=== PATIENT | female | born 1955 | race Caucasian/White ===

== ENCOUNTER 2016-04-27 13:42 | Emergency (ER) ==
[2016-04-27 13:56] VITALS: BP 136/84; TEMP 99.5; BMI 18.4
--- NOTE | 2016-04-27 14:42 | ED.PDOC ---
General ED Provider: Dr. MACARIO ACEVEDO JR Chief Complaint: Respiratory Complaint Stated Complaint: Prod cough x 1 week. Feels "blah." Ears hurt, nasal congestion , sore throat. No appetite. Instructed to take Boost supplement. Smokes less than 1/2 pack cigarettes dly. [ End ]99.5 101 20 91% 136/84 810 Time Seen by Physician: 14:50 Mode of Arrival: Wheelchair Information Source: Patient, Family Exam Limitations: No limitations Primary Care Provider: TANGELA POTTER Nursing and Triage Documentation Reviewed and Agree: No Review of Systems - Review Of Systems Constitutional: Reports: No symptoms Eyes: Reports: No symptoms Ears, Nose, Mouth, Throat: Reports: No symptoms Respiratory: Reports: Cough, Short of air Cardiac: Reports: No symptoms GI: Reports: No symptoms : Reports: No symptoms Musculoskeletal: Reports: No symptoms Skin: Reports: No symptoms Neurological: Reports: No symptoms Endocrine: Reports: No symptoms Hematologic/Lymphatic: Reports: No symptoms All Other Systems: Other Past Medical History - Past Medical History Previously Healthy: No Endocrine: Reports: None Cardiovascular: Reports: Hypertension Respiratory: Reports: COPD Hematological: Reports: Anemia Gastrointestinal: Reports: None Genitourinary: Reports: None Neuro/Psych: Reports: Anxiety, Depression Musculoskeletal: Reports: None Cancer: Reports: None Last Menstrual Period: hysterectomy - Surgical History General Surgical History: Reports: Hysterectomy, (X4), Tonsillectomy, Adenoidectomy, Orthopedic (TOES, KNEE, HAND), Back Surgery (L4 fracture 10/09, ) , Other (EYES-BILATERAL CATARACTS). Denies: CABG (ANGIOPLAST 07/07/15) - Family History Family History: Reports: None - Social History Smoking Status: Current every day smoker, Light tobacco smoker Hx Substance Use: No Alcohol Screening: None Physical Exam - Physical Exam Appearance: Ill-appearing, Thin, Cachectic Ill-appearing: Moderate Pain Distress: Moderate Eyes: INGRID, EOMI, Conjunctiva clear ENT: Ears normal, Nose normal, Oropharynx normal Neck: Supple Respiratory: Airway patent, Breath sounds diminished, Rhonchi Cardiovascular: RRR, Pulses normal, No rub, No murmur GI/: Soft, Nontender, No masses, Bowel sounds normal, No Organomegaly Musculoskeletal: Normal strength, ROM intact, No edema, No calf tenderness Skin: Warm, Dry, Normal color Neurological: Sensation intact, Motor intact, Reflexes intact, Cranial nerves intact, Alert, Oriented Psychiatric: Affect appropriate, Mood appropriate Critical Care Note - Critical Care Note Total Time (mins): 0 Course - Course Hematology/Chemistry: 04/27/16 15:02 04/27/16 15:02 Orders, Labs, Meds: Lab Review 04/27/16 04/27/16 14:45 15:02 WBC 8.91 RBC 4.53 Hgb 13.9 Hct 38.9 MCV 85.9 MCH 30.7 MCHC 35.7 H RDW Coeff of [place] 12.6 Plt Count 167 Immature Gran % (Auto) 0.2 Neut % (Auto) 67.4 Lymph % (Auto) 17.3 [place] % (Auto) 11.4 H Eos % (Auto) 3.4 Baso % (Auto) 0.3 Immature Gran # (Auto) 0.0 Neut # 6.0 Lymph # 1.5 [place] # 1.0 Eos # 0.3 Baso # 0.0 D-Dimer 0.43 Sodium 131 L Potassium 3.4 L Chloride 93 L Carbon Dioxide 27 Anion Gap 14.4 BUN 2 L Creatinine 0.53 L Estimated GFR (MDRD) 117.00 BUN/Creatinine Ratio 3.77 Glucose 107 Calcium 9.2 Total Bilirubin 0.28 AST 14 L ALT 6 L Alkaline Phosphatase 81 Total Protein 6.6 Albumin 3.2 L Globulin 3.4 Albumin/Globulin Ratio 0.94 Influenza A (Rapid) Negative Influenza B (Rapid) Negative Orders Category Date Time Status BLOOD CULTURE Stat LAB 04/27/16 15:02 Received CBC W/ AUTO DIFF Stat LAB 04/27/16 15:02 Completed COMPREHENSIVE METABOLIC PANEL Stat LAB 04/27/16 15:02 Completed D-DIMER Stat LAB 04/27/16 15:02 Completed FLU A & B RAPID TEST [RAPID FLU A/B] Stat LAB 04/27/16 14:45 Completed MOLECULAR GROUP A STREP Stat LAB 04/27/16 14:45 Results SPUTUM CULTURE Stat LAB 04/27/16 15:37 Ordered STREP SCREEN Stat LAB 04/27/16 14:45 Results CHEST, 2 VIEWS PA & LAT Stat RADS 04/27/16 14:49 Completed Vital Signs: Temp Pulse Resp BP Pulse Ox 04/27/16 13:43 99.5 F 101 H 20 136/84 91 L Departure - Departure Time of Disposition: 15:45 Disposition: HOME SELF-CARE Discharge Problem: COPD exacerbation Instructions: COPD (Chronic Obstructive Pulmonary Disease) (ED), Chronic Lung Disease and Infection Prevention (ED) Condition: Fair Pt referred to PMD for follow-up: Yes Additional Instructions: DOXYCYCLINE ANTIBIOTIC UNTIL GONE TAKE ANTIBIOTIC WITH FOOD AVOID SUN AND TANNING BEDS ROBITUSSIN WITH CODEINE (OR ROBITUSSIN DM) FOR COUGH RECHECK PMD ONE WEEK SOONER IF WORSE RETURN IF FEVER OVER 101.0 Prescriptions: Doxycycline Monohydrate [Monodox] 100 mg PO BID #20 capsule Guaifenesin/Codeine Phosphate [Robitussin AC Syrup] 10 ml PO Q6H PRN #240 ml PRN Reason: Cough Prednisone 20 mg PO DIRECTED #50 tablet Allergies/Adverse Reactions: Allergies acetaminophen [From Tylox] Adverse Reaction (Verified 12/05/15 00:27) Iodinated Contrast Media - Oral and [Iodinated Contrast Media - IV Dye] Adverse Reaction (Verified 12/05/15 00:44) Swelling Penicillins Adverse Reaction (Verified 12/05/15 00:27) Sulfa (Sulfonamide Antibiotics) Adverse Reaction (Verified 12/05/15 00:27) Home Medications: Ambulatory Orders Albuterol Sulfate [Proair Hfa] 2 inh PO Q4H PRN 08/21/13 Levetiracetam [Keppra] 500 mg PO BEDTIME 08/21/13 Oxybutynin Chloride [Ditropan Xl] 5 mg PO TID 08/21/13 Latanoprost [Xalatan] 1 drop OP BEDTIME 02/16/14 Atorvastatin Calcium 10 mg PO DAILY 07/24/15 Clopidogrel Bisulfate [Plavix] 75 mg PO DAILY 07/24/15 Ipratropium/Albuterol Sulfate [Combivent Respimat Inhal [place]] 1 puff IH BID Latanoprost [Xalatan] 1 drop RIGHTEYE BEDTIME 07/24/15 Sertraline HCl [Zoloft] 50 mg PO DAILY 07/24/15 Divalproex Sodium [Depakote] 500 mg PO BID 12/05/15 Docusate Sodium [Colace] 100 mg PO DAILY 12/05/15 Linaclotide [Linzess] 145 mcg PO DAILY 12/05/15 Oxycodone-Acetaminophen 5-325 [Percocet 5-325] 5 - 325 mg PO Q6H PRN 12/05/15 Tiotropium Br/Olodaterol HCl [Stiolto Respimat Inhal [place]] 4 gm IH DAILY Doxycycline Monohydrate [Monodox] 100 mg PO BID #20 capsule 04/27/16 Guaifenesin/Codeine Phosphate [Robitussin AC Syrup] 10 ml PO Q6H PRN #240 ml 04/12 Prednisone 20 mg PO DIRECTED #50 tablet 04/27/16
[2016-04-27 15:05] LABS: FLU INTERNAL QC INTERNAL QC VALID; RAPID FLU A NEGATIVE (NEGATIVE); RAPID FLU B NEGATIVE (NEGATIVE)
[2016-04-27 15:06] LABS: BASOPHILS % (AUTO) 0.3 % (0.0-3.0); EOSINOPHILS # (AUTO) 0.3 K/ul (0.0-0.7); EOSINOPHILS % (AUTO) 3.4 % (0.0-7.0); HEMATOCRIT 38.9 % (37.0-47.0); HEMOGLOBIN 13.9 g/dl (12.0-16.0); IMMATURE GRANULOCYTE % (AUTO) 0.2 % (0.0-5.0); LYMPHOCYTES # (AUTO) 1.5 K/uL (0.60-3.4); LYMPHOCYTES % (AUTO) 17.3 (10.0-50.0); MEAN CORPUSCULAR HEMOGLOBIN 30.7 pg (27.0-31.0); MEAN CORPUSCULAR HGB CONC 35.7 (31.8-35.4); MEAN CORPUSCULAR VOLUME 85.9 fl (81.0-99.0); MONOCYTES % (AUTO) 11.4 (0-10); NEUTROPHILS % (AUTO) 67.4; PLATELET COUNT 167 10^3/uL (140-440); RED BLOOD COUNT 4.53 10^6/ul (4.20-5.40); WHITE BLOOD COUNT 8.91 K/ul (4.6-10.2)
--- NOTE | 2016-04-27 15:26 | DI ---
EXAM: CHEST FRONTAL AND LATERAL VIEWS HISTORY: Cough with yellow sputum, chronic obstructive pulmonary disease. COMPARISON: 08/19/2015 FINDINGS: Normal heart size. Significant hyperinflation. Diffuse chronic-appearing interstitial c hanges. Biapical irregular pleuroparenchymal thickening appears grossly stable. There are scattered calcifications suggesting old granulomatous disease. No acute infiltrates are seen. There is no c onsolidation, visible pleural fluid or pneumothorax. Bones reveal no acute fracture. IMPRESSION: 1. Findings suggestive of moderately severe chronic obstructive pulmonary disease. No definite con solidated pneumonia although managing the patient on a clinical basis is recommended. 2. Biapical irregular pleuroparenchymal thickening would be most consistent with fibrosis in this s etting.]
[2016-04-27 15:32] LABS: ALBUMIN 3.2 g/dL (3.4-5.0); ALBUMIN/GLOBULIN RATIO 0.94; ANION GAP 14.4; BILIRUBIN,TOTAL 0.28 mg/dL (0.00-1.20); BUN/CREATININE RATIO 3.77; CALCIUM 9.2 mg/dL (8.2-10.2); CREATININE 0.53 mg/dL (0.60-1.30); POTASSIUM 3.4 mmol/L (3.5-5.10); TOTAL PROTEIN 6.6 g/dL (5.8-8.1)
== END 2016-04-27 15:50 | disposition home or self-care (01) ==
LOC: ED 13:42
DX: J44.1 Chronic obstructive pulmonary disease with (acute) exacerbation (principal); F17.210 Nicotine dependence, cigarettes, uncomplicated; I10 Essential (primary) hypertension; Z79.899 Other long term (current) drug therapy
CPT/HCPCS: 36415; 80053; 85025; 85379; 87040; 87070; 87077; 87186; 87651; 87804; 87880; 99283

== ENCOUNTER 2017-03-21 22:35 | Emergency (ER) ==
[2017-03-21] MEDS ORDERED: LIDOCAINE HCL 1% SDV SUBCUT STA (22:36)
[2017-03-21] MEDS ORDERED: BACTROBAN TP STA (22:40)
--- NOTE | 2017-03-21 22:43 | ED.PDOC ---
General ED Provider: Dr. MANJU ALEXANDER-ER Chief Complaint: Abrasion Stated Complaint: she was scratched by her dog on her hand Time Seen by Physician: 22:41 Mode of Arrival: Walk-In Information Source: Patient, Family Exam Limitations: No limitations Nursing and Triage Documentation Reviewed and Agree: Yes Reviewed sepsis parameters & appropriate labs ordered?: Yes System Inflammatory Response Syndrome: Not Applicable Sepsis Protocol: For patient's 13 years and over: Temp is 96.8 and below OR 101 and greater Pulse >90 BPM Resp >20/minute Acutely Altered Mental Status Are patient's symptoms suggestive of a new infection, such as: -Pneumonia -Skin, Soft Tissue -Endocarditis -UTI -Bone, Joint Infection -Implantable Device -Acute Abdominal Infection -Wound Infection -Meningitis -Blood Stream Catheter Infection -Unknown Review of Systems - Review Of Systems Constitutional: Reports: No symptoms Eyes: Reports: No symptoms Ears, Nose, Mouth, Throat: Reports: No symptoms Respiratory: Reports: No symptoms Cardiac: Reports: No symptoms GI: Reports: No symptoms : Reports: No symptoms Musculoskeletal: Reports: No symptoms Skin: Reports: Other Neurological: Reports: No symptoms Endocrine: Reports: No symptoms Hematologic/Lymphatic: Reports: No symptoms All Other Systems: Reviewed and Negative Past Medical History - Past Medical History Previously Healthy: No Endocrine: Reports: None Cardiovascular: Reports: Hypertension Respiratory: Reports: COPD Hematological: Reports: Anemia Gastrointestinal: Reports: None Genitourinary: Reports: None Neuro/Psych: Reports: Anxiety, Depression Musculoskeletal: Reports: None Cancer: Reports: None Other Pertinent Past Medical History: TOES, KNEE, TONSILLS/ADENOIDS, X 4, EYES, HAND, - Surgical History General Surgical History: Reports: Hysterectomy, (X4), Tonsillectomy, Adenoidectomy, Orthopedic (TOES, KNEE, HAND), Back Surgery (L4 fracture 10/09, ) , Other (EYES-BILATERAL CATARACTS). Denies: CABG (ANGIOPLAST 07/07/15) - Family History Family History: Reports: None - Social History Smoking Status: Current every day smoker, Light tobacco smoker Hx Substance Use: No Alcohol Screening: None Lives: With family Physical Exam - Physical Exam Appearance: Well-appearing, No pain distress, Well-nourished Pain Distress: Mild Eyes: INGRID, EOMI, Conjunctiva clear ENT: Ears normal, Nose normal, Oropharynx normal Neck: Supple Respiratory: Airway patent, Breath sounds clear, Breath sounds equal, Respirations nonlabored Cardiovascular: RRR, Pulses normal, No rub, No murmur GI/: Soft, Nontender, No masses, Bowel sounds normal, No Organomegaly Musculoskeletal: Normal strength Skin: Warm, Dry (she has a 3cm linear abrasion on the dorsum of the left hand) Neurological: Sensation intact Psychiatric: Affect appropriate Critical Care Note - Critical Care Note Total Time (mins): 0 Course - Course Orders, Labs, Meds: Orders Category Date Time Status Wound care [ED WOUND CARE] .ONCE EMERGENCY 03/21/17 22:39 Active Mupirocin [Bactroban] MEDS 03/21/17 22:40 Stat 1 applic TP ONCE STA Medications Generic Name Dose Route Start Last Admin Trade Name Freq PRN Reason Stop Dose Admin Mupirocin 1 applic 03/21/17 22:40 Bactroban TP 03/21/17 22:41 ONCE STA Departure - Departure Time of Disposition: 22:42 Disposition: HOME SELF-CARE Discharge Problem: Abrasion Instructions: Steristrips (ED) Condition: Good Pt referred to PMD for follow-up: Yes Additional Instructions: keep wound clean and dry--wash with soap and water daily and apply bactroban ointment till healed Allergies/Adverse Reactions: Allergies acetaminophen [From Tylox] Adverse Reaction (Verified 12/05/15 00:27) Iodinated Contrast- Oral and IV Dye [Iodinated Contrast Media - IV Dye] Adverse Reaction (Verified 12/05/15 00:44) Swelling Penicillins Adverse Reaction (Verified 12/05/15 00:27) Sulfa (Sulfonamide Antibiotics) Adverse Reaction (Verified 12/05/15 00:27) Home Medications: Ambulatory Orders Albuterol Sulfate [Proair Hfa] 2 inh PO Q4H PRN 08/21/13 Levetiracetam [Keppra] 500 mg PO BEDTIME 08/21/13 Oxybutynin Chloride [Ditropan Xl] 5 mg PO TID 08/21/13 Latanoprost [Xalatan] 1 drop OP BEDTIME 02/16/14 Atorvastatin Calcium 10 mg PO DAILY 07/24/15 Clopidogrel Bisulfate [Plavix] 75 mg PO DAILY 07/24/15 Ipratropium/Albuterol Sulfate [Combivent Respimat Inhal [place]] 1 puff IH BID Latanoprost [Xalatan] 1 drop RIGHTEYE BEDTIME 07/24/15 Sertraline HCl [Zoloft] 50 mg PO DAILY 07/24/15 Divalproex Sodium [Depakote] 500 mg PO BID 12/05/15 Docusate Sodium [Colace] 100 mg PO DAILY 12/05/15 Linaclotide [Linzess] 145 mcg PO DAILY 12/05/15 Oxycodone-Acetaminophen 5-325 [Percocet 5-325] 5 - 325 mg PO Q6H PRN 12/05/15 Tiotropium Br/Olodaterol HCl [Stiolto Respimat Inhal [place]] 4 gm IH DAILY Doxycycline Monohydrate [Monodox] 100 mg PO BID #20 capsule 04/27/16 Guaifenesin/Codeine Phosphate [Robitussin AC Syrup] 10 ml PO Q6H PRN #240 ml 04/12 Prednisone 20 mg PO DIRECTED #50 tablet 04/27/16 Disposition Discussed With: Patient, Family
[2017-03-21 22:51] VITALS: BP 150/88; TEMP 97.5; BMI 19.5
[2017-03-21] MEDS ORDERED: BACTROBAN OINTMENT 1 GRAM APPLICATOR TP ONE (22:57)
== END 2017-03-21 23:29 | disposition home or self-care (01) ==
LOC: ED 22:35
DX: S60.512A Abrasion of left hand, initial encounter (principal); F17.210 Nicotine dependence, cigarettes, uncomplicated; W54.8XXA Other contact with dog, initial encounter
CPT/HCPCS: 99283

== ENCOUNTER 2017-05-06 22:06 | Outpatient (CLI) ==
[2017-05-07 02:37] VITALS: BMI 17.6
== END 2017-05-06 22:07 | disposition critical access hospital (66) ==
LOC: AMBL 22:06
PROVIDERS: ATTEND Emergency Medicine
DX: R06.02 Shortness of breath (principal); J44.9 Chronic obstructive pulmonary disease, unspecified

== ENCOUNTER 2017-05-06 22:20 | Inpatient (IN) ==
[2017-05-06] MEDS ORDERED: SOLU-MEDROL 125 MG IVP STA (22:35)
[2017-05-06] MEDS ORDERED: DUONEB NEB STA (22:35)
--- NOTE | 2017-05-07 | ED.PDOC ---
General ED Provider: Dr. ALEXX ZAMORA Chief Complaint: Shortness of Air Stated Complaint: Been coughing, congested, getting yellow sputum,. home health took o2 2lit away, she got more worse. Time Seen by Physician: 22:20 Mode of Arrival: Ambulance Information Source: Patient Nursing and Triage Documentation Reviewed and Agree: Yes Reviewed sepsis parameters & appropriate labs ordered?: Yes System Inflammatory Response Syndrome: Pulse >90 BPM, Resp >20/Minute Sepsis Protocol: For patient's 13 years and over: Temp is 96.8 and below OR 101 and greater Pulse >90 BPM Resp >20/minute Acutely Altered Mental Status Are patient's symptoms suggestive of a new infection, such as: -Pneumonia -Skin, Soft Tissue -Endocarditis -UTI -Bone, Joint Infection -Implantable Device -Acute Abdominal Infection -Wound Infection -Meningitis -Blood Stream Catheter Infection -Unknown Respiratory Complaint Exam - Shortness of Air Complaint/Exam Symptoms Are: Still present Timing: Constant Initial Severity: Moderate Current Severity: Moderate Character: Reports: Dyspnea at rest, Dyspnea on exertion Aggravating: Reports: Allergens Alleviating: Reports: None Associated Signs and Symptoms: Reports: Cough, Wheezing, Nasal congestion. Denies: Chest pain with cough, Chest pain, Fever, Chills, Diaphoresis, Dizziness , Calf pain, Calf swelling, Edema, Rapid breathing, Labored breathing, Decreased intake Related History: Reports: Similar episode History of Healthcare-Acquired Pneumonia: No Pulmonary Embolism Risk Factors: Reports: None Cardiac Risk Factors: Reports: None Pseudomonas Risk Factors: Reports: None Tuberculosis Risk Factors: Reports: None Home Peak Flow: Recent personal best Recent Stress Test: No Recent Echo/LV Function: No Respiratory Distress: Mild Stridor Present: No Tracheal Deviation: No Subcutaneous Emphysema: No Accessory Muscle Use: Yes Retractions: Nasal Flaring Diminished Breath Sounds: No Prolonged Expiratory Phase: Yes Unable to Speak Full Sentences: Yes Fatigue: No Leg Swelling: No Patrica's Sign Present: No Grunting Respirations: No Kussmaul Respirations: No Differential Diagnoses: CHF, COPD Exacerbation, Pneumonia Review of Systems - Review Of Systems Constitutional: Reports: Malaise, Weakness Eyes: Reports: No symptoms Ears, Nose, Mouth, Throat: Reports: No symptoms Respiratory: Reports: Cough, Orthopnea, Short of air Cardiac: Reports: No symptoms GI: Reports: No symptoms : Reports: No symptoms Musculoskeletal: Reports: No symptoms Skin: Reports: No symptoms Neurological: Reports: No symptoms Endocrine: Reports: No symptoms Hematologic/Lymphatic: Reports: No symptoms All Other Systems: Reviewed and Negative Past Medical History - Past Medical History Previously Healthy: No Endocrine: Reports: None Cardiovascular: Reports: Hypertension Respiratory: Reports: COPD Hematological: Reports: Anemia Gastrointestinal: Reports: None Genitourinary: Reports: None Neuro/Psych: Reports: Anxiety, Depression Musculoskeletal: Reports: None Cancer: Reports: None Last Menstrual Period: UNKNOWN Other Pertinent Past Medical History: TOES, KNEE, TONSILLS/ADENOIDS, X 4, EYES, HAND, - Surgical History General Surgical History: Reports: Hysterectomy, (X4), Tonsillectomy, Adenoidectomy, Orthopedic (TOES, KNEE, HAND), Back Surgery (L4 fracture 10/09, ) , Other (EYES-BILATERAL CATARACTS). Denies: CABG (ANGIOPLAST 07/07/15) - Family History Family History: Reports: None - Social History Smoking Status: Current every day smoker, Light tobacco smoker Smoking Cessation Counseling Time: > 10 min Hx Substance Use: No Alcohol Screening: None - Immunizations Tetanus Shot up to Date: (UNKNOWN) Physical Exam - Physical Exam Appearance: Ill-appearing, Thin Ill-appearing: Moderate Eyes: EOMI, Conjunctiva clear ENT: Ears normal, Nose normal, Oropharynx normal Respiratory: Crackles Cardiovascular: Tachycardia GI/: Soft, Nontender, No masses, Bowel sounds normal, No Organomegaly Musculoskeletal: Normal strength, ROM intact, No edema, No calf tenderness Skin: Warm, Dry, Normal color Neurological: Sensation intact, Motor intact, Reflexes intact, Cranial nerves intact, Alert, Oriented Psychiatric: Affect appropriate, Mood appropriate Critical Care Note - Critical Care Note Total Time (mins): 15 Course - Course Hematology/Chemistry: 05/06/17 22:45 05/06/17 22:45 Orders, Labs, Meds: Lab Review 05/06/17 05/06/17 05/06/17 22:45 22:45 22:45 WBC 10.40 H RBC 4.30 Hgb 13.2 Hct 36.8 L MCV 85.6 MCH 30.7 MCHC 35.9 H RDW Coeff of [place] 12.9 Plt Count 244 Neutrophils % (Manual) 68.0 Lymphocytes % (Manual) 6.0 L Monocytes % (Manual) 26.0 H Anisocytosis Not present Puncture Site O2 Saturation ABG pH ABG pCO2 ABG pO2 ABG HCO3 ABG Total CO2 ABG Base Excess Ray Test FiO2 % Sodium 126 L Potassium 3.1 L Chloride 88 L Carbon Dioxide 26 Anion Gap 15.1 BUN 7 Creatinine 0.51 L Estimated GFR (MDRD) 122.00 BUN/Creatinine Ratio 13.72 Glucose 110 Lactic Acid 13.9 Calcium 9.2 Total Bilirubin 0.6 AST 28 ALT 10 L Alkaline Phosphatase 78 Total Creatine Kinase 98 Troponin I 0.0200 Total Protein 6.6 Albumin 2.5 L Globulin 4.1 Albumin/Globulin Ratio 0.61 Procalcitonin Influenza A (Rapid) Influenza B (Rapid) 05/06/17 05/06/17 05/06/17 22:45 22:50 23:13 WBC RBC Hgb Hct MCV MCH MCHC RDW Coeff of [place] Plt Count Neutrophils % (Manual) Lymphocytes % (Manual) Monocytes % (Manual) Anisocytosis Puncture Site Lb O2 Saturation 85.0 L ABG pH 7.429 ABG pCO2 41.0 ABG pO2 49.0 L* ABG HCO3 27.1 H ABG Total CO2 28 ABG Base Excess 3 H Ray Test + FiO2 % 21.0 Sodium Potassium Chloride Carbon Dioxide Anion Gap BUN Creatinine Estimated GFR (MDRD) BUN/Creatinine Ratio Glucose Lactic Acid Calcium Total Bilirubin AST ALT Alkaline Phosphatase Total Creatine Kinase Troponin I Total Protein Albumin Globulin Albumin/Globulin Ratio Procalcitonin 0.12 Influenza A (Rapid) Negative by naat Influenza B (Rapid) Negative by naat Orders Category Date Time Status ABG DRAW REQUEST Stat CARDIO 05/06/17 23:13 Completed EKG-(ED ONLY) Stat CARDIO 05/06/17 23:21 Completed NEBULIZER TREATMENT Stat CARDIO 05/06/17 22:36 Completed ED IV/MEDIPORT/POWERPORT .ONCE EMERGENCY 05/06/17 23:00 Active ABG Stat LAB 05/06/17 23:13 Completed BLOOD CULTURE Stat LAB 05/06/17 22:45 Received CBC W/ AUTO DIFF Stat LAB 05/06/17 22:45 Completed COMPREHENSIVE METABOLIC PANEL Stat LAB 05/06/17 22:45 Completed CREATINE KINASE Stat LAB 05/06/17 22:45 Completed FLU A/B MOLECULAR Stat LAB 05/06/17 22:50 Completed LACTIC ACID Stat LAB 05/06/17 22:45 Completed MANUAL DIFFERENTIAL Stat LAB 05/06/17 22:45 Completed MOLECULAR GROUP A STREP Stat LAB 05/06/17 22:35 Completed PROCALCITONIN Stat LAB 05/06/17 22:45 Completed TROPONIN I Stat LAB 05/06/17 22:45 Completed 0.9 % Sodium Chloride [Saline Flush] MEDS 05/06/17 23:00 Ordered 1 syr IVF PRN PRN Ipratropium/Albuterol Neb [Duoneb] MEDS 05/06/17 22:35 Discontinued 1 vial NEB ONCE STA Methylprednisolone Sod Succ/Pf [Solu-Medrol 125 mg] MEDS 05/06/17 22:35 Discontinued 80 [address] IVP ONCE STA CT CHEST W/O CONTRAST Stat RADS 05/06/17 22:35 Ordered Medications Generic Name Dose Route Start Last Admin Trade Name Freq PRN Reason Stop Dose Admin Sodium Chloride 1 syr 05/06/17 23:00 05/06/17 23:02 Saline Flush IVF 1 syr PRN PRN Administration To flush IV Discontinued Medications Generic Name Dose Route Start Last Admin Trade Name Freq PRN Reason Stop Dose Admin Albuterol/Ipratropium 1 vial 05/06/17 22:35 05/06/17 23:07 Duoneb NEB 05/06/17 22:36 1 vial ONCE STA Administration Methylprednisolone Sodium Succinate 80 mg 05/06/17 22:35 05/06/17 23:02 Solu-Medrol 125 Mg IVP 05/06/17 22:36 80 mg ONCE STA Administration Vital Signs: Temp Pulse Resp BP Pulse Ox 05/06/17 22:23 99.6 F 121 H 36 H 116/73 82 L Departure - Departure Time of Disposition: 23:45 Disposition: ADMITTED INPATIENT Discharge Problem: Acute hypoxemic respiratory failure, COPD exacerbation Instructions: COPD (Chronic Obstructive Pulmonary Disease) (ED) Condition: Stable Pt referred to PMD for follow-up: No IPMP verified?: No Allergies/Adverse Reactions: Allergies acetaminophen [From Tylox] Adverse Reaction (Verified 05/06/17 22:32) Iodinated Contrast- Oral and IV Dye [Iodinated Contrast Media - IV Dye] Adverse Reaction (Verified 05/06/17 22:32) Swelling Penicillins Adverse Reaction (Verified 05/06/17 22:32) Sulfa (Sulfonamide Antibiotics) Adverse Reaction (Verified 05/06/17 22:32) Home Medications: Ambulatory Orders Albuterol Sulfate [Proair Hfa] 2 inh PO Q4H PRN 08/21/13 Levetiracetam [Keppra] 500 mg PO BEDTIME 08/21/13 Oxybutynin Chloride [Ditropan Xl] 5 mg PO TID 08/21/13 Latanoprost [Xalatan] 1 drop OP BEDTIME 02/16/14 Atorvastatin Calcium 10 mg PO DAILY 07/24/15 Clopidogrel Bisulfate [Plavix] 75 mg PO DAILY 07/24/15 Ipratropium/Albuterol Sulfate [Combivent Respimat Inhal [place]] 1 puff IH BID Latanoprost [Xalatan] 1 drop RIGHTEYE BEDTIME 07/24/15 Sertraline HCl [Zoloft] 50 mg PO DAILY 07/24/15 Divalproex Sodium [Depakote] 500 mg PO BID 12/05/15 Docusate Sodium [Colace] 100 mg PO DAILY 12/05/15 Linaclotide [Linzess] 145 mcg PO DAILY 12/05/15 Oxycodone-Acetaminophen 5-325 [Percocet 5-325] 5 - 325 mg PO Q6H PRN 12/05/15 Tiotropium Br/Olodaterol HCl [Stiolto Respimat Inhal [place]] 4 gm IH DAILY Doxycycline Monohydrate [Monodox] 100 mg PO BID #20 capsule 04/27/16 Guaifenesin/Codeine Phosphate [Robitussin AC Syrup] 10 ml PO Q6H PRN #240 ml 04/12 Prednisone 20 mg PO DIRECTED #50 tablet 04/27/16 Disposition Discussed With: Patient, Family
[2017-05-07] MEDS ORDERED: TYLENOL PO PRN (00:02)
[2017-05-07] MEDS ORDERED: ROCEPHIN ONE (00:23)
[2017-05-07] MEDS ORDERED: SODIUM CHLORIDE 1,000 ML IV SCH (00:30)
[2017-05-07] MEDS ORDERED: ROCEPHIN 1 GM in SODIUM CHLORIDE 50 ML IV SCH ×2 (00:30→21:00)
--- NOTE | 2017-05-07 01:18 | CT ---
EXAM: CT chest without intravenous contrast 05/07/2017. Sagittal and coronal reformatted images obt ained HISTORY: Shortness of a air COMPARISON: 04/27/2016, 12/05/2015, 02/16/2014 FINDINGS: Partially nondiagnostic examination due to the severity of motion. The heart size appears within normal limits. No pericardial effusion. Chronic bilateral apical scarring. No artery with scarring shows long-term stability Nodular consolidation throughout the right lung base likely due to pneumonia. IMPRESSION: 1. Right basilar nodular consolidation likely due to pneumonia. 2. Chronic apical scarring. 3. Severe motion artifact. The examination is partially nondiagnostic. Repeat examination may be o f benefit when clinically appropriate.
[2017-05-07] MEDS ORDERED: ALBUTEROL 0.083% NEB NEB PRN (01:53)
[2017-05-07 02:37] VITALS: BMI 17.6
[2017-05-07] MEDS: XOPENEX 1.25 MG NEB SCH ×4 (04:48→22:40)
[2017-05-07] MEDS ORDERED: LANOXIN IVP STA ×2 (05:28)
[2017-05-07] MEDS ORDERED: POTASSIUM CHLORIDE PREMIX RUN 10 MEQ in PREMIX 100 ML WATER 1 BAG IV STA ×2 (06:17→06:18)
[2017-05-07] MEDS ORDERED: K-DUR PO STA ×2 (06:19→15:02)
[2017-05-07] MEDS ORDERED: POTASSIUM CHLORIDE PREMIX RUN 200 ML IV ONE (06:59)
[2017-05-07] MEDS ORDERED: LASIX IVP STA (07:50)
[2017-05-07] MEDS ORDERED: LOVENOX SUBCUT SCH ×2 (09:00)
[2017-05-07] MEDS: COLACE PO SCH ×2 (10:10→20:17)
[2017-05-07] MEDS: DEPAKOTE PO SCH ×2 (10:10→20:17)
[2017-05-07] MEDS: DITROPAN PO SCH ×2 (10:11→20:17)
[2017-05-07] MEDS: LIPITOR PO SCH (10:11)
[2017-05-07] MEDS: ZOLOFT PO SCH (10:12)
[2017-05-07] MEDS: PLAVIX PO SCH (10:12)
[2017-05-07] MEDS: NICODERM 21 MG TD SCH (10:13)
[2017-05-07] MEDS: LOVENOX SUBCUT SCH ×2 (10:22→20:17)
[2017-05-07] MEDS: SPIRIVA IH SCH (10:22)
[2017-05-07] MEDS: LANOXIN PO SCH (12:17)
[2017-05-07] MEDS ORDERED: SOLU-MEDROL 40 MG IVP SCH (13:00)
[2017-05-07] MEDS: SOLU-MEDROL 125 MG IVP SCH ×2 (13:29→20:18)
[2017-05-07] MEDS ORDERED: XALATAN OP SCH (21:00)
[2017-05-07] MEDS ORDERED: KEPPRA PO SCH (21:00)
[2017-05-08] MEDS: SOLU-MEDROL 125 MG IVP SCH ×2 (04:20→13:32)
[2017-05-08] MEDS: XOPENEX 1.25 MG NEB SCH ×2 (04:30→11:19)
[2017-05-08 05:46] VITALS: TEMP 98.3
[2017-05-08] MEDS: SPIRIVA IH SCH (09:26)
[2017-05-08] MEDS: LOVENOX SUBCUT SCH (09:26)
[2017-05-08] MEDS: COLACE PO SCH (09:27)
[2017-05-08] MEDS: ZOLOFT PO SCH (09:27)
[2017-05-08] MEDS: DEPAKOTE PO SCH (09:27)
[2017-05-08] MEDS: LIPITOR PO SCH (09:27)
[2017-05-08] MEDS: PLAVIX PO SCH (09:28)
[2017-05-08] MEDS: LANOXIN PO SCH (09:28)
[2017-05-08] MEDS: DITROPAN PO SCH (09:28)
[2017-05-08] MEDS: NICODERM 21 MG TD SCH (09:29)
--- NOTE | 2017-05-08 09:41 | NM ---
EXAM: Ventilation-perfusion lung scan HISTORY: Elevated D-dimer COMPARISON: No recent chest x-ray. CT of the chest without contrast on 05/07/2017 showed nodular con solidation right base. Chronic apical scarring. TECHNIQUE: Patient was injected 5 mCi of technetium 99m labeled MAA intravenously. The patient was g iven 32.4 mCi of technetium 99m DTPA aerosol for ventilation imaging. FINDINGS: Symmetrically diminished perfusion is noted in both apical areas most likely physiologic or due to obstructive disease. No other perfusion abnormality is identified. Aerosol distribution is very heterogeneous in both lung jefferson throughout. IMPRESSION: Chronic obstructive pulmonary disease. Low probability of pulmonary embolism.
[2017-05-08 12:17] VITALS: BP 132/90
[2017-05-08] MEDS ORDERED: ZOFRAN 4 MG/2 ML IVP PRN (13:22)
[2017-05-08] MEDS ORDERED: ZOFRAN 4 MG/2 ML IVP STA (13:22)
--- NOTE | 2017-05-08 15:12 | PN ---
DATE OF SERVICE: 05/07/17 SUBJECTIVE: The patient was admitted from the ER yesterday night for COPD exacerbation and pneumonia. The patient had an over night development of the atrial fibrillation with rapid ventricular rate. Rate went up to the 180's. We have to give Digoxin IV push 0.25mg which did bring her heart rate to the 100's now, still irregular. Saturation is 41% venturi mask maintaining around 90-91%. No restless on the bed and resting quietly. REVIEW OF SYSTEMS: CONSTITUTIONAL: No fever, no chills. HEENT: Normal. ENDOCRINE: No weight gain, no weight loss. CVS: No angina symptoms. No CHF symptoms. No palpitations. No atypical chest pain for CAD. No shortness of breath. No PND, no orthopnea. RESPIRATORY: No cough, no hemoptysis. GI: No nausea, no vomiting. No abdominal pain. : No hematuria. No polyuria. MUSCULOSKELETAL: No joint swelling. PSYCHIATRIC: Not anxious. No depression. No suicidal thoughts. No homicidal thoughts. SKIN: Intact. No rash. PHYSICAL EXAMINATION: V/S: Blood pressure 107/71, respiratory rate 40, heart rate 173, temperature 97.6 with saturation is 91 on 2 liters. GENERAL: Cachetic lady laying in the bed. HEENT: Normocephalic, atraumatic. Mucosa dry. Pallor positive. No icterus. NECK: Supple. No JVD, no carotid bruit. No lymphadenopathy. LUNGS: Decreased with basilar crackles. No wheezing. No rales or rhonchi. HEART: S1, S2 normal. No S3. No murmur, gallop or regurgitation. ABDOMEN: Soft, nontender. Bowel sounds active. No rigidity. No rebound or guarding. No CVA tenderness. EXTREMITIES: No pedal edema. No clubbing or cyanosis MUSCULOSKELETAL: No joint swelling. NEUROLOGIC: Awake, alert, oriented times three. No focal deficit. LYMPHATIC: No lymph nodes palpable. SKIN: Intact. LABS: WBC 9.56, hgb 12.5, hct 34.2, plt count 218, sodium 133, potassium 2.8, chloride 192, bicarb 28, BUN 5, creatinine 0.54, glucose 154. ASSESSMENT: 1. Acute hypoxemic respiratory failure 2. Community acquired pneumonia 3. Elevated D-dimer 4. Hypokalemia 5. History of COPD, oxygen dependent 6. Hypertension 7. Dyslipidemia PLAN: 1. Will increase the Lovenox to 40mg twice a day 2. Lasix 40mg IV push 3. Stop the IV fluids 4. Continue the Continue the Potassium run 5. Will move the patient to the ICU treating empirically for the pulmonary embolism at the given time TIME SPENT: More than 35-40 minutes which is critical care time. MTDD
--- NOTE | 2017-05-19 14:44 | DS ---
DATE OF SERVICE: 05/08/17 FINAL DIAGNOSIS: 1. HYPOXEMIC RESPIRATORY FAILURE 2. COMMUNITY ACQUIRED PNEUMONIA 3. COPD, OXYGEN DEPENDENT 4. CACHEXIA 5. CAD 6. ANGINA 7. TIA 8. GERD 9. HYSTERECTOMY DISCHARGE INSTRUCTIONS: Discharge the patient home. Followup with Dr. Armenta; followup with Dr. Charlotte Cee within one week. MEDICATIONS AT DISCHARGE: Albuterol Atrovent Plavix Eyedrops Depakote Colace Xalatan Keppra Ditropan Zoloft Spiriva History of seizure disorder - lately none NEW PRESCRIPTIONS: Keflex 500 mg twice a day Prednisone DIET INSTRUCTIONS: Cardiac and healthy ACTIVITY: As much as tolerated SMOKING: Smoker DISEASE SPECIFIC EDUCATION: COPD Pneumonia Pneumonia vaccination discussed Antibiotic use and diarrhea discussed HOSPITAL COURSE: This is a 61-year-old female with history of severe COPD, oxygen dependent. The patient usually takes oxygen but somehow there was miscommunication with her and the PMD. They did not extend the oxygen on Monday. Home Health Care workers came and took the oxygen off. She started having cough and congestion, came to the emergency room. She was seen by me in the ER. D. Dimer was 3,000. ABG showed pH 7.429, pc02 41, p02 49. The patient then went into atrial fibrillation, was started on Digoxin. Digitalis level has been checked, less than 0.30. Serology being checked. In view of elevated D. Dimer we could not do the CT with PE protocol as the patient was allergic to the contrast. This morning did the VQ scan which showed very low probability. At that time, discharge plan was made. As the patient was newly diagnosed with atrial fibrillation, will start on Eliquis. Continuing the home medications; starting on antibiotic Keflex, Prednisone and Digoxin. Medication side effects have been discussed with the patient, verbalized understanding. The patient will be seen by me one time next week within 10 days. As a lot of medications have been changed, I want to talk with her personally. TIME SPENT: MORE THAN 65 MINUTES MTDD
== END 2017-05-08 15:15 | disposition home or self-care (01) | DRG 189 ==
LOC: ED 22:20 → MEDSURG B 05-07 01:27 → SCU 05-07 08:03
PROVIDERS: ADMIT Emergency Medicine; ATTEND Emergency Medicine
DX: J96.01 Acute respiratory failure with hypoxia (principal); J18.9 Pneumonia, unspecified organism; R64 Cachexia; G45.9 Transient cerebral ischemic attack, unspecified; J44.9 Chronic obstructive pulmonary disease, unspecified; Z99.81 Dependence on supplemental oxygen; E87.6 Hypokalemia; I25.119 Atherosclerotic heart disease of native coronary artery with unspecified angina pectoris; K21.9 Gastro-esophageal reflux disease without esophagitis; I48.91 Unspecified atrial fibrillation; Z79.01 Long term (current) use of anticoagulants; E78.5 Hyperlipidemia, unspecified; Z72.0 Tobacco use; I10 Essential (primary) hypertension; F41.8 Other specified anxiety disorders; R05 Cough
CPT/HCPCS: 36415; 80053; 80162; 80164; 82550; 82803; 83605; 83880; 84132; 84145; 84439; 84443; 84484; 85007; 85025; 85379; 87040; 87502; 87651; 93005; 93010; 94640; 94761; 96365; 96375; 97802; 99284

== ENCOUNTER 2017-05-18 18:44 | Outpatient (CLI) | END 2017-05-18 18:45 | disposition short-term general hospital (02) | LOC: AMBL 18:44 | PROVIDERS: ATTEND Emergency Medicine | DX: R07.1 Chest pain on breathing (principal); R06.2 Wheezing; I48.91 Unspecified atrial fibrillation; R05 Cough; J44.9 Chronic obstructive pulmonary disease, unspecified; Z99.81 Dependence on supplemental oxygen ==

== ENCOUNTER 2017-05-24 14:28 | Outpatient (CLI) ==
--- NOTE | 2017-05-24 16:45 | DI ---
EXAM: PA and lateral views of the chest HISTORY: Dyspnea COMPARISON: Chest x-ray 04/27/[address] chest 05/07/2017 FINDINGS: The cardiomediastinal silhouette is normal. There is no pneumothorax or pleural effusion. There is no consolidation, nodule or mass. The lungs are hyperinflated with architectural distortio n. There is mild apical pleural thickening. The osseous structures demonstrate degenerative disease of the spine with stable lower thoracic spine compression deformity and new upper lumbar spine compre ssion deformity when compared to 05/07/2017. IMPRESSION: 1. No acute consolidation with findings consistent with chronic obstructive pulmonary disease. 2. Degenerative disease of the spine and new compression deformity in the upper lumbar spine not pre sent on 05/07/2017.
--- NOTE | 2017-05-24 16:47 | DI ---
EXAM: Lumbar spine five views HISTORY: Back pain FINDINGS: The bones are less than optimally seen secondary to excessive superimposed bowel gas and pr obable generalized demineralization. There is deformity of the inferior endplate of L4 which is stab le since prior CT abdomen and pelvis dated 12/05/2015. There is deformity of the superior endplate a t L1 which is new since the prior CT although age of this finding is indeterminate. Loss of height a t this vertebral body is estimated at about 20%. No retropulsion. No spondylolisthesis. No visible scoliosis. Sacroiliac joints have mild arthropathy. No pars defect is identified. IMPRESSION: 1. Vertebral body deformities as described including L4 which inferior endplate is stable and at azeem roximately 20% vertebral body height loss anteriorly. There is a newly developed (since 2016 CT) sup erior endplate deformity at L1 which is age indeterminate and also about 20%. No retropulsion.
== END 2017-05-24 14:29 | disposition home or self-care (01) ==
LOC: RAD 14:28
PROVIDERS: ATTEND Physician Assistant
DX: M54.5 Low back pain (principal); R06.00 Dyspnea, unspecified

== ENCOUNTER 2017-05-31 11:12 | Outpatient (CLI) ==
--- NOTE | 2017-05-31 12:24 | DI ---
EXAM: Single view of the abdomen HISTORY: Constipation. COMPARISON: KUB 03/17/2059 CT abdomen pelvis 12/05/2015 FINDINGS: There is stool and gas scattered throughout the colon and into the distal rectum. There is no pneumatosis, free air or portal venous gas. There is no abnormal calcification. The osseous str uctures are unremarkable. IMPRESSION: Scattered stool and gas throughout the colon and into the pelvis suggestive of constipat ion.
== END 2017-05-31 11:13 | disposition home or self-care (01) ==
LOC: LAB 11:12
PROVIDERS: ATTEND Physician Assistant
DX: R07.9 Chest pain, unspecified (principal); Z51.81 Encounter for therapeutic drug level monitoring; K59.00 Constipation, unspecified
CPT/HCPCS: 36415; 80053; 80162; 83605; 83880; 85025; 93005; 93010

== ENCOUNTER 2017-06-03 13:21 | Inpatient (IN) ==
--- NOTE | 2017-06-03 13:55 | ED.PDOC ---
General ED Provider: Dr. MAJNU GONZALEZ Chief Complaint: Constipation Stated Complaint: Patients daughter reports the patient has not been successful in having Bowel Movement since her discharge from this hospital 1 month ago. Has tried Fleets suppository, mag citrate, laxatives as well as Magneium Citrate x 1 bottle yesterday afternoon without relief.She was informted by her primary provider Esme WILLINGHAM that if she had not been successful by weekend to come to the ER. Patient C/O abd swelling/ pain. She is scheduled for back surg at [facility] on 06/06 or . Time Seen by Physician: 13:45 Mode of Arrival: Wheelchair Information Source: Patient, Family Primary Care Provider: ESME ALBARRAN Nursing and Triage Documentation Reviewed and Agree: Yes Reviewed sepsis parameters & appropriate labs ordered?: Yes System Inflammatory Response Syndrome: Not Applicable Sepsis Protocol: For patient's 13 years and over: Temp is 96.8 and below OR 101 and greater Pulse >90 BPM Resp >20/minute Acutely Altered Mental Status Are patient's symptoms suggestive of a new infection, such as: -Pneumonia -Skin, Soft Tissue -Endocarditis -UTI -Bone, Joint Infection -Implantable Device -Acute Abdominal Infection -Wound Infection -Meningitis -Blood Stream Catheter Infection -Unknown System Inflammatory Response Syndrome: Not Applicable GI Complaint Exam - Abdominal Pain Complaint/Exam Onset: Gradual Symptoms Are: Still present Timing: Constant Initial Severity: Moderate Current Severity: Moderate Location of Pain: Diffuse Character: Reports: Cramping Aggravating: Reports: Eating Alleviating: Reports: None Associated Signs and Symptoms: Reports: Constipation AAA Risk Factors: Reports: Atherosclerosis Rectal Exam: Present: Mass (LARGE BOLUS OF RETAINED STOOL) Differential Diagnoses: Constipation Review of Systems - Review Of Systems Constitutional: Reports: Weakness Eyes: Reports: No symptoms Ears, Nose, Mouth, Throat: Reports: No symptoms Respiratory: Reports: No symptoms Cardiac: Reports: No symptoms GI: Reports: Constipated, Nausea, Poor appetite, Poor fluid intake : Reports: No symptoms Musculoskeletal: Reports: Back pain Skin: Reports: No symptoms Neurological: Reports: No symptoms Endocrine: Reports: No symptoms Hematologic/Lymphatic: Reports: No symptoms All Other Systems: Reviewed and Negative Past Medical History - Past Medical History Previously Healthy: No Endocrine: Reports: None Cardiovascular: Reports: Hypertension Respiratory: Reports: COPD Hematological: Reports: Anemia Gastrointestinal: Reports: None Genitourinary: Reports: None Neuro/Psych: Reports: Anxiety, Depression Musculoskeletal: Reports: None Cancer: Reports: None Last Menstrual Period: unknown Other Pertinent Past Medical History: TOES, KNEE, TONSILLS/ADENOIDS, X 4, EYES, HAND, - Surgical History General Surgical History: Reports: Hysterectomy, (X4), Tonsillectomy, Adenoidectomy, Orthopedic (TOES, KNEE, HAND), Back Surgery (L4 fracture 10/09, ) , Other (EYES-BILATERAL CATARACTS). Denies: CABG (ANGIOPLAST 07/07/15) - Family History Family History: Reports: None - Social History Smoking Status: Current every day smoker, Light tobacco smoker Hx Substance Use: No Alcohol Screening: None Physical Exam - Physical Exam Appearance: Ill-appearing, Thin Ill-appearing: Moderate Pain Distress: Moderate Eyes: INGRID, EOMI, Conjunctiva clear ENT: Ears normal, Nose normal, Oropharynx normal Neck: Supple Respiratory: Airway patent, Breath sounds clear Cardiovascular: RRR, Pulses normal, No rub GI/: Soft, Nontender, No masses, Bowel sounds normal Musculoskeletal: Normal strength, ROM intact, No edema Skin: Warm, Dry, Normal color Neurological: Sensation intact, Motor intact, Alert, Oriented Psychiatric: Affect appropriate, Mood appropriate Critical Care Note - Critical Care Note Total Time (mins): 60 Course - Course Hematology/Chemistry: 06/03/17 15:00 06/03/17 15:00 Orders, Labs, Meds: Lab Review 06/03/17 06/03/17 15:00 15:00 WBC 8.53 RBC 4.23 Hgb 13.2 Hct 37.4 MCV 88.4 MCH 31.2 H MCHC 35.3 RDW Coeff of Rocky 14.0 Plt Count 181 Immature Gran % (Auto) 0.4 Neut % (Auto) 46.7 Lymph % (Auto) 31.7 Garden % (Auto) 7.2 Eos % (Auto) 13.4 H Baso % (Auto) 0.6 Immature Gran # (Auto) 0.0 Neut # (Auto) 4.0 Lymph # (Auto) 2.7 Garden # (Auto) 0.6 Eos # (Auto) 1.1 H Baso # (Auto) 0.1 Sodium 129 L Potassium 4.3 Chloride 90 L Carbon Dioxide 27 Anion Gap 16.3 BUN 5 L Creatinine 0.52 L Estimated GFR (MDRD) 119.00 BUN/Creatinine Ratio 9.61 Glucose 88 Calcium 9.3 Magnesium 1.9 Total Bilirubin 0.3 AST 17 ALT 6 L Alkaline Phosphatase 80 Total Protein 6.3 Albumin 3.1 L Globulin 3.2 Albumin/Globulin Ratio 0.97 Orders Category Date Time Status Enema [ED ENEMA/RECTAL TUBE] .ONCE EMERGENCY 06/03/17 16:24 Active CBC W/ AUTO DIFF Stat LAB 06/03/17 15:00 Completed CMP [COMPREHENSIVE METABOLIC PANEL] Stat LAB 06/03/17 15:00 Completed MAGNESIUM Stat LAB 06/03/17 15:00 Completed KUB [ABDOMEN 1 VIEW] Stat RADS 06/03/17 14:52 Completed Vital Signs: Temp Pulse Resp BP Pulse Ox 06/03/17 13:22 96.9 F L 95 H 20 148/77 H 94 L Departure - Departure Time of Disposition: 19:30 Disposition: PLACED OBSERVATION Discharge Problem: Constipation Condition: Fair Pt referred to PMD for follow-up: Yes IPMP verified?: No Allergies/Adverse Reactions: Allergies acetaminophen [From Tylox] Adverse Reaction (Verified 06/03/17 13:32) Iodinated Contrast- Oral and IV Dye [Iodinated Contrast Media - IV Dye] Adverse Reaction (Verified 06/03/17 13:32) Swelling Penicillins Adverse Reaction (Verified 06/03/17 13:32) Sulfa (Sulfonamide Antibiotics) Adverse Reaction (Verified 06/03/17 13:32) anesthesia Allergy (Severe, Uncoded 05/25/17 11:53) confusion, Diffficult to wake up Home Medications: Ambulatory Orders Albuterol Sulfate [Proair Hfa] 2 inh PO Q4H PRN 08/21/13 Levetiracetam [Keppra] 500 mg PO BEDTIME 08/21/13 Latanoprost [Xalatan] 1 drop OP BEDTIME 02/16/14 Atorvastatin Calcium 10 mg PO DAILY 07/24/15 Clopidogrel Bisulfate [Plavix] 75 mg PO DAILY 07/24/15 Sertraline HCl [Zoloft] 50 mg PO DAILY 07/24/15 Divalproex Sodium [Depakote] 500 mg PO BID 12/05/15 Docusate Sodium [Colace] 100 mg PO BID 12/05/15 Dextran 70/Hypromellose [Artificial Tears Eye Drops] 1 drop OP DIRECTED PRN 05/07/17 Oxybutynin Chloride [Ditropan] 5 mg PO BID 05/07/17 Tiotropium [place] [Spiriva] 1 cap IH DAILY 05/07/17 Digoxin [Lanoxin] 125 mcg PO DAILY #30 tablet 05/08/17 Disposition Discussed With: Patient, Family (PATIENT TO BE ADMITTED) Additional Information: PATIENT ADMINISTERED OIL RETENTION ENEMA W/O MUCH SUCCESS THEN MOLASSES MILK ENEMA WITH SOME RELIEF BUT UNSUCCESSFUL EVACUATION OF BM DISCUSSED WITH DR ZAMORA WHO AGREES TO ACCEPT FOR OBSERVATION ADMISSION
--- NOTE | 2017-06-03 17:14 | DI ---
EXAM: Supine AP view of the abdomen HISTORY: Constipation COMPARISON: 05/31/2017 FINDINGS: There is mild to moderate proximal colonic stool, mildly decreased. Moderate rectal stool is again s een. There is similar mild generalized gaseous distension of the colon. There is a paucity of small b owel gas. A left basilar probable calcified granuloma is seen. Atherosclerotic calcifications are pr esent. IMPRESSION: Similar moderate rectal stool burden. Mildly decreased proximal colonic stool burden. Similar mild colonic gaseous distension.
[2017-06-03] MEDS ORDERED: CITRATE OF MAGNESIA PO STA (20:19)
[2017-06-03] MEDS ORDERED: COLACE PO SCH (21:00)
[2017-06-03] MEDS ORDERED: DITROPAN PO SCH (21:00)
[2017-06-03] MEDS ORDERED: KEPPRA PO SCH (21:00)
[2017-06-03] MEDS ORDERED: DEPAKOTE PO SCH (21:00)
[2017-06-03 21:10] VITALS: BMI 15.4
[2017-06-03] MEDS: SODIUM CHLORIDE 1,000 ML IV SCH (21:50)
[2017-06-03] MEDS: XALATAN OP SCH (21:51)
[2017-06-04] MEDS: PLAVIX PO SCH (09:37)
[2017-06-04] MEDS: ZOLOFT PO SCH (09:38)
[2017-06-04] MEDS: SPIRIVA IH SCH (09:38)
[2017-06-04] MEDS: LANOXIN PO SCH (09:38)
[2017-06-04] MEDS: COLACE PO SCH ×2 (09:38→21:15)
[2017-06-04] MEDS: DEPAKOTE PO SCH ×2 (09:38→21:16)
[2017-06-04] MEDS: LIPITOR PO SCH (09:38)
[2017-06-04] MEDS: DITROPAN PO SCH ×2 (09:38→21:15)
--- NOTE | 2017-06-04 10:10 | DI ---
EXAM: Supine AP view of the abdomen HISTORY: Constipation COMPARISON: 06/03/2017 FINDINGS: There is interval progression of the proximal colonic stool burden, now extending to the descending c olon. Mild rectal stool is again seen. There is similar mild gaseous distension of the colon. Ther e is a paucity of small bowel gas. A left basilar probable calcified granuloma is again seen. IMPRESSION: Interval progression of the moderate proximal colonic stool burden now extending to the transverse co alena. Similar moderate rectal stool burden.
[2017-06-04] MEDS: ZOFRAN 4 MG/2 ML IVP PRN (13:26)
[2017-06-04] MEDS: KEPPRA PO SCH (21:16)
[2017-06-04] MEDS: XALATAN OP SCH (21:21)
[2017-06-04] MEDS: SODIUM CHLORIDE 1,000 ML IV SCH (21:25)
[2017-06-05] MEDS: SPIRIVA IH SCH (08:36)
[2017-06-05] MEDS: PLAVIX PO SCH (08:38)
[2017-06-05] MEDS: DITROPAN PO SCH ×2 (08:38→20:48)
[2017-06-05] MEDS: COLACE PO SCH ×2 (08:38→20:48)
[2017-06-05] MEDS: LANOXIN PO SCH (08:38)
[2017-06-05] MEDS: LIPITOR PO SCH (08:39)
[2017-06-05] MEDS: DEPAKOTE PO SCH ×2 (08:39→20:48)
[2017-06-05] MEDS: ZOLOFT PO SCH (08:39)
[2017-06-05] MEDS ORDERED: MILK OF MAGNESIA PO STA (08:42)
--- NOTE | 2017-06-05 13:07 | DI ---
EXAM: Chest one view, frontal view only. HISTORY: Shortness of breath. COMPARISON: 05/24/2017. FINDINGS: The heart size is normal. There is no pulmonary vascular congestion. The lungs are clear save for stable biapical scarring. No pleural effusion or pneumothorax is seen. No acute osseous a bnormality is identified. Since the prior study, there has been no significant interval change. IMPRESSION: No acute cardiopulmonary process.
[2017-06-05] MEDS: XARELTO PO SCH (16:35)
[2017-06-05] MEDS: XALATAN OP SCH (20:47)
[2017-06-05] MEDS: SODIUM CHLORIDE 1,000 ML IV SCH (20:47)
[2017-06-05] MEDS: KEPPRA PO SCH (20:48)
[2017-06-06] MEDS: COLACE PO SCH (08:20)
[2017-06-06] MEDS: DITROPAN PO SCH (08:21)
[2017-06-06] MEDS: LANOXIN PO SCH (08:21)
[2017-06-06] MEDS: DEPAKOTE PO SCH (08:21)
[2017-06-06] MEDS: PLAVIX PO SCH (08:21)
[2017-06-06] MEDS: ZOLOFT PO SCH (08:21)
[2017-06-06] MEDS: LIPITOR PO SCH (08:21)
[2017-06-06] MEDS: SPIRIVA IH SCH (08:21)
--- NOTE | 2017-06-06 10:19 | DI ---
EXAM: Single view of the abdomen. History: Obstipation, follow-up Comparison: Abdominal radiograph 06/04/2017 Findings: Nonspecific bowel gas pattern. No free intraperitoneal air. Atherosclerotic vascular calc ifications. The quantity of colonic stool is slightly decreasing. No acute osseous abnormalities. Impression: The quantity of colonic stool is slightly decreasing.
[2017-06-06] MEDS ORDERED: CITRATE OF MAGNESIA PO STA (10:59)
[2017-06-06] MEDS: SODIUM CHLORIDE 1,000 ML IV SCH (11:37)
--- NOTE | 2017-06-06 13:50 | HP ---
DATE OF SERVICE: 06/03/17 CHIEF COMPLAINT: Constipation HISTORY OF PRESENT ILLNESS: This is a patient of Za Bhatia with multiple medical problems, COPD, recent atrial fibrillation, hypertension was in the [facility] last month for atrial fibrillation and shortness of breath. As per the patient, ever since discharge, she did not have much bowel movement, distention of abdomen and some nausea. No vomiting. She came to the emergency room and was seen by Dr. Lerma. X-ray does show large amount of stool in the rectum. Enema was given. The patient did not have a large bowel movement, was still complaining of discomfort. At that time, the patient was admitted for observation for obstipation and constipation. REVIEW OF SYSTEMS: CONSTITUTIONAL: Weakness, tiredness. No fever, no chills. HEENT: Normal. ENDOCRINE: No weight gain; no weight loss. CVS: No chest pain. No PND, no orthopnea. Shortness of breath is stable. No PND, no orthopnea. RESPIRATORY: No cough, no congestion. No hemoptysis. GI: Abdominal distention and discomfort. Constipation. No nausea, no vomiting. No abdominal pain. No melena. : No hematuria. No polyuria. MUSCULOSKELETAL: No joint swelling. PSYCHIATRIC: Not anxious. No depression. No suicidal thoughts. No homicidal thoughts. SKIN: Intact, no open lesions. PAST MEDICAL HISTORY: CAD Stable angina Atrial fibrillation TIA Seizure disorder COPD, on oxygen GERD Uterine cancer Osteoarthritis DJD spine Depression Substance use PAST SURGICAL HISTORY: Hysterectomy Cataract surgery PERSONAL HISTORY: Does smoke. No alcohol use. No ilicit drug use. Lives with daughter at home. FAMILY HISTORY: Significant for diabetes. MEDICATIONS: (HOME) ProAir Keppra Xalatan Plavix Calcium Zoloft Colace Depakote Ditropan Spiriva Dextran Lanoxin ALLERGIES: TYLENOL, IODINATED CONTRAST, PENICILLIN PHYSICAL EXAMINATION: V/S: BP 148/77, respiratory rate 20, heart rate 95, temperature 96.9, saturation 94 on room air. GENERAL: Cachetic lady lying in bed not in any distress. HEENT: Atraumatic, normocephalic. No scleral icterus. Pallor positive. Mucosa dry. NECK: Supple. No JVD, no bruit. No lymphadenopathy. No thyromegaly. HEART: S1, S2 normal. No murmur. No cyanosis or clubbing. No ascites. LUNGS: Clear to auscultation. No rales or rhonchi. ABDOMEN: Abdominal discomfort. Hypoactive bowel sounds. No CVA tenderness. No rigidity or guarding. EXTREMITIES: No pedal edema. No cyanosis or clubbing MUSCULOSKELETAL: Normal joints, no swelling. NEUROLOGIC: The patient is awake, alert, oriented times three. SKIN: Intact; no open lesions. LYMPHATIC: No lymph nodes palpable. LABS: White count 8.53, hemoglobin 13.2, hematocrit 37.4, platelet count 181. Sodium 129, potassium 4.3, chloride 190, bicarb 27, BUN 5, creatinine 0.52, glucose 98. ASSESSMENT: 1. CONSTIPATION/OBSTIPATION 2. CAD 3. STABLE ANGINA 4. ATRIAL FIBRILLATION 5. COPD, OXYGEN DEPENDENT 6. CACHEXIA 7. HYPERTENSION 8. DYSLIPIDEMIA 9. HISTORY OF TIA 10. DEPRESSION PLAN: 1. Admit patient for observation 2. Mag Citrate 3. Miralax 4. Continue home medications 5. Monitor patient for bowel movements TIME SPENT: MORE THAN 75 minutes MTDD
--- NOTE | 2017-06-06 13:57 | PN ---
DATE OF SERVICE: 06/04/17 SUBJECTIVE: The patient had multiple bowel movements, large ones. She feels better. No nausea or vomiting. REVIEW OF SYSTEMS: CONSTITUTIONAL: No fever, no chills. HEENT: Normal. ENDOCRINE: No weight gain, no weight loss. CVS: No angina symptoms. No CHF symptoms. No palpitations. No atypical chest pain for CAD. No shortness of breath. No PND, no orthopnea. RESPIRATORY: No cough, no hemoptysis. GI: No nausea, no vomiting. No abdominal pain. : No hematuria. No polyuria. MUSCULOSKELETAL: No joint swelling. PSYCHIATRIC: Not anxious. No depression. No suicidal thoughts. No homicidal thoughts. SKIN: Intact. No rash. PHYSICAL EXAMINATION: V/S: BP 159/73, respiratory rate 20, heart rate 99, temperature 97.6, saturation 93. HEENT: Normocephalic, atraumatic. Mucosa dry. NECK: Supple. No JVD, no carotid bruit. No lymphadenopathy. LUNGS: Decreased entry. Clear to auscultation. No rales or rhonchi. HEART: S1, S2 normal. No S3. No murmur, gallop or regurgitation. ABDOMEN: Soft, discomfort suprapubic area. Bowel sounds active. No rigidity. No rebound or guarding. No CVA tenderness. EXTREMITIES: No pedal edema. No clubbing or cyanosis MUSCULOSKELETAL: No joint swelling. NEUROLOGIC: Awake, alert, oriented times three. No focal deficit. LYMPHATIC: No lymph nodes palpable. SKIN: Intact. LABS: Sodium 129, potassium 4.5, chloride 93, bicarb 27, BUN 6, creatinine 0.47, glucose 86. White count 8.53, hemoglobin 13.2, hematocrit 37.7, platelet count 206. ASSESSMENT: 1. CONSTIPATION/OBSTIPATION WITH MODERATE STOOL NOTED IN THE RECTUM PER X-RAYS 2. ATRIAL FIBRILLATION ON XARELTO 3. CAD 4. STABLE ANGINA 5. COPD, OXYGEN DEPENDENT 6. HYPERTENSION 7. OSTEOARTHRITIS 8. DJD SPINE 9. DEPRESSION PLAN: 1. Start Miralax 2. Will get KUB; if the KUB shows improvement, the patient may be discharged home. 3. Miralax will be sent home 4. Increase fiber in diet 5. Increase hydration All discussed with the patient who verbalized understanding. TIME SPENT: More than 35 minutes MTDD
[2017-06-06] MEDS: ZOFRAN 4 MG/2 ML IVP PRN (15:12)
[2017-06-06] MEDS ORDERED: ZOFRAN TAB PO PRN (15:17)
[2017-06-06] MEDS: XARELTO PO SCH (16:01)
[2017-06-06 17:46] VITALS: BP 146/79; TEMP 97.8
--- NOTE | 2017-06-07 11:09 | PN ---
DATE OF SERVICE: 06/06/17 SUBJECTIVE: The patient was admitted with obstipation and constipation, did not have any big bowel movement. The just had liquid bowel movement. No nausea or vomiting. REVIEW OF SYSTEMS: CONSTITUTIONAL: No fever, no chills. HEENT: Normal. ENDOCRINE: No weight gain, no weight loss. CVS: No angina symptoms. No CHF symptoms. No palpitations. No atypical chest pain for CAD. No shortness of breath. No PND, no orthopnea. RESPIRATORY: No cough, no hemoptysis. GI: No nausea, no vomiting. No abdominal pain. : No hematuria. No polyuria. MUSCULOSKELETAL: No joint swelling. PSYCHIATRIC: Not anxious. No depression. No suicidal thoughts. No homicidal thoughts. SKIN: Intact. No rash. PHYSICAL EXAMINATION: GENERAL: The patient is laying in the bed and not in any distress. V/S: Blood pressure 133/76, respiratory rate 22, heart rate 120 and temperature 98.0 with saturation 94%. HEENT: Normocephalic, atraumatic. Mucosa dry. NECK: Supple. No JVD, no carotid bruit. No lymphadenopathy. LUNGS: Decreased and basilar crackles. Clear to auscultation. No rales or rhonchi. HEART: S1, S2 normal. No S3. No murmur, gallop or regurgitation. ABDOMEN: Soft, nontender. Bowel sounds sluggish. No rigidity. No rebound or guarding. No CVA tenderness. EXTREMITIES: No pedal edema. No clubbing or cyanosis MUSCULOSKELETAL: No joint swelling. NEUROLOGIC: Awake, alert, oriented times three. No focal deficit. LYMPHATIC: No lymph nodes palpable. SKIN: Intact. ASSESSMENT: 1. Constipation/obstipation 2. Moderate stool burden in the colon 3. Atrial fibrillation on Xarelto 4. Hyponatremia 5. Cachexia 6. COPD oxygen dependent 7. Osteoporosis PLAN: 1. Miralax 2. Mag Citrate 10ml 3. High fiber diet 4. Continue Digoxin and Xarelto 5. Xarelto and the risk of GI and intracranial bleed been discussed with the patient and verbalized understanding. TIME SPENT: More than 35 minutes MTDD
--- NOTE | 2017-06-07 14:30 | PN ---
DATE OF SERVICE: 06/05/17 SUBJECTIVE: The patient was admitted with the obstipation and bad constipation for almost 15 days. Had small bowel movements but not big. X-ray yesterday again showed not much difference stool burden. It was still up to colon, moderate proximal colonic stool burden now extending to the transverse colon so it was technically a little bit worse. The patient been given Miralax and not helping. Sitting comfortably and does not have any pain in the belly. REVIEW OF SYSTEMS: CONSTITUTIONAL: No fever, no chills. HEENT: Normal. ENDOCRINE: No weight gain, no weight loss. CVS: No angina symptoms. No CHF symptoms. No palpitations. No atypical chest pain for CAD. No shortness of breath. No PND, no orthopnea. RESPIRATORY: No cough, no hemoptysis. GI: No nausea, no vomiting. No abdominal pain. : No hematuria. No polyuria. MUSCULOSKELETAL: No joint swelling. PSYCHIATRIC: Not anxious. No depression. No suicidal thoughts. No homicidal thoughts. SKIN: Intact. No rash. PHYSICAL EXAMINATION: V/S: Blood pressure 138/80, respiratory rate 22, heart rate 84, temperature 97.8 and saturation is 94 HEENT: Normocephalic, atraumatic. Mucosa dry. Pallor positive. No icterus. NECK: Supple. No JVD, no carotid bruit. No lymphadenopathy. LUNGS: Decreased and clear to auscultation. No rales or rhonchi. HEART: S1, S2 normal. No S3. No murmur, gallop or regurgitation. ABDOMEN: Soft, nontender. Bowel sounds active. No rigidity. No rebound or guarding. No CVA tenderness. EXTREMITIES: No pedal edema. No clubbing or cyanosis MUSCULOSKELETAL: No joint swelling. NEUROLOGIC: Awake, alert, oriented times three. No focal deficit. LYMPHATIC: No lymph nodes palpable. SKIN: Intact. LABS: WBC 7.38, hgb 13.1, hct 38.2, plt count 240, sodium 128, potassium 4.2, chloride 93, bicarb 27, BUN 4, creatinine 0.54. ASSESSMENT: 1. Obstipation/Constipation 2. Hyponatremia most likely from the polydipsia 3. COPD 4. Hypertension 5. Dyslipidemia 6. Atrial fibrillation PLAN: 1. Xarelto TIME SPENT: More than 35 minutes MTDD
--- NOTE | 2017-07-04 14:59 | DS ---
DATE OF SERVICE: 06/06/17 FINAL DIAGNOSIS: 1. Obstipation 2. Severe constipation 3. COPD, oxygen dependant 4. Atrial fibrillation on Xarelto 5. Angina 6. TIA 7. Seizure disorder 8. History of uterine cancer 9. Acid reflux 10.Cachexia 11.Osteoarthritis 12.DJD spine 13.Depression 14.Continued nicotine use DISCHARGE INSTRUCTIONS: Discharge patient. Continue the rest of the home medications. MEDICATIONS AT DISCHARGE: Albuterol Atorvastatin Plavix Artificial tear Lanoxin Depakote Colace Xalatan Keppra Ditropan Miralax Zoloft Spiriva NEW PRESCRIPTIONS: Miralax 17gram PO daily DIET INSTRUCTIONS: High fiber diet ACTIVITY: As much as tolerated DISEASE SPECIFIC EDUCATION: Constipation Obstipation Bowel obstruction Been discussed and verbalized understanding. HOSPITAL COURSE: Marisela Alfaro who is a 61 year old female with history of COPD and oxygen dependent COPD and hypertension was recently admitted to the hospital last month in April for atrial fibrillation and started on the Xarelto. Went home and started having constipation and did not have any bowel movement so seen Za Bhatia, Primary Care Nurse Practitioner and she did do the x-ray of the belly which showed the moderate to severe amount of the stool up to the ascending colon but family failed to give medications at home so the patient was brought to the emergency room and was seen by Dr. Lerma. She tried to given enema and she could not hold. Only had just a small evacuation. At that time the patient was admitted to the hospital as patient x-ray was showing the moderate burden of the stool. The patient was given a Mag Citrate and Miralax and Colace. Gradually the patient started having the bowel movements, some medium to large. Repeat chest x-rays were done to monitor the progression. Finally she had a very big bowel movement yesterday on June 06 evening Isa is the nurse that documented that and the nurse was feeling better. At that time the patient was being discharged home. TIME SPENT: MORE THAN 65 MINUTES MTDD
== END 2017-06-06 19:40 | disposition home or self-care (01) | DRG 392 ==
LOC: ED 13:21 → OBSVTOIN 20:11 → INTOOBSV 20:11 → MEDSURG A 20:11
PROVIDERS: ADMIT Emergency Medicine; ATTEND Emergency Medicine
DX: K59.00 Constipation, unspecified (principal); R64 Cachexia; E87.1 Hypo-osmolality and hyponatremia; R14.0 Abdominal distension (gaseous); R10.9 Unspecified abdominal pain; R11.0 Nausea; I48.91 Unspecified atrial fibrillation; I10 Essential (primary) hypertension; J44.9 Chronic obstructive pulmonary disease, unspecified; I25.118 Atherosclerotic heart disease of native coronary artery with other forms of angina pectoris; F32.9 Major depressive disorder, single episode, unspecified; G40.909 Epilepsy, unspecified, not intractable, without status epilepticus; K21.9 Gastro-esophageal reflux disease without esophagitis; M19.90 Unspecified osteoarthritis, unspecified site; M47.9 Spondylosis, unspecified; R63.1 Polydipsia; M81.0 Age-related osteoporosis without current pathological fracture; Z99.81 Dependence on supplemental oxygen; Z85.42 Personal history of malignant neoplasm of other parts of uterus; Z72.0 Tobacco use; Z86.73 Personal history of transient ischemic attack (TIA), and cerebral infarction without residual deficits; Z79.899 Other long term (current) drug therapy
CPT/HCPCS: 36415; 80053; 80162; 83735; 85025; 87081; 97802; 99284

== ENCOUNTER 2017-07-31 08:54 | Outpatient (CLI) ==
--- NOTE | 2017-07-31 09:51 | DI ---
Exam: Thoracic spine three-view History: Mid back pain FINDINGS: Thoracic spine shows normal alignment. Mild anterior wedging at T11 is stable from 2015. Vertebral body height is maintained otherwise. No suspicious bony lesions are seen. No signi ficant endplate degenerative change. Impression: Chronic mild anterior wedging of T11 also seen on 12/05/2015. No acute abnormality of t he thoracic spine.
--- NOTE | 2017-07-31 09:56 | DI ---
Exam: Lumbar spine complete with bending History: Lower back pain FINDINGS: Lumbar spine shows normal alignment. High-grade anterior wedging of L1 is progressive com pared with 05/24/2017. New finding compared with 11/02/2015. Associated 3-4 mm retropulsion. Lower endplate concavity deformity of L4 is chronic also seen on MRI 11/02/2015 and unchanged. There are no alignment changes with flexion and extension. Atherosclerotic vascular calcifications incidentally noted. Endplate degenerative changes are minimal. Lower lumbar facet arthropathy is present. Impression: 1. Progressive L1 wedge deformity is now high-grade. There is also a mild retropulsion. 2. Chronic L4 mild wedge deformity and lower endplate concavity. 3. Minimal endplate degenerative change.
== END 2017-07-31 08:55 | disposition home or self-care (01) ==
LOC: LAB 08:54
PROVIDERS: ATTEND Orthopaedic Surgery
DX: K59.04 Chronic idiopathic constipation (principal); R79.89 Other specified abnormal findings of blood chemistry; M54.5 Low back pain; M54.6 Pain in thoracic spine
CPT/HCPCS: 36415; 80053; 84436; 84443; 84479; 85027

== ENCOUNTER 2017-12-06 12:41 | Outpatient (CLI) ==
--- NOTE | 2017-12-06 14:21 | DI ---
Exam: Chest two-view HISTORY: Cough. Comparison: 11/10/2017. FINDINGS: Two views of the chest demonstrate hyper expanded lungs with no evidence of pneumonia or e darren. Mild biapical pleural parenchymal thickening/scarring is noted. The heart is normal in size an d configuration. The thoracic aorta is partially calcified. Calcified granulomata are noted. The pu lmonary vasculature is not congested. The skeletal structures are intact. There are degenerative fin dings in the spine. IMPRESSION: No acute cardiopulmonary disease. Hyperexpanded lungs consistent with COPD. Atherosclerosis and prior granulomatosis.
== END 2017-12-06 12:42 | disposition home or self-care (01) ==
LOC: RAD 12:41
PROVIDERS: ATTEND Physician Assistant
DX: R05 Cough (principal)

== ENCOUNTER 2018-02-13 19:19 | Inpatient (IN) ==
[2018-02-13 19:28] VITALS: BMI 14.9
[2018-02-13] MEDS ORDERED: DUONEB NEB STA (19:42)
--- NOTE | 2018-02-13 19:57 | ED.PDOC ---
General ED Provider: Dr. BRANT WILKERSON Chief Complaint: Abnormal Labs Stated Complaint: Patient is a 62 year old female who comes to the ER with c/o flu like symptoms (cough, N/V/D, cold chills). Her clinic sent her here also due to abnomal soduim. Daughter thinks she is confused and does not want to eat much. Time Seen by Physician: 19:22 Mode of Arrival: Walk-In Information Source: Patient, Family Primary Care Provider: ESME ALBARRAN Nursing and Triage Documentation Reviewed and Agree: Yes Does patient meet sepsis criteria?: No System Inflammatory Response Syndrome: Not Applicable Sepsis Protocol: For patient's 13 years and over: Temp is 96.8 and below OR 101 and greater Pulse >90 BPM Resp >20/minute Acutely Altered Mental Status Are patient's symptoms suggestive of a new infection, such as: -Pneumonia -Skin, Soft Tissue -Endocarditis -UTI -Bone, Joint Infection -Implantable Device -Acute Abdominal Infection -Wound Infection -Meningitis -Blood Stream Catheter Infection -Unknown Review of Systems - Review Of Systems Constitutional: Reports: Loss of appetite Eyes: Reports: No symptoms Ears, Nose, Mouth, Throat: Reports: No symptoms Respiratory: Reports: Cough Cardiac: Reports: No symptoms GI: Reports: Diarrhea, Nausea, Poor appetite, Vomiting : Reports: No symptoms Musculoskeletal: Reports: No symptoms Skin: Reports: No symptoms Neurological: Reports: Anxiety, Other (mild confusion ) Endocrine: Reports: No symptoms Hematologic/Lymphatic: Reports: No symptoms All Other Systems: Reviewed and Negative Past Medical History - Past Medical History Previously Healthy: No Endocrine: Reports: None Cardiovascular: Reports: Hypertension Respiratory: Reports: COPD Hematological: Reports: Anemia Gastrointestinal: Reports: None Genitourinary: Reports: None Neuro/Psych: Reports: Seizure, Anxiety, Depression Musculoskeletal: Reports: None Cancer: Reports: None Last Menstrual Period: none Other Pertinent Past Medical History: CHRONIC HYPONATREMIA. CACHEXIA - Surgical History General Surgical History: Reports: Hysterectomy, (X4), Tonsillectomy, Adenoidectomy, Orthopedic (TOES, KNEE, HAND), Back Surgery (L4 fracture 10/09, ) , Other (EYES-BILATERAL CATARACTS). Denies: CABG (ANGIOPLAST 07/07/15) - Family History Family History: Reports: None - Social History Smoking Status: Current every day smoker, Heavy tobacco smoker Hx Substance Use: No Alcohol Screening: None - Immunizations Tetanus Shot up to Date: Yes Physical Exam - Physical Exam Appearance: Ill-appearing, Cachectic Pain Distress: Mild (chest pain when she coughs) Eyes: INGRID, EOMI, Conjunctiva clear ENT: Dry mucosa Neck: Supple Respiratory: Airway patent, Breath sounds equal, Breath sounds diminished, Respirations nonlabored Cardiovascular: RRR, Pulses normal, No rub, No murmur GI/: Soft, Nontender, No masses, Bowel sounds normal, No Organomegaly Musculoskeletal: Normal strength, ROM intact, No edema, No calf tenderness Skin: Warm Neurological: Alert, Oriented Psychiatric: Anxious Interpretation - Radiology Interpretation Radiology Interpretation By: Radiologist Radiology Results: Negative Exam Interpreted: Portable CXR, CT Scan - EKG Interpretation Time of EKG #1: 19:43 Rate: Normal Rhythm: Sinus Ectopy: None ST Segment: Normal Interpretation: Left Atrial Enlargement, old atrial Setal infact age undetermined. Physician Notification - Case Discussed Physician Notified: Dr. Pryor Time of Notification: 21:50 (admits to barros start NS at 80mls per hour. ) Critical Care Note - Critical Care Note Total Time (mins): 35 Course - Course Hematology/Chemistry: 02/13/18 19:55 02/13/18 19:55 Orders, Labs, Meds: Lab Review 02/13/18 02/13/18 02/13/18 19:55 19:55 20:28 WBC 12.65 H RBC 4.36 Hgb 13.0 Hct 37.4 MCV 85.8 MCH 29.8 MCHC 34.8 RDW Coeff of [place] 12.8 Plt Count 295 Immature Gran % (Auto) 0.3 Neut % (Auto) 61.9 Lymph % (Auto) 20.7 [place] % (Auto) 10.4 H Eos % (Auto) 6.1 Baso % (Auto) 0.6 Immature Gran # (Auto) 0.0 Neut # (Auto) 7.8 H Lymph # (Auto) 2.6 [place] # (Auto) 1.3 Eos # (Auto) 0.8 H Baso # (Auto) 0.1 Sodium 125.6 L Potassium 4.02 Chloride 89.4 L Carbon Dioxide 32.4 H Anion Gap 7.82 BUN 5.6 L Creatinine 0.36 L Estimated GFR (MDRD) 181.00 BUN/Creatinine Ratio 15.55 Glucose 101.0 Calcium 9.12 Total Bilirubin 0.21 AST 55.4 H ALT 9.1 Alkaline Phosphatase 67.1 Total Creatine Kinase < 20.0 L Troponin I < 0.012 Total Protein 6.58 Albumin 3.62 Globulin 2.96 Albumin/Globulin Ratio 1.22 Influ A Molecular Assay Negative by naat Influ B Molecular Assay Negative by naat Orders Category Date Time Status EKG-(ED ONLY) Stat CARDIO 02/13/18 19:42 Completed NEBULIZER TREATMENT Stat CARDIO 02/13/18 19:43 Completed ED HEDIS ANALYST APPLIED .ONCE EMERGENCY 02/13/18 19:42 Active ED IV/MEDIPORT/POWERPORT .ONCE EMERGENCY 02/13/18 19:42 Active ABG Stat LAB 02/13/18 19:42 Ordered CBC W/ AUTO DIFF Stat LAB 02/13/18 19:55 Completed COMPREHENSIVE METABOLIC PANEL Stat LAB 02/13/18 19:55 Completed CREATINE KINASE Stat LAB 02/13/18 19:55 Completed FLU A/B MOLECULAR Stat LAB 02/13/18 20:28 Completed TROPONIN I Stat LAB 02/13/18 19:55 Completed 0.9 % Sodium Chloride [Saline Flush] MEDS 02/13/18 19:42 Ordered 1 syr IVF PRN PRN Ipratropium/Albuterol Neb [Duoneb] MEDS 02/13/18 19:42 Discontinued 1 vial NEB ONCE STA Methylprednisolone Sod Succ/Pf [Solu-Medrol 125 mg] MEDS 02/13/18 20:12 Discontinued 125 mg IVP ONCE STA CHEST, 1V AP ONLY Stat RADS 02/13/18 19:[address] HEAD W/O CONTRAST Stat RADS 02/13/18 20:54 Completed Medications Generic Name Dose Route Start Last Admin Trade Name Freq PRN Reason Stop Dose Admin Albuterol/Ipratropium 1 vial 02/14/18 06:00 Duoneb NEB RTQID [facility] Atorvastatin Calcium 10 mg 02/14/18 09:00 Lipitor PO DAILY [facility] Clopidogrel Bisulfate 75 mg 02/14/18 09:00 Plavix PO DAILY [facility] Divalproex Sodium 500 mg 02/14/18 09:00 Depakote PO BID [facility] Docusate Sodium 100 mg 02/14/18 09:00 Colace PO BID [facility] Enoxaparin Sodium 40 mg 02/14/18 09:00 Lovenox SUBCUT DAILY [facility] Sodium Chloride 1,000 mls @ 80 mls/hr 02/13/18 22:30 Sodium Chloride IV .[id number] [facility] Latanoprost 1 drop 02/14/18 21:00 Xalatan OP BEDTIME [facility] Levetiracetam 500 mg 02/14/18 21:00 Keppra PO BEDTIME [facility] Methylprednisolone Sodium Succinate 40 mg 02/14/18 05:00 Solu-Medrol 40 Mg IVP Q8HR [facility] Non-Formulary Medication 1 drop 02/13/18 22:21 Dextran 70/Hypromellose [Artificial Tears Eye Drops] OP DIRECTED PRN Dry eyes Non-Formulary Medication 1 each 02/14/18 09:00 Melatonin/Pyridoxine Hcl (B6) [Melatonin 3 Mg Tablet] PO DAILY [facility] Non-Formulary Medication 1 cap 02/14/18 09:00 Multivitamin PO DAILY [facility] Ondansetron HCl 4 mg 02/13/18 22:18 Zofran 4 Mg/2 Ml IVP Q6H PRN nausea/vomiting Polyethylene Glycol 17 gm 02/14/18 09:00 Miralax PO DAILY [facility] Ranitidine HCl 150 mg 02/14/18 06:30 Zantac PO BIDAC [facility] Sodium Chloride 1 syr 02/13/18 19:42 Saline Flush IVF PRN PRN To flush IV Tiotropium [place] 1 cap 02/14/18 09:00 Spiriva IH DAILY [facility] Discontinued Medications Generic Name Dose Route Start Last Admin Trade Name Freq PRN Reason Stop Dose Admin Albuterol/Ipratropium 1 vial 02/13/18 19:42 02/13/18 20:25 Duoneb NEB 02/13/18 19:43 1 vial ONCE STA Administration Methylprednisolone Sodium Succinate 125 mg 02/13/18 20:12 02/13/18 20:18 Solu-Medrol 125 Mg IVP 02/13/18 20:13 125 mg ONCE STA Administration Vital Signs: Temp Pulse Resp BP Pulse Ox 02/13/18 19:22 97 F L 93 H 18 143/84 H 89 L Departure - Departure Time of Disposition: 22:29 Disposition: HOME SELF-CARE Discharge Problem: Hyponatremia syndrome, COPD exacerbation Change in mental status Qualifiers: Altered mental status type: unspecified Qualified Code(s): R41.82 - Altered mental status, unspecified Condition: Stable Pt referred to PMD for follow-up: Yes IPMP verified?: No Allergies/Adverse Reactions: Allergies acetaminophen [From Tylox] Adverse Reaction (Verified 02/13/18 19:24) Iodinated Contrast- Oral and IV Dye [Iodinated Contrast Media - IV Dye] Adverse Reaction (Verified 02/13/18 19:24) Swelling Penicillins Adverse Reaction (Verified 02/13/18 19:24) Sulfa (Sulfonamide Antibiotics) Adverse Reaction (Verified 02/13/18 19:24) anesthesia Allergy (Severe, Uncoded 02/13/18 19:24) confusion, Diffficult to wake up Home Medications: Ambulatory Orders Albuterol Sulfate [Proair Hfa] 2 inh PO Q4H PRN 08/21/13 Levetiracetam [Keppra] 500 mg PO BEDTIME 08/21/13 Latanoprost [Xalatan] 1 drop OP BEDTIME 02/16/14 Atorvastatin Calcium 10 mg PO DAILY 07/24/15 Clopidogrel Bisulfate [Plavix] 75 mg PO DAILY 07/24/15 Sertraline HCl [Zoloft] 50 mg PO DAILY 07/24/15 Divalproex Sodium [Depakote] 500 mg PO BID 12/05/15 Docusate Sodium [Colace] 100 mg PO BID 12/05/15 Dextran 70/Hypromellose [Artificial Tears Eye Drops] 1 drop OP DIRECTED PRN 05/07/17 Tiotropium [place] [Spiriva] 1 cap IH DAILY 05/07/17 Polyethylene Glycol 3350 [Miralax] 17 gm PO DAILY #30 powd.pack 06/06/17 Melatonin/Pyridoxine HCl (B6) [Melatonin 3 mg Tablet] 1 each PO DAILY 02/13/18 Multivitamin 1 cap PO DAILY 02/13/18 Ranitidine HCl [Zantac] 150 mg PO BIDAC 02/13/18
[2018-02-13] MEDS ORDERED: SOLU-MEDROL 125 MG IVP STA (20:12)
--- NOTE | 2018-02-13 20:35 | DI ---
EXAM: AP single view of the chest. HISTORY: Cough. FINDINGS: The bones are unremarkable. The cardiac silhouette and pulmonary vasculature are within no rmal limits. The costophrenic angles are clear. No infiltrate or consolidation. Impression: No acute cardiopulmonary disease.
--- NOTE | 2018-02-13 21:20 | CT ---
EXAM: CT brain without contrast HISTORY: Confusion TECHNIQUE: Multi-slice transaxial helical with coronal and sagital reformated images COMPARISON: CT brain from 01/04/2018 FINDINGS: The midline structures are central. The ventricles and sulci are slightly prominent refle cting some atrophy. Mild low attenuation in the periventricular white matter is nonspecific but is li zari related to chronic microvascular ischemic disease. No acute intraparenchymal or extraaxial hemo rrhagic collections are detected. The calvarium is intact. There are large air-fluid levels in the maxillary sinuses and maxillary sin uses. Incompletely opacified. Scattered ethmoid air cells are opacified. There is mucous membrane thickening in the sphenoid sinus. Right mastoid air cells contain fluid. The left mastoid air cells are clear. IMPRESSION: 1. No acute intracranial process. 2. Age related atrophy and small vessel disease. 3. Sinusitis. 4. Right mastoiditis.
[2018-02-13] MEDS ORDERED: ZOFRAN 4 MG/2 ML IVP PRN (22:18)
[2018-02-13] MEDS ORDERED: HYPROMELLOSE OP PRN (22:21)
[2018-02-13] MEDS ORDERED: DEXTRAN OP PRN (22:21)
--- NOTE | 2018-02-13 23:22 | PCM ---
- Chief Complaint Chief Complaint: Abnormal sodium, flu like symptoms - History of Present Illness History of Present Illness: 62 yo WF follows with TARSHA Bhatia. Patient came to ER [facility] at 1922 after she was called and told that her sodium was low and was told to come in to hospital. She complained of N/V/D cold chills. Clinic told her to come in here for her labs. Family reported confusion, she does not eat much. She wants to eat food now. She is here with daughter and grand ddzarina today. Loss of appetite chronically, cougth, Reported N/V/D by daughter. patient noted she has had emesis 2 weeks ago, daughter noted emesis, patient has chronic COPD, smokes 1/2ppd currently with 61 year smoke history. No symptoms, no MSK symptoms, no TOWNSEND, +Anxiety, +confusion. PMHx htn, copd, anemia , seizures, anxiety, depression. Chronic hyponatremia, cachexia. SOA, cough, chronically, normal airway by Er team. Labs 12.65 WBC, hgb 13.0, plt 295. Sodium 125.6, K+ 4.02, cl 89.4, BUN 5.6 and cr 0.36. Glucose 101. EKG done in ER [facility],. AST 55.4. Influenza a and b negative. albumin 3.62 albumin. Given neb in Er, conveyor monitor applied. troponin negative. Duonebs, plavix, depakote , lipitor, lovenox, xalatan, keppra, rodolfo-medrol 40mg, dextran tears. melatonin, zofrran, miralax, zantac. We will hold spiriva. Vitals in Er reviewed 97, pulse 93, rr 18, BP 143/84, pulse 89. She does not drink any water per day per family. She drinks coffee and tea during day only. She only eats when someone fixes food. She lives with daughter. today ate a sandwich but nothing else. Does not tell daughter what she wants to eat. Daughter/grandddaughter asked her what she wants to eat. She will eat sandwiches per her report. She likes milk shakes. She gets depressed sometimes, not interested in / no SI/HI. She has zoloft, which can cause SIADH. She has history of seizures with 1-2 per month. On keppra. Sz worse with stress. Daughter dating 66 yr old person, set in his ways and this is not going well with patient. She cannot be in a place by herself as she stops eating totally. Patient does not want NH. Has nurses aid/bath aid that comes in 3x weekly. She is aware of day (), date ( 02/13), time Close to midnight, month Nov, year 18, city/state. She is aware of the current president, knew mario as well. I was called by provider w/ metabolic encephalopathy, illness and acute changes in mental status. She was talkative, no resp distress. +Glasses, family here arguing. I asked if they have seen psych and they said that they would see Esmer. I asked if she was the primary now why would she be able to do something different than she is doing. We discussed diet. She has no SI/HI, she has no acute mood related concern. Satting 87-91 in ER. She uses home o2 to sleep. Breathing is baseline per patient. Daughter feels she is tuned up and stable. Daughter concerned about health of mother who is adult FTT. - Review of Systems Constitutional: weakness, fatigue, loss of appetite. No: fever, chills, sweats , other Eyes: other (chronic lazy eye left, +Glasses. ). No: blurred vision, double- vision, discharge, itching, pain, redness, photophobia Ears: hearing loss (chronic). No: pain, bleeding, drainage, ringing, other Nose: No: bleeding, congestion, discharge, other Throat: No: pain, swelling, voice change, other Mouth: No: bleeding, pain, swelling, other Respiratory: cough, shortness of air (chronic COPD, baseline status per patient. ), wheeze, pain with breathing. No: hemoptysis, other Cardiovascular: No: chest pain, left arm pain, diaphoresis, PND, orthopnea, edema, palpitations, syncope, other Gastrointestinal: nausea. No: abdominal pain, other, vomiting, diarrhea, melena , hematemesis, hematochezia, dysphagia, constipation Genitourinary: No: dysuria, hematuria, frequency, incontinence, flank pain, vaginal discharge, abnormal bleeding, pelvic pain Neurological: headache, dizziness, weakness, problems with walking Musculoskeletal: other (weakness, frailty cachexia. ) Skin: No: rash, pruritus, lacerations, wounds, bruising, other Immunology: difficulty healing Hematology: easy bruising. No: easy bleeding, swollen glands Endocrine: weight changes, other (Polydipsia) Psychiatric: depression, anxiety, hopelessness. No: sleeplessness, suicidal, hallucinations Habits: tobacco use (61 years. ) - Past Medical History Past Medical History: O2 dependent COPD, Cachexia, failure to thrive, hyponatremia, anxiety with depression, seizures, Essential HTN. Anemia chronic. CKD, Afib history, migraines, hx uterine cancer, TIA. - Past Surgical History Past Surgical History: x 4 tonsillectomy, hysterecotmy, T+A, toes/hand /knee surgery, back [id number], bilateral cataracts. Angiopalsty 07/07/15. - Allergies Allergies/Adverse Reactions: Allergies Allergy/AdvReac Type Severity Reaction Status Date / Time acetaminophen [From Tylox] AdvReac Verified 02/13/18 19:24 Iodinated Contrast- Oral and AdvReac Swelling Verified 02/13/18 19:24 IV Dye [Iodinated Contrast Media - IV Dye] Penicillins AdvReac Verified 02/13/18 19:24 Sulfa (Sulfonamide AdvReac Verified 02/13/18 19:24 Antibiotics) anesthesia Allergy Severe confusion, Uncoded 02/13/18 19:24 Diffficult to wake up - Medications Medications: Medications Generic Name Dose Route Start Last Admin Trade Name Freq PRN Reason Stop Dose Admin Albuterol/Ipratropium 1 vial 02/14/18 06:00 Duoneb NEB RTQID [facility] Atorvastatin Calcium 10 mg 02/14/18 09:00 Lipitor PO DAILY [facility] Clopidogrel Bisulfate 75 mg 02/14/18 09:00 Plavix PO DAILY [facility] Divalproex Sodium 500 mg 02/14/18 09:00 Depakote PO BID [facility] Docusate Sodium 100 mg 02/14/18 09:00 Colace PO BID [facility] Enoxaparin Sodium 40 mg 02/14/18 09:00 Lovenox SUBCUT DAILY [facility] Sodium Chloride 1,000 mls @ 80 mls/hr 02/13/18 22:30 Sodium Chloride IV .[id number] [facility] Latanoprost 1 drop 02/14/18 21:00 Xalatan OP BEDTIME CHRIS Levetiracetam 500 mg 02/14/18 21:00 Keppra PO BEDTIME CHRIS Methylprednisolone Sodium Succinate 40 mg 02/14/18 05:00 Solu-Medrol 40 Mg IVP Q8HR CHRIS Non-Formulary Medication 1 drop 02/13/18 22:21 Dextran 70/Hypromellose [Artificial Tears Eye Drops] OP DIRECTED PRN Dry eyes Non-Formulary Medication 1 each 02/14/18 09:00 Melatonin/Pyridoxine Hcl (B6) [Melatonin 3 Mg Tablet] PO DAILY CHRIS Non-Formulary Medication 1 cap 02/14/18 09:00 Multivitamin PO DAILY CHRIS Ondansetron HCl 4 mg 02/13/18 22:18 Zofran 4 Mg/2 Ml IVP Q6H PRN nausea/vomiting Polyethylene Glycol 17 gm 02/14/18 09:00 Miralax PO DAILY CHRIS Ranitidine HCl 150 mg 02/14/18 06:30 Zantac PO BIDAC CHRIS Sodium Chloride 1 syr 02/13/18 19:42 Saline Flush IVF PRN PRN To flush IV Tiotropium [place] 1 cap 02/14/18 09:00 Spiriva IH DAILY CHRIS - Family History Past Family History: Lives with daughter/granddaughter. Family history significant for DM. CVA. cs x 4. - Social History Past Social History: Tobacco 63 years no ETOH. No drugs. Lives with daugther, not interested in NH. No psych. - Vital Signs Temperature: 97 F Pulse Rate: 93 Respiratory Rate: 18 Blood Pressure: 143/84 O2 Sat by Pulse Oximetry: 89 - Body Composition Height: 5 ft 4 in Weight: 87 lb Body Mass Index (BMI): 14.9 - Physical Examination HEENT: Constitutional: Appearance-No acute distress/respiratory distress, chronic lung disease. Older than stated age. Orientation- Oriented x 3, alert Gait- Unobserved Build and Nutrition-[Cachectic female] General- Patient is pleasant and cooperative with the interview and exam. Integumentary: General-No rashes, ulcers or lesions. Palpation- Normal skin moisture/turgor. Skin is warm to touch, appropriate. Capillary refill is normal bilateral Upper and lower extremity. Scattered ecchymoses bilateral UE/wrist/ hand. Head/Neck: Head- normocephalic and atraumatic. Neck- without visible/palpable lumps or pulsations. Palpation- No bony tenderness about head/neck along frontal, occipital, temporal, parietal, mastoid, jawline, zygoma, orbit or any other location. NO temporal artery tenderness. No TMJ tenderness. Neck Supple. Thyroid-No thyromegaly, no nodules Eye: +GLASSES. Lazy eye left. Bilaterally PERRLA, EOMI. No discharge. Upper and lower eyelids are normal. Sclera/conjunctiva normal without discharge. Cornea is normal and clear. Lens is normal. Eyeball appears normal. No ciliary flushing, no conjunctival injection. ENMT: Pinna- normal without tenderness or erythema. External auditory canal Left- normal without erythema or discharge, no excessive cerumen. External auditory canal Right-normal without erythema or discharge, no excessive cerumen. TM left- Owens/pearly, normal light reflex and anatomy. Scarring w/o e/ o OM. TM Right- Owens/pearly, normal light reflex and anatomy Scarring w/o e/o OM. Hearing Assessment-normal to conversational speech. Nose and sinus- No sinus tenderness along frontal/maxillary region. External appearance normal and midline. Nares- bilateral quiet airflow, no discharge. Nasal mucosa- No bleeding noted and no ulcerations observed. [place], moist. Turbinates mildly boggy. Lips- normal color, moist without cracks/lesions Oral Cavity/Palate- hard /soft palate intact without lesions, oral mucosa pink and moist. Oropharynx- no pharyngeal erythema, Uvula midline. No post nasal drip. Salivary glands- Non tender to palpation CHEST/LUNG: Inspection- symmetric chest wall no pectus deformity. Normal effort , no distress, no use of accessory muscles. Palpation- nontender sternum, ribline. No abnormal pulsations. Auscultation- Breath sounds decreased/coarse throughout all lung jefferson. Adventitious sounds- Scattered wheezes, NO rales, Scattered rhonchi. CARDIOVASCULAR: Carotid artery- normal, no bruits or abnormal pulsations. Jugular vein- no pulsations. Palpation/Percussion- Normal PMI, no palpable thrill Auscultation- Regular rate and rhythm. No murmur noted in sitting, supine positions. Normal rhythm at present, no obvious murmur Extremities- no cyanosis , edema, increased warmth. ABDOMEN: Inspection- normal and no visible pulsations. Normal contour. Auscultation- Bowel sounds normal, no abdominal bruits. Palpation/Percussion- soft, non-tender, no rebound tenderness, no rigidity (guarding), no jar tenderness, no masses. Peripheral Vascular: Upper extremity Left- Normal temperature with pink nailbeds and no ulcerations. Upper extremity Right- Normal temperature with pink nailbeds and no ulcerations. Lower extremity- Normal temperature with pink nailbeds and no ulcerations. DP pulses 2+ bilaterally. Normal capillary refill. Edema- No edema. Musculoskeletal: Generalized-No generalized swelling or edema of extremities, no digital clubbing or cyanosis, neurovascularly intact all four extremities. Upper extremity- Symmetrical posture. No visible deformity. Normal sensation along medial and lateral upper extremity proximally and distally. NO tenderness overlying shoulder, lateral/medial epicondyle. [employer] 5/5 and strength 5/5 bilateral UE. Elbow palpated, no tenderness overlying olecranon. Normal supination, pronation to active/passive ROM and to resisted rotation. Bicep insertion/tricep insertion appear normal without obvious pathology. Rotator cuff evaluated and intact. Normal wrist ROM bilaterally. Normal hand movement, intrinsic muscles of hands normal. No tenderness to palpation of hands/wrists/ elbows. Lower extremity- Hip flexor strength 5/5, knee extension 5/5, dorsiflexion/ plantar flexion 5/5. She has walker that she uses at home. Spine/Ribs- No deformities, masses or tenderness, no known fractures, normal strength, Normal ROM. Normal stability No tenderness along C/T/L spine. Normal appearing ROM about spine. Neurological: General- Moves all 4 extremities symmetrically. Symmetrical face and body posture. Cranial nerves- individually evaluated II-XII and intact. PERRLA, Normal EOMI, visual/special senses appear intact, Face is symmetrical and normal sensation/movement, normal tongue, normal strength/posture of neck musculature. Reflexes- intact with DTR 2+ patellar, Achilles, bicep, brachial, tricep. Ankle clonus normal with 2 beats. Strength- 5/5 bilateral UE and LE. Soft touch- intact bilateral UE and LE. Temperature sensation- intact bilateral UE and LE. Neuropsych: Oriented- Person, place, time. (AAOx3), Mood/affect- normal and congruent. Able to articulate well. Speech-Normal speech, normal rate, normal tone, normal use of language, volume and coherence. Thought content- normal with ability to perform basic computations and apply abstract thought/reason. Associations- intact, no SI/HI, no hallucinations, delusions, obsessions. Judgment/insight- Questionable Memory-Recall intact, remote and recent memory intact. Knowledge- Age appropriate fund of knowledge, concentration and attention span normal. Lymphatic: Head/Neck- normal size and non tender to palpation. Axillary- normal size and non tender to palpation. Femoral and Inguinal- normal size and non tender to palpation. - Lab/Tests/Diagnostic Imaging Lab/Tests/Diagnostic Imaging: Laboratory Last Values WBC 12.65 K/ul (4.6-10.2) H 02/13/18 19:55 RBC 4.36 10^6/ul (4.20-5.40) 02/13/18 19:55 Hgb 13.0 g/dl (12.0-16.0) 02/13/18 19:55 Hct 37.4 % (37.0-47.0) 02/13/18 19:55 MCV 85.8 fl (81.0-99.0) 02/13/18 19:55 MCH 29.8 pg (27.0-31.0) 02/13/18 19:55 MCHC 34.8 (31.8-35.4) 02/13/18 19:55 RDW Coeff of [place] 12.8 % (11.6-14.8) 02/13/18 19:55 Plt Count 295 10^3/uL (140-440) 02/13/18 19:55 Immature Gran % (Auto) 0.3 % (0.0-5.0) 02/13/18 19:55 Neut % (Auto) 61.9 02/13/18 19:55 Lymph % (Auto) 20.7 (10.0-50.0) 02/13/18 19:55 Ashley % (Auto) 10.4 (0-10) H 02/13/18 19:55 Eos % (Auto) 6.1 % (0.0-7.0) 02/13/18 19:55 Baso % (Auto) 0.6 % (0.0-3.0) 02/13/18 19:55 Immature Gran # (Auto) 0.0 (0.0-1.0) 02/13/18 19:55 Neut # (Auto) 7.8 K/ul (2.0-6.9) H 02/13/18 19:55 Lymph # (Auto) 2.6 K/uL (0.60-3.4) 02/13/18 19:55 Ashley # (Auto) 1.3 K/uL (0.4-2.0) 02/13/18 19:55 Eos # (Auto) 0.8 K/ul (0.0-0.7) H 02/13/18 19:55 Baso # (Auto) 0.1 K/uL (0-0.2) 02/13/18 19:55 Sodium 125.6 mmol/L (137-145) L 02/13/18 19:55 Potassium 4.02 mmol/L (3.5-5.1) 02/13/18 19:55 Chloride 89.4 mmol/L (98-107) L 02/13/18 19:55 Carbon Dioxide 32.4 mmol/L (22-30.0) H 02/13/18 19:55 Anion Gap 7.82 02/13/18 19:55 BUN 5.6 mg/dL (7-17) L 02/13/18 19:55 Creatinine 0.36 mg/dL (0.60-1.30) L 02/13/18 19:55 Estimated GFR (MDRD) 181.00 mL/min 02/13/18 19:55 BUN/Creatinine Ratio 15.55 02/13/18 19:55 Glucose 101.0 mg/dL (74-106) 02/13/18 19:55 Calcium 9.12 mg/dL (8.4-10.2) 02/13/18 19:55 Total Bilirubin 0.21 mg/dL (0.2-1.3) 02/13/18 19:55 AST 55.4 U/L (14-36) H 02/13/18 19:55 ALT 9.1 U/L (0-35) 02/13/18 19:55 Alkaline Phosphatase 67.1 U/L (53-141) 02/13/18 19:55 Total Creatine Kinase < 20.0 U/L (30-135) L 02/13/18 19:55 Troponin I < 0.012 ng/ml (0.0000-0.120) 02/13/18 19:55 Total Protein 6.58 g/dL (6.3-8.2) 02/13/18 19:55 Albumin 3.62 g/dL (3.5-5.0) 02/13/18 19:55 Globulin 2.96 02/13/18 19:55 Albumin/Globulin Ratio 1.22 02/13/18 19:55 Influ A Molecular Assay Negative by naat (NEGATIVE) 02/13/18 20:28 Influ B Molecular Assay Negative by naat (NEGATIVE) 02/13/18 20:28 CT Head: Sinusitis, mastoiditis, otherwise no acute process. CXR: No acute process. - Assessment (1) Hyponatremia Status: Acute Code(s): E87.1 - HYPO-OSMOLALITY AND HYPONATREMIA SNOMED Code( s): 27726491 (2) Chronic obstructive pulmonary disease (COPD) Status: Chronic Code(s): J44.9 - CHRONIC OBSTRUCTIVE PULMONARY DISEASE, UNSPECIFIED SNOMED Code(s): 25449984 (3) Cachexia Status: Chronic Code(s): R64 - CACHEXIA SNOMED Code(s): 960291438 (4) Depression with anxiety Status: Chronic Code(s): F41.8 - OTHER SPECIFIED ANXIETY DISORDERS SNOMED Code(s): 28565205, 954329122 (5) Seizures Status: Chronic Code(s): R56.9 - UNSPECIFIED CONVULSIONS SNOMED Code(s): 66969533 - Plan Plan: Hyponatremia/Altered mental status.: Cognition has improved some over last 12 hours. She will get to eat chips now/food, eat breakfast. Reviewed Tea/toast/ polydipsia and findings of chronic hyponatremia. WE talked about Chronic process of the low sodium and initial goal for d/c is >180. She needs to eat, we will get new beignnings to see her and talk with her. I believe the group may be beneficial to her. DDX includes SIADH. I will see what she looks like in am. She has no MS changes, she has no respiratory distress, she notes no N/V /D, no fever, intermittent TOWNSEND, long standing breathing disease with COPD and baseline state at present. I will check urine/serum osmol/urine sodium. If urine osmol <100, I will look at urine sodium. Evaluate for rapid water consumption, hypovolemia, pituitary disease. If sodium is <40 in urine we will fluid hydrate and repeat over 24 hours then remeasure. Consider cortisol/TSH. We will monitor fluid intake, allow her to eat salt and we will see if this improves. Limit to 2L fluid intake. SIADH is possible, zoloft can lead to this problem. 126-135 over last few years with avg in low 130's. This may all be chronic. Close monitoring recommended. Received steroid in ER, which should help if - CMP in am, Plan for d/c when >128. - [facility] to see patient am. - Inpatient admit - Vitals q shift - Fall precaution/SZ precaution. Adult FTT/Cachexia (Chronic): Needs to eat regularly, patient is not eating, which may be factor of depression, of poor dentition and poor mood/depression. I will get new beginnings to come and see the patient. She agreed with plan. TSH/Free T4 normal 07/2017. - [facility] to see patient tomorrow. -TSH/Free t4in am. Chronic obstructive pulmonary disease (COPD) (Acute): Duoneb q 4 hours. She is stable at baseline. Tobacco: 1/2 ppd, nicotine patch R/B/A. Tobacco Cessation discussed today for 2 minutes. We reviewed lifestyle choices and discussed quitting. Ready to quit status discussed. The risks and hazards of continued tobacco abuse were discussed with the patient today and total tobacco cessation as recommended. It was clearly and unambiguously explained that continued tobacco usage will adversely affect overall morbidity and mortality of the patient. Patient was informed that tobacco use can lead to numerous cancers, worsening of cardiovascular and pulmonary systems and that lung damage is often permanent and irreversible. I advised the patient to inform me if any further assistance is requested, as we can offer counseling services, nicotine replacement inhaled, patch, lozenge, gum, or prescription medications to include Chantix or Wellbutrin for assistance. I will reassess the interest in tobacco cessation at the next and all subsequent visits. Depression with anxiety (Chronic): Continue zoloft. [facility] to see her tomorrow. Seizures (Chronic): Continue home meds. - Bed rails - SZ precautions - Home meds. Hisotry of Afib: In rhythm at present. Monitor on tele. Diet: Regular DVT Prophy: Lovenox 40mg subcut. Activity: Up with assist. - Vitals q shift - I+O minimum q shift. Disposition: Suspect length of stay to be 1-2 days. Seh will be d/c to PCP once her sodium improves above 128. She noted understanding. There was some confusion at admit but by the time I saw her family noted she was better. COPD chronically not in exacerbation. I will try to get her to see psych team [facility] tomorrow. Drinking 1 bottle of water during our evaluation. WE discussed at length need to increase salt
[2018-02-14] MEDS: SODIUM CHLORIDE 1,000 ML IV SCH ×2 (00:42→12:35)
[2018-02-14] MEDS: DUONEB NEB SCH ×2 (05:00→09:57)
[2018-02-14] MEDS: SOLU-MEDROL 40 MG IVP SCH ×2 (05:56→12:35)
[2018-02-14] MEDS ORDERED: ZANTAC PO SCH (06:30)
[2018-02-14] MEDS ORDERED: MELATONIN PO SCH ×2 (09:00→21:00)
[2018-02-14] MEDS ORDERED: LOVENOX SUBCUT SCH (09:00)
[2018-02-14] MEDS ORDERED: SPIRIVA IH SCH (09:00)
[2018-02-14] MEDS ORDERED: NICODERM 14 MG TD SCH (09:00)
[2018-02-14] MEDS ORDERED: LIPITOR PO SCH (09:00)
[2018-02-14] MEDS ORDERED: PYRIDOXINE HCL PO SCH ×2 (09:00→21:00)
[2018-02-14] MEDS ORDERED: NON-FORMULARY MEDICATION (Multivitamin 1 CAP) PO SCH (09:00)
[2018-02-14] MEDS ORDERED: ZOLOFT PO SCH (09:00)
[2018-02-14] MEDS ORDERED: MULTIVITAMIN TABLET PO SCH (09:00)
[2018-02-14] MEDS ORDERED: PLAVIX PO SCH (09:00)
[2018-02-14] MEDS ORDERED: COLACE PO SCH (09:00)
[2018-02-14] MEDS ORDERED: MIRALAX PO SCH (09:00)
[2018-02-14] MEDS ORDERED: DEPAKOTE PO SCH (09:00)
[2018-02-14 10:34] VITALS: BP 118/65; TEMP 97.5
--- NOTE | 2018-02-14 12:41 | PCM.DC ---
Final Diagnosis: Hyponatremia (Chronic): Improved 129.9 at discharge, COPD (Chronic): Stable Cachexia (Chronic): Ate prominently in hospital. She has no motivation. I discussed with daughter to ask mother what she wants and encourage her to eat. Get her involved with activities. We tried to get her to [facility] but she has to be on Medicare. Chronic Tobacco: Cessation encouraged. >50 pack year. (1) Hyponatremia Status: Acute Code(s): E87.1 - HYPO-OSMOLALITY AND HYPONATREMIA SNOMED Code( s): 36366666 (2) Chronic obstructive pulmonary disease (COPD) Status: Inactive Code(s): J44.9 - CHRONIC OBSTRUCTIVE PULMONARY DISEASE, UNSPECIFIED SNOMED Code(s): 04114424 (3) Cachexia Status: Inactive Code(s): R64 - CACHEXIA SNOMED Code(s): 789707242 (4) Depression with anxiety Status: Inactive Code(s): F41.8 - OTHER SPECIFIED ANXIETY DISORDERS SNOMED Code(s): 41790160, 854662727 (5) Seizures Status: Inactive Code(s): R56.9 - UNSPECIFIED CONVULSIONS SNOMED Code(s): 48968640 (6) History of smoking greater than 50 pack years Status: Acute Code(s): Z87.891 - PERSONAL HISTORY OF NICOTINE DEPENDENCE SNOMED Code(s): 446671544 Reason for Hospitalization: Hyponatremia: Salty foods PO and NS given in hospital and improved from 125 to 129.9 by discharge. She felt great, no issues, wanted to go home. At baseline of 128-131. Prognosis at Discharge: Chronic process, adult failure to thrive consuming tea/toast/coffee without enough solutes. She was hungry in hospital, liked the chips/sandwiches. I recommended to have premade turkey sandwiches/cheese and to have saltine crackers or similar. Recommended oven drier tender f/u. I tried to get [facility] involved but not appropriate age. Will have her f/u with PCP in 1 week. Condition at Discharge: Improved from admit. Happy upbeat, positive. She liked the meals, enjoyed being able to pick what she wanted. Medications at Discharge: Ambulatory Orders Medication Instructions Recorded Albuterol Sulfate [Proair Hfa] 2 inh PO Q4H PRN 08/21/13 Levetiracetam [Keppra] 500 mg PO BEDTIME 08/21/13 Latanoprost [Xalatan] 1 drop OP BEDTIME 02/16/14 Atorvastatin Calcium 10 mg PO DAILY 07/24/15 Clopidogrel Bisulfate [Plavix] 75 mg PO DAILY 07/24/15 Sertraline HCl [Zoloft] 50 mg PO DAILY 07/24/15 Divalproex Sodium [Depakote] 500 mg PO BID 12/05/15 Docusate Sodium [Colace] 100 mg PO BID 12/05/15 Dextran 70/Hypromellose 1 drop OP DIRECTED PRN 05/07/17 [Artificial Tears Eye Drops] Tiotropium [place] [Spiriva] 1 cap IH DAILY 05/07/17 Polyethylene Glycol 3350 [Miralax] 17 gm PO DAILY #30 powd.pack 06/06/17 Melatonin/Pyridoxine HCl (B6) 1 each PO DAILY 02/13/18 [Melatonin 3 mg Tablet] Multivitamin 1 cap PO DAILY 02/13/18 Ranitidine HCl [Zantac] 150 mg PO BIDAC 02/13/18 Lab/Diagnostics: Laboratory Last Values WBC 9.00 K/ul (4.6-10.2) 02/14/18 04:10 RBC 4.27 10^6/ul (4.20-5.40) 02/14/18 04:10 Hgb 12.8 g/dl (12.0-16.0) 02/14/18 04:10 Hct 36.9 % (37.0-47.0) L 02/14/18 04:10 MCV 86.4 fl (81.0-99.0) 02/14/18 04:10 MCH 30.0 pg (27.0-31.0) 02/14/18 04:10 MCHC 34.7 (31.8-35.4) 02/14/18 04:10 RDW Coeff of [place] 12.8 % (11.6-14.8) 02/14/18 04:10 Plt Count 297 10^3/uL (140-440) 02/14/18 04:10 Immature Gran % (Auto) 0.6 % (0.0-5.0) 02/14/18 04:10 Neut % (Auto) 87.5 02/14/18 04:10 Lymph % (Auto) 9.0 (10.0-50.0) L 02/14/18 04:10 [place] % (Auto) 2.7 (0-10) 02/14/18 04:10 Eos % (Auto) 0.0 % (0.0-7.0) 02/14/18 04:10 Baso % (Auto) 0.2 % (0.0-3.0) 02/14/18 04:10 Immature Gran # (Auto) 0.1 (0.0-1.0) 02/14/18 04:10 Neut # (Auto) 7.9 K/ul (2.0-6.9) H 02/14/18 04:10 Lymph # (Auto) 0.8 K/uL (0.60-3.4) 02/14/18 04:10 [place] # (Auto) 0.2 K/uL (0.4-2.0) L 02/14/18 04:10 Eos # (Auto) 0.0 K/ul (0.0-0.7) 02/14/18 04:10 Baso # (Auto) 0.0 K/uL (0-0.2) 02/14/18 04:10 Sodium 129.8 mmol/L (137-145) L 02/14/18 11:13 Potassium 4.31 mmol/L (3.5-5.1) 02/14/18 11:13 Chloride 92.5 mmol/L (98-107) L 02/14/18 11:13 Carbon Dioxide 30.8 mmol/L (22-30.0) H 02/14/18 11:13 Anion Gap 10.81 02/14/18 11:13 BUN 8.1 mg/dL (7-17) 02/14/18 11:13 Creatinine 0.28 mg/dL (0.60-1.30) L 02/14/18 11:13 Estimated GFR (MDRD) 243.00 mL/min 02/14/18 11:13 BUN/Creatinine Ratio 28.92 02/14/18 11:13 Glucose 167.9 mg/dL (74-106) H 02/14/18 11:13 Calcium 8.88 mg/dL (8.4-10.2) 02/14/18 11:13 Total Bilirubin 0.22 mg/dL (0.2-1.3) 02/14/18 11:13 AST 42.0 U/L (14-36) H 02/14/18 11:13 ALT 13.0 U/L (0-35) 02/14/18 11:13 Alkaline Phosphatase 54.8 U/L (53-141) 02/14/18 11:13 Total Creatine Kinase < 20.0 U/L (30-135) L 02/13/18 19:55 Troponin I < 0.012 ng/ml (0.0000-0.120) 02/13/18 19:55 Total Protein 6.20 g/dL (6.3-8.2) L 02/14/18 11:13 Albumin 3.37 g/dL (3.5-5.0) L 02/14/18 11:13 Globulin 2.83 02/14/18 11:13 Albumin/Globulin Ratio 1.19 02/14/18 11:13 TSH 0.120 uIU/L (0.465-4.68) L 02/14/18 04:10 Free T4 1.38 ng/dL (0.78-2.19) 02/14/18 04:10 Influ A Molecular Assay Negative by naat (NEGATIVE) 02/13/18 20:28 Influ B Molecular Assay Negative by naat (NEGATIVE) 02/13/18 20:28 Na/K Trends 02/13/18 02/14/18 02/14/18 Range/Units 19:55 04:10 11:13 Sodium 125.6 L 126.6 L 129.8 L (137-145) mmol/L Potassium 4.02 4.19 4.31 (3.5-5.1) mmol/L CT reported Sinusitis/mastoiditis but she is not tender and reports no symptoms. Can f/u as outpatient regarding this process. Education Provided to Patient and Family: 1. Pediatric Radiologist referral recommended 2. Need to consume adequate food to liquid. 3. Discussed limit 2L liquids per day 4. Eat 3 meals per day. 5. Baseline COPD status d/w patient 6. Baseline sodium levels d/w patient. Follow-ups: 1. PCP in 1 week 2. Would like oven drier tender referral 3. Would like counseling 4. Would like her involved with group/hobby/organization to give her some contact with people/socialization. Disposition: HOME SELF-CARE Hospital Course: 62 yo WF patient of TARSHA Bhatia. Patient came to ER pm of 02/13/181921 after she received call from PCP office noting hyponatremia and need to appear in ER. Family reported confusion, she is adult FTT, she is not eating, she is worsening with time and family noted that she does not eat much. She presented to ER with daughter and grand daughter w/ loss of appetite chronically, cough, chronic COPD currently at baseline state, o2 dependent at night, Reported N/V/D by daughter. patient noted she had emesis 2 weeks ago but not present in ER or preceding 48 hours. Chronic smoker, 1/2ppd with 61 year smoke history. No symptoms, no MSK symptoms, no [place], +Anxiety, +confusion. PMHx htn, copd, anemia , seizures, anxiety, depression. Chronic hyponatremia, cachexia. SOA, cough, chronically. Reviewed Labs from Er 12.65 WBC, hgb 13.0, plt 295. Sodium 125.6 , K+ 4.02, cl 89.4, BUN 5.6 and cr 0.36. Glucose 101. EKG done in ER LAE, AST 55.4. Influenza a and b negative. albumin 3.62 albumin. Given neb in Er, telemetry monitor applied. troponin negative. Duonebs, plavix, depakote, lipitor, lovenox, xalatan, keppra, rodolfo-medrol 40mg, dextran tears. melatonin, zofrran, miralax, zantac. We held spiriva. Vitals in Er reviewed 97, pulse 93, rr 18, BP 143/84, pulse 89. She does not drink any water per day per family. She had a bottle of water in her hand 3/4 consumed by patient now. Family notes she only drinks coffee and tea during day only. She only eats when someone fixes food and that is when daughter gets to it (Lives with daughter). Watches TV and stays at home. Does not go out much. Family argued about the reason she is not eating is because nobody tells what she wants to eat. Daughter/grand- daughter asked her what she wants to eat. She wants sandwiches per her report, so I discussed with family about getting sandwiches and making them available. Discussed tea/toast diet. Intermittent depression, stable, she is not interested in / no SI/HI. We reviewed her meds. Discussed SIADH, discussed zoloft. Chronic low sodium worsening. 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 She has history of seizures with 1-2 per month, On keppra following with specialist in [place]. No recent seizures per family. If alone patient stops eating totally. She has aid during day. I wonder if she could get involved with some mosque groups, etc. She was fully cognitively aware, playful, interactive and looked okay other than acute on chronic hyponatremia. COPD was stable. Weight is chronically poor with BMI markedly under goal at 14.9. We discussed diet. She had no SI/HI, she had no acute mood related concern, no AVH. Overnight her sodium improved from 125.6 to 126.6 and then to 129.8 at discharge just after lunch today. She felt great, better, ate full lunch and was ready to go home. We resumed home meds, no changes at discharge. Telemetry reviewed and stable throughout stay. Discharged feeling better, less run down and wanting to eat. She was looking forward to Thanksgiving tomorrow. I expected a 48-72 hour hospital stay based on her adult cachexia and her refusal to eat. She ate incredibly well, proving salts will improve and stabilize with home therapy. In the status she was in, this would not have been correctable outpatient as outpatient therapy had failed and inpatient admission was needed. Offered to monitor in hospital another day and she declind, requesting d/c home today. Plan: 1. D/C Home today 2. Resume home meds 3. Encourage 3 meals per day: Family to make up some sandwiches and have food that she wants to consume 4. Try to get her involved with local organization to have some socializing. 5. See PCP Za Bhatia in 1 week 6. CMP in 1 week. 7. F/U with ER for any worsening of symptoms 8. Offered nicotine patches, declined. >30 minutes spent in discharge today/coordination of care not including discharge summary.
[2018-02-14] MEDS ORDERED: ARTIFICIAL TEARS OPTH SOL OP SCH (21:00)
[2018-02-14] MEDS ORDERED: KEPPRA PO SCH (21:00)
[2018-02-14] MEDS ORDERED: XALATAN OP SCH (21:00)
== END 2018-02-14 13:55 | disposition home or self-care (01) | DRG 191 ==
LOC: ED 19:19 → MEDSURG B 22:07
PROVIDERS: ADMIT Family Medicine; ATTEND Family Medicine
DX: J44.1 Chronic obstructive pulmonary disease with (acute) exacerbation (principal); R64 Cachexia; R41.0 Disorientation, unspecified; R63.0 Anorexia; R41.82 Altered mental status, unspecified; R56.9 Unspecified convulsions; F41.8 Other specified anxiety disorders; Z87.891 Personal history of nicotine dependence
CPT/HCPCS: 36415; 80048; 80053; 82550; 83930; 84439; 84443; 84480; 84484; 85025; 87502; 93005; 93010; 94640; 96374; 96375; 99284; 99285

== ENCOUNTER 2018-05-21 13:01 | Inpatient (IN) ==
--- NOTE | 2018-05-21 14:48 | CT ---
EXAM: CT of the chest without contrast History: Cough. Comparison: Chest CT 05/07/2017 Technique: Multiplanar CT images through the thorax were obtained without the administration of IV c ontrast Findings: Heart size is normal. Coronary calcifications. No pericardial effusion. No thoracic aor tic aneurysm. No pathologically enlarged thoracic lymph nodes. Emphysema. Biapical lung scarring a gain noted. Diffuse bronchial wall thickening and scattered bilateral micronodules with tree in bud opacities. Trace left pleural effusion. No pneumothorax. No suspicious lung masses or lung nodule s. Within the visualized upper abdomen, no acute findings. No other of the osteopenia. The chronic com pression deformities at L1 and T11. Impression: 1. Mild bilateral bronchopneumonia. 2. Diffuse bronchial wall thickening. 3. Emphysema. 4. Coronary artery disease
--- NOTE | 2018-05-21 16:03 | CT ---
EXAM: CT of the head without contrast History: Head trauma. Comparison: Head CT 02/13/2018 Technique: Multiplanar CT images through the head were obtained without the administration of IV con trast Findings: The visualized paranasal sinuses are clear in general. No change in the chronic right mas toid effusion. No acute calvarial abnormalities. Intracranially there is stable atrophy. No midline shift and no hydrocephalus. No acute intracrania l hemorrhage or abnormal extraaxial fluid collections. No change in the periventricular and subcorti rosa elena white matter hypodensities. Impression: 1. No acute intracranial process. 2. Stable atrophy and chronic small vessel ischemic disease. 3. Stable chronic right mastoid effusion
--- NOTE | 2018-05-21 16:07 | CT ---
EXAM: CT of the cervical spine without contrast History: Head and neck trauma. Comparison: CT cervical spine 08/21/2013 Technique: Multiplanar CT images through the cervical spine were obtained without the administration of IV contrast Findings: The visualized airway remains patent. Atherosclerotic vascular calcifications. No acute fracture or subluxation of the cervical spine. No prevertebral soft tissue swelling. Prede ntal space is not widened. Moderate to severe disc space narrowing at C6-7 with endplate sclerosis a nd osteophyte formation. Moderate disc space narrowing at C5-6. No significant bony central canal s tenosis. Multilevel bilateral bony neural foraminal narrowing secondary to uncovertebral and facet h ypertrophy is moderate to severe on the right at C5-6 and C6-7. Biapical lung scarring. Impression: No acute osseous abnormality of the cervical spine. Degenerative changes.
[2018-05-21] MEDS ORDERED: ZITHROMAX 500 MG in SODIUM CHLORIDE 250 ML IV STA (16:53)
--- NOTE | 2018-05-21 16:58 | ED.PDOC ---
General ED Provider: Dr. JAKE PERSAUD Chief Complaint: Abnormal Labs Stated Complaint: PT'S PA WORRIED ABOUT LOW SODIUM .PT IS NOT AWARE OF SODIUM LEVEL. ARRIVED A.O.X 3 . WEAK HISTORY OF [place] Time Seen by Physician: 13:00 Mode of Arrival: Wheelchair Information Source: Patient, Family Exam Limitations: No limitations Primary Care Provider: ESME ALBARRAN Nursing and Triage Documentation Reviewed and Agree: Yes Does patient meet sepsis criteria?: No System Inflammatory Response Syndrome: Not Applicable Sepsis Protocol: For patient's 13 years and over: Temp is 96.8 and below OR 101 and greater Pulse >90 BPM Resp >20/minute Acutely Altered Mental Status Are patient's symptoms suggestive of a new infection, such as: -Pneumonia -Skin, Soft Tissue -Endocarditis -UTI -Bone, Joint Infection -Implantable Device -Acute Abdominal Infection -Wound Infection -Meningitis -Blood Stream Catheter Infection -Unknown Miscellaneous Complaint Exam - Complex/Multi-System Complaint/Exam Onset/Duration: 1300 Symptoms Are: Still present Episodes Lasting: Seconds Initial Severity: Mild Current Severity: Mild Location of Pain: NO Associated Signs and Symptoms: Reports: Weakness, Cough. Denies: Decreased responsiveness, Confusion, Agitation, Dizziness, Syncope, Headache, Short of air , Wheezing, Hemoptysis, Chest pain, Palpitations, Edema, Nausea, Vomiting, Diarrhea, Abdominal pain, Back pain, Dysuria, Hematemesis, Melena, Decreased oral intake, Fever, Diaphoresis, Immunocompromised, Anticoagulation Therapy, Recent medication changes, Indwelling medical records receptionist, Prior MRSA, Prior VRE, Recent trauma, Remote trauma Recent Echo/LV Function: No Respiratory Distress: None JVD Present: No Tachypnea Present: No Stridor Present: No Abdominal Findings: Present: Normal findings Glascow Coma Scale (see protocol): 15 Meningeal Signs Positive: No Focal Weakness: Present: None Focal Sensory Loss: Present: None Gait: Normal Gag Reflex Present: No Babinski Sign: Negative Right, Negative Left Joint Swelling Present: No In-Dwelling Device Present: No Differential Diagnosis: Aspiration, Metabolic Abnormality Quality Indicators for Cardiac Chest Pain: EKG in 10min. Quality Indicators for AMI: EKG in 10min. Quality Indicator For Non-Traumatic Chest Pain/Syncope: EKG Performed Review of Systems - Review Of Systems Constitutional: Reports: Chills, Malaise, Weakness, Loss of appetite Eyes: Reports: No symptoms Ears, Nose, Mouth, Throat: Reports: No symptoms Respiratory: Reports: Cough Cardiac: Reports: No symptoms GI: Reports: No symptoms : Reports: No symptoms Musculoskeletal: Reports: No symptoms Skin: Reports: No symptoms Neurological: Reports: No symptoms Endocrine: Reports: No symptoms Hematologic/Lymphatic: Reports: No symptoms All Other Systems: Reviewed and Negative Past Medical History - Past Medical History Previously Healthy: No Endocrine: Reports: None Cardiovascular: Reports: Hypertension Respiratory: Reports: COPD Hematological: Reports: Anemia Gastrointestinal: Reports: None Genitourinary: Reports: None Neuro/Psych: Reports: Seizure, Anxiety, Depression Musculoskeletal: Reports: None Cancer: Reports: None Last Menstrual Period: none Other Pertinent Past Medical History: CHRONIC HYPONATREMIA. CACHEXIA - Surgical History General Surgical History: Reports: Hysterectomy, (X4), Tonsillectomy, Adenoidectomy, Orthopedic (TOES, KNEE, HAND), Back Surgery (L4 fracture 10/09, ) , Other (EYES-BILATERAL CATARACTS). Denies: CABG (ANGIOPLAST 07/07/15) - Family History Family History: Reports: None - Social History Smoking Status: Current every day smoker, Heavy tobacco smoker Hx Substance Use: Yes Alcohol Screening: None Physical Exam - Physical Exam Appearance: Ill-appearing Ill-appearing: Mild Pain Distress: Moderate Eyes: INGRID, EOMI, Conjunctiva clear ENT: Ears normal, Nose normal, Oropharynx normal Respiratory: Airway patent, Breath sounds equal, Respirations nonlabored, Rhonchi Cardiovascular: RRR, Pulses normal, No rub, No murmur GI/: Soft, Nontender, No masses, Bowel sounds normal, No Organomegaly Musculoskeletal: Normal strength, ROM intact, No edema, No calf tenderness Skin: Warm, Dry, Normal color Neurological: Sensation intact, Motor intact, Reflexes intact, Cranial nerves intact, Alert, Oriented Psychiatric: Affect appropriate, Mood appropriate Physician Notification - Case Discussed Physician Notified: JOHNNY Time of Notification: 17:01 Admit/Transition Orders Entered by ED Provider: Yes Admit To: Inpatient Critical Care Note - Critical Care Note Total Time (mins): 0 Course - Course Hematology/Chemistry: 05/21/18 13:55 05/21/18 13:55 Orders, Labs, Meds: Lab Review 05/21/18 05/21/18 05/21/18 13:55 13:55 15:34 WBC 12.56 H RBC 4.07 L Hgb 12.3 Hct 36.2 L MCV 88.9 MCH 30.2 MCHC 34.0 RDW Coeff of [place] 12.8 Plt Count 261 Immature Gran % (Auto) 0.5 Neut % (Auto) 75.0 Lymph % (Auto) 12.5 [place] % (Auto) 10.3 H Eos % (Auto) 1.4 Baso % (Auto) 0.3 Immature Gran # (Auto) 0.1 Neut # (Auto) 9.4 H Lymph # (Auto) 1.6 [place] # (Auto) 1.3 Eos # (Auto) 0.2 Baso # (Auto) 0.0 Puncture Site O2 Saturation ABG pH ABG pCO2 ABG pO2 ABG HCO3 ABG Total CO2 ABG Base Excess FiO2 % Sodium 131.1 L Potassium 3.57 Chloride 87.0 L Carbon Dioxide 37.2 H Anion Gap 10.47 BUN 4.5 L Creatinine 0.40 L Estimated GFR (MDRD) 161.00 BUN/Creatinine Ratio 11.25 Glucose 98.2 Calcium 9.02 Total Bilirubin 0.24 AST 44.2 H ALT 9.8 Alkaline Phosphatase 69.7 Total Protein 6.30 Albumin 3.27 L Globulin 3.03 Albumin/Globulin Ratio 1.07 Influ A Molecular Assay Negative by naat Influ B Molecular Assay Negative by naat 05/21/18 16:01 WBC RBC Hgb Hct MCV MCH MCHC RDW Coeff of [place] Plt Count Immature Gran % (Auto) Neut % (Auto) Lymph % (Auto) [place] % (Auto) Eos % (Auto) Baso % (Auto) Immature Gran # (Auto) Neut # (Auto) Lymph # (Auto) [place] # (Auto) Eos # (Auto) Baso # (Auto) Puncture Site Rbrach O2 Saturation 91.0 L ABG pH 7.423 ABG pCO2 48.5 H ABG pO2 59.0 L* ABG HCO3 31.7 H ABG Total CO2 33 H ABG Base Excess 7 H FiO2 % 21.0 Sodium Potassium Chloride Carbon Dioxide Anion Gap BUN Creatinine Estimated GFR (MDRD) BUN/Creatinine Ratio Glucose Calcium Total Bilirubin AST ALT Alkaline Phosphatase Total Protein Albumin Globulin Albumin/Globulin Ratio Influ A Molecular Assay Influ B Molecular Assay Orders Category Date Time Status ADMIT PATIENT INPATIENT .TO [facility] (MONITORED BED) ADMISSION 05/21/18 16: 14 Active ABG DRAW REQUEST Stat CARDIO 05/21/18 16:01 Completed TELEMETRY MONITORING TELE CARE 05/21/18 16:14 Active ABG Stat LAB 05/21/18 16:01 Completed CBC W/ AUTO DIFF Stat LAB 05/21/18 13:55 Completed COMPREHENSIVE METABOLIC PANEL Stat LAB 05/21/18 13:55 Completed FLU A/B MOLECULAR Stat LAB 05/21/18 15:[address] CERVICAL SPINE W/O CONTRAST Stat RADS 05/21/18 15:[address] CHEST W/O CONTRAST Stat RADS 05/21/18 13:[address] HEAD W/O CONTRAST Stat RADS 05/21/18 15:33 Completed Medications Generic Name Dose Route Start Last Admin Trade Name Freq PRN Reason Stop Dose Admin Albuterol/Ipratropium 1 vial 05/21/18 18:00 Duoneb NEB RTQ6H [facility] Atorvastatin Calcium 10 mg 05/22/18 09:00 Lipitor PO DAILY [facility] Clopidogrel Bisulfate 75 mg 05/22/18 09:00 Plavix PO DAILY [facility] Divalproex Sodium 500 mg 05/21/18 21:00 Depakote PO BID [facility] Docusate Sodium 100 mg 05/21/18 21:00 Colace PO BID [facility] Sodium Chloride 1,000 mls @ 75 mls/hr 05/21/18 17:00 Sodium Chloride IV .[id number] [facility] Ceftriaxone Sodium 1 gm/ 50 mls @ 75 mls/hr 05/21/18 17:00 Sodium Chloride IV 05/24/18 16:59 DAILY [facility] Azithromycin 500 mg/ Sodium 250 mls @ 125 mls/hr 05/21/18 16:53 Chloride IV 05/21/18 18:52 ONCE STA Latanoprost 1 drop 05/21/18 21:00 Xalatan OP BEDTIME [facility] Levetiracetam 500 mg 05/21/18 21:00 Keppra PO BEDTIME [facility] Polyethylene Glycol 17 gm 05/22/18 09:00 Miralax PO DAILY [facility] Ranitidine HCl 150 mg 05/21/18 17:00 Zantac PO BIDAC [facility] Sertraline HCl 50 mg 05/22/18 09:00 Zoloft PO DAILY [facility] Tiotropium [place] 1 cap 05/22/18 09:00 Spiriva IH DAILY [facility] Vital Signs: Temp Pulse Resp BP Pulse Ox 05/21/18 13:02 99.2 F 89 20 137/76 90 L Departure - Departure Time of Disposition: 17:00 Disposition: HOME SELF-CARE Discharge Problem: Bronchopneumonia, Hyponatremia COPD (chronic obstructive pulmonary disease) Qualifiers: COPD type: unspecified COPD Qualified Code(s): J44.9 - Chronic obstructive pulmonary disease, unspecified Condition: Good Pt referred to PMD for follow-up: Yes IPMP verified?: No Allergies/Adverse Reactions: Allergies Iodinated Contrast- Oral and IV Dye [Iodinated Contrast Media - IV Dye] Adverse Reaction (Verified 02/13/18 19:24) Swelling oxycodone [From Tylox] Adverse Reaction (Verified 05/21/18 13:08) Penicillins Adverse Reaction (Verified 05/21/18 13:08) Sulfa (Sulfonamide Antibiotics) Adverse Reaction (Verified 05/21/18 13:08) anesthesia Allergy (Severe, Uncoded 05/21/18 13:08) confusion, Diffficult to wake up Home Medications: Ambulatory Orders Albuterol Sulfate [Proair Hfa] 2 inh PO Q4H PRN 08/21/13 Levetiracetam [Keppra] 500 mg PO BEDTIME 08/21/13 Latanoprost [Xalatan] 1 drop OP BEDTIME 02/16/14 Atorvastatin Calcium 10 mg PO DAILY 07/24/15 Clopidogrel Bisulfate [Plavix] 75 mg PO DAILY 07/24/15 Sertraline HCl [Zoloft] 50 mg PO DAILY 07/24/15 Divalproex Sodium [Depakote] 500 mg PO BID 12/05/15 Docusate Sodium [Colace] 100 mg PO BID 12/05/15 Dextran 70/Hypromellose [Artificial Tears Eye Drops] 1 drop OP DIRECTED PRN 05/07/17 Tiotropium [place] [Spiriva] 1 cap IH DAILY 05/07/17 Polyethylene Glycol 3350 [Miralax] 17 gm PO DAILY #30 powd.pack 06/06/17 Melatonin/Pyridoxine HCl (B6) [Melatonin 3 mg Tablet] 1 each PO DAILY 02/13/18 Multivitamin 1 cap PO DAILY 02/13/18 Ranitidine HCl [Zantac] 150 mg PO BIDAC 02/13/18 Disposition Discussed With: Patient, Family
[2018-05-21] MEDS: SODIUM CHLORIDE 1,000 ML IV SCH (17:55)
[2018-05-21] MEDS ORDERED: DUONEB NEB SCH (18:00)
[2018-05-21] MEDS: ZANTAC PO SCH (18:19)
[2018-05-21 18:27] VITALS: BMI 15.3
[2018-05-21] MEDS: ROCEPHIN 1 GM in SODIUM CHLORIDE 50 ML IV SCH (19:05)
[2018-05-21] MEDS: DUONEB NEB SCH (20:50)
[2018-05-21] MEDS: COLACE PO SCH (20:54)
[2018-05-21] MEDS: KEPPRA PO SCH (20:54)
[2018-05-21] MEDS: XALATAN OP SCH (20:55)
[2018-05-21] MEDS: DEPAKOTE PO SCH (20:55)
[2018-05-22] MEDS: DUONEB NEB SCH ×4 (04:30→19:35)
[2018-05-22] MEDS: ZANTAC PO SCH ×2 (05:30→17:25)
[2018-05-22] MEDS: ROCEPHIN 1 GM in SODIUM CHLORIDE 50 ML IV SCH (08:30)
[2018-05-22] MEDS: ZOLOFT PO SCH (08:31)
[2018-05-22] MEDS: DEPAKOTE PO SCH ×2 (08:31→20:27)
[2018-05-22] MEDS: PLAVIX PO SCH (08:32)
[2018-05-22] MEDS: LIPITOR PO SCH (08:32)
[2018-05-22] MEDS: COLACE PO SCH ×2 (08:33→20:46)
[2018-05-22] MEDS: MIRALAX PO SCH (08:35)
[2018-05-22] MEDS: SODIUM CHLORIDE 1,000 ML IV SCH ×2 (10:11→23:28)
[2018-05-22] MEDS: SPIRIVA IH SCH (10:37)
--- NOTE | 2018-05-22 11:21 | PN ---
DATE OF SERVICE: 05/21/18 - INITIAL EXAMINATION SUBJECTIVE: DATE OF SERVICE: 05/21/18 HISTORY OF PRESENT ILLNESS: 62-year-old female who resides with her daughter. She has fallen five times this week. She is quite unsteady with gait and no appetite. There were no obvious injuries. She was sent to the emergency room because of the low sodium level. That also was the reason previously. The patient is alert, wide awake with movement of all extremities. She is cooperative. Heart is normal sinus rhythm. Lungs breath sounds are markedly diminished on both sides. No rales or wheezing. PAST MEDICAL HISTORY: The patient's recorded problems was CVA, seizure disorder probably from the CVA , myocardial infarction, COPD, GERD, kidney stones, chronic kidney disease, depression, anxiety, chronic problems, history of migraines, arthritis, coronary artery disease with previous CO. PAST SURGICAL HISTORY: Surgery to the nose, toes, knees, tonsils; section times four, eye surgery, hand, hysterectomy and angioplasty 07/07/15. L4 compression fracture . The patient's hospital placement would probably be better in the [facility] location rather than home. She told me that her daughter has two cancers. The patient is a heavy smoker. LABS: The patient's CBC showed mild leukocytosis, normal platelet count. Hemoglobin 12.3, hematocrit 36.2 low - below normal. Arterial blood gases: FI02 21, p02 59 , pc02 48.5, oxygen saturation 91, pH 7.423. The patient definitely needs to stop smoking. Sodium 131, chloride 181. MTDD
[2018-05-22] MEDS: XALATAN OP SCH (20:26)
[2018-05-22] MEDS: KEPPRA PO SCH (20:27)
[2018-05-23] MEDS: DUONEB NEB SCH ×4 (05:00→20:20)
[2018-05-23] MEDS: ZANTAC PO SCH ×2 (06:03→17:09)
[2018-05-23] MEDS: SPIRIVA IH SCH (09:00)
[2018-05-23] MEDS: ROCEPHIN 1 GM in SODIUM CHLORIDE 50 ML IV SCH (09:25)
[2018-05-23] MEDS: DEPAKOTE PO SCH ×2 (09:25→21:29)
[2018-05-23] MEDS: MIRALAX PO SCH (09:25)
[2018-05-23] MEDS: LIPITOR PO SCH (09:26)
[2018-05-23] MEDS: PLAVIX PO SCH (09:26)
[2018-05-23] MEDS: COLACE PO SCH ×2 (09:26→21:29)
[2018-05-23] MEDS: ZOLOFT PO SCH (09:26)
[2018-05-23] MEDS: SODIUM CHLORIDE 1,000 ML IV SCH (13:39)
--- NOTE | 2018-05-23 15:47 | RS.OTINEVL ---
Subjective - Patient information Date of Evaluation: 05/23/18 Date of Arrival on Unit: 05/22/18 Usual Living Arrangement: With Others Living Arrangement Comments: Pt lives with her daughter and her daughter is dealing with her own illness. According to case management daughter is having a difficult time taking care of her mother. Medical History: COPD, Arthritis Medical History Comments:: Pneumonia, COPD, GERD, Back surgery 2016, Daughter SOA, frequent falls, fractured humerus, and sacrum, hysterectomy, incont. Surgical History Comments:: Back surgery, c-sections x4., hysterectomy, tonsillectomy, Subjective Information/ Patient Comments:: "I have a girl that comes 3X a week to the house to help me. - Level of function Abilities prior to this admission: Daughter has been taking care of her. Pt reports she walks with a RW. Current Level of Function: Partially Dependent Current Equipment Used at Home: oxygen from [place]. walker Pain Assessment - Pain Pain Score: 0 Interventions - Objective Patient Orientation: Person, Situation Current Interventions: IV's, Oxygen, Telemetry Observation: Pt is very thin. Pt able to reina and doff her briefs. Pt has impaired vision and has a difficult time walking with the RW. Pt will stay to the right due to the left eye impaired vision. Interventions - ROM Right Upper Extremity AROM: Slight limitation Left Upper Extremity AROM: Slight limitation - Strength Right Upper Extremity Strength: Mild Weakness Left Upper Extremity Strength: Mild Weakness - Sensation Right Upper Extremity Sensation: Intact/Normal Left Upper Extremity Sensation: Intact/Normal Balance - Sitting Balance Static Sitting Balance: Fair Dynamic Sitting Balance: Fair - Standing Balance Static Standing Balance: Fair Dynamic Standing Balance: Fair ADL Skills - Self Feeding Self Feeding: Independent - Grooming Grooming: CGA - Bathing Bathing UE: Not Tested Bathing LE: Not Tested - Dressing Dressing UE: CGA Dressing LE: CGA - Toilet Management Toileting Management: Min Assist Functional Mobility - Bed Mobility Rolling R/L: Independent Scooting: Min Assist Supine to Sit: Supervision Sit to Supine: Supervision - Transfers Sit to Stand: CGA Stand to Sit: CGA Stand Pivot Transfers: CGA - Ambulation Weight Bearing Status: FWB Assistive Device Used: Rolling Walker Assistance needed with Ambulation: Min Assist - Safety Awareness Safety Awareness: Fair DENIS INDEX SCORE: . Additional Treatment Performed - Time with patient Length of Evaluation: 22 Total treatment time: 22 Activities Would you be interested in leaving your room for activities?: Yes Would you enjoy group activities?: Yes Do you have difficulty with your vision?: Yes Patient Interests:: Watching Television Patient Education Patient Education: Education of diagnosis, Home Safety, Education of Plan of Care Teaching Recipient: Patient Teaching Methods: Discussion Assessment Problem List:: Decreased level of function, Requires training/education, Decreased safety/Risk of falls, Weakness Rehab Potential: Good Further Therapy Indicated?: Yes Evaluation Complexity: HISTORY: Medium, EXAM OF BODY SYSTEMS: Medium, CLINICAL DECISION MAKING: Medium Short Term Goals - Goals GOAL 1: Pt to increase dyn. std. balance to 10 minutes for self cares. Goal to be met by: 05/28/18 GOAL 2: Pt to complete sink level ADLS with RW for 8 minutes. Goal to be met by: 05/28/18 GOAL 3: Pt to increase activity tolerance to 15 minutes with rests PRN. Goal to be met by: 05/28/18 Immunochemist Goals GOAL 1: Pt to increase dyn. std. balance to 15 minutes for self cares. Goal to be met by: 06/01/18 GOAL 2: Pt to complete sink level ADLS with RW for 15 minutes. Goal to be met by: 06/01/18 GOAL 3: Pt to increase activity tolerance to 20 minutes with rests PRN. Goal to be met by: 06/01/18 Plan Plan of Care: Therapeutic EX, Neuromuscular Re-Educ, Therapeutic Activity, Self- Care/Home Management Frequency of Treatment: 1-2 X day, as tolerated Duration of Treatment: 1 Week Anticipated Discharge Destination: Assisted Care Facility Treatment Diagnosis (ICD 10 Codes): M62.81 Muscle weakness, Z74.1 Need for assistance with personal care. Has the Physician been added for Co-signature?: Yes
[2018-05-23] MEDS: KEPPRA PO SCH (21:29)
[2018-05-23] MEDS: XALATAN OP SCH (21:30)
[2018-05-24] MEDS: SODIUM CHLORIDE 1,000 ML IV SCH ×2 (02:35→16:47)
[2018-05-24] MEDS: DUONEB NEB SCH ×4 (05:02→20:35)
[2018-05-24] MEDS: ZANTAC PO SCH ×2 (05:58→16:46)
[2018-05-24] MEDS: COLACE PO SCH ×2 (08:16→21:17)
[2018-05-24] MEDS: ROCEPHIN 1 GM in SODIUM CHLORIDE 50 ML IV SCH (08:16)
[2018-05-24] MEDS: ZOLOFT PO SCH (08:16)
[2018-05-24] MEDS: PLAVIX PO SCH (08:16)
[2018-05-24] MEDS: MIRALAX PO SCH (08:16)
[2018-05-24] MEDS: LIPITOR PO SCH (08:16)
[2018-05-24] MEDS: DEPAKOTE PO SCH ×2 (08:16→21:17)
--- NOTE | 2018-05-24 08:32 | RS.PTINEVL ---
Subjective - Patient information Date of Evaluation: 05/23/18 Date of Arrival on Unit: 05/22/18 Admitted From:: Home Diagnosis: Bronchopneumonia, hyponatremia, COPD Usual Living Arrangement: With Others Living Arrangement Comments: Pt lives with her daughter and her daughter is dealing with her own illness. According to case management daughter is having a difficult time taking care of her mother. Home Environment: House, Stairs (few) Medical History: Hypertension, COPD, Arthritis Medical History Comments:: anxiety, depression LATEX ALLERGY?: No Surgical History: Lumbar Spine, Hysterectomy, CABG Medications: see chart Subjective Information/ Patient Comments:: pt states that she is doing a little better today. States "they want me to go to the prison but I am not going. " - Level of function Prior to this admission, the patient could do the following:: Partially Dependent Ambulation Abilities prior to this admission: pt has Help at Home 3x a week to assist with personal care and home making Current Level of Function: Partially Dependent Current Equipment Used at Home: oxygen from [place]. rollator rwx Interventions - Objective Patient Orientation: Person, Place Current Interventions: IV's, Oxygen, Telemetry Observation: pt on O2 2 liters, pt appears underweight. Range of Motion - ROM Right Upper Extremity AROM: WFL's Left Upper Extremity AROM: WFL's Right Lower Extremity AROM: WFL's Left Lower Extremity AROM: WFL's Muscle Strength - Muscle Strength Right Upper Extremity Strength: Mild Weakness (grossly 3/5) Left Upper Extremity Strength: Mild Weakness (grossly 3/5) Right Lower Extremity Strength: Mild Weakness (hip flex 3+/5, knee flex/ext 4-/5 , ankle DF/PF 4-/5) Left Lower Extremity Strength: Mild Weakness (hip flex 3+/5, knee flex/ext 4-/5 , ankle DF/PF 4-/5) Sensation - Sensation Right Upper Extremity Sensation: Intact/Normal Left Upper Extremity Sensation: Intact/Normal Right Lower Extremity Sensation: Intact/Normal Left Lower Extremity Sensation: Intact/Normal Palpation Palpation Findings: None/Normal Balance - Sitting Balance and Reactions Static Sitting Balance: Fair Dynamic Sitting Balance: Poor Sitting Equilibrium Reactions: Delayed Left, Delayed Right Sitting Protective Reactions: Delayed Left, Delayed Right - Standing Balance and Reactions Static Standing Balance: Poor Dynamic Standing Balance: Poor Standing Equilibrium Reactions: Delayed Left, Delayed Right Standing Protective Reactions: Delayed Left, Delayed Right Functional Mobility - Bed Mobility Rolling R/L: CGA Supine to Sit: Min Assist - Transfers Sit to Stand: Min Assist Stand to Sit: Min Assist - Safety Awareness Safety Awareness: Poor DENIS INDEX SCORE: n/a Ambulation - Ambulation Assistive Device Used: Rolling Walker Orthotic/Prosthetic Device: No Distance: 25ft Assistance needed with Ambulation: Min Assist Gait Deviations: Forward posture, Short stride, Deviates from path Ambulation Comments: pt requires cues to keep walker close. pt impulsive and requires verbal cues for safety. Factors Affecting Ambulation: Decreased Balance, Breathing/O2 Saturation, Weakness, Decreased Safety, Cognitive Status, Limited Endurance Treatment time - Time with patient Length of Evaluation: 23 Total treatment time: 27 Patient Education - Education Patient Education: Activity Modification, Education of Plan of Care Teaching Recipient: Patient Teaching Methods: Discussion Comments: discussion with patient regarding POC as well as importance of PT to assist with improving gait safety and balance Assessment - Assessment Problem List:: Decreased level of function, Requires training/education, Decreased safety/Risk of falls, Weakness, Cognitive status limits abilities Rehab Potential: Good Further Therapy Indicated?: Yes Candidate for Swing Bed for Therapy Services?: Would need to reevaluate for this closer to time for dc due to pt has a hx of refusing therapy. Evaluation Complexity: HISTORY: Medium (COPD, OA, HTN, pneumonia, ), EXAM OF BODY SYSTEMS: Medium, CLINICAL PRESENTATION: Medium, CLINICAL DECISION MAKING: Medium Short Term Goals GOAL #1: pt demonstrate independence with rolling and scooting up in bed Goal to be met by: 05/26/18 GOAL #2: Transfer sup to/from sit CGA Goal to be met by: 05/26/18 GOAL #3: Sit to/from stand CGA Goal to be met by: 05/26/18 GOAL #4: pt amb with rwx 75 with CGA with improved posture. Goal to be met by: 05/26/18 Marketing Sales Consultant Goals GOAL #1: pt transfer sup to/from sit to/from stand SBA Goal to be met by: 05/30/18 GOAL #2: pt amb with rwx functional household distance with SBA Goal to be met by: 05/30/18 GOAL #3: pt demonstrate improved BLE strength 4 to 4+/5 Goal to be met by: 05/30/18 Plan Plan of Care: Therapeutic EX, Therapeutic Activity Other:: gait training Frequency of Treatment: 1-2 X day, as tolerated Duration of Treatment: 5-6 days Anticipated Discharge Destination: Home Treatment Diagnosis (ICD 10 Codes): R 26.2 difficulty walking. R26.81 balance impaired. M62.81 muscle weakness Has the Physician been added for Co-signature?: Yes
[2018-05-24] MEDS: SPIRIVA IH SCH (08:35)
--- NOTE | 2018-05-24 12:47 | HP ---
DATE OF SERVICE: 05/21/18 CHIEF COMPLAINT: 1. Recurrent falls times five this week with no obvious injury. 2. Generalized weakness worsening. 3. Poor appetite. 4. Hyponatremia previously a problem also. 5. Bilateral pneumonitis. HISTORY OF PRESENT ILLNESS: The patient was sent by her primary care provider, Za Bhatia to the emergency room because of low sodium level. She had this problem previously. She was also unsteady on her gait in spite of the walker. She had fallen five times during this week although without any obvious injuries. The patient's CT of the chest in the emergency room showed mild bilateral bronchial pneumonia, diffuse bronchial wall thickening. The patient does reside with her daughter and she told me that her daughter has two cancers. Because of the above, the patient was then admitted to the hospital for further diagnosis and treatment. PAST PERSONAL HISTORY: The patient had previous CVA but she has use of both upper and lower extremities , history of seizure disorder, myocardial infarction, COPD, chronic tobacco use and abuse, persistent, GERD, history of kidney stones, chronic kidney disease, depression - chronic, anxiety-chronic, history of migraines, history of coronary artery disease with previous OR. PAST SURGICAL HISTORY: Surgery to the nose, toes, knees, tonsils and adenoids, Cesearean section times four, eye surgery, hand surgery, hysterectomy and angioplasty 07/07/15, history of compression fracture of L4 September 2015. SOCIAL HISTORY: The patient is and resides with her daughter. She does smoke cigarettes and smokes one pack or more and had been since she was [age] years of age. FAMILY HISTORY: Daughter has malignancy. Grandmother - diabetes. Father had skin carcinoma that metastasized, probably melanoma. Mother had myocardial infarction and maternal family had cancer as well as heart disease. MEDICATIONS: (PRIOR TO THIS ADMISSION) Albuterol two puffs every four hours as needed Keppra 500 mg daily Xalatan one drop both eyes at bedtime Plavix 75 mg daily Lipitor 10 mg daily Zoloft 25 mg daily Colace 100 mg twice a day Depakote 500 mg twice a day Spiriva 18 mcg daily Artificial Tears one drop as directed or p.r.n. Miralax 17 gm powder daily Zantac 150 twice a day Multivitamin one capsule daily Melatonin/Pyridoxine one p.o. daily at bedtime ALLERGIES: IODINATED CONTRAST, ORAL OR IV CONTRAST, OXYCODONE, PENICILLINS, SULFA, ANESTHESIA (DIFFICULT TO WAKE UP) REVIEW OF SYSTEMS: CONSTITUTIONAL: No fever, no chills. Increasing fatigue. TORCH HEATER: The patient had been falling more or less unstable probably secondary to weakness. No syncopal episode. No seizure event. This patient however is on Keppra with previous seizures probably from CVA. VISUAL: Denies any visual problems such as blurred vision, double vision or loss of vision. AUDITORY: Hearing has decreased but denies any tinnitus, pain or drainage. RESPIRATORY: The patient has cough with shortness of breath with no hemoptysis. CARDIOVASCULAR: Denies any chest tightness or palpitations. GI: The patient, according to the relative, has decreased appetite, not eating well at home. Denies any problems with swallowing or food getting stuck in the esophagus. No abdominal pain. No changes in bowel habits. No blood in the stool. : The patient denies any pain on urination. MUSCULOSKELETAL: Generalized weakness. INTEGUMENT: Denies any rash or pruritus or bruises. ENDOCRINE: Negative. HEMATOLOGIC: Denies any prolonged bleeding or spontaneous bleeding. PSYCHIATRIC: Affect appears to be normal. The patient tries to talk but the words are not very legible. PHYSICAL EXAMINATION: GENERAL: This is a 62-year-old female who looks somewhat older than her chronological age. Admitted to the hospital because of anorexia, increasing weakness, recurrent falls and mild bilateral bronchial pneumonia. VITAL SIGNS: Temperature 99.2 tympanic, pulse 89, BP 137/76, respiratory rate 20 , oxygen saturation 90 on room air. Height 5'4", Weight 91 lbs, 11.2 ozs. HEAD: Unremarkable. Scalp - no active dermatitis. Face is symmetrical and equal with no facial weakness. No significant tenderness to palpation and/or pressure in the frontal or maxillary sinus areas. EYES: Pupils equal/reactive to light about 2 mm in size. Conjunctivae slightly pale. Sclerae not icteric. MOUTH: Unremarkable. THROAT: No inflammation, tumors or exudate. NECK: No masses. No adenopathies. No bruit. CHEST: Symmetrical and equal with limited expansion. LUNGS: Breath sounds are markedly diminished on both sides. You could hardly hear any air exchange or breath sounds. No rales. No wheezing. The breath sounds are heard better in the right upper anterior chest. HEART: Audible and regular with good tones. No murmurs. ABDOMEN: Flat, soft with no remarkable tenderness. No guarding. Bowel sounds are active. No masses palpable. EXTERNAL GENITALIA: Not examined. PELVIC/RECTAL: Not performed. LOWER EXTREMITIES: Essentially symmetrical and equal with no leg or ankle edema. Anterior tibials are present but the posterior tibials are absent. UPPER EXTREMITIES: Symmetrical and equal. ASSESSMENT: 1. ANOREXIA-FAILURE TO THRIVE. 2. INCREASING GENERALIZED WEAKNESS. 3. BILATERAL BRONCHIAL PNEUMONIA, MILD. 4. MILD HYPONATREMIA, 131 SODIUM 5. CHRONIC TOBACCO USE AND ABUSE, PERSISTENT 6. RESPIRATORY FAILURE 7. SEVERE COPD 8. HISTORY OF ACUTE MYOCARDIAL INFARCTION 9. HISTORY OF DEPRESSION 10. HISTORY OF GLAUCOMA PROGNOSIS: Poor. TIME SPENT: GREATER THAN 65 MINUTES MTDD
--- NOTE | 2018-05-24 14:00 | PN ---
DATE OF SERVICE: 05/22/18 SUBJECTIVE: The patient is alert and responsive. She is not cyanotic and is on 2 liters of nasal oxygen. Oxygen saturation 95 yesterday and also early in the afternoon, 4: 00 and 95% at 6:00pm. VITAL SIGNS: Temperature 97.9, pulse 88, blood pressure 127/69, respiratory rate 18, oxygen saturation 95 at 2 liters of oxygen. Chest expansion is limited. The patient does have subcostal retraction at the lateral costal margin on inspiration. LUNGS: Breath sounds are markedly diminished and barely able to hear any exchange. No rales or wheezing because of markedly decreased air exchange. HEART: Audible with good tones and normal sinus rhythm ABDOMEN: Nontender LOWER EXTREMITIES: No significant edema. Pedal pulse are present. UPPER EXTREMITIES: Symmetrical and equal. CONDITION: Stable This patient probably should go to a rehab facility prior to going back home mostly because she had repeated falls in a weeks time. The falls maybe secondary to just generalized weakness. This patient needs to stop smoking and hopefully she would gain weight and increase or better her appetite. Sodium and chlorides are lower with normal Potassium. Her AST was slightly elevated on admission and it still is but lower than admission, now 36.1 from 44.2. The ALT is normal. Repeat CBC showed normal WBC now 8,230 from 12,560. Albumin and Protein below normal. Homocysteine level requested on 05/22/18 is 7.8, within normal. MTDD
--- NOTE | 2018-05-24 14:39 | DI ---
Exam: Two views of the chest. Comparison: CT chest performed 05/21/2014. Reason for exam: Follow-up pneumonia. FINDINGS: There is blunting of the left costophrenic angle. Similar appearing scarring changes are seen in the apices. No pneumothorax, pleural effusion, or focal consolidation. Impression: 1. Blunting of the left costophrenic angle can be seen with atelectasis/pneumonia or a small effusio n. No focal airspace consolidation is see 2. Parenchymal change consistent with chronic lung disease and apical scarring
[2018-05-24] MEDS: XALATAN OP SCH (21:17)
[2018-05-24] MEDS: KEPPRA PO SCH (21:17)
[2018-05-25] MEDS: DUONEB NEB SCH ×4 (04:30→19:55)
[2018-05-25] MEDS: ZANTAC PO SCH ×2 (05:39→16:43)
[2018-05-25] MEDS: SODIUM CHLORIDE 1,000 ML IV SCH (05:39)
[2018-05-25] MEDS: MIRALAX PO SCH (09:06)
[2018-05-25] MEDS: DEPAKOTE PO SCH ×2 (09:07→20:50)
[2018-05-25] MEDS: COLACE PO SCH ×2 (09:07→20:50)
[2018-05-25] MEDS: LIPITOR PO SCH (09:07)
[2018-05-25] MEDS: SPIRIVA IH SCH (09:08)
[2018-05-25] MEDS: PLAVIX PO SCH (09:08)
[2018-05-25] MEDS: ZOLOFT PO SCH (09:08)
--- NOTE | 2018-05-25 12:53 | PN ---
DATE OF SERVICE: 05/23/18 SUBJECTIVE: The patient is alert and responsive. She is using 2L of nasal oxygen. Her arterial blood gases today with 2L (28% FI02) showed an oxygen saturation of 96 , pH 7.441, pc02 44, p02 81, HC03 29.3, total c02 31, base excess +6. Sodium Chloride now closing up toward normal. AST is a little bit higher or about the same 36.5 from 36.1 yesterday. This patient had not been out to smoke. She does have allergy to the skin patch, Nicotine. Her TSH today was 1.070. The patient doesn't seem to be "altogehter" when you are talking to her. This may be due to medication adverse effects probably Depakote. OBJECTIVE: LUNGS: Markedly diminished breath sounds, maybe slightly better. HEART: Audible with good tones. ABDOMEN: Nontender. CONDITION: Stable. PROGNOSIS: Unchanged. MTDD
--- NOTE | 2018-05-25 12:59 | PN ---
DATE OF SERVICE: 05/24/18 SUBJECTIVE: The patient is alert and responsive. I went to the room and talked to her about getting further rehab. Kriss Eisenberg is with me, the Nurse Coordinator. Ms. Alfaro does not want to go to rehab. She told me that this morning. The daughter did tell me that she is not able to take care of her mother well. I discussed with Ms. Alfaro and informed her that she would be best served if she would go to rehab. She was not willing initially but after explanation the patient agreed to. This patient will be continued on her antibiotics plus treatment respiratory until she is discharged to the [facility] facility for rehab. Chest x-ray today was ordered but no report at this time. The patient's Depakote will be reduced to 250 twice a day. MTDD
[2018-05-25] MEDS: KEPPRA PO SCH (20:50)
[2018-05-25] MEDS: XALATAN OP SCH (20:51)
[2018-05-26] MEDS: SODIUM CHLORIDE 1,000 ML IV SCH ×2 (02:23→15:13)
[2018-05-26] MEDS: DUONEB NEB SCH ×3 (05:45→13:35)
[2018-05-26] MEDS: ZANTAC PO SCH ×2 (05:47→17:34)
[2018-05-26] MEDS: DEPAKOTE PO SCH (08:37)
[2018-05-26] MEDS: ZOLOFT PO SCH (08:38)
[2018-05-26] MEDS: LIPITOR PO SCH (08:38)
[2018-05-26] MEDS: PLAVIX PO SCH (08:38)
[2018-05-26] MEDS: COLACE PO SCH (08:38)
[2018-05-26] MEDS: MIRALAX PO SCH (08:39)
[2018-05-26] MEDS: SPIRIVA IH SCH (09:09)
[2018-05-26 13:56] VITALS: BP 123/77; TEMP 97.6
--- NOTE | 2018-05-30 13:51 | DS ---
DATE OF SERVICE: 05/26/18 PATIENT IDENTIFICATION: 62-year-old female was seen in the emergency room, sent by her primary care provider, Za Bhatia because of low sodium. This patient also had a previous low sodium on her previous admission. The patient had been increasingly getting weaker and unsteady on her legs and had fallen five times during the last week. No obvious injuries from the fall. The patient had not been eating at home according to the daughter and she was cooking the food that she likes. The patient's chest CT in the emergency room showed mild bilateral bronchial pneumonia with diffuse bronchial wall thickening. This patient had been a smoker and started smoking when she was [age] years of age. The patient does reside with the daughter who also has a malignancy. CBC showed mild leukocytosis 12,560. Blood gases severe hypoxemia. Oxygen saturation 91, pc02 48.5, p02 59, FI02 21. HC03 and total c02 were elevated. The patient appears to have respiratory acidosis with metabolic compensation. Electrolytes were not remarkably abnormal and this had been a chronic problem so the patient is not symptomatic. Sodium 131.1, potassium 3.3 to 7, chloride 87. BUN and creatinine were low. EGFR was calculated much higher than what would be normal at 201. This is probably not reliable since this patient is markedly thin for her height. She is 89 lbs, 5'4". AST slightly elevated since admission and remained elevated. ALT is normal. Total protein and albumin were below normal. TSH is normal 1.070 and T4 is 6.5. Influenza A and B by nuclear amplification were negative. Lungs - breath sounds are markedly diminished but no air exchange actually is audible on admission. Heart is audible with good tones, no murmurs. Abdomen unremarkable. The patient's medications were continued including Depakote 500 mg twice a day. The patient however on rounds at times doesn't seem to be fully knowledgeable about the situation. The Depakote was reduced to 50 twice a day from 500. The patient's affect seems to be much better. The patient was given Ceftriaxone 1 gm intravenously daily. The patient's repeat ABG with room air showed some mild improvement. This patient was encouraged and instructed to take deep breaths three times in a row and showed how to do it every hour on the hour that she is awake. The pc02 went down to 44 on 05/23/18, did go up to 47.7 on 05/24. p02 has remained essentially the same. Sodium potassium and chlorides more or less normal. Again, the AST remained elevated throughout the hospital stay with the ALT remaining normal. Total bilirubin remaining normal. Alkaline phosphatase was normal. Chest x-ray done 05/24/18 showed blunting of the left costophrenic angle, can be seen with atelectasis, pneumonia or pleural effusion. No focal air space consolidation is seen. Parenchymal change consistent with chronic lung disease and apical scarring. The CT chest on admission showed mild bilateral bronchial pneumonia. The patient's appetite seemed to have improved while in the hospital. Her vital signs 1:55 p.m. 05/26/18 showed a temperature 97, pulse 87, BP 123/77, respiratory rate 18, oxygen saturation 97 on 2L. Lungs now have some air exchange audible on both sides which was not present previously. No rales or wheezing. Heart is audible with good tones. The patient is going to [facility] for physical rehabilitation and occupational. I had talked to the daughter as well as son-in -law yesterday and had discussed this also with the patient and she was agreeable. I told her if she would go home before the end of the month that she would retain her money. The patient is continued on all her home medications except Depakote is decreased to 250 twice a day and possibly decreased further to 125 mg twice a day. This patient was scheduled for bone density studies . FINAL DIAGNOSES: 1. Mild bilateral upper lobe pneumonia. 2. Chronic obstructive lung disease, severe. 3. Chronic tobacco use and abuse, persistent but had not smoked ever since hospitalization and promised that she would not. 4. Severe hypoxemia secondary to #1. 5. Increasing generalized debility probably multifactorial, not eating well and no activity. 6. Emaciation. 7. History of myocardial infarction. 8. History of depression. 9. History of glaucoma on medication. 10. Electrolyte imbalance mild, not symptomatic. PROGNOSIS: Guarded to poor. TIME SPENT: GREATER THAN 30 MINUTES MTDD
== END 2018-05-26 18:13 | DRG 193 ==
LOC: ED 13:01 → MEDSURG B 16:22
PROVIDERS: ADMIT General Practice; ATTEND General Practice
DX: J18.0 Bronchopneumonia, unspecified organism (principal); J96.90 Respiratory failure, unspecified, unspecified whether with hypoxia or hypercapnia; E87.1 Hypo-osmolality and hyponatremia; J44.9 Chronic obstructive pulmonary disease, unspecified; R53.1 Weakness; R05 Cough; R63.0 Anorexia; R09.02 Hypoxemia; R62.7 Adult failure to thrive; Z72.0 Tobacco use
CPT/HCPCS: 36415; 80053; 82652; 82803; 82962; 83090; 84436; 84443; 85025; 87502; 93005; 93010; 94640; 96365; 97802; 99284

== ENCOUNTER 2018-05-30 13:19 | Outpatient (CLI) ==
--- NOTE | 2018-05-30 15:05 | DEXA ---
EXAM: Bone density HISTORY: Postmenopausal female with history of hyperthyroidism, renal disease and hysterectomy COMPARISON: None TECHNIQUE: Digital images of the thoracolumbar spine and hips were provided and calculation of bone density was obtained. FINDINGS: Digital images demonstrate no compression deformities of the thoracolumbar spine. DEXA scan of the lumbar spine is of good quality. The total BMD equals 0.596 grams per square centimeter. (Prior 0.693) T-score is - 4.9 and Z-score of - 2.6. DEXA of the hips was performed and of good quality. Total bone marrow density of 0.405 grams per square centimeter. T score is - 4.8 and Z-score of - 3.1. IMPRESSION: Bone density of the hip and lumbar spine demonstrate osteoporosis of the hips and spine by WHO criteria. FRAX calculation tool demonstrates 10-year major osteoporotic fracture risk of 45% and hip fracture r isk of 29.7% T score greater than -1 is normal T score -1 to -2.5 is osteopenia T score less than - 2.5 is osteoporosis
== END 2018-05-30 13:20 | disposition home or self-care (01) ==
LOC: RAD 13:19
PROVIDERS: ATTEND General Practice
DX: Z78.0 Asymptomatic menopausal state (principal)

== ENCOUNTER 2018-07-13 03:44 | Emergency (ER) ==
[2018-07-13 03:47] VITALS: BP 127/73; TEMP 97.7; BMI 16.8
--- NOTE | 2018-07-13 04:20 | CT ---
EXAM: CT right foot without intravenous contrast 07/13/2018. Sagittal and coronal reformatted image s obtained HISTORY: Trauma COMPARISON: None. FINDINGS: No gross soft tissue abnormality. The Achilles insertion site remains intact. The osseous structures maintain normal alignment. The osseous structures appear demineralized. Tristan elate clinically. There is no evidence of fracture or dislocation. Mild chronic osteoarthritic degenerative change. IMPRESSION: 1. No acute osseous abnormality. 2. There is suggestion of diffuse bony demineralization. Correlate clinically.
--- NOTE | 2018-07-13 04:32 | ED.PDOC ---
General ED Provider: Dr. MANJU ALEXANDER-ER Chief Complaint: Foot Pain/Injury Stated Complaint: i dropped something on the foot Time Seen by Physician: 03:50 Mode of Arrival: Wheelchair Information Source: Patient, Family Exam Limitations: No limitations Primary Care Provider: GERARDO PUCKETT Nursing and Triage Documentation Reviewed and Agree: Yes Does patient meet sepsis criteria?: No System Inflammatory Response Syndrome: Not Applicable Sepsis Protocol: For patient's 13 years and over: Temp is 96.8 and below OR 101 and greater Pulse >90 BPM Resp >20/minute Acutely Altered Mental Status Are patient's symptoms suggestive of a new infection, such as: -Pneumonia -Skin, Soft Tissue -Endocarditis -UTI -Bone, Joint Infection -Implantable Device -Acute Abdominal Infection -Wound Infection -Meningitis -Blood Stream Catheter Infection -Unknown Musculoskeletal Complaint Exam - Ankle/Foot Complaint/Exam Location of Injury: Reports: Right, Foot Mechanism of Injury: Reports: Trauma Onset/Duration: 24 hrs Symptoms Are: Reports: Still present Onset of Pain: Reports: Immediate Current Severity: None Character: Reports: Dull, Aching Aggravating: Reports: Movement, Weight bearing Able to Bear Weight: Yes Associated Signs and Symptoms: Reports: Swelling, Bruising Lower Extremity Findings: Present: Swelling, Ecchymosis, Tenderness, Limited range of motion Achilles Tendon Abnormality: No Tenderness: Present: Midfoot Differential Diagnosis: Contusion, Closed Fracture Review of Systems - Review Of Systems Constitutional: Reports: No symptoms Eyes: Reports: No symptoms Ears, Nose, Mouth, Throat: Reports: No symptoms Respiratory: Reports: No symptoms Cardiac: Reports: No symptoms GI: Reports: No symptoms : Reports: No symptoms Musculoskeletal: Reports: Joint pain Skin: Reports: No symptoms Neurological: Reports: No symptoms Endocrine: Reports: No symptoms Hematologic/Lymphatic: Reports: No symptoms All Other Systems: Reviewed and Negative Past Medical History - Past Medical History Previously Healthy: No Endocrine: Reports: None Cardiovascular: Reports: Hypertension Respiratory: Reports: COPD Hematological: Reports: Anemia Gastrointestinal: Reports: None Genitourinary: Reports: None Neuro/Psych: Reports: Seizure, Anxiety, Depression Musculoskeletal: Reports: None Cancer: Reports: None Last Menstrual Period: none Other Pertinent Past Medical History: CHRONIC HYPONATREMIA. CACHEXIA - Surgical History General Surgical History: Reports: Hysterectomy, (X4), Tonsillectomy, Adenoidectomy, Orthopedic (TOES, KNEE, HAND), Back Surgery (L4 fracture 10/09, ) , Other (EYES-BILATERAL CATARACTS). Denies: CABG (ANGIOPLAST 07/07/15) - Family History Family History: Reports: None - Social History Smoking Status: Current every day smoker, Heavy tobacco smoker Hx Substance Use: No Alcohol Screening: None - Immunizations Tetanus Shot up to Date: Yes Physical Exam - Physical Exam Appearance: Well-appearing Pain Distress: Mild Eyes: INGRID, EOMI, Conjunctiva clear ENT: Ears normal, Nose normal, Oropharynx normal Neck: Supple Respiratory: Airway patent, Breath sounds clear, Breath sounds equal, Respirations nonlabored Cardiovascular: RRR GI/: Soft, Nontender, No masses, Bowel sounds normal, No Organomegaly Musculoskeletal: Normal strength Skin: Warm Neurological: Sensation intact Psychiatric: Affect appropriate Interpretation - Radiology Interpretation Radiology Interpretation By: Radiologist Radiology Results: Negative Exam Interpreted: CT Scan Critical Care Note - Critical Care Note Total Time (mins): 0 Course - Course Orders, Labs, Meds: Orders Category Date Time Status CT FOOT RIGHT WITHOUT CONTRAST Stat RADS 07/13/18 03:46 Completed Vital Signs: Temp Pulse Resp BP Pulse Ox 07/13/18 03:44 97.7 F 79 18 127/73 95 Departure - Departure Time of Disposition: 04:31 Disposition: HOME SELF-CARE Discharge Problem: Injury of foot Instructions: Foot Contusion (ED) Condition: Good Pt referred to PMD for follow-up: Yes IPMP verified?: No Additional Instructions: use crutches to ge around--keep foot wrapped till swelling better--use tylenol for pain ---f/u wtih pcp Allergies/Adverse Reactions: Allergies Iodinated Contrast- Oral and IV Dye [Iodinated Contrast Media - IV Dye] Adverse Reaction (Verified 07/13/18 03:47) Swelling oxycodone [From Tylox] Adverse Reaction (Verified 07/13/18 03:47) Penicillins Adverse Reaction (Verified 07/13/18 03:47) Sulfa (Sulfonamide Antibiotics) Adverse Reaction (Verified 07/13/18 03:47) anesthesia Allergy (Severe, Uncoded 07/13/18 03:47) confusion, Diffficult to wake up Home Medications: Ambulatory Orders Albuterol Sulfate [Proair Hfa] 2 inh PO Q4H PRN 08/21/13 Levetiracetam [Keppra] 500 mg PO DAILY 08/21/13 Latanoprost [Xalatan] 1 drop OP BEDTIME 02/16/14 Atorvastatin Calcium 10 mg PO DAILY 07/24/15 Clopidogrel Bisulfate [Plavix] 75 mg PO DAILY 07/24/15 Sertraline HCl [Zoloft] 25 mg PO DAILY 07/24/15 Docusate Sodium [Colace] 100 mg PO BID 12/05/15 Dextran 70/Hypromellose [Artificial Tears Eye Drops] 1 drop OP DIRECTED PRN 05/07/17 Tiotropium [place] [Spiriva] 1 cap IH DAILY 05/07/17 Polyethylene Glycol 3350 [Miralax] 17 gm PO DAILY #30 powd.pack 06/06/17 Melatonin/Pyridoxine HCl (B6) [Melatonin 3 mg Tablet] 1 each PO DAILY 02/13/18 Multivitamin 1 cap PO DAILY 02/13/18 Ranitidine HCl [Zantac] 150 mg PO BIDAC 02/13/18 Divalproex Sodium [Depakote] 250 mg PO BID #1 tablet. 05/26/18 Disposition Discussed With: Patient, Family
== END 2018-07-13 04:36 | disposition home or self-care (01) ==
LOC: ED 03:44
DX: S90.31XA Contusion of right foot, initial encounter (principal); W22.8XXA Striking against or struck by other objects, initial encounter; F17.210 Nicotine dependence, cigarettes, uncomplicated
CPT/HCPCS: 99282

== ENCOUNTER 2018-07-15 03:00 | Outpatient (CLI) ==
[2018-07-15 03:38] VITALS: BMI 15.0
== END 2018-07-15 03:25 | disposition critical access hospital (66) ==
LOC: AMBL 03:00
PROVIDERS: ATTEND Emergency Medicine
DX: R06.02 Shortness of breath (principal); R05 Cough; R06.2 Wheezing; R09.89 Other specified symptoms and signs involving the circulatory and respiratory systems; R00.0 Tachycardia, unspecified; F17.210 Nicotine dependence, cigarettes, uncomplicated; Z99.81 Dependence on supplemental oxygen

== ENCOUNTER 2018-07-15 03:28 | Observation (INO) ==
--- NOTE | 2018-07-15 03:33 | ED.PDOC ---
General ED Provider: Dr. MANSI MOSQUEDA Chief Complaint: Shortness of Air Stated Complaint: has a shortness of air,not clear about meds at home Time Seen by Physician: 03:35 Mode of Arrival: Ambulance Information Source: Patient Exam Limitations: No limitations Primary Care Provider: GERARDO PUCKETT Nursing and Triage Documentation Reviewed and Agree: Yes Does patient meet sepsis criteria?: Yes If yes, has appropriate treatment been initiated?: Yes System Inflammatory Response Syndrome: Not Applicable Sepsis Protocol: For patient's 13 years and over: Temp is 96.8 and below OR 101 and greater Pulse >90 BPM Resp >20/minute Acutely Altered Mental Status Are patient's symptoms suggestive of a new infection, such as: -Pneumonia -Skin, Soft Tissue -Endocarditis -UTI -Bone, Joint Infection -Implantable Device -Acute Abdominal Infection -Wound Infection -Meningitis -Blood Stream Catheter Infection -Unknown Respiratory Complaint Exam - Respiratory Complaint/Exam Onset/Duration: tonight Symptoms Are: Still present Timing: Intermittent Initial Severity: Moderate Current Severity: Mild Location: Chest Aggravating: Reports: Exertion Alleviating: Reports: Upright position Associated Signs and Symptoms: Reports: Fever Related History: Reports: Similar episode History of Healthcare-Acquired Pneumonia: No Related Surgical History: Reports: None Cardiac Risk Factors: Reports: Hypertension Pseudomonas Risk Factors: Reports: None Tuberculosis Risk Factors: Reports: None Status Asthmaticus Risk Factors: Reports: None Home Oxygen Use: No Recent Stress Test: No Recent Echo/LV Function: No Current Antibiotic Use: No Current Asthma Medication Use: No Respiratory Distress: Mild Inadequate Respiratory Effort: No Dysphagia Present: No Stridor Present: No JVD Present: No Accessory Muscle Use: No Retractions: Not Present Diminished Breath Sounds: Yes Sinus Tenderness: None Grunting Respirations: No Kussmaul Respirations: No Differential Diagnoses: Airway Obstruction, Asthma, Pneumonia, Pulmonary Embolism Review of Systems - Review Of Systems Constitutional: Reports: Fever Eyes: Reports: Decreased acuity Respiratory: Reports: Orthopnea, Short of air Cardiac: Reports: No symptoms GI: Reports: No symptoms : Reports: No symptoms Musculoskeletal: Reports: No symptoms Skin: Reports: No symptoms Neurological: Reports: No symptoms Endocrine: Reports: No symptoms Hematologic/Lymphatic: Reports: No symptoms All Other Systems: Reviewed and Negative Past Medical History - Past Medical History Previously Healthy: No Endocrine: Reports: None Cardiovascular: Reports: Hypertension Respiratory: Reports: COPD Hematological: Reports: Anemia Gastrointestinal: Reports: None Genitourinary: Reports: None Neuro/Psych: Reports: Seizure, Anxiety, Depression Musculoskeletal: Reports: None Cancer: Reports: None Other Pertinent Past Medical History: CHRONIC HYPONATREMIA. CACHEXIA - Surgical History General Surgical History: Reports: Hysterectomy, (X4), Tonsillectomy, Adenoidectomy, Orthopedic (TOES, KNEE, HAND), Back Surgery (L4 fracture 10/09, ) , Other (EYES-BILATERAL CATARACTS). Denies: CABG (ANGIOPLAST 07/07/15) - Family History Family History: Reports: None - Social History Smoking Status: Current every day smoker, Heavy tobacco smoker Hx Substance Use: No Alcohol Screening: None Physical Exam - Physical Exam Appearance: Thin Ill-appearing: Moderate Pain Distress: None Eyes: INGRID ENT: Ears normal Respiratory: Airway patent, Breath sounds diminished Cardiovascular: Tachycardia GI/: Soft, Nontender Musculoskeletal: Normal strength Skin: Warm Neurological: Sensation intact Psychiatric: Affect appropriate Critical Care Note - Critical Care Note Total Time (mins): 0 Course - Course Hematology/Chemistry: 07/15/18 04:19 07/15/18 04:19 Orders, Labs, Meds: Lab Review 07/15/18 07/15/18 07/15/18 04:19 04:19 04:19 WBC 24.93 H RBC 4.53 Hgb 14.0 Hct 40.7 MCV 89.8 MCH 30.9 MCHC 34.4 RDW Coeff of [place] 13.2 Plt Count 302 Immature Gran % (Auto) 0.4 Neut % (Auto) 86.5 Lymph % (Auto) 5.5 L George % (Auto) 7.2 Eos % (Auto) 0.1 Baso % (Auto) 0.3 Immature Gran # (Auto) 0.1 Neut # (Auto) 21.6 H Lymph # (Auto) 1.4 George # (Auto) 1.8 Eos # (Auto) 0.0 Baso # (Auto) 0.1 Puncture Site O2 Saturation ABG pH ABG pCO2 ABG pO2 ABG HCO3 ABG Total CO2 ABG Base Excess Ray Test FiO2 % Sodium 130.8 L Potassium 4.02 Chloride 95.0 L Carbon Dioxide 25.9 Anion Gap 13.92 BUN 7.6 Creatinine 0.43 L Estimated GFR (MDRD) 148.00 BUN/Creatinine Ratio 17.67 Glucose 131.0 H Lactic Acid Calcium 9.23 Total Bilirubin 0.26 AST 21.9 ALT 10.3 Alkaline Phosphatase 82.8 Troponin I Total Protein 6.74 Albumin 4.39 Globulin 2.35 Albumin/Globulin Ratio 1.86 Procalcitonin < 0.05 07/15/18 07/15/18 07/15/18 04:19 04:19 04:20 WBC RBC Hgb Hct MCV MCH MCHC RDW Coeff of [place] Plt Count Immature Gran % (Auto) Neut % (Auto) Lymph % (Auto) George % (Auto) Eos % (Auto) Baso % (Auto) Immature Gran # (Auto) Neut # (Auto) Lymph # (Auto) George # (Auto) Eos # (Auto) Baso # (Auto) Puncture Site Rb O2 Saturation 90.0 L ABG pH 7.413 ABG pCO2 35.4 ABG pO2 57.0 L* ABG HCO3 22.6 ABG Total CO2 24 ABG Base Excess -2 Ray Test + FiO2 % 21.0 Sodium Potassium Chloride Carbon Dioxide Anion Gap BUN Creatinine Estimated GFR (MDRD) BUN/Creatinine Ratio Glucose Lactic Acid 1.64 Calcium Total Bilirubin AST ALT Alkaline Phosphatase Troponin I < 0.012 Total Protein Albumin Globulin Albumin/Globulin Ratio Procalcitonin Orders Category Date Time Status ABG DRAW REQUEST Stat CARDIO 07/15/18 04:20 Ordered EKG-(ED ONLY) Stat CARDIO 07/15/18 03:52 Ordered NEBULIZER TREATMENT Stat CARDIO 07/15/18 03:50 Ordered NPO REMINDER: IMAGING ONCE CARE 07/15/18 03:48 Completed ED APPLY O2 .ONCE EMERGENCY 07/15/18 03:54 Active ED MEMBERSHIP DIRECTOR APPLIED .ONCE EMERGENCY 07/15/18 03:54 Active ED VITAL SIGNS Q1HR EMERGENCY 07/15/18 03:54 Active IV [ED IV/MEDIPORT/POWERPORT] .ONCE EMERGENCY 07/15/18 03:51 Active ABG Stat LAB 07/15/18 04:20 Completed CBC W/ AUTO DIFF Stat LAB 07/15/18 04:19 Completed COMPREHENSIVE METABOLIC PANEL Stat LAB 07/15/18 04:19 Completed LACTIC ACID Stat LAB 07/15/18 04:19 Completed PROCALCITONIN Stat LAB 07/15/18 04:19 Completed TROPONIN I Stat LAB 07/15/18 04:19 Completed 0.9 % Sodium Chloride [Saline Flush] MEDS 07/15/18 03:51 Ordered 1 syr IVF PRN PRN Albuterol Sulfate 0.083% Neb [Albuterol 0.083% Neb] MEDS 07/15/18 03:49 Discontinued 1 vial NEB ONCE STA Piperacillin Sodium/Tazobactam [Zosyn 3.375 gm] 3.375 MEDS 07/15/18 04:35 Active gm 0.9 % Sodium Chloride [Sodium Chloride] 50 ml IV ONCE Sodium Chloride 0.9% [Sodium Chloride] 500 ml MEDS 07/15/18 03:[address] CHEST W/O CONTRAST Stat RADS 07/15/18 03:47 Completed Medications Generic Name Dose Route Start Last Admin Trade Name Freq PRN Reason Stop Dose Admin Piperacillin Sod/Tazobactam 50 mls @ 50 mls/hr 07/15/18 04:35 07/15/18 04:57 Sod 3.375 gm/ Sodium Chloride IV 07/15/18 05:34 50 mls/hr ONCE STA Administration Sodium Chloride 1 syr 07/15/18 03:51 Saline Flush IVF PRN PRN To flush IV Discontinued Medications Generic Name Dose Route Start Last Admin Trade Name Freq PRN Reason Stop Dose Admin Albuterol Sulfate 1 vial 07/15/18 03:49 07/15/18 05:02 Albuterol 0.083% Neb NEB 07/15/18 03:50 1 vial ONCE STA Administration Sodium Chloride 500 mls @ 500 mls/hr 07/15/18 03:51 Sodium Chloride IV 07/15/18 04:50 BOLUS STA Vital Signs: Temp Pulse Resp BP Pulse Ox 07/15/18 03:29 100.7 F H 119 H 32 H 137/80 90 L Departure - Departure Time of Disposition: 05:08 Disposition: PLACED OBSERVATION Discharge Problem: Pneumonia Condition: Fair Pt referred to PMD for follow-up: Yes IPMP verified?: No Allergies/Adverse Reactions: Allergies Iodinated Contrast- Oral and IV Dye [Iodinated Contrast Media - IV Dye] Adverse Reaction (Verified 07/15/18 03:39) Swelling oxycodone [From Tylox] Adverse Reaction (Verified 07/15/18 03:39) HALLUCINATES Penicillins Adverse Reaction (Verified 07/15/18 03:39) Swelling Sulfa (Sulfonamide Antibiotics) Adverse Reaction (Verified 07/15/18 03:39) Swelling anesthesia Allergy (Severe, Uncoded 07/15/18 03:39) confusion, Diffficult to wake up Home Medications: Ambulatory Orders Albuterol Sulfate [Proair Hfa] 2 inh PO Q4H PRN 08/21/13 Levetiracetam [Keppra] 500 mg PO BID 08/21/13 Latanoprost [Xalatan] 1 drop RIGHTEYE BEDTIME 02/16/14 Clopidogrel Bisulfate [Plavix] 75 mg PO DAILY 07/24/15 Sertraline HCl [Zoloft] 50 mg PO DAILY 07/24/15 Docusate Sodium [Colace] 100 mg PO BID 12/05/15 Dextran 70/Hypromellose [Artificial Tears Eye Drops] 1 drop OP DIRECTED PRN 05/07/17 Tiotropium [place] [Spiriva] 1 cap IH DAILY 05/07/17 Polyethylene Glycol 3350 [Miralax] 17 gm PO DAILY #30 powd.pack 06/06/17 Melatonin/Pyridoxine HCl (B6) [Melatonin 3 mg Tablet] 1 each PO DAILY 02/13/18 Multivitamin 1 cap PO DAILY 02/13/18 Ranitidine HCl [Zantac] 150 mg PO BIDAC 02/13/18 Budesonide/Formoterol Fumarate [Symbicort 80-4.5 Mcg Inhaler] 2 puff IH BID Divalproex Sodium [Depakote] 500 mg PO BID 07/15/18 Disposition Discussed With: Patient
[2018-07-15 03:38] VITALS: BMI 15.0
[2018-07-15] MEDS ORDERED: ALBUTEROL 0.083% NEB NEB STA (03:49)
[2018-07-15] MEDS ORDERED: SODIUM CHLORIDE 500 ML IV STA (03:51)
--- NOTE | 2018-07-15 04:34 | CT ---
EXAM: CT chest without intravenous contrast 07/15/2018. Sagittal and coronal reformatted images obt ained HISTORY: Shortness of air. Tachycardia COMPARISON: 05/24/2018, 05/21/2018 FINDINGS: The heart size appears within normal limits. No pericardial effusion. Emphysematous le ges throughout both lungs. Bilateral apical scarring. There is a cluster of new reticulonodular infiltrates within the right lower lobe which are likely in fectious/inflammatory. Diffuse bronchial wall thickening. No pleural effusion. No pneumothorax. Limited views of the upper abdomen show no acute abnormality. Stable compression fractures of T11 and L1. IMPRESSION: 1. Emphysema. 2. Reticulonodular infiltrates of the right lower lobe are likely infectious/inflammatory. 3. Diffuse bronchial wall thickening. 4. Bilateral apical scarring.
[2018-07-15] MEDS ORDERED: ZOSYN 3.375 GM 3.375 GM in SODIUM CHLORIDE 50 ML IV STA (04:35)
--- NOTE | 2018-07-15 07:36 | PCM ---
- Chief Complaint Chief Complaint: SOA, cough, fever - History of Present Illness History of Present Illness: 62 yo WM presented to ER 03:35 this am via ambulance. PCP listed as Siobhan Jacinto. Patient met SIRS and SEPSIS criteria, Vitals temp 100.7, pulse 119, rr 32 , BP 137/80, pulse ox 90 on RA. SYmptoms started earlier 07/14/18, mild to moderate symptoms, worse with ambulation/exertion, alleviated with upright posture. Noted in ER no abx recently, mild respiratory distress, no accessory muscle usage, no retractions, +Diminished breath sounds throughout. Ddx considered air obstruction, asthma, pneumonia or pulm embolism (ALLERGY TO CONTRAST). Similar episodes historically, chronic heavy tobacco and prolonged smoking history. Not on Home O2 per ER. History of chronic HTN, chronic tobacco use, history of CVA, epilepsy last Sz 05/2018, [place], COPD chronic, GERD, nephrolithiasis, CKD, Anemia, Depression + Anxiety, migraines, CAD, OA, FTT adult, underweight adult, chronic hyponatremia. Labs ordered by ER CBC/CMP/ Procalcitonin/Troponin. CBC showed WBC of 24.93, hgb 14, plt 302. Differential showed prominent neutrophilia. CMP with sodium 130.8 (chronic hyponatremia and at baseline), potasium 4.02, Cl 95.0, BUN 7.6 and creatinien 0.43, glucose 131. Lactic acid 1.64 and negative, procalcitonin <0.05 and negative. AST 21.9, ALT 10.3, alk phos 82.8. She had an ABG completed , PH 7.413, PC02 35.4, po2 57, hc03 22.6. Independent interpretation of this data supported, chronic compensated primary respiratory alkalosis process. CT chest was ordered/completed and showed emphysema, reticulonodular infiltrates RLL, infectious/inflammatory process, diffuse bronchial wall thickening and bilateral apical scarring. Troponin was negative. NO influenza was ordered, no sputum nor blood cultures were ordered. SHe has contrast allergy, PCN allergy. I was contacted this am 5:03 am and case was discussed. PORT score of 94 supports 8.2-9.3% mortality and brief hospital admit was recommended. CURB 65 1 point supported low risk 2.7%. She was placed on tele, HR 104, Sinus tachy, MI 0.12 QRS 0.06 at last check. Vitals improved by the time she got to the floor. Temp 97.8, HR 116, RR 24. O2 94. I placed orders for lovenox, Sputum induction/culture, influenza evaluation, blood cultures. ER had provided Zosyn , but she has PCN allergy with rash. I will change this penicillin to a cephalosporin due to her history of known PCN allergy. I have changed the Zosyn to rocephin and doxy to cover for CAP. I also ordered labs for the next 48 hours to include repeat CBC/CMP. She remains severely underweight and her sodium is chronically low. I will use NS 75ml/hour which is her maintenance dose. She was last seen in our hospital 05/21/18 for recurrent falls x5 in prior week, gen weakness worsening, poor appetite, hyponatremia, bilateral pneumonitis. I reviewed DR. Barry Khan. TARSHA Bhatia sent her to ER due to falls, gait and issues. CT showed same as what it showed today. Lives with daughter. /lives with daughter. 1ppd or more >60 years. I was unable to find the d/c summary. I reviewed the nursing notes and the case management notes from last admit. It appears that the patient was admitted to [facility] 05/25/18 but I do not know when she got out of the [place]. She was on rocephin and did well. Abx within last 30 days. Talked with patient this am at 08:30. She was sitting in her bed eating eggs/ breakfast and then coughed/gagged and had emesis x 1. She notes no N/V/D. She gagged on food, coughed and then had emesis, regurgitant non bloody. She noted that she has had 24-48 hours of symptoms, URI/Fever/cough/congestion, rhinorrhea , sore throat, body aches. She is retracting, she is having to work harder at breathing. Daughter not here. Patient wants to be full code. 7 minute discussion with her today regarding meaning of full code, discussion of POA. She thinks it is her daughter but not certain. 1ppd >60 years. Not interested in cessation. She is not interested in patches. She noted that her breathing is not much different than baseline. I asked what her breathing was like 1-2 weeks ago, she noted "about like this." She is aware of day/date/time/holiday ( Monday). She answered all questions. Was able to communicate in nearly full sentences. Quite frail. She is aware of her declining health. She does not want NH, not at all. She wants to go home when able. She was at NH ~1 week and then did not want to stay and left. She uses O2 at home overnight per her report. +Orthopnea, + SPAULDING, +mucus production/sputum, + SOA, +worsening cough. 3 /3 cardinal features of COPD. - Review of Systems Constitutional: fever, chills, weakness, fatigue, loss of appetite Eyes: blurred vision, other (lazy eye left) Nose: congestion, discharge (clear) Throat: pain. No: swelling, voice change Mouth: No: bleeding, pain, swelling Respiratory: cough, shortness of air, wheeze, pain with breathing. No: hemoptysis Cardiovascular: orthopnea. No: chest pain, left arm pain, diaphoresis, PND, edema, palpitations, syncope Gastrointestinal: vomiting (once in room after gagging.). No: abdominal pain, nausea, diarrhea, hematemesis, hematochezia, dysphagia Genitourinary: No: dysuria, hematuria, frequency, incontinence, flank pain, vaginal discharge, abnormal bleeding, pelvic pain Neurological: dizziness, seizure (05/2018 last seizure, she does not remember exactly when it was), weakness (worsening with time, generalized), problems with walking (uses walker at home.). No: headache, numbness, tremor, fainting Musculoskeletal: other (body aches, chills. ). No: pain, swelling in joints Skin: No: rash, pruritus, lacerations, wounds, bruising Immunology: No: hives, itching, frequent infections Hematology: No: easy bruising, easy bleeding, swollen glands Endocrine: weight changes (weight is declining with time. ). No: cold intolerance, heat intolerance, excessive thirst, excessive hunger, polyuria Psychiatric: depression, anxiety, sleeplessness. No: hopelessness, suicidal, hallucinations Habits: tobacco use. No: substance use, alcohol use - Past Medical History Past Medical History: O2 dependent COPD, Cachexia, failure to thrive, hyponatremia, anxiety with depression, seizures, Essential HTN. Anemia chronic. CKD, Afib history, migraines, hx uterine cancer, TIA. Seizures/epilepsy per report 05/2018 last seizure, history of [place]. Hyponatremia. Chronic tobacco. - Past Surgical History Past Surgical History: x 4, tonsillectomy, hysterecotmy, T+A, toes/ hand/knee surgery, back [id number], bilateral cataracts. Angiopalsty 07/07/15. - Allergies Allergies/Adverse Reactions: Allergies Allergy/AdvReac Type Severity Reaction Status Date / Time Iodinated Contrast- Oral and AdvReac Swelling Verified 07/15/18 03:39 IV Dye [Iodinated Contrast Media - IV Dye] oxycodone [From Tylox] AdvReac HALLUCINATE Verified 07/15/18 03:39 S Penicillins AdvReac Swelling Verified 07/15/18 03:39 Sulfa (Sulfonamide AdvReac Swelling Verified 07/15/18 03:39 Antibiotics) anesthesia Allergy Severe confusion, Uncoded 07/15/18 03:39 Diffficult to wake up - Medications Medications: Medications Generic Name Dose Route Start Last Admin Trade Name Freq PRN Reason Stop Dose Admin Doxycycline Hyclate 100 mg 07/15/18 09:00 Doxycycline Hyclate PO 07/19/18 21:01 Q12HR [facility] Enoxaparin Sodium 40 mg 07/15/18 09:00 Lovenox SUBCUT DAILY [facility] Ceftriaxone Sodium 1 gm/ 50 mls @ 100 mls/hr 07/15/18 09:00 Sodium Chloride IV 07/19/18 09:29 DAILY [facility] Sodium Chloride 1,000 mls @ 75 mls/hr 07/15/18 08:00 Sodium Chloride IV .[id number] [facility] Sodium Chloride 1 syr 07/15/18 03:51 Saline Flush IVF PRN PRN To flush IV - Family History Past Family History: Lives with daughter/granddaughter. Family history significant for DM. CVA. cs x 4. Daughter with malignancy. Grandmother diabetes as listed above. Father skin carcinoma, probably melanoma. Mother [place]. Prominent CAD history in family. - Social History Past Social History: Tobacco 61 years no ETOH. No drugs. Lives with daugther, not interested in NH. No psych. - Body Composition Height: 5 ft 4 in Weight: 87 lb 8.376 oz Body Mass Index (BMI): 15.0 - Physical Examination HEENT: Vital Signs Temp Pulse Resp BP Pulse Ox 07/15/18 05:44 97.8 F 116 H 24 94 L 07/15/18 03:29 100.7 F H 119 H 32 H 137/80 90 L Constitutional: Appearance-Mild acute distress/respiratory distress, chronic lung disease. Appears Older than stated age. Orientation- Oriented x 3, alert Gait-Unobserved Build and Nutrition-[Cachectic female] General- Patient is pleasant and cooperative with the interview and exam. Aware of holiday (Monday) Integumentary: General-No rashes, ulcers or lesions. Palpation- Normal skin moisture/turgor. Skin is warm to touch, appropriate. Capillary refill is normal bilateral Upper and lower extremity. Head/Neck: Head- normocephalic and atraumatic. Neck- without visible/palpable lumps or pulsations. Palpation- No bony tenderness about head/neck along frontal, occipital, temporal, parietal, mastoid, jawline, zygoma, orbit or any other location. NO temporal artery tenderness. No TMJ tenderness. Neck Supple. Thyroid-No thyromegaly, no nodules. Eye: +GLASSES. Lazy eye left. Bilaterally PERRLA, EOMI. No discharge. Upper and lower eyelids are normal. Sclera/conjunctiva normal without discharge. Cornea is normal and clear. Lens is normal. Eyeball appears normal. No ciliary flushing, no conjunctival injection. ENMT: Pinna- normal without tenderness or erythema. External auditory canal Left- normal without erythema or discharge, no excessive cerumen. External auditory canal Right-normal without erythema or discharge, no excessive cerumen. TM left- Owens/pearly, normal light reflex and anatomy. Scarring w/o e/ o OM. TM Right- Owens/pearly, normal light reflex and anatomy Scarring w/o e/o OM. Hearing Assessment-normal to conversational speech. Nose and sinus- No sinus tenderness along frontal/maxillary region. External appearance normal and midline. Nares- bilateral quiet airflow, clear discharge. Nasal mucosa- No bleeding noted and no ulcerations observed. Erythematous, Turbinates mildly boggy. Lips- normal color, moist without cracks/lesions Oral Cavity/Palate- hard /soft palate intact without lesions, oral mucosa pink and moist. Oropharynx- no pharyngeal erythema, Uvula midline. No post nasal drip, missing teeth. Salivary glands- Non tender to palpation CHEST/LUNG: Inspection- symmetric chest wall no pectus deformity. Normal effort , no distress, no use of accessory muscles. Palpation- nontender sternum, ribline. No abnormal pulsations. Auscultation- Breath sounds diminished throughout, coarse throughout all lung jefferson. Adventitious sounds- Scattered wheezes, bibasilar rales, Scattered rhonchi. No egophany, no whispered pectoriloquy. CARDIOVASCULAR: Carotid artery- normal, no bruits or abnormal pulsations. Jugular vein- no pulsations. Palpation/Percussion- Normal PMI, no palpable thrill Auscultation- Regular rate and rhythm. No murmur noted in sitting, supine positions. Normal rhythm at present, no obvious murmur Extremities- no cyanosis , edema, increased warmth. ABDOMEN: Inspection- normal and no visible pulsations. Normal contour. Auscultation- Bowel sounds normal, no abdominal bruits. Palpation/Percussion- soft, non-tender, no rebound tenderness, no rigidity (guarding), no jar tenderness, no masses. Peripheral Vascular: Upper extremity Left- Normal temperature with pink nailbeds and no ulcerations. Upper extremity Right- Normal temperature with pink nailbeds and no ulcerations. Lower extremity- Normal temperature with pink nailbeds and no ulcerations. DP pulses 2+ bilaterally. Normal capillary refill. Edema- No edema. Musculoskeletal: Generalized-No generalized swelling or edema of extremities, digital clubbing present, no cyanosis, neurovascularly intact all four extremities. Upper extremity- Symmetrical posture. No visible deformity. Normal sensation along medial and lateral upper extremity proximally and distally. NO tenderness overlying shoulder, lateral/medial epicondyle. [employer] 5/5 and strength 5/5 bilateral UE. Elbow palpated, no tenderness overlying olecranon. Normal supination, pronation to active/passive ROM and to resisted rotation. Bicep insertion/tricep insertion appear normal without obvious pathology. Rotator cuff evaluated and intact. Normal wrist ROM bilaterally. Normal hand movement, intrinsic muscles of hands normal. No tenderness to palpation of hands/wrists/ elbows. Lower extremity- Hip flexor strength 4+/5, knee extension 4+/5, dorsiflexion/ plantar flexion 4+/5. She has walker that she uses at home. Spine/Ribs- No deformities, masses or tenderness, no known fractures, normal strength, Normal ROM. Normal stability No tenderness along C/T/L spine. Normal appearing ROM about spine. Neurological: General- Moves all 4 extremities symmetrically. Symmetrical face and body posture. Cranial nerves- individually evaluated II-XII and intact. PERRLA, Normal EOMI, visual/special senses appear intact, Face is symmetrical and normal sensation/movement, normal tongue, normal strength/posture of neck musculature. Reflexes- intact with DTR 2+ patellar, bicep, Strength- 4+/5 bilateral UE and LE. Soft touch- intact bilateral UE and LE. Temperature sensation- intact bilateral UE and LE. Neuropsych: Oriented- Person, place, time. (AAOx3), Mood/affect- normal and congruent. Able to articulate well. Speech-Normal speech, normal rate, normal tone, normal use of language, volume and coherence. Thought content- normal with ability to perform basic computations and apply abstract thought/reason. Associations- intact, no SI/HI, no hallucinations, delusions, obsessions. Judgment/insight- Questionable Memory-Recall intact, remote and recent memory intact. Knowledge- Age appropriate fund of knowledge, concentration and attention span normal. Lymphatic: Head/Neck- normal size and non tender to palpation. Axillary- normal size and non tender to palpation. Femoral and Inguinal- normal size and non tender to palpation. - Lab/Tests/Diagnostic Imaging Lab/Tests/Diagnostic Imaging: Laboratory Last Values WBC 24.93 K/ul (4.6-10.2) H 07/15/18 04:19 RBC 4.53 10^6/ul (4.20-5.40) 07/15/18 04:19 Hgb 14.0 g/dl (12.0-16.0) 07/15/18 04:19 Hct 40.7 % (37.0-47.0) 07/15/18 04:19 MCV 89.8 fl (81.0-99.0) 07/15/18 04:19 MCH 30.9 pg (27.0-31.0) 07/15/18 04:19 MCHC 34.4 (31.8-35.4) 07/15/18 04:19 RDW Coeff of [place] 13.2 % (11.6-14.8) 07/15/18 04:19 Plt Count 302 10^3/uL (140-440) 07/15/18 04:19 Immature Gran % (Auto) 0.4 % (0.0-5.0) 07/15/18 04:19 Neut % (Auto) 86.5 07/15/18 04:19 Lymph % (Auto) 5.5 (10.0-50.0) L 07/15/18 04:19 [place] % (Auto) 7.2 (0-10) 07/15/18 04:19 Eos % (Auto) 0.1 % (0.0-7.0) 07/15/18 04:19 Baso % (Auto) 0.3 % (0.0-3.0) 07/15/18 04:19 Immature Gran # (Auto) 0.1 (0.0-1.0) 07/15/18 04:19 Neut # (Auto) 21.6 K/ul (2.0-6.9) H 07/15/18 04:19 Lymph # (Auto) 1.4 K/uL (0.60-3.4) 07/15/18 04:19 [place] # (Auto) 1.8 K/uL (0.4-2.0) 07/15/18 04:19 Eos # (Auto) 0.0 K/ul (0.0-0.7) 07/15/18 04:19 Baso # (Auto) 0.1 K/uL (0-0.2) 07/15/18 04:19 Puncture Site Rb 07/15/18 04:20 O2 Saturation 90.0 % (95-100) L 07/15/18 04:20 ABG pH 7.413 (7.35-7.45) 07/15/18 04:20 ABG pCO2 35.4 mmHg (35-45) 07/15/18 04:20 ABG pO2 57.0 mmHg (85-100) L* 07/15/18 04:20 ABG HCO3 22.6 (22.0-26.0) 07/15/18 04:20 ABG Total CO2 24 (22.0-28.0) 07/15/18 04:20 ABG Base Excess -2 (-2.0-2.0) 07/15/18 04:20 Ray Test + 07/15/18 04:20 FiO2 % 21.0 % 07/15/18 04:20 Sodium 130.8 mmol/L (134.5-145) L 07/15/18 04:19 Potassium 4.02 mmol/L (3.5-5.1) 07/15/18 04:19 Chloride 95.0 mmol/L (98-107) L 07/15/18 04:19 Carbon Dioxide 25.9 mmol/L (22-30.0) 07/15/18 04:19 Anion Gap 13.92 07/15/18 04:19 BUN 7.6 mg/dL (7-17) 07/15/18 04:19 Creatinine 0.43 mg/dL (0.60-1.30) L 07/15/18 04:19 Estimated GFR (MDRD) 148.00 mL/min 07/15/18 04:19 BUN/Creatinine Ratio 17.67 07/15/18 04:19 Glucose 131.0 mg/dL (74-106) H 07/15/18 04:19 Lactic Acid 1.64 mmol/L (0.7-2.1) 07/15/18 04:19 Calcium 9.23 mg/dL (8.4-10.2) 07/15/18 04:19 Total Bilirubin 0.26 mg/dL (0.2-1.3) 07/15/18 04:19 AST 21.9 U/L (14-36) 07/15/18 04:19 ALT 10.3 U/L (0-35) 07/15/18 04:19 Alkaline Phosphatase 82.8 U/L (53-141) 07/15/18 04:19 Troponin I < 0.012 ng/ml (0.0000-0.120) 07/15/18 04:19 Total Protein 6.74 g/dL (6.3-8.2) 07/15/18 04:19 Albumin 4.39 g/dL (3.5-5.0) 07/15/18 04:19 Globulin 2.35 07/15/18 04:19 Albumin/Globulin Ratio 1.86 07/15/18 04:19 Procalcitonin < 0.05 ng/mL (0.09) 07/15/18 04:19 CT: Emphysema, reticulonodular infiltrates RLL infectious/inflammatory process. Diffuse bronchial wall thickening, bilateral apical scarring. ABG: Compensated respiratory alkalosis. - Assessment (1) Right lower lobe pneumonia Status: Acute Code(s): J18.9 - PNEUMONIA, UNSPECIFIED ORGANISM SNOMED Code(s ): 083507401 (2) SIRS (systemic inflammatory response syndrome) Status: Acute Code(s): R65.10 - SIRS OF NON-INFECTIOUS ORIGIN W/O ACUTE ORGAN DYSFUNCTION SNOMED Code(s): 241156336 (3) Hyponatremia Status: Chronic Code(s): E87.1 - HYPO-OSMOLALITY AND HYPONATREMIA SNOMED Code(s): 15166333 (4) Recurrent falls Status: Chronic Code(s): R29.6 - REPEATED FALLS SNOMED Code(s): 478545628 (5) Cachexia Status: Chronic Code(s): R64 - CACHEXIA SNOMED Code(s): 624604547 (6) Chronic obstructive pulmonary disease (COPD) Status: Chronic Code(s): J44.9 - CHRONIC OBSTRUCTIVE PULMONARY DISEASE, UNSPECIFIED SNOMED Code(s): 46873862 (7) Depression with anxiety Status: Chronic Code(s): F41.8 - OTHER SPECIFIED ANXIETY DISORDERS SNOMED Code(s): 22580898, 511319676 (8) History of smoking greater than 50 pack years Status: Chronic Code(s): Z87.891 - PERSONAL HISTORY OF NICOTINE DEPENDENCE SNOMED Code(s): 477982084 (9) Seizures Status: Chronic Code(s): R56.9 - UNSPECIFIED CONVULSIONS SNOMED Code(s): 80262783 - Plan Plan: Pneumonia RLL, chronic COPD, SIRS/Neutrophilia: Suspect acute bronchitis with possibility of COPD exacerbation by history and exam. CT imaging supported bronchits with underlying RLL pneumonia. Leukocytosis is present, SIRS is present, CT w/ source for infection. SEPSIS Protocol w/u done. Lactic acid neg, procalcitonin negative, troponin Neg. Sudden onset of symptoms suggests flu may be likely as well, will check labs to eval for flu. We reviewed smoking history. Smoking cessation and tobacco avoidance highly encouraged today (both active and passive). We reviewed GOLD criteria. Gold defines exacerbation of COPD as acute event leading to worsening of respiratory symptoms with 3 cardinal features: increased cough freq/severity, sputum production volume/ quality, worsened Dyspnea. She has had all 3 in last 24 hours. Risk factors for exacerbations include advancing age, duration of COPD, history of abx use, prev hospitalization within past 12 months, mucus production, comorbidities to include heart disease, CHF, DM, and exposures. Respiratory infections are the most likely trigger in up to 70% of cases to include viral processes such as Rhino (warmer months), connell, adeno, parainfluenza (cooler months), allergic process, viral/bacterial pneumonia. Studies have shown benefit to bronchodilators (grade 1B) and show reduced time to resolution of cough. I will have albuterol q 4 hours. Anticholinergic agents are often used in combination as studies show enhanced bronchodilation beyond that seen by either agent alone. She is on this at home, continue for now. Discussed pros and cons of steroid use both injectible and oral forms. Would like spirometry in 1-2 months if not done within past 12 months. Discussed code status, discussed current stage of life. I am concerned about her health overall. Daughter is not here. SHe did answer all of her own questions. With pneumonia I need to cover S. Aureus, kleb Pneumonia, S. Pneumo, H. Influenza, M. Cattarhalis, and atypicals, legionella pneumophila, m. Pneumoniae and C. Pneumoniae - Admit obs - Telemetry - Fluid maintenance 75 ml/hour NS (MOnitor for worsening hyponatremia). - Will hold on steroids for now. Decadron, dexamethasone, methylprednisolone-Pt notified of potential pros/risks of steroid treatment including rapid improvement of condition; allergic reaction, psychologic reaction (depression, anxiety, insomnia), skin change at injection site (color, dimpling), muscle weakness. Pt is aware they may refuse treatment. - Albuterol q 4 hours - spiriva daily to be continued as home med. - Change zosyn to Ceftriaxone and doxycycline to cover for CAP. She is PCN allergic. - I ordered sputum induction/culture - I ordered influenza molecular/titer - Vitals q8 - I+O q 8 - Urine ag for S. Pneumo and Legionella pneumophila. Hyponatremia: Chronic process/Stable. Likely dietary. Replace maintenance fluids 75ml/hour, soft diet. - Monitor CMP in am tomorrow. Anemia: Chronic problem, currently stable on labs. Failure to thrive: Monitor weight. She is essentially unchanged since 01/2018, which is reassuring. Needs f/u with pCP to evaluate c.scope and routine monitoring parameters. DVT Prophy: Lovenox Heavy/Prolonged tobacco use. Prolonged history. Not interested in patches. - Tobacco Cessation discussed today for 3 minutes. We reviewed lifestyle choices and discussed quitting. Ready to quit status discussed. The risks and hazards of continued tobacco abuse were discussed with the patient today and total tobacco cessation as recommended. It was clearly and unambiguously explained that continued tobacco usage will adversely affect overall morbidity and mortality of the patient. Patient was informed that tobacco use can lead to numerous cancers, worsening of cardiovascular and pulmonary systems and that lung damage is often permanent and irreversible. I advised the patient to inform me if any further assistance is requested, as we can offer counseling services, nicotine replacement inhaled, patch, lozenge, gum, or prescription medications to include Chantix or Wellbutrin for assistance. I will reassess the interest in tobacco cessation at the next and all subsequent visits. Codes Status: Full code: - Lengthy discussion with her today ~7 minutes discussing meaning of code. She wants to be full code. End of life planning: THinks her daughter is POA, uncertain. Daughter not here today. Activity: UP with assist. Diet: Soft Disposition: Plan is home in 1-3 days depending on progress. Reviewed last note from 05/21/18 she went to [facility] and out in 1 week. No desire to return to [place]. We will plan at this point to use abx x 5 days, treat for COPD exacerbation as well. Time today for this observation admission was > 70 minutes. Reviewed last #2 admits, self interpreted ABG. Reviewed labs/ imaging, discussed case with ER provider personally Dr. Carrillo. Prognosis: Poor. She continues to worsen, now hospitalization just over 30 days ago.
[2018-07-15] MEDS ORDERED: SODIUM CHLORIDE 1,000 ML IV SCH (08:00)
[2018-07-15] MEDS: ROCEPHIN 1 GM in SODIUM CHLORIDE 50 ML IV SCH (08:07)
[2018-07-15] MEDS: SODIUM CHLORIDE 1,000 ML IV SCH (08:12)
[2018-07-15] MEDS: DOXYCYCLINE HYCLATE PO SCH ×2 (08:15→20:33)
[2018-07-15] MEDS: LOVENOX SUBCUT SCH (08:15)
[2018-07-15] MEDS ORDERED: DEPAKOTE PO SCH (10:00)
[2018-07-15] MEDS: DEPAKOTE PO SCH ×2 (11:04→20:33)
[2018-07-15] MEDS: PLAVIX PO SCH (11:05)
[2018-07-15] MEDS: COLACE PO SCH ×2 (11:05→20:32)
[2018-07-15] MEDS: ZANTAC PO SCH ×2 (11:05→17:02)
[2018-07-15] MEDS: ZOLOFT PO SCH (11:05)
[2018-07-15] MEDS: KEPPRA PO SCH ×2 (11:05→20:33)
[2018-07-15] MEDS: SYMBICORT 80-4.5 MCG INHALER IH SCH ×2 (11:09→20:32)
[2018-07-15] MEDS: SPIRIVA IH SCH (11:09)
[2018-07-15] MEDS: ALBUTEROL 0.083% NEB NEB SCH ×4 (12:42→21:10)
[2018-07-15] MEDS: XALATAN OP SCH (20:32)
[2018-07-16] MEDS: SODIUM CHLORIDE 1,000 ML IV SCH ×2 (00:20→14:39)
[2018-07-16] MEDS: ALBUTEROL 0.083% NEB NEB SCH ×6 (02:02→22:00)
[2018-07-16] MEDS: ZANTAC PO SCH ×2 (05:41→16:33)
--- NOTE | 2018-07-16 07:38 | PCM.PROG ---
Subjective: 62 yr old CF HD 2, abx day 2, zosyn x 1 in ER, rocephin 1 gram daily, doxy 100 BID started yesterday. She is doing well, rounded 7:05 this am and discussed her care wtih her. WBC improved from 24.93 to 16.89, hgb dropped to 11.2 from 14 and her plt have dropped from 302 to 268. Her sodium has improved to 133.9 but her K+ has dropped a little to 3.46. I will replace this orally today. Kidney function looks good, glucose looked good. She is getting regular nebs. Nursing observation notes reviewed, talkative no distress. No respiratory worsening. She is coughing more, no more post tussive emesis, she had 1 round yesterday. Remains afebrile. HR 92-100 since 1300 yesterday. Tele SR reviewed as well. BP remained stable at 106-118/56-68. She is improving. Unfortunately she is incontinent and has had 2 voids in last 24 hours with others unrecorded as incontinent. She is in adult pad. She feels she is improving, I feel it would be reasonable to work on D/C for 07/17/18. Not craving tobacco. Hyponatremia is better. Chronic COPD, doing well on oxygen. Today she complains of LLL posterior pain with deep inspiration and cough. No visible deformity. She cannot rate pain on 10 scale. Lovenox on board for DVT prophy. Meals yesterday 25%/50%/50% consumed. Weight 87 8.376 oz. REVIEW OF SYMPTOMS: (Positives bolded) General: weight loss, fever, chills, night sweats, fatigue, appetite loss HEENT: blurry vision (LEFT EYE LAZY) eye pain, eye discharge, dry eyes, decreased vision, sore throat tinnitus, bloody nose, hearin gloss, sinus pain/ pressure, ear pain/pressure. Respiratory: shortness of breath, cough, hemoptysis, wheezing, pleurisy, Cardiovascular: chest pain, PND, palpitation, edema, orthopnea, syncope, swelling of extremities Gastro: Nausea (MILD), vomiting, diarrhea, hematemesis, abdominal pain, constipation Genito: hematuria, dysuria, glycosuria, hesitancy, frequency, incontinence Musckelo: Arthralgia, myalgia, muscle weakness, joint swelling, NSAID use Skin: rash, pruritis, sores, nail changes, skin thickening, change in wart/mole , itching, new lesions, nail changes Neuro: Migraine, numbness, ataxia, tremor, vertigo, weakness, memory loss, Irritability, dizziness Endocrine: excessive thirst, polyuria, cold intolerance, heat intolerance, goiter Psychiatric: depression, anxiety (STABLE), anti-depressants, alcohol abuse, drug abuse, insomnia, change in sleep pattern and mood changes Heme/lymph: easy bruising, bleeding gums, blood clots, swollen glands, lymphedema, Allergic/immune: allergic rhinitis, hay fever, asthma, hives Objective: Vital Signs - 24 hr 07/15/18 07/15/18 07/15/18 09:53 09:58 13:36 Temperature 98.2 F 98.7 F Pulse Rate 92 H Respiratory 24 Rate Blood Pressure 114/73 O2 Sat by Pulse 93 L 94 L Oximetry 07/15/18 07/16/18 22:00 04:55 Temperature 97.6 F 97.7 F Pulse Rate 100 H 96 H Respiratory 20 16 Rate Blood Pressure 106/56 L 118/68 O2 Sat by Pulse 94 L 98 Oximetry Constitutional: Appearance-Mild acute distress/respiratory distress, chronic lung disease. Appears Older than stated age. Sitting at bedside, talkative, full sentences. Orientation- Oriented x 3, alert Gait-Unobserved Build and Nutrition-[Cachectic female] Integumentary: General-No rashes, ulcers or lesions. Palpation- Normal skin moisture/turgor. Skin is warm to touch, appropriate. Capillary refill is normal bilateral Upper and lower extremity. Scattered tattoo. Eye: +GLASSES. Lazy eye left. Bilaterally PERRLA, EOMI. No discharge. Upper and lower eyelids are normal. Sclera/conjunctiva normal without discharge. Cornea is normal and clear. Lens is normal. Eyeball appears normal. No ciliary flushing, no conjunctival injection. ENMT: Nares- bilateral quiet airflow, clear discharge. Nasal mucosa- No bleeding noted and no ulcerations observed. Erythematous, Turbinates mildly boggy. Lips- normal color, moist without cracks/lesions Oral Cavity/Palate- hard /soft palate intact without lesions, oral mucosa pink and moist. Oropharynx- no pharyngeal erythema, Uvula midline. No post nasal drip, missing teeth. Salivary glands- Non tender to palpation CHEST/LUNG: Inspection- no distress, no use of accessory muscles. Palpation- nontender sternum, ribline. No abnormal pulsations. Auscultation- Breath sounds diminished throughout, coarse throughout all lung jefferson. More air movement today. Talkative. perhaps less abdominal breathing. Adventitious sounds- Scattered wheezes, bibasilar rales, Scattered rhonchi. No egophany, no whispered pectoriloquy. CARDIOVASCULAR: Palpation/Percussion- Normal PMI, no palpable thrill Auscultation- Regular rate and rhythm. No murmur noted in sitting, supine positions. Normal rhythm at present, no obvious murmur Extremities- no cyanosis , edema, increased warmth. ABDOMEN: Inspection- normal and no visible pulsations. Normal contour. Auscultation- Bowel sounds normal, no abdominal bruits. Palpation/Percussion- soft, non-tender, no rebound tenderness, no rigidity (guarding), no jar tenderness, no masses. Peripheral Vascular: Lower extremity- Normal temperature with pink nailbeds and no ulcerations. DP pulses 2+ bilaterally. Normal capillary refill. Edema- No edema. Musculoskeletal: Generalized-No generalized swelling or edema of extremities, digital clubbing present, no cyanosis, neurovascularly intact all four extremities. Neurological: General- Moves all 4 extremities symmetrically. Symmetrical face and body posture. Cranial nerves- individually evaluated II-XII and intact. PERRLA, Normal EOMI, visual/special senses appear intact, Face is symmetrical and normal sensation/movement, normal tongue, normal strength/posture of neck musculature. Neuropsych: Oriented- Person, place, time. (AAOx3), Mood/affect- normal and congruent. Able to articulate well. Speech-Normal speech, normal rate, normal tone, normal use of language, volume and coherence. Thought content- normal with ability to perform basic computations and apply abstract thought/reason. Associations- intact, no SI/HI, no hallucinations, delusions, obsessions. Judgment/insight- Questionable Memory-Recall intact, remote and recent memory intact. Knowledge- Age appropriate fund of knowledge, concentration and attention span normal. Lymphatic: Head/Neck- normal size and non tender to palpation. Laboratory Last Values WBC 16.89 K/ul (4.6-10.2) H D 07/16/18 04:33 RBC 3.69 10^6/ul (4.20-5.40) L 07/16/18 04:33 Hgb 11.2 g/dl (12.0-16.0) L 07/16/18 04:33 Hct 33.4 % (37.0-47.0) L D 07/16/18 04:33 MCV 90.5 fl (81.0-99.0) 07/16/18 04:33 MCH 30.4 pg (27.0-31.0) 07/16/18 04:33 MCHC 33.5 (31.8-35.4) 07/16/18 04:33 RDW Coeff of [place] 13.4 % (11.6-14.8) 07/16/18 04:33 Plt Count 268 10^3/uL (140-440) 07/16/18 04:33 Immature Gran % (Auto) 0.4 % (0.0-5.0) 07/16/18 04:33 Neut % (Auto) 76.2 07/16/18 04:33 Lymph % (Auto) 14.3 (10.0-50.0) 07/16/18 04:33 [place] % (Auto) 6.0 (0-10) 07/16/18 04:33 Eos % (Auto) 2.7 % (0.0-7.0) 07/16/18 04:33 Baso % (Auto) 0.4 % (0.0-3.0) 07/16/18 04:33 Immature Gran # (Auto) 0.1 (0.0-1.0) 07/16/18 04:33 Neut # (Auto) 12.9 K/ul (2.0-6.9) H 07/16/18 04:33 Lymph # (Auto) 2.4 K/uL (0.60-3.4) 07/16/18 04:33 [place] # (Auto) 1.0 K/uL (0.4-2.0) 07/16/18 04:33 Eos # (Auto) 0.5 K/ul (0.0-0.7) 07/16/18 04:33 Baso # (Auto) 0.1 K/uL (0-0.2) 07/16/18 04:33 Puncture Site Rb 07/15/18 04:20 O2 Saturation 90.0 % (95-100) L 07/15/18 04:20 ABG pH 7.413 (7.35-7.45) 07/15/18 04:20 ABG pCO2 35.4 mmHg (35-45) 07/15/18 04:20 ABG pO2 57.0 mmHg (85-100) L* 07/15/18 04:20 ABG HCO3 22.6 (22.0-26.0) 07/15/18 04:20 ABG Total CO2 24 (22.0-28.0) 07/15/18 04:20 ABG Base Excess -2 (-2.0-2.0) 07/15/18 04:20 Ray Test + 07/15/18 04:20 FiO2 % 21.0 % 07/15/18 04:20 Sodium 133.9 mmol/L (134.5-145) L 07/16/18 04:33 Potassium 3.46 mmol/L (3.5-5.1) L 07/16/18 04:33 Chloride 100.2 mmol/L (98-107) 07/16/18 04:33 Carbon Dioxide 26.9 mmol/L (22-30.0) 07/16/18 04:33 Anion Gap 10.26 07/16/18 04:33 BUN 6.1 mg/dL (7-17) L 07/16/18 04:33 Creatinine 0.39 mg/dL (0.60-1.30) L 07/16/18 04:33 Estimated GFR (MDRD) 165.00 mL/min 07/16/18 04:33 BUN/Creatinine Ratio 15.64 07/16/18 04:33 Glucose 95.9 mg/dL (74-106) 07/16/18 04:33 Lactic Acid 1.64 mmol/L (0.7-2.1) 07/15/18 04:19 Calcium 8.58 mg/dL (8.4-10.2) 07/16/18 04:33 Total Bilirubin 0.24 mg/dL (0.2-1.3) 07/16/18 04:33 AST 20.9 U/L (14-36) 07/16/18 04:33 ALT 9.6 U/L (0-35) 07/16/18 04:33 Alkaline Phosphatase 67.2 U/L (53-141) 07/16/18 04:33 Troponin I < 0.012 ng/ml (0.0000-0.120) 07/15/18 04:19 Total Protein 5.67 g/dL (6.3-8.2) L 07/16/18 04:33 Albumin 3.40 g/dL (3.5-5.0) L 07/16/18 04:33 Globulin 2.27 07/16/18 04:33 Albumin/Globulin Ratio 1.49 07/16/18 04:33 Procalcitonin < 0.05 ng/mL (0.09) 07/15/18 04:19 Influ A Molecular Assay Negative by naat (NEGATIVE) 07/15/18 09:55 Influ B Molecular Assay Negative by naat (NEGATIVE) 07/15/18 09:55 (1) Right lower lobe pneumonia Status: Acute Code(s): J18.9 - PNEUMONIA, UNSPECIFIED ORGANISM SNOMED Code(s ): 469066684 (2) SIRS (systemic inflammatory response syndrome) Status: Acute Code(s): R65.10 - SIRS OF NON-INFECTIOUS ORIGIN W/O ACUTE ORGAN DYSFUNCTION SNOMED Code(s): 450947694 (3) Hyponatremia Status: Chronic Code(s): E87.1 - HYPO-OSMOLALITY AND HYPONATREMIA SNOMED Code(s): 60016883 (4) Recurrent falls Status: Chronic Code(s): R29.6 - REPEATED FALLS SNOMED Code(s): 232194377 (5) Cachexia Status: Chronic Code(s): R64 - CACHEXIA SNOMED Code(s): 879789319 (6) Chronic obstructive pulmonary disease (COPD) Status: Chronic Code(s): J44.9 - CHRONIC OBSTRUCTIVE PULMONARY DISEASE, UNSPECIFIED SNOMED Code(s): 93205426 (7) Depression with anxiety Status: Chronic Code(s): F41.8 - OTHER SPECIFIED ANXIETY DISORDERS SNOMED Code(s): 04462797 (8) History of smoking greater than 50 pack years Status: Chronic Code(s): Z87.891 - PERSONAL HISTORY OF NICOTINE DEPENDENCE SNOMED Code(s): 284529756 (9) Seizures Status: Chronic Code(s): R56.9 - UNSPECIFIED CONVULSIONS SNOMED Code(s): 12074550 (10) Hypokalemia Status: Acute Code(s): E87.6 - HYPOKALEMIA SNOMED Code(s): 98923012 Plan: Pneumonia RLL, chronic COPD, SIRS/Neutrophilia: Abx Day 2 Rocephin 1 gram daily , doxycycline 100 BID PO. She received 1 dose of zosyn in ER. PCN allergic. Improving overall. Breathing is better, cough is better. Tolerating nebs. She is tolerating meals as well. Vitals are stable. She ate 50% of her dinner. Hyponatremia is better than it has been in a while. She has improved aeration, deeper breathing, talking full sentences. Post tussive emesis x 1 yesterday. Not present now. Blood cultures pending, urine ag testing pending. WBC improving. Tele is stable. Patient is improving and would benefit from 24 more hours. - Continue obs Admit likely d/c 07/17/18. - Telemetry to continue. - Fluid maintenance to continue 75 ml/hour NS (MOnitor for worsening hyponatremia). - Will continue to hold on steroids for now. - Albuterol q 4 hours - spiriva daily to be continued as home med. - I ordered sputum induction/culture - I ordered influenza molecular/titer - Vitals q8 - I+O q 8 - Urine ag for S. Pneumo and Legionella pneumophila. Abx Day 2: Doxy 100 BID PO, Rocephin 1 Gram IV Hyponatremia: Improved. Chronic process/Stable. Likely dietary at home. Continue to Replace maintenance fluids 75ml/hour, soft diet. - Monitor CMP in am tomorrow. Hypokalemia: 20meq PO to be given with breakfast. - CMP in am. - PO K+ this am. Anemia: Chronic problem, currently stable on labs. Some dilutional effect this am. Hgb from 14 to 11.2. Failure to thrive: Monitor weight. Needs f/u with pCP to evaluate c.scope and routine monitoring parameters. Recurrent falls: NOne in hospital. None recently per her report since ER eval by Dr. Reddy in 04/2018 . DVT Prophy: Lovenox 40 mg subcutaneous to continue. Heavy/Prolonged tobacco use. Prolonged history. Not interested in patches. Again reviewed nicotine and need to avoid this. She is not ready to quit. Tobacco Cessation discussed today for 1 minute. Reviewed same info as yesterday. Not interested in this for now. Patches offered/declind. cessation at the next and all subsequent visits. Codes Status: Full code: Daughter not here today. No change. Lengthy discussion 07/15/18. Activity: UP with assist. Diet: Soft Disposition: Plan is home 07/17/18. Reviewed tele, overnight nursing notes, vitals, I+O, new labs for this am. New problem hypokalemia, will replace this PO this am. Hyponatremia better, leukocytosis improving. Anemia mildly worse, again likely dilutional. The patient has no new issues, she is improving. Observation care this am moderate. Reviewed the above problems with patient. Discussed home care, discussed next steps in plan. Rounding spent this am 35 minutes face to face, not including documentation. Prognosis: Improved. Chronic needs/PCP F/u needed.
[2018-07-16] MEDS ORDERED: K-DUR PO SCH (08:00)
[2018-07-16] MEDS: SYMBICORT 80-4.5 MCG INHALER IH SCH ×2 (08:48→20:58)
[2018-07-16] MEDS: SPIRIVA IH SCH (08:48)
[2018-07-16] MEDS: ROCEPHIN 1 GM in SODIUM CHLORIDE 50 ML IV SCH (08:49)
[2018-07-16] MEDS: ZOLOFT PO SCH (08:51)
[2018-07-16] MEDS: DOXYCYCLINE HYCLATE PO SCH ×2 (08:52→20:58)
[2018-07-16] MEDS: KEPPRA PO SCH ×2 (08:52→20:58)
[2018-07-16] MEDS: PLAVIX PO SCH (08:52)
[2018-07-16] MEDS: LOVENOX SUBCUT SCH (08:53)
[2018-07-16] MEDS: COLACE PO SCH ×2 (08:53→20:58)
[2018-07-16] MEDS: DEPAKOTE PO SCH ×2 (08:53→20:59)
[2018-07-16] MEDS: XALATAN OP SCH (20:58)
[2018-07-16] MEDS: PYRIDOXINE HCL PO SCH (21:39)
[2018-07-16] MEDS: MELATONIN PO SCH (21:39)
[2018-07-17] MEDS: ALBUTEROL 0.083% NEB NEB SCH ×3 (01:45→10:02)
[2018-07-17] MEDS: SODIUM CHLORIDE 1,000 ML IV SCH ×2 (03:23→04:43)
[2018-07-17 04:46] VITALS: BP 111/62; TEMP 98.8
[2018-07-17] MEDS: ZANTAC PO SCH (05:41)
[2018-07-17] MEDS ORDERED: K-DUR PO SCH (08:00)
[2018-07-17] MEDS: ROCEPHIN 1 GM in SODIUM CHLORIDE 50 ML IV SCH (08:12)
[2018-07-17] MEDS: COLACE PO SCH (08:14)
[2018-07-17] MEDS: DOXYCYCLINE HYCLATE PO SCH (08:15)
[2018-07-17] MEDS: DEPAKOTE PO SCH (08:15)
[2018-07-17] MEDS: ZOLOFT PO SCH (08:16)
[2018-07-17] MEDS: KEPPRA PO SCH (08:16)
[2018-07-17] MEDS: PLAVIX PO SCH (08:16)
[2018-07-17] MEDS: SYMBICORT 80-4.5 MCG INHALER IH SCH (08:18)
[2018-07-17] MEDS: SPIRIVA IH SCH (08:19)
[2018-07-17] MEDS: LOVENOX SUBCUT SCH (08:19)
[2018-07-17] MEDS: MELATONIN PO SCH (08:38)
[2018-07-17] MEDS: PYRIDOXINE HCL PO SCH (08:38)
--- NOTE | 2018-07-17 10:53 | PCM.DC ---
Final Diagnosis: Right lower lobe pneumonia (Acute) Chronic obstructive pulmonary disease (COPD) (Chronic) Hypokalemia (Acute) Hypoxia (Acute)/Oxygen dependent (Acute) SIRS (systemic inflammatory response syndrome) (RESOLVED) Hyponatremia (Chronic): STABLE Recurrent falls (Chronic): NONE since 05/25/18 Cachexia (Chronic) Depression with anxiety (Chronic) History of smoking greater than 50 pack years (Chronic) Seizures (Chronic)/STABLE Admitted Dr. Pryor 07/15/[address] Pryor 07/17/18 Observational status (1) Right lower lobe pneumonia Status: Acute Code(s): J18.9 - PNEUMONIA, UNSPECIFIED ORGANISM SNOMED Code(s ): 367078949 (2) SIRS (systemic inflammatory response syndrome) Status: Resolved Code(s): R65.10 - SIRS OF NON-INFECTIOUS ORIGIN W/O ACUTE ORGAN DYSFUNCTION SNOMED Code(s): 086241921 (3) Hyponatremia Status: Chronic Code(s): E87.1 - HYPO-OSMOLALITY AND HYPONATREMIA SNOMED Code(s): 16921030 (4) Recurrent falls Status: Chronic Code(s): R29.6 - REPEATED FALLS SNOMED Code(s): 873664639 (5) Cachexia Status: Chronic Code(s): R64 - CACHEXIA SNOMED Code(s): 845032817 (6) Chronic obstructive pulmonary disease (COPD) Status: Chronic Code(s): J44.9 - CHRONIC OBSTRUCTIVE PULMONARY DISEASE, UNSPECIFIED SNOMED Code(s): 38051128 (7) Depression with anxiety Status: Chronic Code(s): F41.8 - OTHER SPECIFIED ANXIETY DISORDERS SNOMED Code(s): 16158957, 671965956 (8) History of smoking greater than 50 pack years Status: Chronic Code(s): Z87.891 - PERSONAL HISTORY OF NICOTINE DEPENDENCE SNOMED Code(s): 868920104 (9) Seizures Status: Chronic Code(s): R56.9 - UNSPECIFIED CONVULSIONS SNOMED Code(s): 39319780 (10) Hypokalemia Status: Acute Code(s): E87.6 - HYPOKALEMIA SNOMED Code(s): 28720433 (11) Hypoxia Status: Resolved Code(s): R09.02 - HYPOXEMIA SNOMED Code(s): 760595476 (12) Oxygen dependent Status: Chronic Code(s): Z99.81 - DEPENDENCE ON SUPPLEMENTAL OXYGEN SNOMED Code(s): 608650115895 Reason for Hospitalization: Cough, SOA, Mucus production, S[place]DING, RLL Pneumonia acutely. Chronic hyponatremia , chronic underweight. Chronic tobacco use. Prognosis at Discharge: Guarded prognosis. She has had recurrent admissions, pneumonia, falls, she is underweight, continues to smoke cigarettes despite warnings/instructions/ recommendations. Chronic hyponatremia, poor diet. She does not want NH. Concern with falls and with her overall health. She is declining Chronic COPD. On Triple inhaler therapy. Condition at Discharge: Improved. Breathing better. Failed the three step oxygen evaluation today and passed for oxygen to be used all day. O2 to be continued through day use 2 L regularly. Patient aware and Oxygen company contacted. D/C home on 2.5 more days of abx (1 dose this pm and then 2 full more days). Medications at Discharge: Ambulatory Orders Medication Instructions Recorded Albuterol Sulfate [Proair Hfa] 2 inh PO Q4H PRN 08/21/13 Levetiracetam [Keppra] 500 mg PO BID 08/21/13 Latanoprost [Xalatan] 1 drop RIGHTEYE BEDTIME 02/16/14 Clopidogrel Bisulfate [Plavix] 75 mg PO DAILY 07/24/15 Sertraline HCl [Zoloft] 50 mg PO DAILY 07/24/15 Docusate Sodium [Colace] 100 mg PO BID 12/05/15 Dextran 70/Hypromellose 1 drop OP DIRECTED PRN 05/07/17 [Artificial Tears Eye Drops] Tiotropium Mcconnell [Spiriva] 1 cap IH DAILY 05/07/17 Polyethylene Glycol 3350 [Miralax] 17 gm PO DAILY #30 powd.pack 06/06/17 Melatonin/Pyridoxine HCl (B6) 1 each PO DAILY 02/13/18 [Melatonin 3 mg Tablet] Multivitamin 1 cap PO DAILY 02/13/18 Ranitidine HCl [Zantac] 150 mg PO BIDAC 02/13/18 Budesonide/Formoterol Fumarate 2 puff IH BID 07/15/18 [Symbicort 80-4.5 Mcg Inhaler] Divalproex Sodium [Depakote] 500 mg PO BID 07/15/18 Albuterol Sulfate 0.083% Neb 1 vial NEB RTBID 30 Days vial.neb 07/17/18 [Albuterol 0.083% Neb] Cefdinir [Omnicef] 300 mg PO Q12HR 2 Days #5 capsule 07/17/18 Doxycycline Hyclate 100 mg PO Q12HR 2 Days #5 capsule 07/17/18 Potassium Chloride [K-Dur] 20 meq PO BIDWM 14 Days #28 tab 07/17/18 Lab/Diagnostics: Laboratory Last Values WBC 9.14 K/ul (4.6-10.2) D 07/17/18 05:00 RBC 3.62 10^6/ul (4.20-5.40) L 07/17/18 05:00 Hgb 10.9 g/dl (12.0-16.0) L 07/17/18 05:00 Hct 32.5 % (37.0-47.0) L 07/17/18 05:00 MCV 89.8 fl (81.0-99.0) 07/17/18 05:00 MCH 30.1 pg (27.0-31.0) 07/17/18 05:00 MCHC 33.5 (31.8-35.4) 07/17/18 05:00 RDW Coeff of [place] 13.2 % (11.6-14.8) 07/17/18 05:00 Plt Count 236 10^3/uL (140-440) 07/17/18 05:00 Immature Gran % (Auto) 0.3 % (0.0-5.0) 07/17/18 05:00 Neut % (Auto) 60.6 07/17/18 05:00 Lymph % (Auto) 21.0 (10.0-50.0) 07/17/18 05:00 [place] % (Auto) 8.9 (0-10) 07/17/18 05:00 Eos % (Auto) 8.8 % (0.0-7.0) H 07/17/18 05:00 Baso % (Auto) 0.4 % (0.0-3.0) 07/17/18 05:00 Immature Gran # (Auto) 0.0 (0.0-1.0) 07/17/18 05:00 Neut # (Auto) 5.5 K/ul (2.0-6.9) 07/17/18 05:00 Lymph # (Auto) 1.9 K/uL (0.60-3.4) 07/17/18 05:00 [place] # (Auto) 0.8 K/uL (0.4-2.0) 07/17/18 05:00 Eos # (Auto) 0.8 K/ul (0.0-0.7) H 07/17/18 05:00 Baso # (Auto) 0.0 K/uL (0-0.2) 07/17/18 05:00 Puncture Site Rb 07/15/18 04:20 O2 Saturation 90.0 % (95-100) L 07/15/18 04:20 ABG pH 7.413 (7.35-7.45) 07/15/18 04:20 ABG pCO2 35.4 mmHg (35-45) 07/15/18 04:20 ABG pO2 57.0 mmHg (85-100) L* 07/15/18 04:20 ABG HCO3 22.6 (22.0-26.0) 07/15/18 04:20 ABG Total CO2 24 (22.0-28.0) 07/15/18 04:20 ABG Base Excess -2 (-2.0-2.0) 07/15/18 04:20 Ray Test + 07/15/18 04:20 FiO2 % 21.0 % 07/15/18 04:20 Sodium 132.4 mmol/L (134.5-145) L 07/17/18 05:00 Potassium 3.22 mmol/L (3.5-5.1) L 07/17/18 05:00 Chloride 99.5 mmol/L (98-107) 07/17/18 05:00 Carbon Dioxide 23.7 mmol/L (22-30.0) 07/17/18 05:00 Anion Gap 12.42 07/17/18 05:00 BUN < 2.0 mg/dL (7-17) L 07/17/18 05:00 Creatinine 0.36 mg/dL (0.60-1.30) L 07/17/18 05:00 Estimated GFR (MDRD) 181.00 mL/min 07/17/18 05:00 BUN/Creatinine Ratio 5.55 07/17/18 05:00 Glucose 93.2 mg/dL (74-106) 07/17/18 05:00 Lactic Acid 1.64 mmol/L (0.7-2.1) 07/15/18 04:19 Calcium 8.81 mg/dL (8.4-10.2) 07/17/18 05:00 Total Bilirubin 0.24 mg/dL (0.2-1.3) 07/17/18 05:00 AST 18.8 U/L (14-36) 07/17/18 05:00 ALT 11.3 U/L (0-35) 07/17/18 05:00 Alkaline Phosphatase 62.8 U/L (53-141) 07/17/18 05:00 Troponin I < 0.012 ng/ml (0.0000-0.120) 07/15/18 04:19 Total Protein 5.54 g/dL (6.3-8.2) L 07/17/18 05:00 Albumin 3.36 g/dL (3.5-5.0) L 07/17/18 05:00 Globulin 2.18 07/17/18 05:00 Albumin/Globulin Ratio 1.54 07/17/18 05:00 Procalcitonin < 0.05 ng/mL (0.09) 07/15/18 04:19 Influ A Molecular Assay Negative by naat (NEGATIVE) 07/15/18 09:55 Influ B Molecular Assay Negative by naat (NEGATIVE) 07/15/18 09:55 H/H Trends 07/15/18 07/16/18 07/17/18 Range/Units : 04:33 05:00 Hgb 14.0 11.2 L 10.9 L (12.0-16.0) g/dl Hct 40.7 33.4 L D 32.5 L (37.0-47.0) % Na/K Trends 07/15/18 07/16/18 07/17/18 Range/Units : 04:33 05:00 Sodium 130.8 L 133.9 L 132.4 L (134.5-145) mmol/L Potassium 4.02 3.46 L 3.22 L (3.5-5.1) mmol/L WBC Trends 07/15/18 07/16/18 07/17/18 Range/Units 04:19 04:33 05:00 WBC 24.93 H 16.89 H D 9.14 D (4.6-10.2) K/ul CT: Emphysema, reticulonodular infiltrates RLL infectious/inflammatory process. Diffuse bronchial wall thickening, bilateral apical scarring. ABG: Compensated respiratory alkalosis. Blood culture negative x 2. Sputum culture negative. Education Provided to Patient and Family: We reviewed lifestyle choices and discussed quitting tobacco. Ready to quit status discussed. The risks and hazards of continued tobacco abuse were discussed with the patient today and total tobacco cessation as recommended. It was clearly and unambiguously explained that continued tobacco usage will adversely affect overall morbidity and mortality of the patient. Patient was informed that tobacco use can lead to numerous cancers, worsening of cardiovascular and pulmonary systems and that lung damage is often permanent and irreversible. I advised the patient to inform me if any further assistance is requested, as we can offer counseling services, nicotine replacement inhaled , patch, lozenge, gum, or prescription medications to include Chantix or Wellbutrin for assistance. I will reassess the interest in tobacco cessation at the next and all subsequent visits. ABX: Discussed benefits of abx. Take abx w/ full 8 oz water. Sunscreen if going outdoors. Caution increased risks of burning. Oxygen: 2L day and night. Failed 3 step oxygen evaluation today w/ levels <88% . Oxygen company contacted and patient can use O2 all the time now. Follow-ups: 1. PCP in 1 week. 2. No pending labs. Legionella and Streptococcal Pneumoniae Urine antigen were cancelled. 3. Would get repeat CBC in 1 week for anemia evaluation. 4. Would get CMP in 1 week for sodium and potassium evaluation. Disposition: HOME SELF-CARE Hospital Course: 62 yo WF presented to ER 07/15/18 at 03:35 via ambulance w/ c/o acute onset SOA, COugh, mucus production and fever over 24 hour period. She had noted worsening over the day and went to ER in the am. PCP listed as Siobhan Jacinto. Patient met SIRS and SEPSIS criteria, Vitals temp 100.7, pulse 119, rr 32, BP 137/80, pulse ox 90 on RA. Mild to moderate symptoms, worse with ambulation/exertion, alleviated with upright posture. No abx recently, mild respiratory distress, no retractions, +Diminished breath sounds throughout. Ddx considered air obstruction, asthma, pneumonia or pulm embolism (ALLERGY TO CONTRAST). Similar episodes historically, chronic heavy tobacco and prolonged smoking history. Not on Home O2 per ER during day but + at night. History of chronic HTN, chronic tobacco use, history of CVA, epilepsy last Sz 05/2018, [place], COPD chronic, GERD, nephrolithiasis, CKD, Anemia, Depression + Anxiety, migraines, CAD, OA, FTT adult, underweight adult, chronic hyponatremia. Labs ordered by ER CBC/CMP/ Procalcitonin/Troponin. CBC showed WBC of 24.93, hgb 14, plt 302. Differential showed prominent neutrophilia. CMP with sodium 130.8 (chronic hyponatremia and at baseline), potasium 4.02, Cl 95.0, BUN 7.6 and creatinien 0.43, glucose 131. Lactic acid 1.64 and negative, procalcitonin <0.05 and negative. AST 21.9, ALT 10.3, alk phos 82.8. She had an ABG completed , PH 7.413, PC02 35.4, po2 57, hc03 22.6. Independent interpretation of this data supported, chronic compensated primary respiratory alkalosis process. CT chest was ordered/completed and showed emphysema, reticulonodular infiltrates RLL, infectious/inflammatory process, diffuse bronchial wall thickening and bilateral apical scarring. Troponin was negative. NO influenza was ordered, no sputum nor blood cultures were ordered. Zosyn given in ER. PORT score noted to be 94, CURB 65 1 point. These values supported 8.2-9.3% mortality for PORT and 2.7% for CURB-65 and brief hospital admit was recommended. Placed on tele, abx changed to rocephin/doxy by me. Vitals improved by the time she got to the floor. Temp 97.8, HR 116, RR 24. O2 94. I placed orders for lovenox for DVT prophy. I ordered Sputum induction/culture, influenza evaluation, blood cultures. Flu negative, cultures negative to date. Severely underweight and her sodium was noted to be chronically low. Gently hydrated with NS 75ml/hour which was her maintenance dose. She was last seen in our hospital 05/21/18 for recurrent falls x5 in prior week, gen weakness worsening, poor appetite, hyponatremia, bilateral pneumonitis 1ppd or more >60 years. HD2 07/16/18 Labs improved, abx continued, lovenox continued, gentle hydration continued. WBC improved from 24.93 to 16.89, hgb dropped to 11.2 from 14 and her plt have dropped from 302 to 268. Her sodium improved to 133.9 but her K+ dropped to 3.46. K+ once ordered 20meq with am meal. Kidney function looked good, glucose looked good. regular nebs, continued home symbicort and tiotropium. Coughing increased, aeration increased. Remained afebrile throughout hospital stay. Tele SR reviewed as well. BP remained stable at 106- 118/56-68. She definitely improved overnight and most importantly, she felt she was improving. Declined nicotine replacement, did not crave tobacco. Hyponatremia was better. Chronic COPD, stable on nebs/oxygen. Meals 25%/50%/50 % consumed. Today 07/17/18 HD3 labs improved further. WBC 16.89 down to 9.14, hgb 10.9 (down from 11.2) and plt 236 down from 268. This is likely dilutional. Would recommend CBC in 1 week to evaluate this process. K+ dropped to 3.22 and I increased her K+CL- to 20meq BID tablet with meals. Sodium stable 132.4 and doing well. GFR 181, cr 0.36 an dstable. Reviewed the patient overnight nursing notes and stable. 2 voids in last 24 hours but incontinent and difficult to assess. Tele SR. Breakfast 10%/Dinner 75%. Remained afebrile with NL vitals. This am she was ready to go. 3 STep oxygen evaluation showed with gentle ambulation that she dropped to <88%. The patient will leave hospital with oxygen. She will get #5 doses of doxy/cefdinir to take #1 tonight and then to take BID x 2 more days for a total of a 5 day course. I did not use steroids during the hospital stay. We had a lengthy discussion about POA and about code status. She wants to remain Full code. Discussed that I would consider talking with family about end of life planning and to consider DNR status. She is thin/frail and her weight is minimal. I am concerned for her overall health. I discussed I would make sure Pap/mammo/Cscope are up to date for cancer screenings. I did not appreciate any skin cancers, CT chest performed and no obvious pulmonary cancer. With weight cancer is on Ddx. She is not eating and thus electrolytes are down. Weight may be result of COPD and increased work of breathing. Day of Discharge Physical Examination: Vital Signs - 24 hr 07/16/18 07/16/18 07/17/18 20:00 22:00 04:44 Temperature 97.8 F 98.8 F Pulse Rate 94 H 89 Pulse Rate [ Apical] Respiratory 18 18 20 Rate Blood Pressure 128/74 111/62 O2 Sat by Pulse 96 94 L Oximetry 07/17/18 08:00 Temperature Pulse Rate Pulse Rate [ 89 Apical] Respiratory 20 Rate Blood Pressure O2 Sat by Pulse Oximetry utional: Appearance-Mild acute distress/respiratory distress, chronic lung disease. Appears Older than stated age. Sitting at bedside, talkative, full sentences. Pleasant. She appears to be at baseline. Orientation- Oriented x 3 , alert Gait-Unobserved Build and Nutrition-[Cachectic female] Eye: +GLASSES. Lazy eye left. ENMT: Nares- bilateral quiet airflow, clear discharge. Nasal mucosa- No bleeding noted and no ulcerations observed. Erythematous, Turbinates mildly boggy. Lips- normal color, moist without cracks/lesions Oral Cavity/Palate- hard /soft palate intact without lesions, oral mucosa pink and moist. Oropharynx- no pharyngeal erythema, Uvula midline. No post nasal drip, missing teeth. Salivary glands- Non tender to palpation CHEST/LUNG: Auscultation- Breath sounds diminished throughout, coarse throughout all lung jefferson. More air movement today than 07/16/18. Talkative Adventitious sounds- Still w/ Scattered wheezes, bibasilar rales, Scattered rhonchi. No egophany, no whispered pectoriloquy. CARDIOVASCULAR: Palpation/Percussion- Normal PMI, no palpable thrill Auscultation- Regular rate and rhythm. No murmur noted in sitting, supine positions. Normal rhythm at present, no obvious murmur Extremities- no cyanosis , edema, increased warmth. ABDOMEN: Inspection- normal and no visible pulsations. Normal contour. Auscultation- Bowel sounds normal, no abdominal bruits. Palpation/Percussion- soft, non-tender, no rebound tenderness, no rigidity (guarding), no jar tenderness, no masses. Peripheral Vascular: Lower extremity- Normal temperature with pink nailbeds and no ulcerations. DP pulses 2+ bilaterally. Normal capillary refill. Edema- No edema. Musculoskeletal: Generalized-No generalized swelling or edema of extremities, digital clubbing present, no cyanosis, neurovascularly intact all four extremities. Neurological: General- Moves all 4 extremities symmetrically. Symmetrical face and body posture. Cranial nerves- individually evaluated II-XII and intact. PERRLA, Normal EOMI, visual/special senses appear intact, Face is symmetrical and normal sensation/movement, normal tongue, normal strength/posture of neck musculature. Neuropsych: Oriented- Person, place, time. (AAOx3), Mood/affect- normal and congruent. Able to articulate well. Speech-Normal speech, normal rate, normal tone, normal use of language, volume and coherence. Associations- intact, no SI /HI, no hallucinations, delusions, obsessions. Judgment/insight- Questionable Memory-Recall intact, remote and recent memory intact. Knowledge- Age appropriate fund of knowledge, concentration and attention span normal. Lymphatic: Head/Neck- normal size and non tender to palpation. Plan: 1. Personally contacted Siobhan Jacinto PCP and discussed case with them. Admitted with Pneumonia. D/C with 2 more days of PO abx. 2. Discharge home with 24 hours oxygen to start at discharge 2 liters. 3. Nebulizer albuterol every 4 hours. 4. continue home medications for breathing. 5. New medications: - Potassium chloride twice daily with meals. - Doxycycline 100mg by mouth. Take this tonight and then 2 more days - Cefdinir 300 mg mouth. Take this tonight and then 2 more days. 6. We will check with patient to see which appointment works better for her: Appt in office monday or Monday 2:15. 7. Tobacco avoidance encouraged. CBC in 1 week CMP in 1 week PCP f/u in 1 week O2 to 2 L chronically. Activity ad francisco javier, fall precaution Diet ad francisco javier. Recommended service tech f/u. >30 minutes spent in discharge/coordination of care/planning today not to include documentation.
== END 2018-07-17 14:09 | disposition home or self-care (01) ==
LOC: ED 03:28 → MEDSURG B 05:12
PROVIDERS: ADMIT Family Medicine; ATTEND Family Medicine
DX: R65.10 Systemic inflammatory response syndrome (SIRS) of non-infectious origin without acute organ dysfunction (principal); E87.1 Hypo-osmolality and hyponatremia; R64 Cachexia; R29.6 Repeated falls; J44.9 Chronic obstructive pulmonary disease, unspecified; F41.8 Other specified anxiety disorders; Z87.891 Personal history of nicotine dependence; R56.9 Unspecified convulsions; E87.6 Hypokalemia; R09.02 Hypoxemia; Z99.81 Dependence on supplemental oxygen; R05 Cough; R06.02 Shortness of breath; R50.9 Fever, unspecified; R53.1 Weakness; R53.83 Other fatigue; R63.0 Anorexia
CPT/HCPCS: 36415; 80053; 82803; 83605; 84145; 84484; 85025; 86710; 87040; 87070; 87186; 87502; 93005; 93010; 94640; 94761; 96361; 96365; 96366; 96372; 99284

== ENCOUNTER 2018-07-24 19:48 | Emergency (ER) ==
[2018-07-24 20:01] VITALS: BP 147/78; TEMP 99.2; BMI 14.6
--- NOTE | 2018-07-24 21:17 | ED.PDOC ---
General ED Provider: Dr. MANSI MOSQUEDA Chief Complaint: Shortness of Air Stated Complaint: 62 y old chronoc COPD and smoker.Told by her PCP to visit ER due to abnormal; WBC.No VCough.Non toxic appeareance. 99F Time Seen by Physician: 19:55 Mode of Arrival: Wheelchair Information Source: Patient Primary Care Provider: GERARDO PUCKETT Nursing and Triage Documentation Reviewed and Agree: Yes Does patient meet sepsis criteria?: No System Inflammatory Response Syndrome: Not Applicable Sepsis Protocol: For patient's 13 years and over: Temp is 96.8 and below OR 101 and greater Pulse >90 BPM Resp >20/minute Acutely Altered Mental Status Are patient's symptoms suggestive of a new infection, such as: -Pneumonia -Skin, Soft Tissue -Endocarditis -UTI -Bone, Joint Infection -Implantable Device -Acute Abdominal Infection -Wound Infection -Meningitis -Blood Stream Catheter Infection -Unknown Respiratory Complaint Exam - Respiratory Complaint/Exam Onset/Duration: chronic copd,smoker Symptoms Are: Still present Timing: Constant Initial Severity: Moderate Current Severity: Mild Location: Chest Aggravating: Reports: Weather Alleviating: Reports: Bronchodilators Associated Signs and Symptoms: Reports: Fever, Wheezing History of Healthcare-Acquired Pneumonia: Admit w/in last 30 days Related Surgical History: Reports: None Pulmonary Embolism Risk Factors: Smoking Cardiac Risk Factors: Reports: Smoking, Hypertension Pseudomonas Risk Factors: Reports: None Status Asthmaticus Risk Factors: Reports: Smoke exposure Home Oxygen Use: No Recent Stress Test: No Recent Echo/LV Function: No Current Antibiotic Use: No Inadequate Respiratory Effort: No Dysphagia Present: No Stridor Present: No JVD Present: No Accessory Muscle Use: No Retractions: Not Present Diminished Breath Sounds: Yes Sinus Tenderness: None Grunting Respirations: No Kussmaul Respirations: No Differential Diagnoses: Airway Obstruction, COPD Exacerbation, Pneumonia, Pulmonary Embolism Review of Systems - Review Of Systems Constitutional: Reports: Fever, Loss of appetite Eyes: Reports: No symptoms Ears, Nose, Mouth, Throat: Reports: No symptoms Respiratory: Reports: Short of air, Wheezing Cardiac: Reports: No symptoms GI: Reports: No symptoms : Reports: No symptoms Musculoskeletal: Reports: No symptoms Neurological: Reports: No symptoms Endocrine: Reports: No symptoms Hematologic/Lymphatic: Reports: No symptoms All Other Systems: Reviewed and Negative Past Medical History - Past Medical History Previously Healthy: No Endocrine: Reports: None Cardiovascular: Reports: Hypertension Respiratory: Reports: COPD Hematological: Reports: Anemia Gastrointestinal: Reports: None Genitourinary: Reports: None Neuro/Psych: Reports: Seizure, Anxiety, Depression Musculoskeletal: Reports: None Cancer: Reports: None Last Menstrual Period: na Other Pertinent Past Medical History: CHRONIC HYPONATREMIA. CACHEXIA - Surgical History General Surgical History: Reports: Hysterectomy, (X4), Tonsillectomy, Adenoidectomy, Orthopedic (TOES, KNEE, HAND), Back Surgery (L4 fracture 10/09, ) , Other (EYES-BILATERAL CATARACTS). Denies: CABG (ANGIOPLAST 07/07/15) - Family History Family History: Reports: None - Social History Smoking Status: Current every day smoker, Heavy tobacco smoker Hx Substance Use: No Alcohol Screening: None - Immunizations Tetanus Shot up to Date: Yes Physical Exam - Physical Exam Appearance: Ill-appearing, Thin Ill-appearing: Moderate Pain Distress: None Eyes: INGRID, EOMI, Conjunctiva clear ENT: Ears normal, Nose normal Neck: Supple Respiratory: Airway patent, Breath sounds diminished, Wheezes Cardiovascular: RRR, Pulses normal, No rub GI/: Soft, Nontender, No masses Musculoskeletal: Normal strength, ROM intact, No edema Skin: Warm Neurological: Sensation intact Psychiatric: Affect appropriate Interpretation - Radiology Interpretation Radiology Interpretation By: Radiologist Radiology Results: No acute changes Exam Interpreted: CT Scan Xray Comments: continue antibiotic,repreat scan in 30,follow with PCP Critical Care Note - Critical Care Note Total Time (mins): 0 Course - Course Hematology/Chemistry: 07/24/18 21:45 07/24/18 21:45 Orders, Labs, Meds: Lab Review 07/24/18 07/24/18 07/24/18 21:45 21:45 21:45 WBC 15.45 H RBC 4.32 Hgb 13.1 Hct 38.7 MCV 89.6 MCH 30.3 MCHC 33.9 RDW Coeff of [place] 13.3 Plt Count 428 Immature Gran % (Auto) 0.5 Neut % (Auto) 67.0 Lymph % (Auto) 18.9 [place] % (Auto) 10.4 H Eos % (Auto) 2.8 Baso % (Auto) 0.4 Immature Gran # (Auto) 0.1 Neut # (Auto) 10.4 H Lymph # (Auto) 2.9 [place] # (Auto) 1.6 Eos # (Auto) 0.4 Baso # (Auto) 0.1 Sodium 131.4 L Potassium 4.20 Chloride 93.9 L Carbon Dioxide 26.6 Anion Gap 15.10 BUN 8.8 Creatinine 0.42 L Estimated GFR (MDRD) 152.00 BUN/Creatinine Ratio 20.95 Glucose 105.8 Calcium 9.47 Total Bilirubin 0.34 AST 32.1 ALT 12.6 Alkaline Phosphatase 97.5 Troponin I < 0.012 Total Protein 7.10 Albumin 4.32 Globulin 2.78 Albumin/Globulin Ratio 1.55 Urine Color Urine Clarity Urine pH Ur Specific [place] Urine Protein Urine Glucose (UA) Urine Ketones Urine Blood Urine Nitrite Urine Bilirubin Urine Urobilinogen Ur Leukocyte Esterase 07/24/18 21:49 WBC RBC Hgb Hct MCV MCH MCHC RDW Coeff of [place] Plt Count Immature Gran % (Auto) Neut % (Auto) Lymph % (Auto) [place] % (Auto) Eos % (Auto) Baso % (Auto) Immature Gran # (Auto) Neut # (Auto) Lymph # (Auto) [place] # (Auto) Eos # (Auto) Baso # (Auto) Sodium Potassium Chloride Carbon Dioxide Anion Gap BUN Creatinine Estimated GFR (MDRD) BUN/Creatinine Ratio Glucose Calcium Total Bilirubin AST ALT Alkaline Phosphatase Troponin I Total Protein Albumin Globulin Albumin/Globulin Ratio Urine Color Yellow Urine Clarity Clear Urine pH 7.0 Ur Specific [place] 1.015 Urine Protein Negative Urine Glucose (UA) Negative Urine Ketones Negative Urine Blood Negative Urine Nitrite Negative Urine Bilirubin Negative Urine Urobilinogen 2.0 Ur Leukocyte Esterase Negative Orders Category Date Time Status EKG-(ED ONLY) Stat CARDIO 07/24/18 21:34 Ordered NEBULIZER TREATMENT Stat CARDIO 07/24/18 21:32 Ordered IV [ED IV/MEDIPORT/POWERPORT] .ONCE EMERGENCY 07/24/18 22:11 Active CBC W/ AUTO DIFF Stat LAB 07/24/18 21:45 Completed COMPREHENSIVE METABOLIC PANEL Stat LAB 07/24/18 21:45 Completed TROPONIN I Stat LAB 07/24/18 21:45 Completed URINALYSIS C & S IF INDICATED Stat LAB 07/24/18 21:49 Completed 0.9 % Sodium Chloride [Saline Flush] MEDS 07/24/18 22:11 Ordered 1 syr IVF PRN PRN Albuterol Sulfate 0.083% Neb [Albuterol 0.083% Neb] MEDS 07/24/18 21:31 Discontinued 1 vial NEB ONCE STA Ceftriaxone Sodium [Rocephin] MEDS 07/24/18 22:15 Discontinued 1 gm .ROUTE .STK-MED ONE Ceftriaxone Sodium [Rocephin] 1 gm MEDS 07/24/18 22:13 Discontinued 0.9 % Sodium Chloride [Sodium Chloride] 50 ml IV ONCE Sodium Chloride 0.9% [Sodium Chloride] 1,000 ml MEDS 07/24/18 22:[address] CHEST W/O CONTRAST Stat RADS 07/24/18 21:25 Completed Medications Generic Name Dose Route Start Last Admin Trade Name Freq PRN Reason Stop Dose Admin Sodium Chloride 1 syr 07/24/18 22:11 07/24/18 22:24 Saline Flush IVF 1 syr PRN PRN Administration To flush IV Discontinued Medications Generic Name Dose Route Start Last Admin Trade Name Freq PRN Reason Stop Dose Admin Albuterol Sulfate 1 vial 07/24/18 21:31 07/24/18 21:55 Albuterol 0.083% Neb NEB 07/24/18 21:32 1 vial ONCE STA Administration Sodium Chloride 1,000 mls @ 1,000 mls/hr 07/24/18 22:12 07/24/18 22:24 Sodium Chloride IV 07/24/18 23:11 1,000 mls/hr BOLUS STA Administration Ceftriaxone Sodium 1 gm/ 50 mls @ 75 mls/hr 07/24/18 22:13 07/24/18 22:26 Sodium Chloride IV 07/24/18 22:52 75 mls/hr ONCE STA Administration Vital Signs: Temp Pulse Resp BP Pulse Ox 07/24/18 21:29 81 100 07/24/18 19:52 99.2 F 98 H 32 H 147/78 H 88 L Departure - Departure Time of Disposition: 00:25 Disposition: HOME SELF-CARE Discharge Problem: COPD (chronic obstructive pulmonary disease) Instructions: Emphysema (ED) Condition: Good Pt referred to PMD for follow-up: No IPMP verified?: No Allergies/Adverse Reactions: Allergies Iodinated Contrast- Oral and IV Dye [Iodinated Contrast Media - IV Dye] Adverse Reaction (Verified 07/15/18 03:39) Swelling oxycodone [From Tylox] Adverse Reaction (Verified 07/15/18 03:39) HALLUCINATES Penicillins Adverse Reaction (Verified 07/15/18 03:39) Swelling Sulfa (Sulfonamide Antibiotics) Adverse Reaction (Verified 07/15/18 03:39) Swelling anesthesia Allergy (Severe, Uncoded 07/15/18 03:39) confusion, Diffficult to wake up Home Medications: Ambulatory Orders Albuterol Sulfate [Proair Hfa] 2 inh PO Q4H PRN 08/21/13 Levetiracetam [Keppra] 500 mg PO BID 08/21/13 Latanoprost [Xalatan] 1 drop RIGHTEYE BEDTIME 02/16/14 Clopidogrel Bisulfate [Plavix] 75 mg PO DAILY 07/24/15 Sertraline HCl [Zoloft] 50 mg PO DAILY 07/24/15 Docusate Sodium [Colace] 100 mg PO BID 12/05/15 Dextran 70/Hypromellose [Artificial Tears Eye Drops] 1 drop OP DIRECTED PRN 05/07/17 Tiotropium [place] [Spiriva] 1 cap IH DAILY 05/07/17 Polyethylene Glycol 3350 [Miralax] 17 gm PO DAILY #30 powd.pack 06/06/17 Melatonin/Pyridoxine HCl (B6) [Melatonin 3 mg Tablet] 1 each PO DAILY 02/13/18 Multivitamin 1 cap PO DAILY 02/13/18 Ranitidine HCl [Zantac] 150 mg PO BIDAC 02/13/18 Budesonide/Formoterol Fumarate [Symbicort 80-4.5 Mcg Inhaler] 2 puff IH BID Divalproex Sodium [Depakote] 500 mg PO BID 07/15/18 Doxycycline Hyclate 100 mg PO Q12HR 2 Days #5 capsule 07/17/18 Potassium Chloride [K-Dur] 20 meq PO BIDWM 14 Days #28 tab 07/17/18 Doxycycline Hyclate 100 mg PO BID 07/24/18 Disposition Discussed With: Patient, Family
[2018-07-24] MEDS ORDERED: ALBUTEROL 0.083% NEB NEB STA (21:31)
[2018-07-24] MEDS ORDERED: SODIUM CHLORIDE 1,000 ML IV STA (22:12)
[2018-07-24] MEDS ORDERED: ROCEPHIN 1 GM in SODIUM CHLORIDE 50 ML IV STA (22:13)
[2018-07-24] MEDS ORDERED: ROCEPHIN ONE (22:15)
--- NOTE | 2018-07-24 22:18 | CT ---
Exam: CT scan of the thorax without contrast. Date: 07/24/2018. Comparison: 07/15/2018. HISTORY: Shortness of breath. TECHNIQUE: Helical scan of the thorax was performed without contrast. FINDINGS: The thoracic inlet and axillary regions are normal with granulomatous calcifications. The caliber of the thoracic aorta and cardiac chambers are normal. The spleen and upper liver have a uni form enhancement. The stomach, pancreas and adrenal glands are normal. The kidneys have a normal mo rphology. No calculi or hydronephrosis is seen. There are old anterior wedge deformities of T11 and L1. No acute osseous abnormalities are observed. There are centrolobular emphysematous changes with biapical pleural scarring and scattered granulomat ous calcifications. There is stable ground-glass attenuation in the left upper lobe extending to the hilum. There is an area of interstitial thickening with possible ground-glass attenuation in the po sterior segment right upper lobe adjacent to the hilum on image 33. There is an area of ground-glass attenuation in the right middle lobe on image 51. There are reticular nodular densities in the lung bases with an area of consolidation in the right costophrenic sulcus. No pleural fluid is present. The tracheobronchial tree is patent. Impression: Emphysematous changes with a new area of interstitial thickening with possible ground-gl ass attenuation in the posterior segment right upper lobe with an additional area of ground-glass att enuation in the right middle lobe and reticular nodular densities in the lung bases in an area of sub pleural consolidation in the right lower lobe. The findings may represent pneumonia, superimposed up on emphysema. Would recommend a chest CT 3 months following appropriate therapy to ensure that the a julio of interstitial thickening in the right upper lobe resolves and does not represent a developing m ass. Old granulomatous disease. Old T11 and L1 compression fractures.
== END 2018-07-25 01:17 | disposition home or self-care (01) ==
LOC: ED 19:48
DX: J44.9 Chronic obstructive pulmonary disease, unspecified (principal); R06.02 Shortness of breath; R50.9 Fever, unspecified; F17.210 Nicotine dependence, cigarettes, uncomplicated; Z79.899 Other long term (current) drug therapy
CPT/HCPCS: 36415; 80053; 81001; 84484; 85025; 93005; 93010; 94640; 96361; 96365; 99283

== ENCOUNTER 2018-08-13 15:57 | Outpatient (CLI) | END 2018-08-13 15:58 | disposition home or self-care (01) | LOC: RHC-LAB 15:57 | PROVIDERS: ATTEND General Practice | DX: R05 Cough (principal); Z87.01 Personal history of pneumonia (recurrent); F17.200 Nicotine dependence, unspecified, uncomplicated | CPT/HCPCS: 36415; 80053; 80323; 84436; 84443; 85025 ==

== ENCOUNTER 2018-08-17 10:57 | Outpatient (CLI) | END 2018-08-17 10:58 | disposition home or self-care (01) | LOC: RHC-LAB 10:57 | PROVIDERS: ATTEND General Practice | DX: Z79.899 Other long term (current) drug therapy (principal) | CPT/HCPCS: 81001 ==

== ENCOUNTER 2018-08-27 14:06 | Outpatient (CLI) ==
--- NOTE | 2018-08-27 14:34 | DI ---
EXAM: CHEST FRONTAL AND LATERAL VIEWS HISTORY: Pneumonia, recurrent. COMPARISON: 05/24/2018 FINDINGS: Heart size remains within normal limits. Lungs are hyperinflated. Lucency of the lung zo steffi suggesting pulmonary emphysema. There are scattered calcifications suggesting old granulomatous disease. Scattered areas of scarring. No definite consolidated pneumonia is seen radiographically. There is no vascular congestion, pleural fluid or pneumothorax. IMPRESSION: 1. Chronic obstructive pulmonary disease. No definite consolidated pneumonia.
--- NOTE | 2018-08-27 14:35 | DI ---
EXAM: LEFT HIP, 2 VIEWS HISTORY: Hip pain FINDINGS: Bones appear demineralized. There is no fracture or dislocation identified. Mild hip ost eoarthritis. More moderate arthropathy of the sacroiliac joints is suggested. Vascular calcificatio ns are present. IMPRESSION: 1. No fracture or dislocation. 2. Arthropathy of the sacroiliac joints and to a lesser degree the hip.
== END 2018-08-27 14:07 | disposition home or self-care (01) ==
LOC: LAB 14:06
PROVIDERS: ATTEND General Practice
DX: R05 Cough (principal); M25.552 Pain in left hip; E87.1 Hypo-osmolality and hyponatremia; F17.200 Nicotine dependence, unspecified, uncomplicated; Z87.01 Personal history of pneumonia (recurrent); Z79.899 Other long term (current) drug therapy
CPT/HCPCS: 36415; 80053

== ENCOUNTER 2018-11-14 18:03 | Emergency (ER) ==
[2018-11-14 18:09] VITALS: BP 149/77; TEMP 98.6; BMI 14.8
--- NOTE | 2018-11-14 18:34 | ED.PDOC ---
General Stated Complaint: pt is reported to forgetfull and aggressive to family members. Time Seen by Physician: 18:18 Mode of Arrival: Walk-In Information Source: Patient, Family Exam Limitations: No limitations Nursing and Triage Documentation Reviewed and Agree: Yes Does patient meet sepsis criteria?: No System Inflammatory Response Syndrome: Not Applicable <JAKE PERSAUD - Last Filed: 11/14/18 18:32> <MANJU SEBASTIAN - Last Filed: 11/14/18 20:38> ED Provider: Dr. MANJU ALEXANDER-ANUSHA Chief Complaint: Psychiatric Complaint [facility] Sepsis Protocol: For patient's 13 years and over: Temp is 96.8 and below OR 101 and greater Pulse >90 BPM Resp >20/minute Acutely Altered Mental Status Are patient's symptoms suggestive of a new infection, such as: -Pneumonia -Skin, Soft Tissue -Endocarditis -UTI -Bone, Joint Infection -Implantable Device -Acute Abdominal Infection -Wound Infection -Meningitis -Blood Stream Catheter Infection -Unknown Psychological Complaint Exam - Psychiatric Complaint/Exam Patient Complains Of: Absent: Depression, Suicidal thoughts, Suicidal gestures Onset/Duration: weeks getting progressively worse Symptoms Are: Still present Timing: Intermittent Episodes Lasting: Weeks Initial Severity: Moderate Current Severity: None Character: Present: Depressed, Fearful, Anxious, Angry, Frustrated Aggravating: Reports: None Associated Signs And Symptoms: Denies: Hostile, Confused, Hallucinating, Paranoid behavior, Sleep disturbance, Appetite change Related History: Denies: Suicidal thoughts, Suicidal plan, Suicidal gestures, Homicidal thoughts, Homicidal plan, Homicidal gestures, Prior attempts, Recent stressors, Drug ingestion Completed Suicide Risk Factors: None Patient Accompanied By: Family Patient In Custody Of Police: No Social Withdrawal Present: No Social Isolation Present: No Prior Suicide Attempt: No Injury From Prior Suicide Attempt: No Related Surgical History: Reports: None Patient Uncooperative For Exam: No Mood: Present: Angry, Anxious Appearance: Present: Clean Thought Process: Present: Illogical Insight: Present: Limited Memory: Intact Judgement: Impaired Danger To Others: No Patient Medically Stable For: Psych evaluation Differential Diagnoses: Depression, Other (dementia) <JAKE PERSAUD - Last Filed: 11/14/18 18:32> Review of Systems - Review Of Systems Constitutional: Reports: No symptoms Eyes: Reports: No symptoms Ears, Nose, Mouth, Throat: Reports: No symptoms Respiratory: Reports: No symptoms Cardiac: Reports: No symptoms GI: Reports: No symptoms : Reports: No symptoms Musculoskeletal: Reports: No symptoms Skin: Reports: No symptoms Neurological: Reports: No symptoms Endocrine: Reports: No symptoms Hematologic/Lymphatic: Reports: No symptoms All Other Systems: Reviewed and Negative <JAKE PERSAUD - Last Filed: 11/14/18 18:32> Past Medical History - Past Medical History Previously Healthy: No Endocrine: Reports: None Cardiovascular: Reports: Hypertension Respiratory: Reports: COPD Hematological: Reports: Anemia Gastrointestinal: Reports: None Genitourinary: Reports: None Neuro/Psych: Reports: Seizure, Anxiety, Depression Musculoskeletal: Reports: None Cancer: Reports: None Last Menstrual Period: n/a Other Pertinent Past Medical History: CHRONIC HYPONATREMIA. CACHEXIA - Surgical History General Surgical History: Reports: Hysterectomy, (X4), Tonsillectomy, Adenoidectomy, Orthopedic (TOES, KNEE, HAND), Back Surgery (L4 fracture 10/09, ) , Other (EYES-BILATERAL CATARACTS). Denies: CABG (ANGIOPLAST 07/07/15) - Family History Family History: Reports: None - Social History Smoking Status: Current every day smoker, Heavy tobacco smoker Hx Substance Use: No Alcohol Screening: None <JAKE PERSAUD - Last Filed: 11/14/18 18:32> Physical Exam - Physical Exam Appearance: Well-appearing, No pain distress, Well-nourished Eyes: INGRID, EOMI, Conjunctiva clear ENT: Ears normal, Nose normal, Oropharynx normal Respiratory: Airway patent, Breath sounds clear, Breath sounds equal, Respirations nonlabored Cardiovascular: RRR, Pulses normal, No rub, No murmur GI/: Soft, Nontender, No masses, Bowel sounds normal, No Organomegaly Musculoskeletal: Normal strength, ROM intact, No edema, No calf tenderness Skin: Warm, Dry, Normal color Neurological: Sensation intact, Motor intact, Reflexes intact, Cranial nerves intact, Alert, Oriented Psychiatric: Affect appropriate, Mood appropriate <JAKE PERSAUD - Last Filed: 11/14/18 18:32> Physician Notification - Case Discussed Physician Notified: dr corona Time of Notification: 20:32 <MANJU SEBASTIAN - Last Filed: 11/14/18 20:38> Critical Care Note - Critical Care Note Total Time (mins): 0 <MANJU SEBASTIAN - Last Filed: 11/14/18 20:38> Course - Course Hematology/Chemistry: 11/14/18 18:43 11/14/18 18:43 <MANJU SEBASTIAN - Last Filed: 11/14/18 20:38> - Course Orders, Labs, Meds: Lab Review 11/14/18 11/14/18 11/14/18 18:43 18:43 20:13 WBC 7.30 RBC 4.72 Hgb 13.8 Hct 41.7 MCV 88.3 MCH 29.2 MCHC 33.1 RDW Coeff of [place] 16.0 H Plt Count 244 Immature Gran % (Auto) 0.1 Neut % (Auto) 40.5 Lymph % (Auto) 37.0 [place] % (Auto) 7.9 Eos % (Auto) 13.0 H Baso % (Auto) 1.5 Immature Gran # (Auto) 0.0 Neut # (Auto) 3.0 Lymph # (Auto) 2.7 [place] # (Auto) 0.6 Eos # (Auto) 1.0 H Baso # (Auto) 0.1 Sodium 135.1 Potassium 3.96 Chloride 96.4 L Carbon Dioxide 34.1 H Anion Gap 8.56 BUN 15.9 Creatinine 0.80 Estimated GFR (MDRD) 72.00 BUN/Creatinine Ratio 19.87 Glucose 79.5 Calcium 9.34 Total Bilirubin 0.26 AST 36.2 H ALT 11.2 Alkaline Phosphatase 73.9 Total Protein 6.95 Albumin 3.98 Globulin 2.97 Albumin/Globulin Ratio 1.34 Urine Color Urine Clarity Urine pH Ur Specific [place] Urine Protein Urine Glucose (UA) Urine Ketones Urine Blood Urine Nitrite Urine Bilirubin Urine Urobilinogen Ur Leukocyte Esterase Ur Squamous Epith Cells Salicylate Level mg/dL < 1.00 Urine Opiates Screen Negative Ur Oxycodone Screen Negative Urine Methadone Screen Negative Ur Propoxyphene Screen Negative Acetaminophen < 10.0 L Ur Barbiturates Screen Negative U Tricyclic Antidepress Negative Ur Phencyclidine Scrn Negative Ur Amphetamine Screen Negative U Methamphetamines Scrn Negative U Benzodiazepines Scrn Negative Urine Cocaine Screen Negative U Cannabinoids Screen Negative Plasma/Serum Alcohol < 10.0 11/14/18 20:13 WBC RBC Hgb Hct MCV MCH MCHC RDW Coeff of [place] Plt Count Immature Gran % (Auto) Neut % (Auto) Lymph % (Auto) [place] % (Auto) Eos % (Auto) Baso % (Auto) Immature Gran # (Auto) Neut # (Auto) Lymph # (Auto) [place] # (Auto) Eos # (Auto) Baso # (Auto) Sodium Potassium Chloride Carbon Dioxide Anion Gap BUN Creatinine Estimated GFR (MDRD) BUN/Creatinine Ratio Glucose Calcium Total Bilirubin AST ALT Alkaline Phosphatase Total Protein Albumin Globulin Albumin/Globulin Ratio Urine Color Yellow Urine Clarity Clear Urine pH 8.5 Ur Specific [place] 1.015 Urine Protein Negative Urine Glucose (UA) Negative Urine Ketones Negative Urine Blood Trace-intact Urine Nitrite Negative Urine Bilirubin Negative Urine Urobilinogen 1.0 Ur Leukocyte Esterase Negative Ur Squamous Epith Cells Pending Salicylate Level mg/dL Urine Opiates Screen Ur Oxycodone Screen Urine Methadone Screen Ur Propoxyphene Screen Acetaminophen Ur Barbiturates Screen U Tricyclic Antidepress Ur Phencyclidine Scrn Ur Amphetamine Screen U Methamphetamines Scrn U Benzodiazepines Scrn Urine Cocaine Screen U Cannabinoids Screen Plasma/Serum Alcohol Orders Category Date Time Status EKG-(ED ONLY) Stat CARDIO 11/14/18 18:35 Ordered ED [employer] SALES MANAGER APPLIED ONCE EMERGENCY 11/14/18 18:35 Active Mental Health Consult [ED MENTAL HEALTH CONSULT] .ONCE EMERGENCY 11/14/18 18: 36 Active ACETAMINOPHEN Stat LAB 11/14/18 18:43 Completed BLOOD ALCOHOL Stat LAB 11/14/18 18:43 Completed CBC W/ AUTO DIFF Stat LAB 11/14/18 18:43 Completed COMPREHENSIVE METABOLIC PANEL Stat LAB 11/14/18 18:43 Completed DRUG SCREEN, URINE, RAPID Stat LAB 11/14/18 20:13 Completed RAPID PLASMA REAGIN Stat LAB 11/14/18 18:40 Received SALICYLATE Stat LAB 11/14/18 18:43 Completed THYROID STIMULATING HORMONE Stat LAB 11/14/18 18:40 Received URINALYSIS C & S IF INDICATED Stat LAB 11/14/18 20:13 Results VITAMIN B12 Stat LAB 11/14/18 18:40 Received CXR [CHEST, 2 VIEWS PA & LAT] Stat RADS 11/14/18 19:00 Completed Vital Signs: Temp Pulse Resp BP Pulse Ox 11/14/18 18:03 98.6 F 98 H 20 149/77 H 93 L Departure - Departure Pt referred to PMD for follow-up: Yes <JAKE PERSAUD - Last Filed: 11/14/18 18:32> - Departure Time of Disposition: 20:32 Pt referred to PMD for follow-up: No IPMP verified?: No Disposition Discussed With: Patient, Family <MANJU SEBASTIAN - Last Filed: 11/14/18 20:38> - Departure Disposition: HOME SELF-CARE Discharge Problem: Dementia Instructions: Dementia (ED) Condition: Good Additional Instructions: f/u with dr corona Allergies/Adverse Reactions: Allergies Iodinated Contrast Media [Iodinated Contrast Media - IV Dye] Adverse Reaction ( Verified 11/14/18 18:09) Swelling oxycodone [From Tylox] Adverse Reaction (Verified 11/14/18 18:09) HALLUCINATES Penicillins Adverse Reaction (Verified 11/14/18 18:09) Swelling Sulfa (Sulfonamide Antibiotics) Adverse Reaction (Verified 11/14/18 18:09) Swelling anesthesia Allergy (Severe, Uncoded 07/15/18 03:39) confusion, Diffficult to wake up Home Medications: Ambulatory Orders Latanoprost [Xalatan] 1 drop RIGHTEYE BEDTIME 02/16/14 Clopidogrel Bisulfate [Plavix] 75 mg PO DAILY 07/24/15 Sertraline HCl [Zoloft] 50 mg PO DAILY 07/24/15 Docusate Sodium [Colace] 100 mg PO BID 12/05/15 Dextran 70/Hypromellose [Artificial Tears Eye Drops] 1 drop OP DIRECTED PRN 05/07/17 Tiotropium [place] [Spiriva] 1 cap IH DAILY 05/07/17 Polyethylene Glycol 3350 [Miralax] 17 gm PO DAILY #30 powd.pack 06/06/17 Melatonin/Pyridoxine HCl (B6) [Melatonin 3 mg Tablet] 1 each PO DAILY 02/13/18 Atorvastatin [place] 10 mg PO DAILY 08/13/18 Diphenhydramine HCl [Benadryl] 25 mg PO DIRECTED PRN 08/13/18 Divalproex Sodium [Depakote] 500 mg PO BID 08/13/18 Levetiracetam [Keppra] 750 mg PO BID 08/13/18 Albuterol Sulfate [Proair Hfa] 2 puff IH Q4H PRN 11/14/18 Hydroxyzine HCl 25 mg PO BID 11/14/18 Discharge Problem: Dementia Qualifiers: Dementia type: unspecified type Dementia behavioral disturbance: with behavioral disturbance Qualified Code(s): F03.91 - Unspecified dementia with behavioral disturbance
--- NOTE | 2018-11-14 19:46 | DI ---
EXAM: Chest single view Date: 11/14/2018 Comparison: Chest x-ray 08/27/2018 History: Weight loss. Psychiatric evaluation.Pneumonia. FINDINGS: Cardiac silhouette and pulmonary vascularity are normal. There is pulmonary hyperexpansio n bilaterally suggesting emphysema. No consolidation, pleural effusion, or evidence of pneumothorax. No acute fractures in the chest. Impression: No active chest disease.
== END 2018-11-14 20:47 | disposition home or self-care (01) ==
LOC: ED 18:03
DX: F03.91 Unspecified dementia, unspecified severity, with behavioral disturbance (principal); F17.210 Nicotine dependence, cigarettes, uncomplicated; Z79.899 Other long term (current) drug therapy; I10 Essential (primary) hypertension; Z95.1 Presence of aortocoronary bypass graft
CPT/HCPCS: 36415; 80053; 80306; 80307; 81001; 82607; 84443; 85025; 86592; 93005; 93010; 99283

== ENCOUNTER 2022-02-19 09:13 | Observation (INO) ==
[2022-02-19] MEDS ORDERED: DUONEB NEB STA (09:52)
[2022-02-19] MEDS ORDERED: SODIUM CHLORIDE 1,000 ML IV STA (09:54)
[2022-02-19 10:22] LABS: ABG O2 HGB 91.7 % (95-100); ABG PH 7.47 (7.35-7.45); COHb 2.3 (0.5-1.5); HCO3 27.7 (21-28); MetHb 1.5 (0-1.5); TCO2 28.9 (19-24); sO2 93.7 % (94-98); tHb 14.6 g/dl (11.7-17.4)
--- NOTE | 2022-02-19 10:23 | DI ---
EXAM: Chest one view, frontal view only. HISTORY: Dyspnea. COMPARISON: 10/27/2020, 08/26/2020. FINDINGS: Heart size normal. No vascular congestion. Calcified granulomatous changes noted. Stabl e biapical scarring. No consolidation, pleural effusion or pneumothorax. No acute osseous abnormali ty. Stable thoracolumbar vertebral compression deformities. Since prior study, findings are unchang ed. IMPRESSION: No acute process.
[2022-02-19 10:31] LABS: ALANINE AMINOTRANSFERASE 11.7 U/L (0-35); ALBUMIN 4.67 g/dL (3.5-5.0); ALKALINE PHOSPHATASE 78.4 U/L (53-141); ASPARTATE AMINO TRANSFERASE 35.2 U/L (14-36); BILIRUBIN,TOTAL 0.39 mg/dL (0.2-1.3); BLOOD UREA NITROGEN 9.8 mg/dL (7-17); CALCIUM 10.02 mg/dL (8.4-10.2); CHLORIDE 90.2 mmol/L (98-107); CREATININE 0.39 mg/dL (0.60-1.30); GLUCOSE 131.2 mg/dL (74-106); MAGNESIUM 1.45 mg/dL (1.6-2.3); POTASSIUM 4.05 mmol/L (3.5-5.1); SODIUM 126.6 mmol/L (134.5-145); TOTAL PROTEIN 8.16 g/dL (6.3-8.2)
[2022-02-19 10:35] LABS: PARTIAL THROMBOPLASTIN TIME 28.7 SEC (23.9-40.0); PROTHROMBIN TIME 10.4 SEC (9.3-11.0)
[2022-02-19 10:39] LABS: MOLECULAR FLU A POSITIVE BY NAAT (NEGATIVE); MOLECULAR FLU B NEGATIVE BY NAAT (NEGATIVE); RSV MOLECULAR NEGATIVE BY NAAT (NEGATIVE)
[2022-02-19 10:42] LABS: TROPONIN I < 0.012 ng/ml (0.0000-0.120)
[2022-02-19] MEDS ORDERED: TAMIFLU SUSPENSION PO STA (11:11)
[2022-02-19 11:13] LABS: BASOPHILS # (AUTO) 0.1 K/uL (0-0.2); BASOPHILS % (AUTO) 0.7 % (0.0-3.0); EOSINOPHILS # (AUTO) 0.2 K/ul (0.0-0.7); EOSINOPHILS % (AUTO) 2.3 % (0.0-7.0); HEMATOCRIT 44.1 % (37.0-47.0); HEMOGLOBIN 15.1 g/dl (12.0-16.0); IMMATURE GRANULOCYTE # (AUTO) 0.1 (0.0-1.0); IMMATURE GRANULOCYTE % (AUTO) 0.5 % (0.0-5.0); LYMPHOCYTES # (AUTO) 0.6 K/uL (0.60-3.4); LYMPHOCYTES % (AUTO) 5.9 (10.0-50.0); MEAN CORPUSCULAR HEMOGLOBIN 30.8 pg (27.0-31.0); MEAN CORPUSCULAR HGB CONC 34.2 (31.8-35.4); MEAN CORPUSCULAR VOLUME 89.8 fl (81.0-99.0); MONOCYTES % (AUTO) 9.4 (0-10); NEUTROPHILS # (AUTO) 8.6 K/ul (2.0-6.9); NEUTROPHILS % (AUTO) 81.2 % (42.2-75.2); PLATELET COUNT 259 10^3/uL (140-440); RDW COEFFICIENT OF VARIATION 13.8 % (11.6-14.8); RED BLOOD COUNT 4.91 10^6/ul (4.20-5.40); WHITE BLOOD COUNT 10.58 K/ul (4.6-10.2)
[2022-02-19] MEDS ORDERED: TAMIFLU CAPSULE PO STA (11:14)
[2022-02-19] MEDS ORDERED: TYLENOL PO PRN (12:55)
[2022-02-19] MEDS ORDERED: NON-FORMULARY MEDICATION (Umeclidinium [Incruse Ellipta] 62.5 mcg/actuation blister with d IH SCH (13:30)
[2022-02-19] MEDS ORDERED: BUSPAR PO PRN (13:30)
[2022-02-19] MEDS ORDERED: VENTOLIN HFA (PER PUFF-WITH SPACER) IH PRN (13:30)
[2022-02-19 14:38] VITALS: BMI 15.0
[2022-02-19] MEDS: DUONEB NEB SCH ×2 (17:33→23:12)
--- NOTE | 2022-02-19 19:19 | ED.PDOC ---
General ED Provider: Dr. DANY LEVI Chief Complaint: Respiratory Complaint Stated Complaint: cough weakness two days no chest pain nausea 2-3 diarrhea today smokes Time Seen by Provider: 02/19/22 09:29 Mode of Arrival: Wheelchair Information Source: Patient and Family Exam Limitations: No limitations Primary Care Provider: MYKEL LUNA MD Nursing and Triage Documentation Reviewed and Agree: Yes Does patient meet sepsis criteria?: No System Inflammatory Response Syndrome: Not Applicable Sepsis Protocol: For patient's 13 years and over: Temp is 96.8 and below OR 101 and greater Pulse >90 BPM Resp >20/minute Acutely Altered Mental Status Are patient's symptoms suggestive of a new infection, such as: -Pneumonia -Skin, Soft Tissue -Endocarditis -UTI -Bone, Joint Infection -Implantable Device -Acute Abdominal Infection -Wound Infection -Meningitis -Blood Stream Catheter Infection -Unknown Review of Systems Review Of Systems Constitutional: Reports Malaise Eyes: Reports No symptoms Ears, Nose, Mouth, Throat: Reports No symptoms Respiratory: Reports Cough Cardiac: Reports No symptoms GI: Reports Diarrhea : Reports No symptoms Musculoskeletal: Reports Other (aches) Skin: Reports No symptoms Neurological: Reports No symptoms Endocrine: Reports No symptoms Hematologic/Lymphatic: Reports No symptoms All Other Systems: Reviewed and Negative [facility] Medical History Allergic sinusitis Arthritis Back pain Back pain Cataract Cerebrovascular accident Chronic obstructive pulmonary disease Convulsions Epilepsy Gastroesophageal reflux disease Glaucoma Hyperlipidemia Hypertension Family History Mother Diabetes Cerebrovascular accident Cancer Social History (Updated 02/19/22 @ 14:31 by BEBE SOOD RN) Smoking and tobacco status: Current every day smoker Tobacco type: cigarettes Smoking packs per day: 0.5 Smoking cigarettes per day: 10.0 Passive smoking exposure: No Quit status: has quit before Second hand smoke exposure: Yes Alcohol intake: never Surgical History History of section History of musculoskeletal system surgery Status post angioplasty of vein Status post hysterectomy Status post tonsillectomy Status post tonsillectomy and adenoidectomy Female Reproductive History Menstrual Hx Hysterectomy: No Hx Tubal Ligation: No Physical Exam Physical Exam Appearance: Reports Ill-appearing Ill-appearing: Moderate Pain Distress: None Eyes: Reports INGRID, EOMI and Conjunctiva clear ENT: Reports Ears normal, Nose normal and Oropharynx normal Neck: Supple Respiratory: Reports Airway patent, Breath sounds clear and Breath sounds equal Cardiovascular: Reports RRR, Pulses normal and No murmur GI/: Reports Soft and Nontender Musculoskeletal: Reports Normal strength, No edema and No calf tenderness Skin: Reports Warm, Dry and Normal color Neurological: Reports Sensation intact, Motor intact and Alert Psychiatric: Reports Affect appropriate and Mood appropriate Interpretation Radiology Interpretation Radiology Interpretation By: Radiologist Radiology Results: No acute changes Exam Interpreted: CXR Xray Comments: no change EKG Interpretation Time of EKG #1: 10:39 Rate: Tachy Rhythm: Sinus Ectopy: None [place]: NL Interpretation: no acute changes Critical Care Note Critical Care Note Total Critical Care Time (mins): 0 Course Course Hematology/Chemistry: 02/19/22 10:12 02/19/22 10:12 Orders, Labs, Meds: Lab Review 02/19/22 02/19/22 02/19/22 10:05 10:05 10:12 WBC RBC Hgb Hct MCV MCH MCHC RDW Coeff of Rocky Plt Count Immature Gran % (Auto) Neut % (Auto) Lymph % (Auto) Wilkin % (Auto) Eos % (Auto) Baso % (Auto) Neut # (Auto) Lymph # (Auto) Wilkin # (Auto) Eos # (Auto) Baso # (Auto) Immature Gran # (Auto) PT INR APTT Puncture Site Base Excess O2 Saturation ABG pH ABG pCO2 ABG pO2 ABG HCO3 ABG Total CO2 Ray Test Hemoglobin Oxyhemoglobin Carboxyhemoglobin Total Hemoglobin FiO2 % Sodium 126.6 L Potassium 4.05 Chloride 90.2 L Carbon Dioxide 28.0 Anion Gap 12.45 BUN 9.8 Creatinine 0.39 L Estimated GFR (MDRD) 163.00 BUN/Creatinine Ratio 25.12 Glucose 131.2 H Lactic Acid Calcium 10.02 Magnesium 1.45 L Total Bilirubin 0.39 AST 35.2 ALT 11.7 Alkaline Phosphatase 78.4 Troponin I < 0.012 NT-Pro-B Natriuret Pep 328.000 H Total Protein 8.16 Albumin 4.67 Globulin 3.49 Albumin/Globulin Ratio 1.33 Procalcitonin Influ A Molecular Assay Positive by naat H Influ B Molecular Assay Negative by naat RSV Antigen Negative by naat SARS CoV-2 RNA Rapid BRIAN Negative 02/19/22 02/19/22 02/19/22 10:12 10:12 10:12 WBC RBC Hgb Hct MCV MCH MCHC RDW Coeff of [place] Plt Count Immature Gran % (Auto) Neut % (Auto) Lymph % (Auto) Wilkin % (Auto) Eos % (Auto) Baso % (Auto) Neut # (Auto) Lymph # (Auto) Wilkin # (Auto) Eos # (Auto) Baso # (Auto) Immature Gran # (Auto) PT 10.4 INR 1.00 APTT 28.7 Puncture Site Base Excess O2 Saturation ABG pH ABG pCO2 ABG pO2 ABG HCO3 ABG Total CO2 Ray Test Hemoglobin Oxyhemoglobin Carboxyhemoglobin Total Hemoglobin FiO2 % Sodium Potassium Chloride Carbon Dioxide Anion Gap BUN Creatinine Estimated GFR (MDRD) BUN/Creatinine Ratio Glucose Lactic Acid 1.64 Calcium Magnesium Total Bilirubin AST ALT Alkaline Phosphatase Troponin I NT-Pro-B Natriuret Pep Total Protein Albumin Globulin Albumin/Globulin Ratio Procalcitonin < 0.05 Influ A Molecular Assay Influ B Molecular Assay RSV Antigen SARS CoV-2 RNA Rapid BRIAN 02/19/22 02/19/22 10:12 10:15 WBC 10.58 H RBC 4.91 Hgb 15.1 Hct 44.1 MCV 89.8 MCH 30.8 MCHC 34.2 RDW Coeff of [place] 13.8 Plt Count 259 Immature Gran % (Auto) 0.5 Neut % (Auto) 81.2 H Lymph % (Auto) 5.9 L Wilkin % (Auto) 9.4 Eos % (Auto) 2.3 Baso % (Auto) 0.7 Neut # (Auto) 8.6 H Lymph # (Auto) 0.6 Wilkin # (Auto) 1.0 Eos # (Auto) 0.2 Baso # (Auto) 0.1 Immature Gran # (Auto) 0.1 PT INR APTT Puncture Site Rb Base Excess 4.0 H O2 Saturation 93.7 L ABG pH 7.47 H ABG pCO2 38.0 ABG pO2 65.0 L ABG HCO3 27.7 ABG Total CO2 28.9 H Ray Test Pos Hemoglobin 1.5 Oxyhemoglobin 91.7 L Carboxyhemoglobin 2.3 H Total Hemoglobin 14.6 FiO2 % 21.0 Sodium Potassium Chloride Carbon Dioxide Anion Gap BUN Creatinine Estimated GFR (MDRD) BUN/Creatinine Ratio Glucose Lactic Acid Calcium Magnesium Total Bilirubin AST ALT Alkaline Phosphatase Troponin I NT-Pro-B Natriuret Pep Total Protein Albumin Globulin Albumin/Globulin Ratio Procalcitonin Influ A Molecular Assay Influ B Molecular Assay RSV Antigen SARS CoV-2 RNA Rapid BRIAN Orders Category Date Time Status ADMIT PATIENT INPATIENT .TO [facility] [place] (MONITORED BED) ADMISSION 02/19/22 12:55 Active ABG DRAW REQUEST Stat CARDIO 02/19/22 09:54 Completed EKG-(ED ONLY) Stat CARDIO 02/19/22 09:52 Completed EKG-(IP & OP ONLY) DAILY CARDIO 02/20/22 06:00 Ordered EKG-(IP & OP ONLY) DAILY CARDIO 02/21/22 06:00 Ordered METERED DOSE INHALATION Routine CARDIO 02/19/22 13:18 Active NEBULIZER TREATMENT Routine CARDIO 02/19/22 13:02 Active NEBULIZER TREATMENT Stat CARDIO 02/19/22 09:53 Completed OXYGEN Routine CARDIO 02/19/22 13:00 Active ACTIVITY .Up With Assistance CARE 02/19/22 12:55 Active BLOOD GLUCOSE MONITORING (MED/SURG) 0630,1100,1700,2100 CARE 02/19/22 13:00 Active CASE MANAGEMENT CONSULT ONCE CARE 02/19/22 12:56 Active GIVE HS SNACK 2100 CARE 02/19/22 13:00 Active SCD [VTE PREVENTION] .SCD On AM/Off PM CARE 02/19/22 13:06 Active TELEMETRY MONITORING TELE CARE 02/19/22 12:56 Active ADA 1800 RAHUL. DIET DIETARY 02/19/22 Dinner Ordered HS SNACK DIETARY 02/19/22 Dinner Ordered ED IV/MEDIPORT/POWERPORT .ONCE EMERGENCY 02/19/22 09:54 Active ABG COOX Stat LAB 02/19/22 10:15 Completed BLOOD CULTURE Stat LAB 02/19/22 10:12 Received CBC W/ AUTO DIFF DAILY@0600 LAB 02/20/22 06:00 Ordered CBC W/ AUTO DIFF DAILY@0600 LAB 02/21/22 06:00 Ordered CBC W/ AUTO DIFF Stat LAB 02/19/22 10:12 Completed CMP [COMPREHENSIVE METABOLIC PANEL] Stat LAB 02/19/22 10:12 Completed COMPREHENSIVE METABOLIC PANEL DAILY@0600 LAB 02/20/22 06:00 Ordered COMPREHENSIVE METABOLIC PANEL DAILY@0600 LAB 02/21/22 06:00 Ordered COVID [SARS COV-2 RNA RAPID BRIAN] Stat LAB 02/19/22 10:05 Completed FLU A & B MOLECULAR [FLU A/B MOLECULAR] Stat LAB 02/19/22 10:05 Completed LACTIC ACID Stat LAB 02/19/22 10:12 Completed MAGNESIUM Stat LAB 02/19/22 10:12 Completed NT-PROBNP Stat LAB 02/19/22 10:12 Completed PROCALCITONIN Stat LAB 02/19/22 10:12 Completed PT WITH INR Stat LAB 02/19/22 10:12 Completed PTT [PARTIAL THROMBOPLASTIN TIME] Stat LAB 02/19/22 10:12 Completed RSV Stat LAB 02/19/22 10:05 Completed TROPONIN I Stat LAB 02/19/22 10:12 Completed 0.9 % Sodium Chloride [Saline Flush] MEDS 02/19/22 09:54 Active 1 syr IVF PRN PRN Acetaminophen [Tylenol] MEDS 02/19/22 12:55 Active 650 mg PO Q4H PRN Albuterol Inhaler(with Spacer) [Ventolin Hfa (Per Puff- MEDS 02/19/22 13:30 Active with Spacer)] 1 - 2 puff IH Q4H PRN Atorvastatin Calcium [Lipitor] MEDS 02/20/22 09:00 Active 10 mg PO DAILY Budesonide/Formoterol Fumarate [Symbicort 160-4.5 Mcg MEDS 02/19/22 21:00 Active Inhaler] 2 puff IH BID Buspirone HCl [Buspar] MEDS 02/19/22 13:30 Active 10 mg PO TID PRN Clopidogrel Bisulfate [Plavix] MEDS 02/20/22 09:00 Active 75 mg PO DAILY Divalproex Sodium [Depakote] MEDS 02/19/22 21:00 Active 500 mg PO BID Fluticasone Propionate [Flonase] MEDS 02/20/22 09:00 Active See Dose Instructions ERNESTO DAILY Ipratropium/Albuterol Neb [Duoneb] MEDS 02/19/22 09:52 Discontinued 3 ml NEB ONCE STA Ipratropium/Albuterol Neb [Duoneb] MEDS 02/19/22 18:00 Active 3 ml NEB RTQ6H Latanoprost [Xalatan] MEDS 02/19/22 21:00 Active 1 drop RIGHTEYE BEDTIME Levetiracetam [Keppra] MEDS 02/19/22 21:00 Active 750 mg PO BID Mirtazapine [Remeron] MEDS 02/19/22 21:00 Active 15 mg PO BEDTIME Oseltamivir Phosphate Capsule [Tamiflu Capsule] MEDS 02/19/22 21:00 Active 75 mg PO BID Oseltamivir Phosphate Capsule [Tamiflu Capsule] MEDS 02/19/22 11:14 Disco ntinued 75 mg PO ONCE STA Pantoprazole Sodium [Protonix] MEDS 02/20/22 09:00 Active 40 mg PO DAILY Sertraline HCl [Zoloft] MEDS 02/20/22 09:00 Active 50 mg PO DAILY Sodium Chloride 0.9% [Sodium Chloride] 1,000 ml MEDS 02/19/22 09:54 Active IV 50 mls/hr Tiotropium [place] [Spiriva] MEDS 02/20/22 09:00 Active 1 cap IH DAILY docusate sodium [Stool Softener] MEDS 02/19/22 13:30 Pending 50 mg PO QDAY umeclidinium [Incruse Ellipta] MEDS 02/19/22 13:30 Discontinued 1 inh IH QDAY CHEST, 1V AP ONLY Stat RADS 02/19/22 09:52 Completed Medications Generic Name Dose Route Start Last Admin Trade Name Freq PRN Reason Stop Dose Admin Acetaminophen 650 mg 02/19/22 12:55 Acetaminophen 325 Mg Tablet PO Q4H PRN Mild Pain Albuterol Sulfate 1 - 2 puff 02/19/22 13:30 Albuterol Sulfate (Ventolin Hfa) 18 Gm 1 Puff With Spacer IH Q4H PRN Wheezing Albuterol/Ipratropium 3 ml 02/19/22 18:00 02/19/22 17:33 Ipratropium/Albuterol Vial.Neb NEB 3 ml RTQ6H CHRIS Administration Atorvastatin Calcium 10 mg 02/20/22 09:00 Atorvastatin Calcium 10 Mg Tablet PO DAILY CHRIS Budesonide/Formoterol Fumarate 2 puff 02/19/22 21:00 Budesonide/Formoterol Fumarate 160/4.5 Mcg Inhaler IH BID CHRIS Buspirone HCl 10 mg 02/19/22 13:30 Buspirone Hcl 10 Mg Tablet PO TID PRN Anxiety Clopidogrel Bisulfate 75 mg 02/20/22 09:00 Clopidogrel Bisulfate 75 Mg Tablet PO DAILY [facility] Divalproex Sodium 500 mg 02/19/22 21:00 Divalproex Sodium 500 Mg Tablet. PO BID CHRIS Fluticasone Propionate 0 spray 02/20/22 09:00 Fluticasone Propionate 16 Gm Nasal Pierce ERNESTO DAILY [facility] Sodium Chloride 1,000 mls @ 50 mls/hr 02/19/22 09:54 02/19/22 10:34 Sodium Chloride IV 02/20/22 05:53 50 mls/hr .Q20H STA Administration Latanoprost 1 drop 02/19/22 21:00 Latanoprost 2.5 Ml Opth [place] RIGHTEYE BEDTIME CHRIS Levetiracetam 750 mg 02/19/22 21:00 Levetiracetam 500 Mg Tablet PO BID CHRIS Mirtazapine 15 mg 02/19/22 21:00 Mirtazapine 15 Mg Tablet PO BEDTIME CHRIS Non-Formulary Medication 50 mg 02/19/22 13:30 Docusate Sodium [Stool Softener] PO QDAY [facility] Oseltamivir Phosphate 75 mg 02/19/22 21:00 Oseltamivir Phosphate 75 Mg Capsule PO BID [facility] Pantoprazole Sodium 40 mg 02/20/22 09:00 Pantoprazole Sodium 40 Mg Tablet. PO DAILY CHRIS Sertraline HCl 50 mg 02/20/22 09:00 Sertraline Hcl 50 Mg Tablet PO DAILY [facility] Sodium Chloride 1 syr 02/19/22 09:54 02/19/22 10:34 0.9% Sodium Chloride 10 Ml Disp.Syrin IVF 1 syr PRN PRN Administration To flush IV Tiotropium [place] 1 cap 02/20/22 09:00 Tiotropium [place] 18 Mcg Cap.W.Dev IH DAILY CHRIS Discontinued Medications Generic Name Dose Route Start Last Admin Trade Name Freq PRN Reason Stop Dose Admin Albuterol/Ipratropium 3 ml 02/19/22 09:52 02/19/22 10:27 Ipratropium/Albuterol Vial.Neb NEB 02/19/22 09:53 3 ml ONCE STA Administration Non-Formulary Medication 1 inh 02/19/22 13:30 Umeclidinium [Incruse Ellipta] IH QDAY CHRIS Oseltamivir Phosphate 75 mg 02/19/22 11:14 02/19/22 11:17 Oseltamivir Phosphate 75 Mg Capsule PO 02/19/22 11:15 75 mg ONCE STA Administration Vital Signs: Temp Pulse Resp BP Pulse Ox 02/19/22 09:25 96 02/19/22 09:15 99.1 F 110 H 20 140/76 93 L Discussed with family and pt - they are concerned she wont do well at home Will admit to start tx and observe for changes Discharge Plan Discharge Patient Disposition: PLACED OBSERVATION Discharge Problem: Elevated glucose, Hyponatremia, Sensorineural hearing loss (SNHL), Tobacco dependence, COPD with exacerbation, Influenza A Did you review [place]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
--- NOTE | 2022-02-19 20:41 | PCM ---
Chief Complaint Chief Complaint: cough / weakness /diahrrea, copd History of Present Illness History of Present Illness: began symptoms yesterday relative brought her in. Limited caretakers Uses 02 2 lpm prn Review of Systems Constitutional: Reports Weakness Eyes: Reports No symptoms Ears: Reports No symptoms Nose: Reports No symptoms Throat: Reports No symptoms Mouth: Reports No symptoms Cardiovascular: Reports No symptoms Gastrointestinal: Reports Diarrhea (2-3 today no blood or black ) Genitourinary: Reports No symptoms Neurological: Reports Seizure (hx of sz) and Other Musculoskeletal: Reports No symptoms Skin: Reports No symptoms Immunology: Reports No symptoms Hematology: Reports No symptoms Endocrine: Reports No symptoms Psychiatric: Reports No symptoms Habits: Reports Tobacco use Allergies Allergies Allergy/AdvReac Type Severity Reaction Status Date / Time Iodinated Contrast Media AdvReac Swelling Verified 02/19/22 09:21 [Iodinated Contrast Media - IV Dye] oxycodone [From Tylox] AdvReac HALLUCINATE Verified 02/19/22 09:21 S Penicillins AdvReac Swelling Verified 02/19/22 09:21 Sulfa (Sulfonamide AdvReac Swelling Verified 02/19/22 09:21 Antibiotics) anesthesia Allergy Severe confusion, Uncoded 02/19/22 09:21 Diffficult to wake up PFSH Medical History Allergic sinusitis Arthritis Back pain Back pain Cataract Cerebrovascular accident Chronic obstructive pulmonary disease Convulsions Epilepsy Gastroesophageal reflux disease Glaucoma Hyperlipidemia Hypertension Surgical History History of section History of musculoskeletal system surgery Status post angioplasty of vein Status post hysterectomy Status post tonsillectomy Status post tonsillectomy and adenoidectomy Family History Mother Diabetes Cerebrovascular accident Cancer Social History (Updated 02/19/22 @ 14:31 by BEBE SOOD RN) Smoking and tobacco status: Current every day smoker Tobacco type: cigarettes Smoking packs per day: 0.5 Smoking cigarettes per day: 10.0 Passive smoking exposure: No Quit status: has quit before Second hand smoke exposure: Yes Alcohol intake: never Medications Medications: Medications Generic Name Dose Route Start Last Admin Trade Name Freq PRN Reason Stop Dose Admin Acetaminophen 650 mg 02/19/22 12:55 Acetaminophen 325 Mg Tablet PO Q4H PRN Mild Pain Albuterol Sulfate 1 - 2 puff 02/19/22 13:30 Albuterol Sulfate (Ventolin Hfa) 18 Gm 1 Puff With Spacer IH Q4H PRN Wheezing Albuterol/Ipratropium 3 ml 02/19/22 18:00 02/19/22 17:33 Ipratropium/Albuterol Vial.Neb NEB 3 ml RTQ6H CHRIS Administration Atorvastatin Calcium 10 mg 02/20/22 09:00 Atorvastatin Calcium 10 Mg Tablet PO DAILY CHRIS Budesonide/Formoterol Fumarate 2 puff 02/19/22 21:00 Budesonide/Formoterol Fumarate 160/4.5 Mcg Inhaler IH BID CHRIS Buspirone HCl 10 mg 02/19/22 13:30 Buspirone Hcl 10 Mg Tablet PO TID PRN Anxiety Clopidogrel Bisulfate 75 mg 02/20/22 09:00 Clopidogrel Bisulfate 75 Mg Tablet PO DAILY [facility] Divalproex Sodium 500 mg 02/19/22 21:00 Divalproex Sodium 500 Mg Tablet. PO BID CHRIS Fluticasone Propionate 0 spray 02/20/22 09:00 Fluticasone Propionate 16 Gm Nasal [place]STO DAILY [facility] Sodium Chloride 1,000 mls @ 50 mls/hr 02/19/22 09:54 02/19/22 10:34 Sodium Chloride IV 02/20/22 05:53 50 mls/hr .Q20H STA Administration Latanoprost 1 drop 02/19/22 21:00 Latanoprost 2.5 Ml Opth Luc[place] RIGHTEYE BEDTIME [facility] Levetiracetam 750 mg 02/19/22 21:00 Levetiracetam 500 Mg Tablet PO BID [facility] Mirtazapine 15 mg 02/19/22 21:00 Mirtazapine 15 Mg Tablet PO BEDTIME [facility] Non-Formulary Medication 50 mg 02/19/22 13:30 Docusate Sodium [Stool Softener] PO QDAY [facility] Oseltamivir Phosphate 75 mg 02/19/22 21:00 Oseltamivir Phosphate 75 Mg Capsule PO BID [facility] Pantoprazole Sodium 40 mg 02/20/22 09:00 Pantoprazole Sodium 40 Mg Tablet. PO DAILY [facility] Sertraline HCl 50 mg 02/20/22 09:00 Sertraline Hcl 50 Mg Tablet PO DAILY [facility] Sodium Chloride 1 syr 02/19/22 09:54 02/19/22 10:34 0.9% Sodium Chloride 10 Ml Disp.Syrin IVF 1 syr PRN PRN Administration To flush IV Tiotropium [place] 1 cap 02/20/22 09:00 Tiotropium [place] 18 Mcg Cap.W.Dev IH DAILY CHRIS Body Composition Height: 5 ft 3 in Weight: 85 lb 3 oz Body Mass Index (BMI): 15.0 Vital Signs Temperature: 98.2 F Pulse Rate: 104 Respiratory Rate: 18 Blood Pressure: 140/76 O2 Sat by Pulse Oximetry: 96 Physical Examination Appearance: Reports Ill-appearing and Thin Ill-appearing: Moderate Pain Distress: None Eyes: Reports INGRID, EOMI and Conjunctiva clear ENT: Reports Ears normal, Nose normal and Dry mucosa Neck: Supple Respiratory: Reports Airway patent, Breath sounds clear and Breath sounds equal Cardiovascular: Reports RRR and No murmur GI/: Reports Soft and Nontender Musculoskeletal: Reports Normal strength Skin: Reports Warm, Dry and Normal color Neurological: Reports Sensation intact and Alert Psychiatric: Reports Affect appropriate and Mood appropriate Lab/Tests/Diagnostic Imaging Lab/Tests/Diagnostic Imaging: Lab Review 02/19/22 02/19/22 02/19/22 10:05 10:05 10:12 WBC RBC Hgb Hct MCV MCH MCHC RDW Coeff of [place] Plt Count Immature Gran % (Auto) Neut % (Auto) Lymph % (Auto) [place] % (Auto) Eos % (Auto) Baso % (Auto) Neut # (Auto) Lymph # (Auto) [place] # (Auto) Eos # (Auto) Baso # (Auto) Immature Gran # (Auto) PT INR APTT Puncture Site Base Excess O2 Saturation ABG pH ABG pCO2 ABG pO2 ABG HCO3 ABG Total CO2 Ary Test Hemoglobin Oxyhemoglobin Carboxyhemoglobin Total Hemoglobin FiO2 % Sodium 126.6 L Potassium 4.05 Chloride 90.2 L Carbon Dioxide 28.0 Anion Gap 12.45 BUN 9.8 Creatinine 0.39 L Estimated GFR (MDRD) 163.00 BUN/Creatinine Ratio 25.12 Glucose 131.2 H Lactic Acid Calcium 10.02 Magnesium 1.45 L Total Bilirubin 0.39 AST 35.2 ALT 11.7 Alkaline Phosphatase 78.4 Troponin I < 0.012 NT-Pro-B Natriuret Pep 328.000 H Total Protein 8.16 Albumin 4.67 Globulin 3.49 Albumin/Globulin Ratio 1.33 Procalcitonin Influ A Molecular Assay Positive by naat H Influ B Molecular Assay Negative by naat RSV Antigen Negative by naat SARS CoV-2 RNA Rapid BRIAN Negative 02/19/22 02/19/22 02/19/22 10:12 10:12 10:12 WBC RBC Hgb Hct MCV MCH MCHC RDW Coeff of [place] Plt Count Immature Gran % (Auto) Neut % (Auto) Lymph % (Auto) [place] % (Auto) Eos % (Auto) Baso % (Auto) Neut # (Auto) Lymph # (Auto) [place] # (Auto) Eos # (Auto) Baso # (Auto) Immature Gran # (Auto) PT 10.4 INR 1.00 APTT 28.7 Puncture Site Base Excess O2 Saturation ABG pH ABG pCO2 ABG pO2 ABG HCO3 ABG Total CO2 Ray Test Hemoglobin Oxyhemoglobin Carboxyhemoglobin Total Hemoglobin FiO2 % Sodium Potassium Chloride Carbon Dioxide Anion Gap BUN Creatinine Estimated GFR (MDRD) BUN/Creatinine Ratio Glucose Lactic Acid 1.64 Calcium Magnesium Total Bilirubin AST ALT Alkaline Phosphatase Troponin I NT-Pro-B Natriuret Pep Total Protein Albumin Globulin Albumin/Globulin Ratio Procalcitonin < 0.05 Influ A Molecular Assay Influ B Molecular Assay RSV Antigen SARS CoV-2 RNA Rapid BRIAN 02/19/22 02/19/22 10:12 10:15 WBC 10.58 H RBC 4.91 Hgb 15.1 Hct 44.1 MCV 89.8 MCH 30.8 MCHC 34.2 RDW Coeff of [place] 13.8 Plt Count 259 Immature Gran % (Auto) 0.5 Neut % (Auto) 81.2 H Lymph % (Auto) 5.9 L [place] % (Auto) 9.4 Eos % (Auto) 2.3 Baso % (Auto) 0.7 Neut # (Auto) 8.6 H Lymph # (Auto) 0.6 [place] # (Auto) 1.0 Eos # (Auto) 0.2 Baso # (Auto) 0.1 Immature Gran # (Auto) 0.1 PT INR APTT Puncture Site Rb Base Excess 4.0 H O2 Saturation 93.7 L ABG pH 7.47 H ABG pCO2 38.0 ABG pO2 65.0 L ABG HCO3 27.7 ABG Total CO2 28.9 H Ray Test Pos Hemoglobin 1.5 Oxyhemoglobin 91.7 L Carboxyhemoglobin 2.3 H Total Hemoglobin 14.6 FiO2 % 21.0 Sodium Potassium Chloride Carbon Dioxide Anion Gap BUN Creatinine Estimated GFR (MDRD) BUN/Creatinine Ratio Glucose Lactic Acid Calcium Magnesium Total Bilirubin AST ALT Alkaline Phosphatase Troponin I NT-Pro-B Natriuret Pep Total Protein Albumin Globulin Albumin/Globulin Ratio Procalcitonin Influ A Molecular Assay Influ B Molecular Assay RSV Antigen SARS CoV-2 RNA Rapid BRIAN Orders Category Date Time Status ADMIT PATIENT INPATIENT .TO [facility] (MONITORED BED) ADMISSION 02/19/22 12:55 Active ABG DRAW REQUEST Stat CARDIO 02/19/22 09:54 Completed EKG-(ED ONLY) Stat CARDIO 02/19/22 09:52 Completed EKG-(IP & OP ONLY) DAILY CARDIO 02/20/22 06:00 Ordered EKG-(IP & OP ONLY) DAILY CARDIO 02/21/22 06:00 Ordered METERED DOSE INHALATION Routine CARDIO 02/19/22 13:18 Active NEBULIZER TREATMENT Routine CARDIO 02/19/22 13:02 Active NEBULIZER TREATMENT Stat CARDIO 02/19/22 09:53 Completed OXYGEN Routine CARDIO 02/19/22 13:00 Active ACTIVITY .Up With Assistance CARE 02/19/22 12:55 Active BLOOD GLUCOSE MONITORING (MED/SURG) 0630,1100,1700,2100 CARE 02/19/22 13:00 Active CASE MANAGEMENT CONSULT ONCE CARE 02/19/22 12:56 Active GIVE HS SNACK 2100 CARE 02/19/22 13:00 Active SCD [VTE PREVENTION] .SCD On AM/Off PM CARE 02/19/22 13:06 Active TELEMETRY MONITORING TELE CARE 02/19/22 12:56 Active ADA 1800 RAHUL. DIET DIETARY 02/19/22 Dinner Ordered HS SNACK DIETARY 02/19/22 Dinner Ordered MINCED AND MOIST DIET DIETARY 02/19/22 Dinner Ordered CONSULT CORPORATION OFFICER ONCE CORPORATION OFFICER 02/19/22 14:38 Active ED IV/MEDIPORT/POWERPORT .ONCE EMERGENCY 02/19/22 09:54 Active ABG COOX Stat LAB 02/19/22 10:15 Completed BLOOD CULTURE Stat LAB 02/19/22 10:12 Received CBC W/ AUTO DIFF DAILY@0600 LAB 02/20/22 06:00 Ordered CBC W/ AUTO DIFF DAILY@0600 LAB 02/21/22 06:00 Ordered CBC W/ AUTO DIFF Stat LAB 02/19/22 10:12 Completed CMP [COMPREHENSIVE METABOLIC PANEL] Stat LAB 02/19/22 10:12 Completed COMPREHENSIVE METABOLIC PANEL DAILY@0600 LAB 02/20/22 06:00 Ordered COMPREHENSIVE METABOLIC PANEL DAILY@0600 LAB 02/21/22 06:00 Ordered COVID [SARS COV-2 RNA RAPID BRIAN] Stat LAB 02/19/22 10:05 Completed FLU A & B MOLECULAR [FLU A/B MOLECULAR] Stat LAB 02/19/22 10:05 Completed LACTIC ACID Stat LAB 02/19/22 10:12 Completed MAGNESIUM Stat LAB 02/19/22 10:12 Completed NT-PROBNP Stat LAB 02/19/22 10:12 Completed PROCALCITONIN Stat LAB 02/19/22 10:12 Completed PT WITH INR Stat LAB 02/19/22 10:12 Completed PTT [PARTIAL THROMBOPLASTIN TIME] Stat LAB 02/19/22 10:12 Completed RSV Stat LAB 02/19/22 10:05 Completed TROPONIN I Stat LAB 02/19/22 10:12 Completed 0.9 % Sodium Chloride [Saline Flush] MEDS 02/19/22 09:54 Active 1 syr IVF PRN PRN Acetaminophen [Tylenol] MEDS 02/19/22 12:55 Active 650 mg PO Q4H PRN Albuterol Inhaler(with Spacer) [Ventolin Hfa (Per Puff- MEDS 02/19/22 13:30 Active with Spacer)] 1 - 2 puff IH Q4H PRN Atorvastatin Calcium [Lipitor] MEDS 02/20/22 09:00 Active 10 mg PO DAILY Budesonide/Formoterol Fumarate [Symbicort 160-4.5 Mcg MEDS 02/19/22 21:00 Active Inhaler] 2 puff IH BID Buspirone HCl [Buspar] MEDS 02/19/22 13:30 Active 10 mg PO TID PRN Clopidogrel Bisulfate [Plavix] MEDS 02/20/22 09:00 Active 75 mg PO DAILY Divalproex Sodium [Depakote] MEDS 02/19/22 21:00 Active 500 mg PO BID Fluticasone Propionate [Flonase] MEDS 02/20/22 09:00 Active See Dose Instructions ERNESTO DAILY Ipratropium/Albuterol Neb [Duoneb] MEDS 02/19/22 09:52 Discontinued 3 ml NEB ONCE STA Ipratropium/Albuterol Neb [Duoneb] MEDS 02/19/22 18:00 Active 3 ml NEB RTQ6H Latanoprost [Xalatan] MEDS 02/19/22 21:00 Active 1 drop RIGHTEYE BEDTIME Levetiracetam [Keppra] MEDS 02/19/22 21:00 Active 750 mg PO BID Mirtazapine [Remeron] MEDS 02/19/22 21:00 Active 15 mg PO BEDTIME Oseltamivir Phosphate Capsule [Tamiflu Capsule] MEDS 02/19/22 21:00 Active 75 mg PO BID Oseltamivir Phosphate Capsule [Tamiflu Capsule] MEDS 02/19/22 11:14 Discontinued 75 mg PO ONCE STA Pantoprazole Sodium [Protonix] MEDS 02/20/22 09:00 Active 40 mg PO DAILY Sertraline HCl [Zoloft] MEDS 02/20/22 09:00 Active 50 mg PO DAILY Sodium Chloride 0.9% [Sodium Chloride] 1,000 ml MEDS 02/19/22 09:54 Active IV 50 mls/hr Tiotropium [place] [Spiriva] MEDS 02/20/22 09:00 Active 1 cap IH DAILY docusate sodium [Stool Softener] MEDS 02/19/22 13:30 Pending 50 mg PO QDAY umeclidinium [Incruse Ellipta] MEDS 02/19/22 13:30 Discontinued 1 inh IH QDAY RESUSCITATION STATUS Routine OTHERS 02/19/22 14:38 Ordered CHEST, 1V AP ONLY Stat RADS 02/19/22 09:52 Completed OT CONSULTATION Routine THERAPIES 02/19/22 Ordered PT CONSULT Routine THERAPIES 02/19/22 Ordered Medications Generic Name Dose Route Start Last Admin Trade Name Freq PRN Reason Stop Dose Admin Acetaminophen 650 mg 02/19/22 12:55 Acetaminophen 325 Mg Tablet PO Q4H PRN Mild Pain Albuterol Sulfate 1 - 2 puff 02/19/22 13:30 Albuterol Sulfate (Ventolin Hfa) 18 Gm 1 Puff With Spacer IH Q4H PRN Wheezing Albuterol/Ipratropium 3 ml 02/19/22 18:00 02/19/22 17:33 Ipratropium/Albuterol Vial.Neb NEB 3 ml RTQ6H CHRIS Administration Atorvastatin Calcium 10 mg 02/20/22 09:00 Atorvastatin Calcium 10 Mg Tablet PO DAILY CHRIS Budesonide/Formoterol Fumarate 2 puff 02/19/22 21:00 Budesonide/Formoterol Fumarate 160/4.5 Mcg Inhaler IH BID CHRIS Buspirone HCl 10 mg 02/19/22 13:30 Buspirone Hcl 10 Mg Tablet PO TID PRN Anxiety Clopidogrel Bisulfate 75 mg 02/20/22 09:00 Clopidogrel Bisulfate 75 Mg Tablet PO DAILY [facility] Divalproex Sodium 500 mg 02/19/22 21:00 Divalproex Sodium 500 Mg Tablet. PO BID CHRIS Fluticasone Propionate 0 spray 02/20/22 09:00 Fluticasone Propionate 16 Gm Nasal [place] DAILY [facility] Sodium Chloride 1,000 mls @ 50 mls/hr 02/19/22 09:54 02/19/22 10:34 Sodium Chloride IV 02/20/22 05:53 50 mls/hr .Q20H STA Administration Latanoprost 1 drop 02/19/22 21:00 Latanoprost 2.5 Ml Opth [place] RIGHTEYE BEDTIME [facility] Levetiracetam 750 mg 02/19/22 21:00 Levetiracetam 500 Mg Tablet PO BID [facility] Mirtazapine 15 mg 02/19/22 21:00 Mirtazapine 15 Mg Tablet PO BEDTIME [facility] Non-Formulary Medication 50 mg 02/19/22 13:30 Docusate Sodium [Stool Softener] PO QDAY [facility] Oseltamivir Phosphate 75 mg 02/19/22 21:00 Oseltamivir Phosphate 75 Mg Capsule PO BID [facility] Pantoprazole Sodium 40 mg 02/20/22 09:00 Pantoprazole Sodium 40 Mg Tablet. PO DAILY CHRIS Sertraline HCl 50 mg 02/20/22 09:00 Sertraline Hcl 50 Mg Tablet PO DAILY [facility] Sodium Chloride 1 syr 02/19/22 09:54 02/19/22 10:34 0.9% Sodium Chloride 10 Ml Disp.Syrin IVF 1 syr PRN PRN Administration To flush IV Tiotropium [place] 1 cap 02/20/22 09:00 Tiotropium [place] 18 Mcg Cap.W.Dev IH DAILY CHRIS Discontinued Medications Generic Name Dose Route Start Last Admin Trade Name Freq PRN Reason Stop Dose Admin Albuterol/Ipratropium 3 ml 02/19/22 09:52 02/19/22 10:27 Ipratropium/Albuterol Vial.Neb NEB 02/19/22 09:53 3 ml ONCE STA Administration Non-Formulary Medication 1 inh 02/19/22 13:30 Umeclidinium [Incruse Ellipta] IH QDAY CHRIS Oseltamivir Phosphate 75 mg 02/19/22 11:14 02/19/22 11:17 Oseltamivir Phosphate 75 Mg Capsule PO 02/19/22 11:15 75 mg ONCE STA Administration Assessment (1) Influenza A: Status: Acute Code(s): J10.1 - Influenza due to other identified influenza virus with other respiratory manifestations SNOMED Code(s): 016977622 (2) COPD with exacerbation: Status: Acute Code(s): J44.1 - Chronic obstructive pulmonary disease with (acute) exacerbation SNOMED Code(s): 499360943 (3) Tobacco dependence: Status: Acute Code(s): F17.200 - Nicotine dependence, unspecified, uncomplicated SNOMED Code(s): 86579073 Plan Plan: 1. For Influenza A - start tamiflu 75mg PO q 12 hrs 2.For COPD - duoneb 3.For GI - protonix po 4.For DVT - plavix and scd 5.Report to Dr Mckee at Shift change
[2022-02-19] MEDS ORDERED: TAMIFLU CAPSULE PO SCH (21:00)
[2022-02-19] MEDS ORDERED: DEPAKOTE PO SCH (21:00)
[2022-02-19] MEDS: REMERON PO SCH (21:12)
[2022-02-19] MEDS: KEPPRA PO SCH (21:12)
[2022-02-19] MEDS: XALATAN RIGHTEYE SCH (21:19)
[2022-02-19] MEDS: SYMBICORT 160-4.5 MCG INHALER IH SCH (21:19)
[2022-02-20] MEDS: DUONEB NEB SCH ×4 (04:45→23:10)
[2022-02-20 05:19] LABS: BASOPHILS # (AUTO) 0.1 K/uL (0-0.2); BASOPHILS % (AUTO) 0.8 % (0.0-3.0); EOSINOPHILS % (AUTO) 0.1 % (0.0-7.0); HEMATOCRIT 39.4 % (37.0-47.0); HEMOGLOBIN 13.3 g/dl (12.0-16.0); IMMATURE GRANULOCYTE % (AUTO) 0.4 % (0.0-5.0); LYMPHOCYTES # (AUTO) 1.1 K/uL (0.60-3.4); MEAN CORPUSCULAR HEMOGLOBIN 30.6 pg (27.0-31.0); MEAN CORPUSCULAR HGB CONC 33.8 (31.8-35.4); MEAN CORPUSCULAR VOLUME 90.6 fl (81.0-99.0); MONOCYTES # (AUTO) 0.9 K/uL (0.4-2.0); MONOCYTES % (AUTO) 8.9 (0-10); NEUTROPHILS # (AUTO) 7.9 K/ul (2.0-6.9); NEUTROPHILS % (AUTO) 78.8 % (42.2-75.2); PLATELET COUNT 212 10^3/uL (140-440); RED BLOOD COUNT 4.35 10^6/ul (4.20-5.40); WHITE BLOOD COUNT 10.08 K/ul (4.6-10.2)
[2022-02-20 05:30] LABS: ALANINE AMINOTRANSFERASE 8.6 U/L (0-35); ALBUMIN 3.55 g/dL (3.5-5.0); ALKALINE PHOSPHATASE 57.4 U/L (53-141); ASPARTATE AMINO TRANSFERASE 27.3 U/L (14-36); BILIRUBIN,TOTAL 0.32 mg/dL (0.2-1.3); BLOOD UREA NITROGEN 7.8 mg/dL (7-17); CALCIUM 8.87 mg/dL (8.4-10.2); CARBON DIOXIDE 30.1 mmol/L (22-30.0); CHLORIDE 93.1 mmol/L (98-107); CREATININE 0.36 mg/dL (0.60-1.30); GLUCOSE 96.4 mg/dL (74-106); POTASSIUM 3.95 mmol/L (3.5-5.1); SODIUM 126.9 mmol/L (134.5-145); TOTAL PROTEIN 6.31 g/dL (6.3-8.2)
[2022-02-20] MEDS: DEPAKOTE PO SCH ×2 (09:08→20:25)
[2022-02-20] MEDS: COLACE PO SCH (09:09)
[2022-02-20] MEDS: ZOLOFT PO SCH (09:09)
[2022-02-20] MEDS: TAMIFLU CAPSULE PO SCH ×2 (09:09→20:26)
[2022-02-20] MEDS: PLAVIX PO SCH (09:09)
[2022-02-20] MEDS: KEPPRA PO SCH ×2 (09:10→20:23)
[2022-02-20] MEDS: LIPITOR PO SCH (09:10)
[2022-02-20] MEDS: PROTONIX PO SCH (09:15)
[2022-02-20] MEDS: SPIRIVA IH SCH (09:16)
[2022-02-20] MEDS: FLONASE NAS SCH (09:16)
[2022-02-20] MEDS: SYMBICORT 160-4.5 MCG INHALER IH SCH ×2 (09:50→20:28)
[2022-02-20] MEDS: SOLU-MEDROL 40 MG IVP SCH ×4 (09:51→23:11)
--- NOTE | 2022-02-20 10:15 | PCM.PROG ---
Date Seen by Provider: 02/20/22 Time Seen by Provider: 10:11 Subjective: pt improved breathing, no fever, on home oxygen 2liters nc dx. influenza A, copd Objective: Vitals: T=97.5 F, P=110, R=18, ON=262/80, SPO2=97 HEENT: []conjunctiva clear Neck: []supple Lungs: [] bilateral wheeze CVS: []RRR Abdomen: []nondistended Extremities: []warm and dry Neurological: []alert and oriented Skin: []pink Lab/Tests/Diagnostic Imaging: [] wbc 10, Na 126 (1) Influenza A: Status: Acute Code(s): J10.1 - Influenza due to other identified influenza virus with other respiratory manifestations SNOMED Code(s): 619747066 (2) COPD with exacerbation: Status: Acute Code(s): J44.1 - Chronic obstructive pulmonary disease with (acute) exacerbation SNOMED Code(s): 428831359 (3) Tobacco dependence: Status: Acute Code(s): F17.200 - Nicotine dependence, unspecified, uncomplicated SNOMED Code(s): 79725853 Plan: continue q6 neb and tamiflu, start solumedrol [id number] care to Dr Hu at 19:00
[2022-02-20] MEDS: REMERON PO SCH (20:27)
[2022-02-20] MEDS: XALATAN RIGHTEYE SCH (20:28)
[2022-02-21] MEDS: DUONEB NEB SCH ×2 (04:45→11:40)
[2022-02-21 05:41] LABS: BASOPHILS % (AUTO) 0.1 % (0.0-3.0); HEMATOCRIT 38.5 % (37.0-47.0); HEMOGLOBIN 12.7 g/dl (12.0-16.0); IMMATURE GRANULOCYTE % (AUTO) 0.3 % (0.0-5.0); LYMPHOCYTES # (AUTO) 0.8 K/uL (0.60-3.4); LYMPHOCYTES % (AUTO) 8.2 (10.0-50.0); MEAN CORPUSCULAR HEMOGLOBIN 30.5 pg (27.0-31.0); MEAN CORPUSCULAR VOLUME 92.3 fl (81.0-99.0); MONOCYTES # (AUTO) 0.4 K/uL (0.4-2.0); NEUTROPHILS # (AUTO) 8.9 K/ul (2.0-6.9); NEUTROPHILS % (AUTO) 87.4 % (42.2-75.2); PLATELET COUNT 207 10^3/uL (140-440); RED BLOOD COUNT 4.17 10^6/ul (4.20-5.40)
[2022-02-21 05:43] VITALS: BP 131/73; TEMP 97.9
[2022-02-21 05:50] LABS: ALANINE AMINOTRANSFERASE 14.3 U/L (0-35); ALBUMIN 3.83 g/dL (3.5-5.0); ALKALINE PHOSPHATASE 53.9 U/L (53-141); ASPARTATE AMINO TRANSFERASE 31.9 U/L (14-36); BILIRUBIN,TOTAL 0.32 mg/dL (0.2-1.3); BLOOD UREA NITROGEN 13.3 mg/dL (7-17); CALCIUM 9.13 mg/dL (8.4-10.2); CARBON DIOXIDE 27.1 mmol/L (22-30.0); CHLORIDE 90.6 mmol/L (98-107); CREATININE 0.29 mg/dL (0.60-1.30); POTASSIUM 3.67 mmol/L (3.5-5.1); TOTAL PROTEIN 6.89 g/dL (6.3-8.2)
[2022-02-21] MEDS: COLACE PO SCH (08:57)
[2022-02-21] MEDS: LIPITOR PO SCH (08:57)
[2022-02-21] MEDS: ZOLOFT PO SCH (08:57)
[2022-02-21] MEDS: KEPPRA PO SCH (08:57)
[2022-02-21] MEDS: PLAVIX PO SCH (08:57)
[2022-02-21] MEDS: TAMIFLU CAPSULE PO SCH (08:57)
[2022-02-21] MEDS: DEPAKOTE PO SCH (08:57)
[2022-02-21] MEDS: SYMBICORT 160-4.5 MCG INHALER IH SCH (08:58)
[2022-02-21] MEDS: SPIRIVA IH SCH (08:58)
[2022-02-21] MEDS: PROTONIX PO SCH (08:58)
[2022-02-21] MEDS: FLONASE NAS SCH (09:03)
--- NOTE | 2022-02-21 09:58 | PCM.DC ---
Final Diagnosis: influenza A, copd Physical Exam Appearance: Well-appearing Ill-appearing: None Pain Distress: None Eyes: Conjunctiva clear ENT: Oropharynx normal Neck: Supple Respiratory: Airway patent, Breath sounds equal and Respirations nonlabored Cardiovascular: RRR GI/: Nontender Musculoskeletal: ROM intact Skin: Warm and Dry Neurological: Alert and Oriented Psychiatric: Affect appropriate (1) Influenza A: Status: Acute Code(s): J10.1 - Influenza due to other identified influenza virus with other respiratory manifestations SNOMED Code(s): 724243971 (2) COPD with exacerbation: Status: Acute Code(s): J44.1 - Chronic obstructive pulmonary disease with (acute) exacerbation SNOMED Code(s): 173902611 (3) Tobacco dependence: Status: Acute Code(s): F17.200 - Nicotine dependence, unspecified, uncomplicated SNOMED Code(s): 06798151 Reason for Hospitalization: short of breath, wheezing Prognosis/Condition at Discharge: fair Medications at Discharge: home meds, plus Days 4 and 5 of tamiflu, pt has home oxygen Lab/Diagnostics: wbc 10.2, Na 128, glucose 128 Education Provided to Patient and Family: using an inhaler Follow-ups: see your doctor, return if worse Discharge Disposition: Home Hospital Course: improved breathing, no wheezing Plan: discharge home 40 min spent prepping the discharge
== END 2022-02-21 12:15 | disposition home or self-care (01) ==
LOC: ED 09:13 → INTOOBSV 13:47 → MEDSURG A 13:47
PROVIDERS: ADMIT Emergency Medicine; ATTEND Internal Medicine Geriatric Medicine
DX: K21.9 Gastro-esophageal reflux disease without esophagitis; E87.1 Hypo-osmolality and hyponatremia; R06.2 Wheezing; Z20.822 Contact with and (suspected) exposure to COVID-19; J44.1 Chronic obstructive pulmonary disease with (acute) exacerbation; Z86.73 Personal history of transient ischemic attack (TIA), and cerebral infarction without residual deficits; M54.50 Low back pain, unspecified; Z79.899 Other long term (current) drug therapy; R06.02 Shortness of breath; J10.1 Influenza due to other identified influenza virus with other respiratory manifestations; Z86.69 Personal history of other diseases of the nervous system and sense organs; E78.5 Hyperlipidemia, unspecified; Z99.81 Dependence on supplemental oxygen; R56.9 Unspecified convulsions; F17.210 Nicotine dependence, cigarettes, uncomplicated; Z51.81 Encounter for therapeutic drug level monitoring; I10 Essential (primary) hypertension; H90.5 Unspecified sensorineural hearing loss; J30.9 Allergic rhinitis, unspecified

== ENCOUNTER 2022-12-25 06:11 | Observation (INO) ==
[~2022-12-25 06:11] MED LIST: DUONEB NEB ONE
--- NOTE | 2022-12-25 06:16 | ED.PDOC ---
General ED Provider: Dr. BRIGIDA JUAREZ MD Chief Complaint: Shortness of Air Stated Complaint: Short of breath 67-year-old female presents the emergency department via EMS for evaluation of shortness of breath and back pain. Patient has a history of COPD, oxygen dependent. Recently hospitalized at [facility] for COPD exacerbation. States that she was not feeling 100% at the time of discharge. Since her discharge she has continued to decline. Was seen in the office a few days ago. Diagnosed with a compression fracture. Reports that she is occasionally having to increase her oxygen up to 4 L. Has a cough that is occasionally productive. Denies fevers or chills. Reports chest pain associated with her persistent cough. Denies any lower extremity swelling. States that she has been getting steadily worse over the past week but things got worse early this morning which prompted her to call 911. Time Seen by Provider: 12/25/22 06:11 Mode of Arrival: Ambulance Information Source: Patient Primary Care Provider: GUTIERREZ ROSA APRN Nursing and Triage Documentation Reviewed and Agree: Yes Respiratory Complaint Exam Shortness of Air Complaint/Exam Onset/Duration: Worsening over the past week Timing: Constant Initial Severity: Mild Current Severity: Moderate Character: Reports Dyspnea at rest Aggravating: Reports None Associated Signs and Symptoms: Reports Cough, Wheezing, Chest pain with cough, Rapid breathing and Labored breathing; Denies Fever, Chills, Calf pain or Edema Related History: Reports Similar episode Pulmonary Embolism Risk Factors: Reports None Cardiac Risk Factors: Reports Hypertension Pseudomonas Risk Factors: Reports Chronic Lung Disease Home Oxygen Use: Yes Recent Stress Test: No Recent Echo/LV Function: Yes Respiratory Distress: Mild Stridor Present: No Tracheal Deviation: No Subcutaneous Emphysema: No Accessory Muscle Use: Yes Retractions: Supraclavicular Diminished Breath Sounds: Yes Prolonged Expiratory Phase: Yes Unable to Speak Full Sentences: No Fatigue: No Leg Swelling: No Patrica's Sign Present: No Grunting Respirations: No Differential Diagnoses: CHF, Pulmonary Edema, COPD Exacerbation, Pneumonia, Pneumothorax, SARS, Bronchitis and URI Review of Systems Review Of Systems Constitutional: Denies Chills or Fever Respiratory: Reports Cough, Shortness of Breath and Wheezing Cardiac: Reports Chest pain All Other Systems: Reviewed and Negative [facility] Medical History Allergic sinusitis J30.9 - Allergic rhinitis, unspecified (ICD-10) Back pain M54.9 - Dorsalgia, unspecified (ICD-10) Cataract H26.9 - Unspecified cataract (ICD-10) Cerebrovascular accident I63.9 - Cerebral infarction, unspecified (ICD-10) Chronic obstructive pulmonary disease J44.9 - Chronic obstructive pulmonary disease, unspecified (ICD-10) Convulsions R56.9 - Unspecified convulsions (ICD-10) Epilepsy G40.909 - Epilepsy, unspecified, not intractable, without status epilepticus (ICD-10) Glaucoma H40.9 - Unspecified glaucoma (ICD-10) Family History Mother Diabetes Cerebrovascular accident Cancer Social History Smoking and tobacco status: Former smoker Passive smoking exposure: No Quit status: has quit before Second hand smoke exposure: Yes Alcohol intake: never Surgical History History of section Z98.891 - History of uterine scar from previous surgery (ICD-10) History of musculoskeletal system surgery Z98.890 - Other specified postprocedural states (ICD-10) Status post angioplasty of vein Z98.890 - Other specified postprocedural states (ICD-10) Status post tonsillectomy Z90.89 - Acquired absence of other organs (ICD-10) Status post tonsillectomy and adenoidectomy Z90.89 - Acquired absence of other organs (ICD-10) Female Reproductive History Menstrual Hx Hysterectomy: No Hx Tubal Ligation: No Physical Exam Physical Exam Appearance: Reports Thin Ill-appearing: Mild Pain Distress: Mild Eyes: Reports EOMI ENT: Reports Oropharynx normal Neck: Supple Respiratory: Reports Airway patent and Breath sounds diminished Cardiovascular: Reports RRR and Pulses normal GI/: Reports Soft and Nontender Musculoskeletal: Reports No edema and No calf tenderness Skin: Reports Warm, Dry and Normal color Neurological: Reports Cranial nerves intact, Alert and Oriented Psychiatric: Reports Affect appropriate Interpretation EKG Interpretation EKG Interpretation By: ED Physician Time of EKG #1: 06:37 Rate: Normal Rhythm: Sinus Ectopy: None [place]: NL ST Segment: Normal EKG Comparison: No significant changes Radiology Interpretation Radiology Interpretation By: ED Physician Exam Interpreted: CXR (Chest x-ray with bilateral apical scarring, no evidence of pneumothorax, no acute consolidation, infiltrate, effusion. No pneumothorax. Mediastinum is normal.) Critical Care Note Critical Care Note Total Critical Care Time (mins): 30 Comments: 30 minutes time was spent in [id number] evaluation, reevaluation, ordering and interpreting laboratory and radiographic data as well as reassessing after treatment interventions. Time was also spent in extensive review of the patient's chart as she is been hospitalized and had multiple clinic visits. Course Course 12/25/22 06:30 12/25/22 06:30 Orders, Labs, Meds: Lab Review 12/25/22 12/25/22 06:15 06:30 WBC 11.94 H RBC 4.13 L Hgb 11.6 L Hct 37.9 MCV 91.8 MCH 28.1 MCHC 30.6 L RDW Coeff of [place] 13.9 Plt Count 326 Immature Gran % (Auto) 0.6 Neut % (Auto) 48.1 Lymph % (Auto) 38.0 [place] % (Auto) 10.5 H Eos % (Auto) 2.0 Baso % (Auto) 0.8 Neut # (Auto) 5.7 Lymph # (Auto) 4.5 H [place] # (Auto) 1.3 Eos # (Auto) 0.2 Baso # (Auto) 0.1 Immature Gran # (Auto) 0.1 Sodium 136.7 Potassium 3.96 Chloride 92.7 L Carbon Dioxide 37.3 H Anion Gap 10.66 BUN 11.2 Creatinine 0.40 L Estimated GFR (MDRD) 158.00 BUN/Creatinine Ratio 28.00 Glucose 88.2 Lactic Acid 1.10 Calcium 9.07 Total Bilirubin 0.25 AST 22.7 ALT 11.5 Alkaline Phosphatase 65.1 Troponin I 0.015 NT-Pro-B Natriuret Pep 840 H Total Protein 7.21 Albumin 3.96 Globulin 3.25 Albumin/Globulin Ratio 1.21 SARS CoV-2 RNA Rapid BRIAN Negative Orders Category Date Time Status ABG DRAW REQUEST Stat CARDIO 12/25/22 06:12 Completed EKG-(ED ONLY) Stat CARDIO 12/25/22 06:12 Completed ABG COOX Stat LAB 12/25/22 06:30 Received CBC W/ AUTO DIFF Stat LAB 12/25/22 06:30 Completed CMP [COMPREHENSIVE METABOLIC PANEL] Stat LAB 12/25/22 06:30 Completed ED PROBNP [NT-PROBNP(ED)] Stat LAB 12/25/22 06:30 Completed LACTIC ACID Stat LAB 12/25/22 06:30 Completed SARS COV-2 RNA RAPID BRIAN Stat LAB 12/25/22 06:15 Completed TROPONIN I Stat LAB 12/25/22 06:30 Completed Ipratropium/Albuterol Neb [Duoneb] Meds 12/25/22 06:11 Discontinued 3 ml NEB ONCE ONE Methylprednisolone Sod Succ/Pf [Solu-Medrol 125 mg] Meds 12/25/22 06:19 Discontinued 60 mg IVP ONCE ONE CHEST, 1V AP ONLY Stat RADS 12/25/22 06:12 Completed Medications Discontinued Medications Generic Name Dose Route Start Last Admin Trade Name Matteo PRN Reason Stop Dose Admin Albuterol/Ipratropium 3 ml 12/25/22 06:11 12/25/22 06:37 Ipratropium/Albuterol Vial.Neb NEB 12/25/22 06:12 3 ml ONCE ONE Administration Methylprednisolone Sodium Succinate 60 mg 12/25/22 06:19 12/25/22 06:30 Methylprednisolone Sod Succ/Pf 125 Mg/2 Ml Vial IVP 12/25/22 06:20 60 mg ONCE ONE Administration 6:33 AM Patient reassessed. Labs still being drawn, EKG being performed, x-ray pending. I was able to obtain an ABG. Respiratory therapy is at the bedside. States that they have her in pulmonary rehab. States that currently how she has breathing is at her baseline. Patient states that she feels "pretty good" for her breathing right now. 6:46 AM EKG shows normal sinus rhythm, normal axis, normal QRS, normal QT segments, no ST segment changes. Rate 90. Ordered and interpreted by me. ABG demonstrates no acute abnormalities. Patient has chronic CO2 retention. No evidence of r espiratory acidosis. 6:54 AM Patient's laboratory evaluation complete except cardiac biomarkers and BNP. Patient with mild leukocytosis but has also been on steroids in the last month. Electrolytes unremarkable and stable. Lactic acid 1.1, COVID-negative. 7:00 AM Review of patient's medical record, most recent office note shows that she had been given samples of 2 inhalers from the pulmonology office. However when she ran out of the permofix inhaler her symptoms got worse. Unfortunately the agency that she receives her medication from has not been able to acquire that inhaler for her as of yet. Patient has not been able to make her pulmonary rehab appointments over the course the past 1 to 2 weeks secondary to increasing shortness of breath due to lack of this inhaler. 7:07 AM Discussed case with admitting team. They will admit for COPD exacerbation. Patient is already taking antibiotics (Augmentin) as an outpatient. Those can be continued. Patient does have a slightly elevated BNP at 800. This is higher than the previous value of 500. Clinically she does not have physical exam findings consistent with congestive heart failure. This can be evaluated further in the hospital with an echo if deemed necessary. This certainly could be contributing to why she is not improving with typical COPD therapy. Vital Signs: Temp Pulse Resp BP Pulse Ox 12/25/22 06:11 97.7 F 96 28 H 184/89 H 97 Discharge Plan Discharge Patient Disposition: ADMITTED INPATIENT Discharge Problem: Back pain, Chronic obstructive pulmonary disease (COPD) Did you review [place] [employer]GER for ALL controlled substances?: Not Applicable ED Provider: BRIGIDA JUAREZ Physician Progress Note: []
[2022-12-25] MEDS ORDERED: SOLU-MEDROL 125 MG IVP ONE (06:19)
[2022-12-25 06:37] LABS: BASOPHILS # (AUTO) 0.1 K/uL (0-0.2); BASOPHILS % (AUTO) 0.8 % (0.0-3.0); EOSINOPHILS # (AUTO) 0.2 K/ul (0.0-0.7); HEMATOCRIT 37.9 % (37.0-47.0); HEMOGLOBIN 11.6 g/dl (12.0-16.0); IMMATURE GRANULOCYTE # (AUTO) 0.1 (0.0-1.0); IMMATURE GRANULOCYTE % (AUTO) 0.6 % (0.0-5.0); LYMPHOCYTES # (AUTO) 4.5 K/uL (0.60-3.4); MEAN CORPUSCULAR HEMOGLOBIN 28.1 pg (27.0-31.0); MEAN CORPUSCULAR HGB CONC 30.6 (31.8-35.4); MEAN CORPUSCULAR VOLUME 91.8 fl (81.0-99.0); MONOCYTES # (AUTO) 1.3 K/uL (0.4-2.0); MONOCYTES % (AUTO) 10.5 (0-10); NEUTROPHILS # (AUTO) 5.7 K/ul (2.0-6.9); NEUTROPHILS % (AUTO) 48.1 % (42.2-75.2); PLATELET COUNT 326 10^3/uL (140-440); RDW COEFFICIENT OF VARIATION 13.9 % (11.6-14.8); RED BLOOD COUNT 4.13 10^6/ul (4.20-5.40); WHITE BLOOD COUNT 11.94 K/ul (4.6-10.2)
[2022-12-25 06:50] LABS: ALANINE AMINOTRANSFERASE 11.5 U/L (0-35); ALBUMIN 3.96 g/dL (3.5-5.0); ALKALINE PHOSPHATASE 65.1 U/L (53-141); ASPARTATE AMINO TRANSFERASE 22.7 U/L (14-36); BILIRUBIN,TOTAL 0.25 mg/dL (0.2-1.3); BLOOD UREA NITROGEN 11.2 mg/dL (7-17); CALCIUM 9.07 mg/dL (8.4-10.2); CARBON DIOXIDE 37.3 mmol/L (22-30.0); CHLORIDE 92.7 mmol/L (98-107); CREATININE 0.4 mg/dL (0.60-1.30); GLUCOSE 88.2 mg/dL (74-106); POTASSIUM 3.96 mmol/L (3.5-5.1); SODIUM 136.7 mmol/L (134.5-145); TOTAL PROTEIN 7.21 g/dL (6.3-8.2)
[2022-12-25 06:51] LABS: SARS COV-2 RNA RAPID NAAT NEGATIVE (NEGATIVE)
[2022-12-25 07:02] LABS: TROPONIN I 0.015 ng/ml (0.0000-0.120)
--- NOTE | 2022-12-25 07:05 | DI ---
EXAM: SINGLE VIEW OF THE CHEST. History: Short of breath Comparison: Chest radiograph 12/22/2022 FINDINGS: Heart size is normal. Biapical lung scarring. No consolidation. No pleural fluid and no pneumothorax. No acute osseous abnormalities. Impression: No acute cardiopulmonary process
[2022-12-25] MEDS ORDERED: ALBUTEROL 0.083% NEB NEB PRN (08:27)
[2022-12-25 08:40] VITALS: BMI 19.7
--- NOTE | 2022-12-25 09:25 | PCM ---
Date of Service Date Seen by Provider: 12/25/22 Time Seen by Provider: 09:30 Admit Day/Time Admission Date: 12/25/22 Reason for Admission Chief Complaint: COPD EXACERBATION Hospital Provider Hospital Provider: RHONA AVENDANO, [facility] Primary Care Physician Primary Care Physician: GUTIERREZ ROSA APRN History of Present Illness History of Present Illness: 67 year old female presented to the ER with increased shortness of breath and cough that has gradually been getting worse over the last week. She has a history of COPD. She denies any fever, chills, or chest pain. It increasingly got worse last night, she felt like she could not catch her breath even after doing a nebulizer treatment. She recently saw her Kinesiology Professor who gave her samples of Perforomist and Yuperli which had been helping with her COPD but then ran out of one and she felt like she was declining. She was also started on Augmentin and Prednisone, that she picked up on 12/19. She has been bumping her home O2 from 2L to 4L to help. She states that the shortness of air is worsened on exertion. States that her only rescue nebulizer that she has is her albuterol in which she is prescribed to use every 6 hours. Her O2 sat has remained above 94% on her home O2 of 2L. Her EKG in ER resulted normal sinus and the Chest X- ray showed no acute. She received 60 mg Methylprednisolone and a Duoneb in the ER. She complains of midback pain. Patient has no other concerns or questions at this time. Case Discussed With Case Discussed With: Patient's case was discussed with the ER Physicians, Dr. Finley [facility] Medical History Allergic sinusitis J30.9 - Allergic rhinitis, unspecified (ICD-10) Back pain M54.9 - Dorsalgia, unspecified (ICD-10) Cataract H26.9 - Unspecified cataract (ICD-10) Cerebrovascular accident I63.9 - Cerebral infarction, unspecified (ICD-10) Chronic obstructive pulmonary disease J44.9 - Chronic obstructive pulmonary disease, unspecified (ICD-10) Convulsions R56.9 - Unspecified convulsions (ICD-10) Epilepsy G40.909 - Epilepsy, unspecified, not intractable, without status epilepticus (ICD-10) Glaucoma H40.9 - Unspecified glaucoma (ICD-10) Surgical History History of section Z98.891 - History of uterine scar from previous surgery (ICD-10) History of musculoskeletal system surgery Z98.890 - Other specified postprocedural states (ICD-10) Status post angioplasty of vein Z98.890 - Other specified postprocedural states (ICD-10) Status post tonsillectomy Z90.89 - Acquired absence of other organs (ICD-10) Status post tonsillectomy and adenoidectomy Z90.89 - Acquired absence of other organs (ICD-10) Family History Mother Diabetes Cerebrovascular accident Cancer Social History Smoking and tobacco status: Former smoker Passive smoking exposure: No How long ago did patient quit smokin.5 YEARS AGO Quit status: has quit before Second hand smoke exposure: Yes Alcohol intake: never Allergies Allergies Allergy/AdvReac Type Severity Reaction Status Date / Time Iodinated Contrast Media AdvReac Swelling Verified 12/25/22 06:21 [Iodinated Contrast Media - IV Dye] oxycodone [From Tylox] AdvReac HALLUCINATE Verified 12/25/22 06:21 S Penicillins AdvReac Swelling Verified 12/25/22 06:21 Sulfa (Sulfonamide AdvReac Swelling Verified 12/25/22 06:21 Antibiotics) anesthesia Allergy Severe confusion, Uncoded 12/25/22 06:21 Diffficult to wake up Current Medications Home Medications latanoprost 0.005 % eye drops 1 drp RIGHTEYE BEDTIME 02/16/14 [History Confirmed 12/25/22 Last Taken 02/18/22 21:00] dextran 70-hypromellose 0.1 %-0.3 % eye drops (Artificial Tears (dextran 70- hypromellose)) 1 drp BOTHEYES DIRECTED PRN DRY EYES 05/07/17 [History Confirmed 12/25/22 Last Taken Unknown] docusate sodium 50 mg capsule (Stool Softener) 50 mg PO QDAY 09/21/20 [History Confirmed 12/25/22 Last Taken 02/19/22 09:00] hltbsprnhxgb-yvxspgal-dalodjs-folic acid 400 mcg-vit K1 20 mcg tablet (One-A-Day Women's 50 Plus) 1 tab PO QDAY 08/18/21 [History Confirmed 12/25/22 Last Taken 02/19/22 09:00] fluticasone propionate 50 mcg/actuation nasal spray,suspension See Rx Instructions .Route .COMPLEX #16 ea 02/14/22 [Rx Confirmed 12/25/22 Last Taken 02/19/22 09:00] albuterol sulfate 2.5 mg/3 mL (0.083 %) solution for nebulization 2.5 mg (3 mL) inhalation Q4-6H PRN shortness of breath or wheezing #15 mL 06/15/22 [Rx Confirmed 12/25/22 Last Taken Unknown] loratadine 10 mg tablet (Allergy Relief (loratadine)) 10 mg PO QDAY PRN allergic symptoms #30 tabs 08/16/22 [Rx Confirmed 12/25/22 Last Taken Unknown] atorvastatin 10 mg tablet See Rx Instructions .Route .COMPLEX #90 tabs 09/20/22 [Rx Confirmed 12/25/22 Last Taken Unknown] tizanidine 2 mg tablet 2 mg PO BID PRN muscle spasticity #10 tabs 10/11/22 [Rx Confirmed 12/25/22 Last Taken Unknown] sertraline 50 mg tablet See Rx Instructions .Route .COMPLEX #90 tabs 10/20/22 [Rx Confirmed 12/25/22 Last Taken Unknown] albuterol sulfate 90 mcg/actuation aerosol inhaler See Rx Instructions .Route .COMPLEX #6.7 ea 11/07/22 [Rx Confirmed 12/25/22 Last Taken Unknown] clopidogrel 75 mg tablet See Rx Instructions .Route .COMPLEX #30 tabs 11/21/22 [Rx Confirmed 12/25/22 Last Taken Unknown] pantoprazole 40 mg tablet,delayed release See Rx Instructions .Route .COMPLEX #30 tabs 11/21/22 [Rx Confirmed 12/25/22 Last Taken Unknown] Chux pads (underpads) #100 ea 11/23/22 [Rx Confirmed 12/25/22 Last Taken Unknown] guaifenesin 600 mg tablet, extended release 12 hr (Mucinex) 600 mg PO BID #60 tabs 11/23/22 [Rx Confirmed 12/25/22 Last Taken Unknown] lisinopril 10 mg tablet See Rx Instructions .Route .COMPLEX #30 tabs 12/20/22 [Rx Confirmed 12/25/22 Last Taken Unknown] mirtazapine 30 mg tablet See Rx Instructions .Route .COMPLEX #30 tabs 12/20/22 [Rx Confirmed 12/25/22 Last Taken Unknown] buspirone 10 mg tablet See Rx Instructions .Route .COMPLEX #90 tabs 12/21/22 [Rx Confirmed 12/25/22 Last Taken Unknown] divalproex 500 mg tablet,delayed release See Rx Instructions .Route .COMPLEX #180 tabs 12/21/22 [Rx Confirmed 12/25/22 Last Taken Unknown] divalproex 500 mg tablet,delayed release (Depakote) 500 mg PO BID 90 days #180 tabs 12/21/22 [Rx Confirmed 12/25/22 Last Taken Unknown] levetiracetam 750 mg tablet See Rx Instructions .Route .COMPLEX #180 tabs 12/21/22 [Rx Confirmed 12/25/22 Last Taken Unknown] amoxicillin 875 mg-potassium clavulanate 125 mg tablet 1 tab PO BID 12/22/22 [History Confirmed 12/25/22 Last Taken Unknown] hydrocodone 5 mg-acetaminophen 325 mg tablet 1 tab PO BID PRN pain #6 tabs 12/22/22 [Rx Confirmed 12/25/22 Last Taken Unknown] naloxone 4 mg/actuation nasal spray (Narcan) 1 spray intranasal Q2-3M PRN opioid overdose #2 ea 12/22/22 [Rx Confirmed 12/25/22 Last Taken Unknown] permofix inhalation BID 12/22/22 [History Confirmed 12/22/22 Last Taken Unknown] revefenacin 175 mcg/3 mL solution for nebulization (Yupelri) 175 mcg inhalation QDAY 12/22/22 [History Confirmed 12/25/22 Last Taken Unknown] Home Hydrocodone Bitart/Acetaminophen (Hydrocodone Bit/Acetaminophen 5/325 Mg Tablet) 1 tab PO BID PRN PRN Reason: Pain Albuterol Sulfate (Albuterol Sulfate 0.083% Vial.Neb) 2.5 mg NEB RTQ4H PRN PRN Reason: Wheezing Albuterol/Ipratropium (Ipratropium/Albuterol Vial.Neb) 3 ml NEB RTQ4H CHRIS Atorvastatin Calcium (Atorvastatin Calcium 10 Mg Tablet) 0 mg PO .COMPLEX CHRIS Buspirone HCl (Buspirone Hcl 10 Mg Tablet) 0 mg PO .COMPLEX CHRIS Clopidogrel Bisulfate (Clopidogrel Bisulfate 75 Mg Tablet) 0 mg PO .COMPLEX CHRIS Divalproex Sodium (Divalproex Sodium 250 Mg Tablet.Dr) 500 mg PO BID CHRIS Fluticasone Propionate (Fluticasone Propionate 16 Gm Nasal [place]) 0 spray ERNESTO .COMPLEX CHRIS Guaifenesin (Guaifenesin 600 Mg Tablet.Er) 600 mg PO BID CHRIS Levofloxacin/Dextrose (Levaquin 750 Mg/150 Ml D5w) 750 mg in 150 mls @ 100 mls/hr IV DAILY CHRIS Stop: 12/28/22 09:34 Latanoprost (Latanoprost 2.5 Ml Opth [place]) 1 drop RIGHTEYE BEDTIME CHRIS Levetiracetam (Levetiracetam 500 Mg Tablet) 0 mg PO .COMPLEX CHRIS Lisinopril (Lisinopril 10 Mg Tablet) 0 mg PO .COMPLEX CHRIS Methylprednisolone Sodium Succinate (Methylprednisolone Sod Succ/Pf 40 Mg/Ml Vial) 40 mg IVP Q8HR CHRIS Mirtazapine (Mirtazapine 15 Mg Tablet) 0 mg PO .COMPLEX CHRIS Non-Formulary Medication (Docusate Sodium [Stool Softener]) 50 mg PO QDAY CHRIS Pantoprazole Sodium (Pantoprazole Sodium 40 Mg Tablet.) 0 mg PO .COMPLEX CHRIS Sertraline HCl (Sertraline Hcl 50 Mg Tablet) 0 mg PO .COMPLEX CHRIS Tizanidine HCl (Tizanidine Hcl 4 Mg Tablet) 2 mg PO BID PRN PRN Reason: Spasms Discontinued Medications Albuterol/Ipratropium (Ipratropium/Albuterol Vial.Neb) 3 ml NEB ONCE ONE Stop: 12/25/22 06:12 Last Admin: 12/25/22 06:37 Dose: 3 ml Methylprednisolone Sodium Succinate (Methylprednisolone Sod Succ/Pf 125 Mg/2 Ml Vial) 60 mg IVP ONCE ONE Stop: 12/25/22 06:20 Last Admin: 12/25/22 06:30 Dose: 60 mg Review of Systems Constitutional: Reports No symptoms Head: Reports Normocephalic Eyes: Reports No symptoms Ears: Reports No symptoms Nose: Reports No symptoms Mouth: Reports No symptoms Throat: Reports No symptoms Cardiovascular: Reports No symptoms Respiratory: Reports Shortness of air Gastrointestinal: Reports No symptoms Genitourinary: Reports No Symptoms Musculoskeletal: Reports Back Pain Endocrine: Reports No symptoms Hematology: Reports No symptoms Immunology: Reports No symptoms Neurological: Reports No symptoms Psychiatric: Reports No symptoms Physical examination Most Recent Vital Signs: Most Recent Vital Signs Temperature 98.4 F 12/25/22 08:15 Temperature Source Oral 12/25/22 08:15 Temperature Source Infrared 12/25/22 06:11 Pulse Rate 91 12/25/22 08:15 Respiratory Rate 26 H 12/25/22 08:15 Blood Pressure 184/89 H 12/25/22 06:11 Blood Pressure Left Arm 195/85 12/25/22 08:15 Blood Pressure Position Sitting 12/25/22 08:15 O2 Sat by Pulse Oximetry 97 12/25/22 08:15 Oxygen Delivery Method Nasal Cannula 12/25/22 08:15 Oxygen Flow Rate 2 12/25/22 08:15 Height 5 ft 3 in 12/25/22 08:15 Weight 111 lb 3 oz 12/25/22 08:32 Telemetry Type Remote Telemetry 12/25/22 08:51 Telemetry Monitoring Started 12/25/22 08:51 Telemetry Heart Rate 100 12/25/22 08:51 Telemetry SPO2 97 12/25/22 08:51 EKG ND Interval 0.16 12/25/22 08:51 EKG QRS Interval 0.08 12/25/22 08:[address] 12/25/22 08:51 Appearance: Positive Well-appearing, No Apparent Distress, Alert and Oriented x3 and Thin HEENT: Positive Normocephalic Neck: Positive Supple Chest/Lungs: Positive Symmetrical With Equal Breath Sounds, Wheezes (Expiratory in bases), Good Air Movement all 4 Lung [place] and Other (Diminished ) Heart: Positive RRR and Pulses Normal GI/: Positive Soft, Nontender, Bowel Sounds Normal, No Distention and No Organomegaly Musculoskeletal: Positive Not Examined Extremities: Positive Intact Peripheral Pulses Neurological: Positive Sensation Intact, Motor intact, Alert and Oriented Psychiatric: Positive Oriented x4, Appropriate Mood, Appropriate Affect, Intact Memory and Normal Judgement Labs This Visit Labs This Visit: Labs This Visit 12/25/22 12/25/22 06:15 06:30 WBC 11.94 H RBC 4.13 L Hgb 11.6 L Hct 37.9 MCV 91.8 MCH 28.1 MCHC 30.6 L RDW Coeff of [place] 13.9 Plt Count 326 Immature Gran % (Auto) 0.6 Neut % (Auto) 48.1 Lymph % (Auto) 38.0 [place] % (Auto) 10.5 H Eos % (Auto) 2.0 Baso % (Auto) 0.8 Neut # (Auto) 5.7 Lymph # (Auto) 4.5 H [place] # (Auto) 1.3 Eos # (Auto) 0.2 Baso # (Auto) 0.1 Immature Gran # (Auto) 0.1 Sodium 136.7 Potassium 3.96 Chloride 92.7 L Carbon Dioxide 37.3 H Anion Gap 10.66 BUN 11.2 Creatinine 0.40 L Estimated GFR (MDRD) 158.00 BUN/Creatinine Ratio 28.00 Glucose 88.2 Lactic Acid 1.10 Calcium 9.07 Total Bilirubin 0.25 AST 22.7 ALT 11.5 Alkaline Phosphatase 65.1 Troponin I 0.015 NT-Pro-B Natriuret Pep 840 H Total Protein 7.21 Albumin 3.96 Globulin 3.25 Albumin/Globulin Ratio 1.21 SARS CoV-2 RNA Rapid BRIAN Negative Imaging Imaging: EXAM: SINGLE VIEW OF THE CHEST. History: Short of breath Comparison: Chest radiograph 12/22/2022 FINDINGS: Heart size is normal. Biapical lung scarring. No consolidation. No pleural fluid and no pneumothorax. No acute osseous abnormalities. Impression: No acute cardiopulmonary process Review Statement Review Statement: I have independently reviewed and interpreted the labs/EKGs/imaging that were ordered by the ER provider. I have reviewed all outside records that are available currently in our EMR including imaging/notes/labs from previous visits. Plan Plan: 1. COPD exacerbation - IVP Solumedrol 40 mg Q8, Duoneb Q4, Albuterol PRN Q4, Daily CBC, CMP, IV Levaquin 750, continue PO discharge 2. CHF - daily weight, I&O, fluid restriction 1,800 mL 3. Hypertension - Chronic, stable, continue home medications 4. Seizures, unknown type - Chronic, stable continue home medications 5. Hyperlipidemia - Chronic, stable, continue home mediations 6. Tobacco use - discussed cessation, nicotine patch if patient desires DVT Prophylaxis: Plavix Time Spent: Greater than 80 minutes spent with patient, 50% of the time spent with this patient was devoted to counseling and coordination of care. [facility] Plannin minutes spent discussing advance care planning. Smoking Cessation: 5 minutes spent discussing smoking cessation. Disposition: Admit to: Med/Surg Observation Full Code Discussed Plan of Care with Dr. John Lopez Medications Medication Orders: Medications Ordered Category Date Time Status Albuterol Sulfate 0.083% Neb [Albuterol 0.083% Neb] Meds 12/25/22 08:27 Active 2.5 mg NEB RTQ4H PRN Ipratropium/Albuterol Neb [Duoneb] Meds 12/25/22 10:00 Active 3 ml NEB RTQ4H Methylprednisolone Sod Succ/Pf [Solu-Medrol 40 mg] Meds 12/25/22 14:00 Active 40 mg IVP Q8HR
[2022-12-25] MEDS ORDERED: ZANAFLEX PO PRN (09:48)
[2022-12-25] MEDS ORDERED: BUSPAR PO PRN (10:00)
[2022-12-25] MEDS: DUONEB NEB SCH ×4 (10:10→22:05)
[2022-12-25] MEDS: DEPAKOTE PO SCH ×2 (10:44→21:20)
[2022-12-25] MEDS: FLONASE NAS SCH (10:44)
[2022-12-25] MEDS: KEPPRA PO SCH ×2 (10:45→21:20)
[2022-12-25] MEDS: MUCINEX PO SCH ×2 (10:45→21:21)
[2022-12-25] MEDS: PLAVIX PO SCH (10:45)
[2022-12-25] MEDS: LIPITOR PO SCH (10:45)
[2022-12-25] MEDS: COLACE PO SCH (10:45)
[2022-12-25] MEDS: ZOLOFT PO SCH (10:46)
[2022-12-25] MEDS: ZESTRIL PO SCH (10:46)
[2022-12-25] MEDS: LEVAQUIN 750 MG/150 ML D5W 750 MG/150 ML BAG IV SCH (10:46)
[2022-12-25] MEDS: PROTONIX PO SCH (11:23)
[2022-12-25] MEDS: SOLU-MEDROL 40 MG IVP SCH ×2 (14:03→21:22)
[2022-12-25] MEDS: XALATAN RIGHTEYE SCH (21:19)
[2022-12-25] MEDS: REMERON PO SCH (21:20)
[2022-12-25] MEDS: NORCO 5-325 PO PRN (21:20)
[2022-12-26] MEDS: DUONEB NEB SCH ×6 (01:06→21:40)
[2022-12-26] MEDS: NORCO 5-325 PO PRN ×2 (05:39→20:24)
[2022-12-26] MEDS: SOLU-MEDROL 40 MG IVP SCH ×3 (05:39→20:43)
[2022-12-26] MEDS: PROTONIX PO SCH (05:40)
[2022-12-26 06:06] LABS: BASOPHILS % (AUTO) 0.2 % (0.0-3.0); HEMATOCRIT 32.8 % (37.0-47.0); HEMOGLOBIN 10.1 g/dl (12.0-16.0); IMMATURE GRANULOCYTE # (AUTO) 0.1 (0.0-1.0); IMMATURE GRANULOCYTE % (AUTO) 0.7 % (0.0-5.0); LYMPHOCYTES # (AUTO) 2.5 K/uL (0.60-3.4); LYMPHOCYTES % (AUTO) 21.2 (10.0-50.0); MEAN CORPUSCULAR HEMOGLOBIN 27.8 pg (27.0-31.0); MEAN CORPUSCULAR HGB CONC 30.8 (31.8-35.4); MEAN CORPUSCULAR VOLUME 90.4 fl (81.0-99.0); MONOCYTES # (AUTO) 0.7 K/uL (0.4-2.0); NEUTROPHILS # (AUTO) 8.3 K/ul (2.0-6.9); NEUTROPHILS % (AUTO) 71.9 % (42.2-75.2); PLATELET COUNT 282 10^3/uL (140-440); RED BLOOD COUNT 3.63 10^6/ul (4.20-5.40); WHITE BLOOD COUNT 11.57 K/ul (4.6-10.2)
[2022-12-26 06:21] LABS: ALBUMIN 3.52 g/dL (3.5-5.0); ALKALINE PHOSPHATASE 56.9 U/L (53-141); ASPARTATE AMINO TRANSFERASE 22.4 U/L (14-36); BILIRUBIN,TOTAL 0.13 mg/dL (0.2-1.3); BLOOD UREA NITROGEN 15.1 mg/dL (7-17); CALCIUM 8.82 mg/dL (8.4-10.2); CARBON DIOXIDE 35.1 mmol/L (22-30.0); CHLORIDE 92.2 mmol/L (98-107); CREATININE 0.42 mg/dL (0.60-1.30); GLUCOSE 123.8 mg/dL (74-106); POTASSIUM 4.18 mmol/L (3.5-5.1); SODIUM 131.2 mmol/L (134.5-145); TOTAL PROTEIN 6.4 g/dL (6.3-8.2)
[2022-12-26] MEDS: KEPPRA PO SCH ×2 (08:44→20:22)
[2022-12-26] MEDS: COLACE PO SCH (08:44)
[2022-12-26] MEDS: ZOLOFT PO SCH (08:44)
[2022-12-26] MEDS: LEVAQUIN 750 MG/150 ML D5W 750 MG/150 ML BAG IV SCH (08:44)
[2022-12-26] MEDS: ZESTRIL PO SCH (08:44)
[2022-12-26] MEDS: MUCINEX PO SCH ×2 (08:44→20:24)
[2022-12-26] MEDS: DEPAKOTE PO SCH ×2 (08:44→20:24)
[2022-12-26] MEDS: LIPITOR PO SCH (08:44)
[2022-12-26] MEDS: PLAVIX PO SCH (08:45)
[2022-12-26] MEDS: FLONASE NAS SCH (09:12)
--- NOTE | 2022-12-26 13:18 | PCM.PROG ---
Date/Time Seen Date Seen by Provider: 12/26/22 Time Seen by Provider: 09:00 Provider Provider: CARLOS WALKER PA-C, [facility] Chief Complaint Chief Complaint: COPD EXACERBATION Subjective Subjective: Patient feeling better from a breathing standpoint. On baseline O2. States she's still too weak to walk. Lives in an apt and needs to be able to stand to cook and walk to restroom. She also had an episode of choking this morning on breakfast. States it's been happening on and off for the past 2 months, usually with meats. Objective Appearance: Positive Alert and Oriented x3, Thin and Other (+chronically ill appearing ) Chest/Lungs: Positive Other (+decreased air movement bilaterally. Pt is tripoding, states she does this at baseline. ) Heart: Positive RRR GI/: Positive Soft, Nontender, Bowel Sounds Normal and No Distention Neurological: Positive Cranial Nerves Intact, Alert, Oriented and Other (+generalized weakness ) Vital Signs Vital Signs: Vital Signs: Last 24 Hours 12/25/22 14:00 12/25/22 14:00 12/25/22 19:48 Temperature 98.0 F Temperature Source Oral Pulse Rate 97 Respiratory Rate 28 H Blood Pressure 140/73 Blood Pressure Mean 95 Blood Pressure Location Left Arm Blood Pressure Position O2 Sat by Pulse Oximetry 97 96 Oxygen Delivery Method Nasal Cannula Nasal Cannula Nasal Cannula Oxygen Flow Rate 2.5 2 2.5 Telemetry Type Telemetry Monitoring Telemetry Heart Rate Telemetry SPO2 EKG [place] Interval EKG QRS Interval Telemetry Strip Reading 12/25/22 20:00 12/25/22 19:00 12/25/22 22:00 Temperature 97.9 F Temperature Source Oral Pulse Rate 95 Respiratory Rate 19 20 Blood Pressure 183/82 H Blood Pressure Mean 115 Blood Pressure Location Left Arm Blood Pressure Position Supine O2 Sat by Pulse Oximetry 100 Oxygen Delivery Method Nasal Cannula Room Air Oxygen Flow Rate 2 Telemetry Type Remote Telemetry Telemetry Monitoring Continues Telemetry Heart Rate 98 Telemetry SPO2 96 EKG [place] Interval 0.13 EKG QRS Interval 0.07 Telemetry Strip Reading SR 12/26/22 01:00 12/26/22 05:31 12/26/22 05:52 Temperature 97.2 F L Temperature Source Oral Pulse Rate 82 Respiratory Rate 20 Blood Pressure 163/75 H Blood Pressure Mean 104 Blood Pressure Location Left Arm Blood Pressure Position Supine O2 Sat by Pulse Oximetry 99 Oxygen Delivery Method Nasal Cannula Nasal Cannula Oxygen Flow Rate 2 2 Telemetry Type Remote Telemetry Telemetry Monitoring Continues Telemetry Heart Rate 93 Telemetry SPO2 98 EKG [place] Interval 0.12 EKG QRS Interval 0.08 Telemetry Strip Reading SR 12/26/22 09:55 12/26/22 08:00 12/26/22 07:00 Temperature Temperature Source Pulse Rate Respiratory Rate Blood Pressure Blood Pressure Mean Blood Pressure Location Blood Pressure Position O2 Sat by Pulse Oximetry 94 L Oxygen Delivery Method Nasal Cannula Nasal Cannula Oxygen Flow Rate 3 2 Telemetry Type Remote Telemetry Telemetry Monitoring Continues Telemetry Heart Rate 100 Telemetry SPO2 EKG [place] Interval EKG QRS Interval Telemetry Strip Reading sr Lab Results Lab Results: Lab Results: Last 24 Hours 12/26/22 05:26 WBC 11.57 H RBC 3.63 L Hgb 10.1 L Hct 32.8 L MCV 90.4 MCH 27.8 MCHC 30.8 L RDW Coeff of Rocky 14.0 Plt Count 282 Immature Gran % (Auto) 0.7 Neut % (Auto) 71.9 Lymph % (Auto) 21.2 Weld % (Auto) 6.0 Eos % (Auto) 0.0 Baso % (Auto) 0.2 Neut # (Auto) 8.3 H Lymph # (Auto) 2.5 Weld # (Auto) 0.7 Eos # (Auto) 0.0 Baso # (Auto) 0.0 Immature Gran # (Auto) 0.1 Sodium 131.2 L Potassium 4.18 Chloride 92.2 L Carbon Dioxide 35.1 H Anion Gap 8.08 BUN 15.1 Creatinine 0.42 L Estimated GFR (MDRD) 150.00 BUN/Creatinine Ratio 35.95 Glucose 123.8 H Calcium 8.82 Total Bilirubin 0.13 L AST 22.4 ALT 13.0 Alkaline Phosphatase 56.9 Total Protein 6.40 Albumin 3.52 Globulin 2.88 Albumin/Globulin Ratio 1.22 Additional Comments Additional Comments: I have independently reviewed and interpreted the labs/EKGs/imaging ordered during this hospital stay. I have reviewed outside records that are available in our EMR that pertain to medical stay including imaging/notes/labs from previous visits. Active Medications Active Medications: Medications Generic Name Dose Route Start Last Admin Trade Name Freq PRN Reason Stop Dose Admin Hydrocodone Bitart/Acetaminophen 0.5 - 1 tab 12/25/22 09:48 12/26/22 05:39 Hydrocodone Bit/Acetaminophen 5/325 Mg Tablet PO 1 tab BID PRN Administration Pain Albuterol Sulfate 2.5 mg 12/25/22 08:27 Albuterol Sulfate 0.083% Vial.Neb NEB RTQ4H PRN Wheezing Albuterol/Ipratropium 3 ml 12/25/22 10:00 12/26/22 09:57 Ipratropium/Albuterol Vial.Neb NEB 3 ml RTQ4H CHRIS Administration Atorvastatin Calcium 10 mg 12/25/22 10:00 12/26/22 08:44 Atorvastatin Calcium 10 Mg Tablet PO 10 mg DAILY CHRIS Administration Buspirone HCl 10 mg 12/25/22 10:00 Buspirone Hcl 10 Mg Tablet PO TID PRN ANXIETY Clopidogrel Bisulfate 75 mg 12/25/22 10:00 12/26/22 08:45 Clopidogrel Bisulfate 75 Mg Tablet PO 75 mg DAILY CHRIS Administration Divalproex Sodium 500 mg 12/25/22 09:50 12/26/22 08:44 Divalproex Sodium 250 Mg Tablet.Dr PO 500 mg BID CHRIS Administration Docusate Sodium 100 mg 12/25/22 10:30 12/26/22 08:44 Docusate Sodium 100 Mg Capsule PO 100 mg DAILY CHRIS Administration Fluticasone Propionate 1 spray 12/25/22 10:00 12/26/22 09:12 Fluticasone Propionate 16 Gm Nasal Sylvester ERNESTO 1 spray DAILY CHRIS Administration Guaifenesin 600 mg 12/25/22 10:00 12/26/22 08:44 Guaifenesin 600 Mg Tablet.Er PO 600 mg BID CHRIS Administration Levofloxacin/Dextrose 750 mg in 150 mls @ 100 mls/hr 12/25/22 09:35 12/26/22 08:44 Levaquin 750 Mg/150 Ml D5w IV 12/28/22 09:34 100 mls/hr DAILY CHRIS Administration Latanoprost 1 drop 12/25/22 21:00 12/25/22 21:19 Latanoprost 2.5 Ml Opth Lucero RIGHTEYE 1 drop BEDTIME CHRIS Administration Levetiracetam 750 mg 12/25/22 10:00 12/26/22 08:44 Levetiracetam 500 Mg Tablet PO 750 mg BID CHRIS Administration Lisinopril 10 mg 12/25/22 10:00 12/26/22 08:44 Lisinopril 10 Mg Tablet PO 10 mg DAILY CHRIS Administration Methylprednisolone Sodium Succinate 40 mg 12/25/22 14:00 12/26/22 05:39 Methylprednisolone Sod Succ/Pf 40 Mg/Ml Vial IVP 40 mg Q8HR CHRIS Administration Mirtazapine 30 mg 12/25/22 21:00 12/25/22 21:20 Mirtazapine 15 Mg Tablet PO 30 mg BEDTIME CHRIS Administration Pantoprazole Sodium 40 mg 12/25/22 10:00 12/26/22 05:40 Pantoprazole Sodium 40 Mg Tablet. PO 40 mg QDAC2 CHRIS Administration Sertraline HCl 50 mg 12/25/22 10:00 12/26/22 08:44 Sertraline Hcl 50 Mg Tablet PO 50 mg DAILY CHRIS Administration Tizanidine HCl 2 mg 12/25/22 09:48 Tizanidine Hcl 4 Mg Tablet PO BID PRN Spasms Plan Plan: 1. Acute COPD exacerbation - IVP Solumedrol 40 mg Q8, Duoneb Q4, Albuterol PRN Q4, Daily CBC, CMP, IV Levaquin 750, continue PO discharge 2. CHF, unknown type - daily weight, I&O, fluid restriction 1,800 mL 3. Hypertension - Chronic, stable, continue home medications 4. Seizures, unknown type - Chronic, stable continue home medications 5. Hyperlipidemia - Chronic, stable, continue home mediations 6. Tobacco use - discussed cessation, nicotine patch if patient desires 7. Weakness - PT/OT 8. Dysphagia - Swallow eval done, no changes made. Would recommend outpatient w ork up including EGD. DVT Prophylaxis: Lovenox Review Statement Review Statement: I have personally discussed and reviewed the patient's visit/currently labs/imaging/decision making with Dr. Lopez, my supervising attending. Greater that 50 minutes spent with patient, 50% of the time spent with this patient was devoted to counseling and coordination of care.
[2022-12-26] MEDS: LOVENOX SUBCUT SCH (14:35)
[2022-12-26] MEDS: XALATAN RIGHTEYE SCH (20:24)
[2022-12-26] MEDS: REMERON PO SCH (20:24)
[2022-12-26 21:55] VITALS: RESP 20
[2022-12-27] MEDS: DUONEB NEB SCH ×3 (02:00→13:15)
[2022-12-27] MEDS: SOLU-MEDROL 40 MG IVP SCH ×2 (05:03→14:06)
[2022-12-27] MEDS: PROTONIX PO SCH (05:03)
[2022-12-27 05:20] LABS: BASOPHILS % (AUTO) 0.2 % (0.0-3.0); EOSINOPHILS % (AUTO) 0.1 % (0.0-7.0); HEMATOCRIT 33.9 % (37.0-47.0); HEMOGLOBIN 10.5 g/dl (12.0-16.0); IMMATURE GRANULOCYTE # (AUTO) 0.1 (0.0-1.0); IMMATURE GRANULOCYTE % (AUTO) 0.6 % (0.0-5.0); LYMPHOCYTES # (AUTO) 2.4 K/uL (0.60-3.4); LYMPHOCYTES % (AUTO) 23.1 (10.0-50.0); MEAN CORPUSCULAR HEMOGLOBIN 28.1 pg (27.0-31.0); MEAN CORPUSCULAR VOLUME 90.6 fl (81.0-99.0); MONOCYTES # (AUTO) 0.6 K/uL (0.4-2.0); MONOCYTES % (AUTO) 5.8 (0-10); NEUTROPHILS # (AUTO) 7.3 K/ul (2.0-6.9); NEUTROPHILS % (AUTO) 70.2 % (42.2-75.2); PLATELET COUNT 281 10^3/uL (140-440); RDW COEFFICIENT OF VARIATION 14.2 % (11.6-14.8); RED BLOOD COUNT 3.74 10^6/ul (4.20-5.40); WHITE BLOOD COUNT 10.37 K/ul (4.6-10.2)
[2022-12-27 05:33] VITALS: BP 126/68; PULSE 86; TEMP 97
[2022-12-27 05:34] LABS: ALANINE AMINOTRANSFERASE 12.3 U/L (0-35); ALBUMIN 3.61 g/dL (3.5-5.0); ALKALINE PHOSPHATASE 57.9 U/L (53-141); ASPARTATE AMINO TRANSFERASE 22.2 U/L (14-36); BILIRUBIN,TOTAL 0.17 mg/dL (0.2-1.3); BLOOD UREA NITROGEN 16.6 mg/dL (7-17); CALCIUM 9.03 mg/dL (8.4-10.2); CARBON DIOXIDE 35.8 mmol/L (22-30.0); CHLORIDE 91.2 mmol/L (98-107); CREATININE 0.48 mg/dL (0.60-1.30); GLUCOSE 116.8 mg/dL (74-106); POTASSIUM 4.82 mmol/L (3.5-5.1); SODIUM 131.5 mmol/L (134.5-145); TOTAL PROTEIN 6.52 g/dL (6.3-8.2)
[2022-12-27] MEDS: LEVAQUIN 750 MG/150 ML D5W 750 MG/150 ML BAG IV SCH (09:09)
[2022-12-27] MEDS: MUCINEX PO SCH (09:10)
[2022-12-27] MEDS: KEPPRA PO SCH (09:10)
[2022-12-27] MEDS: DEPAKOTE PO SCH (09:11)
[2022-12-27] MEDS: PLAVIX PO SCH (09:11)
[2022-12-27] MEDS: ZESTRIL PO SCH (09:11)
[2022-12-27] MEDS: ZOLOFT PO SCH (09:11)
[2022-12-27] MEDS: COLACE PO SCH (09:11)
[2022-12-27] MEDS: LOVENOX SUBCUT SCH (09:11)
[2022-12-27] MEDS: LIPITOR PO SCH (09:11)
--- NOTE | 2022-12-27 09:26 | DCSUM ---
Admission Date Admission Date: 12/25/22 Discharge Date Discharge Date: 12/27/22 Admission Diagnosis Admission Diagnosis: 1. Acute COPD Exacerbation Discharge Diagnosis Discharge Diagnosis: 1. Acute COPD exacerbation - Improved 2. CHF, unknown type - chronic, stable 3. Hypertension - Chronic, stable 4. Seizures, unknown type - Chronic, stable 5. Hyperlipidemia - Chronic, stable 6. Tobacco use 7. Dysphagia Hospital Provider Hospital Provider: CARLOS WALKER PA-C, [facility] [place] Primary Care Physician Primary Care Physician: GUTIERREZ ROSA APRN Summary of History and Physical Summary of History and Physical: 67 year old female presented to the ER with increased shortness of breath and cough that has gradually been getting worse over the last week. She has a history of COPD. She denies any fever, chills, or chest pain. It increasingly got worse last night, she felt like she could not catch her breath even after doing a nebulizer treatment. She recently saw her Scientific Artist who gave her samples of Perforomist and Yuperli which had been helping with her COPD but then ran out of one and she felt like she was declining. She was also started on Augmentin and Prednisone, that she picked up on 12/19. She has been bumping her home O2 from 2L to 4L to help. She states that the shortness of air is worsened on exertion. States that her only rescue nebulizer that she has is her albuterol in which she is prescribed to use every 6 hours. Her O2 sat has remained above 94% on her home O2 of 2L. Her EKG in ER resulted normal sinus and the Chest X- ray showed no acute. She received 60 mg Methylprednisolone and a Duoneb in the ER. She complains of midback pain. Patient has no other concerns or questions at this time Hospital Course Subjective: Patient was treated with solumedrol, levaquin, nebs. She was on her baseline O2 requirement. Breathing at baseline. She felt too weak for discharge on 12/26. On 12/27 she felt better and comfortable with discharge to home. Worked with pt/ot. She did have one episode of choking on her food. She states this has been ongoing for last couple months, especially with meats. Speech evaluated her, no changes to her diet. However discussed she should f/u with pcp and consider outpatient work up, especially with her heavy history of smoking. Pt agrees to plan of care. Will dc on prednisone and levaquin. Continue inhalers recently prescribed by pulmonology, f/u with them as scheduled. Appearance: Pleasant, No Apparent Distress, Alert and Other (+thin) HEENT: MMM CVS: No Murmur Abdomen: Soft, Non-Tender and No Distention Respiratory: Other (+dyspnea at rest at baseline. Pt feels at her baseline. Not tripoding as much today. Lung sounds very diminished. No significant wheezing. On baseline O2 requirement. ) Extremities: No Edema Vital Signs: Most Recent Vital Signs Temperature 97 F L 12/27/22 05:32 Temperature Source Temporal Artery Scan 12/27/22 05:32 Temperature Source Infrared 12/25/22 06:11 Pulse Rate 86 12/27/22 05:32 Respiratory Rate 20 12/27/22 05:32 Blood Pressure 126/68 12/27/22 05:32 Blood Pressure Mean 87 12/27/22 05:32 Blood Pressure Left Arm 195/85 12/25/22 08:15 Blood Pressure Location Left Arm 12/27/22 05:32 Blood Pressure Position Supine 12/27/22 05:32 O2 Sat by Pulse Oximetry 95 12/27/22 05:32 Oxygen Delivery Method Nasal Cannula 12/27/22 09:00 Oxygen Flow Rate 2 12/27/22 08:00 Height 5 ft 3 in 12/25/22 08:15 Weight 111 lb 3 oz 12/25/22 08:32 Telemetry Type Remote Telemetry 12/27/22 07:00 Telemetry Monitoring Continues 12/27/22 07:00 Telemetry Heart Rate 81 12/27/22 07:00 Telemetry SPO2 98 12/26/22 01:00 EKG [place] Interval 0.14 12/27/22 07:00 EKG QRS Interval 0.04 L 12/27/22 07:00 EKG QT Interval 0.36 12/27/22 01:00 Telemetry Strip Reading sr 12/27/22 07:00 Imaging: EXAM: SINGLE VIEW OF THE CHEST. History: Short of breath Comparison: Chest radiograph 12/22/2022 FINDINGS: Heart size is normal. Biapical lung scarring. No consolidation. No pleural fluid and no pneumothorax. No acute osseous abnormalities. Impression: No acute cardiopulmonary process Lab Results Last 24 Hours: 12/27/22 04:50 WBC 10.37 H RBC 3.74 L Hgb 10.5 L Hct 33.9 L MCV 90.6 MCH 28.1 MCHC 31.0 L RDW Coeff of Rocky 14.2 Plt Count 281 Immature Gran % (Auto) 0.6 Neut % (Auto) 70.2 Lymph % (Auto) 23.1 Centre % (Auto) 5.8 Eos % (Auto) 0.1 Baso % (Auto) 0.2 Neut # (Auto) 7.3 H Lymph # (Auto) 2.4 Centre # (Auto) 0.6 Eos # (Auto) 0.0 Baso # (Auto) 0.0 Immature Gran # (Auto) 0.1 Sodium 131.5 L Potassium 4.82 Chloride 91.2 L Carbon Dioxide 35.8 H Anion Gap 9.32 BUN 16.6 Creatinine 0.48 L Estimated GFR (MDRD) 128.00 BUN/Creatinine Ratio 34.58 Glucose 116.8 H Calcium 9.03 Total Bilirubin 0.17 L AST 22.2 ALT 12.3 Alkaline Phosphatase 57.9 Total Protein 6.52 Albumin 3.61 Globulin 2.91 Albumin/Globulin Ratio 1.24 Discharge Instructions Discharge Planning: Discharge Planning > [address] John Lopez. Discharge Medications: Medications at Discharge (Home Meds & RX) latanoprost 0.005 % eye drops 1 drp RIGHTEYE BEDTIME 02/16/14 dextran 70-hypromellose 0.1 %-0.3 % eye drops (Artificial Tears (dextran 70- hypromellose)) 1 drp BOTHEYES DIRECTED PRN DRY EYES 05/07/17 docusate sodium 50 mg capsule (Stool Softener) 50 mg PO QDAY 09/21/20 wdszikqncyzo-noqbehun-nkxwpyy-folic acid 400 mcg-vit K1 20 mcg tablet (One-A-Day Women's 50 Plus) 1 tab PO QDAY 08/18/21 fluticasone propionate 50 mcg/actuation nasal spray,suspension See Rx Instructions .Route .COMPLEX #16 ea 02/14/22 albuterol sulfate 2.5 mg/3 mL (0.083 %) solution for nebulization 2.5 mg (3 mL) inhalation Q4-6H PRN shortness of breath or wheezing #15 mL 06/15/22 loratadine 10 mg tablet (Allergy Relief (loratadine)) 10 mg PO QDAY PRN allergic symptoms #30 tabs 08/16/22 atorvastatin 10 mg tablet See Rx Instructions .Route .COMPLEX #90 tabs 09/20/22 tizanidine 2 mg tablet 2 mg PO BID PRN muscle spasticity #10 tabs 10/11/22 sertraline 50 mg tablet See Rx Instructions .Route .COMPLEX #90 tabs 10/20/22 albuterol sulfate 90 mcg/actuation aerosol inhaler See Rx Instructions .Route .COMPLEX #6.7 ea 11/07/22 clopidogrel 75 mg tablet See Rx Instructions .Route .COMPLEX #30 tabs 11/21/22 pantoprazole 40 mg tablet,delayed release See Rx Instructions .Route .COMPLEX #30 tabs 11/21/22 Chux pads (underpads) #100 ea 11/23/22 guaifenesin 600 mg tablet, extended release 12 hr (Mucinex) 600 mg PO BID #60 tabs 11/23/22 lisinopril 10 mg tablet See Rx Instructions .Route .COMPLEX #30 tabs 12/20/22 mirtazapine 30 mg tablet See Rx Instructions .Route .COMPLEX #30 tabs 12/20/22 buspirone 10 mg tablet See Rx Instructions .Route .COMPLEX #90 tabs 12/21/22 divalproex 500 mg tablet,delayed release See Rx Instructions .Route .COMPLEX #180 tabs 12/21/22 divalproex 500 mg tablet,delayed release (Depakote) 500 mg PO BID 90 days #180 tabs 12/21/22 levetiracetam 750 mg tablet See Rx Instructions .Route .COMPLEX #180 tabs 12/21/22 hydrocodone 5 mg-acetaminophen 325 mg tablet 1 tab PO BID PRN pain #6 tabs 12/22/22 naloxone 4 mg/actuation nasal spray (Narcan) 1 spray intranasal Q2-3M PRN opioid overdose #2 ea 12/22/22 permofix inhalation BID 12/22/22 revefenacin 175 mcg/3 mL solution for nebulization (Yupelri) 175 mcg inhalation QDAY 12/22/22 levofloxacin 750 mg tablet 750 mg PO DAILY COPD EXACERBATION 4 days #4 tabs 12/27/22 prednisone 20 mg tablet 20 mg PO BID 5 days #10 tabs 12/27/22 Discharge Plan Discharge Discharge Orders: Discharge Patient (ONCE); Ordered 12/27/22 Ordered By: CARLOS WALKER Activity Restrictions/Additional Instructions: DISCHARGE TO HOME F/U WITH PCP REGARDING SWALLOWING ISSUES DIET: HEART HEALTHY ACTIVITY: TOLERATED F/U WITH PULMONOLOGY SCHEDULED FINISH ANTIBIOTICS AND STEROIDS Instructions: COPD (Chronic Obstructive Pulmonary Disease) (GEN) Care Plan Goals: Problem: Impaired Respiratory Status Goal: Exhibit optimal respiratory function Instructions: Activities as tolerated Apply oxygen as ordered Elevate head of bed Notify MD of increased congestion Patient Disposition: HOME SELF-CARE Prescriptions: New levofloxacin 750 mg tablet 750 mg PO DAILY 4 Days Qty: 4 0RF Rx Instructions: STARTING 12/28/22 prednisone 20 mg tablet 20 mg PO BID 5 Days Qty: 10 0RF Continued fluticasone propionate 50 mcg/actuation spray,suspension See Rx Instructions .ROUTE .COMPLEX Qty: 16 2RF Dose Instruction: USE ONE SPRAY IN EACH NOSTRIL DAILY Rx Instructions: USE ONE SPRAY IN EACH NOSTRIL DAILY atorvastatin 10 mg tablet See Rx Instructions .ROUTE .COMPLEX Qty: 90 3RF Dose Instruction: TAKE ONE TABLET DAILY Rx Instructions: TAKE ONE TABLET DAILY sertraline 50 mg tablet See Rx Instructions .ROUTE .COMPLEX Qty: 90 1RF Dose Instruction: TAKE ONE TABLET DAILY GENERIC FOR ZOLOFT Rx Instructions: TAKE ONE TABLET DAILY GENERIC FOR ZOLOFT albuterol sulfate 90 mcg/actuation HFA aerosol inhaler See Rx Instructions .ROUTE .COMPLEX Qty: 6.7 2RF Dose Instruction: USE 2 PUFFS EVERY FOUR (4) HOURS NEEDED FOR SHORTNESS OF BREATH Rx Instructions: USE 2 PUFFS EVERY FOUR (4) HOURS NEEDED FOR SHORTNESS OF BREATH pantoprazole 40 mg tablet,delayed release (DR/EC) See Rx Instructions .ROUTE .COMPLEX Qty: 30 1RF Dose Instruction: TAKE ONE TABLET DAILY GENERIC FOR PROTONIX Rx Instructions: TAKE ONE TABLET DAILY GENERIC FOR PROTONIX clopidogrel 75 mg tablet See Rx Instructions .ROUTE .COMPLEX Qty: 30 2RF Dose Instruction: TAKE ONE TABLET DAILY GENERIC FOR PLAVIX Rx Instructions: TAKE ONE TABLET DAILY GENERIC FOR PLAVIX lisinopril 10 mg tablet See Rx Instructions .ROUTE .COMPLEX Qty: 30 1RF Dose Instruction: TAKE ONE TABLET DAILY Rx Instructions: TAKE ONE TABLET DAILY mirtazapine 30 mg tablet See Rx Instructions .ROUTE .COMPLEX Qty: 30 2RF Dose Instruction: TAKE ONE TABLET AT BEDTIME GENERIC FOR REMERON Rx Instructions: TAKE ONE TABLET AT BEDTIME GENERIC FOR REMERON buspirone 10 mg tablet See Rx Instructions .ROUTE .COMPLEX Qty: 90 1RF Dose Instruction: TAKE ONE TABLET THREE TIMES DAILY NEEDED ANXIETY Rx Instructions: TAKE ONE TABLET THREE TIMES DAILY NEEDED ANXIETY levetiracetam 750 mg tablet See Rx Instructions .ROUTE .COMPLEX Qty: 180 3RF Dose Instruction: TAKE 1 TABLET (750 MG TOTAL) BY MOUTH 2 (TWO) TIMES A DAY Rx Instructions: TAKE 1 TABLET (750 MG TOTAL) BY MOUTH 2 (TWO) TIMES A DAY divalproex [Depakote] 500 mg tablet,delayed release (DR/EC) 500 mg PO BID 90 Days Qty: 180 1RF divalproex 500 mg tablet,delayed release (DR/EC) See Rx Instructions .ROUTE .COMPLEX Qty: 180 3RF Dose Instruction: TAKE 1 TABLET (500 MG TOTAL) BY MOUTH 2 (TWO) TIMES A DAY Rx Instructions: TAKE 1 TABLET (500 MG TOTAL) BY MOUTH 2 (TWO) TIMES A DAY latanoprost 1 DROP drops 1 drp RIGHTEYE BEDTIME Patient Comments: RIGHT EYE Artificial Tears([id number]) 30 ML drops 1 drp BOTHEYES DIRECTED PRN (Reason: DRY EYES) Stool Softener 50 mg capsule 50 mg PO QDAY albuterol sulfate 2.5 mg /3 mL (0.083 %) solution for nebulization 2.5 mg inhalation Q4-6H PRN (Reason: shortness of breath or wheezing) Qty: 15 2RF Yupelri 175 mcg/3 mL solution for nebulization 175 mcg inhalation QDAY permofix inhalation BID hydrocodone-acetaminophen 5-325 mg tablet 1 tab PO BID PRN (Reason: pain) Qty: 6 0RF Rx Instructions: Take 0.5-1 tab up to twice daily as needed for pain. naloxone [Narcan] 4 mg/actuation spray,non-aerosol 1 spray intranasal Q2-3M PRN (Reason: opioid overdose) Qty: 2 0RF Rx Instructions: spray 1 dose into ONE nostril; alternate nostrils w each dose until help arrives One-A-Day Women's 50 Plus 400-20 mcg tablet 1 tab PO QDAY loratadine [Allergy Relief (loratadine)] 10 mg tablet 10 mg PO QDAY PRN (Reason: allergic symptoms) Qty: 30 0RF tizanidine 2 mg tablet 2 mg PO BID PRN (Reason: muscle spasticity) Qty: 10 0RF guaifenesin [Mucinex] 600 mg tablet extended release 12hr 600 mg PO BID Qty: 60 3RF (DME) Chux pads (underpads) See Rx Instructions .ROUTE .MEDSUPPLY Qty: 100 3RF Rx Instructions: As directed Discontinued amoxicillin-pot clavulanate 875-125 mg tablet 1 tab PO BID Did you review [place] INCREMENT MANAGER for ALL controlled substances?: Not Applicable Discussed opioids are addictive and Narcan is available by prescription or from pharmacy.: No Condition: Stable
[2022-12-27] MEDS: FLONASE NAS SCH (09:31)
== END 2022-12-27 15:15 | disposition home or self-care (01) ==
LOC: ED 06:11 → INTOOBSV 07:40 → MEDSURG B 07:40
PROVIDERS: ADMIT Hospitalist; ATTEND Physician Assistant
DX: I10 Essential (primary) hypertension; M54.9 Dorsalgia, unspecified; R13.10 Dysphagia, unspecified; Z20.822 Contact with and (suspected) exposure to COVID-19; E78.5 Hyperlipidemia, unspecified; M62.81 Muscle weakness (generalized); J44.1 Chronic obstructive pulmonary disease with (acute) exacerbation; Z99.81 Dependence on supplemental oxygen; Z87.891 Personal history of nicotine dependence; Z79.899 Other long term (current) drug therapy; R56.9 Unspecified convulsions; I50.9 Heart failure, unspecified; Z51.81 Encounter for therapeutic drug level monitoring

== ENCOUNTER 2023-01-16 03:29 | Inpatient (IN) ==
[2023-01-16] MEDS ORDERED: DUONEB NEB ONE (04:23)
[2023-01-16] MEDS ORDERED: SUBLIMAZE IVP ONE (04:23)
[2023-01-16] MEDS ORDERED: SOLU-MEDROL 125 MG IVP ONE (04:23)
--- NOTE | 2023-01-16 04:29 | DI ---
EXAM: AP CHEST. HISTORY: Chronic obstructive pulmonary disease. FINDINGS: Comparison made with Chest x-ray of 12/25/2022. The bones are unremarkable. The cardiac s ilhouette and pulmonary vasculature are within normal limits. The costophrenic angles are clear. T here are bilateral emphysematous changes. Is minimal left upper lobe infiltrate versus scarring. Impression: Minimal left upper lobe infiltrate versus scarring. Chronic obstructive pulmonary disease.
[2023-01-16] MEDS: ALBUTEROL 0.083% NEB NEB SCH ×2 (04:37→06:11)
--- NOTE | 2023-01-16 04:37 | ED.PDOC ---
General ED Provider: Dr. ABRAHAM SINGH MD Chief Complaint: Respiratory Complaint Stated Complaint: CC: Back injury and COPD. "My back hurts" after bending over and picking up dog with a "pop" Been dealing with compression fx recently and on hydrocodone q 8 hours. Didn't fall. Known COPD on 2 L/BNC continuously complains of SOB on and off all days. Slight cough and slightly productive. No fever. Some chest tightness earlier. Heart cath 2 years ago at [place] with complete blockage of the right side but no stenting, per patient. No fever. She is on Yupelri daily which seem to help her the best. Recent office visit and fighting to get it renew. Was just hospitalized 3 weeks ago here and that was her only hospitalization in the past 12 months . Had quit smoking 2 years ago. Time Seen by Provider: 01/16/23 04:02 Mode of Arrival: Ambulance Information Source: Patient Exam Limitations: No limitations Primary Care Provider: GUTIERREZ ROSA APRN Referred to ED by: Other (self) Nursing and Triage Documentation Reviewed and Agree: Yes Review of Systems Review Of Systems Constitutional: Reports No symptoms Eyes: Reports No symptoms Ears, Nose, Mouth, Throat: Reports Epistaxis Respiratory: Reports Cough, Orthopnea, Shortness of Breath and Wheezing Cardiac: Reports Chest pain GI: Denies Abdominal pain or Vomiting : Reports No symptoms Musculoskeletal: Reports Back pain Skin: Reports No symptoms and Change in color Neurological: Reports No symptoms All Other Systems: Reviewed and Negative [facility] Medical History Back pain M54.9 - Dorsalgia, unspecified (ICD-10) Glaucoma H40.9 - Unspecified glaucoma (ICD-10) Cataract H26.9 - Unspecified cataract (ICD-10) Chronic obstructive pulmonary disease J44.9 - Chronic obstructive pulmonary disease, unspecified (ICD-10) Cerebrovascular accident I63.9 - Cerebral infarction, unspecified (ICD-10) Convulsions R56.9 - Unspecified convulsions (ICD-10) Epilepsy G40.909 - Epilepsy, unspecified, not intractable, without status epilepticus (ICD-10) Allergic sinusitis J30.9 - Allergic rhinitis, unspecified (ICD-10) Family History Mother Diabetes Cerebrovascular accident Cancer Social History Smoking and tobacco status: Former smoker Passive smoking exposure: No How long ago did patient quit smokin.5 YEARS AGO Quit status: has quit before Second hand smoke exposure: Yes Alcohol intake: never Surgical History History of musculoskeletal system surgery Z98.890 - Other specified postprocedural states (ICD-10) Status post tonsillectomy Z90.89 - Acquired absence of other organs (ICD-10) History of section Z98.891 - History of uterine scar from previous surgery (ICD-10) Status post angioplasty of vein Z98.890 - Other specified postprocedural states (ICD-10) Status post tonsillectomy and adenoidectomy Z90.89 - Acquired absence of other organs (ICD-10) Female Reproductive History Menstrual Hx Hysterectomy: No Hx Tubal Ligation: No Physical Exam Physical Exam Appearance: Denies Ill-appearing Ill-appearing: Moderate Pain Distress: Moderate Eyes: Reports INGRID and EOMI ENT: Reports Nose normal and Oropharynx normal Neck: Supple Respiratory: Reports Breath sounds diminished, Wheezes (Diffuse mid inspiratory and full expiratory wheezes thoroughout lung jefferson) and Retractions Cardiovascular: Reports RRR, Pulses normal, No rub and No murmur GI/: Reports Soft, Nontender, No masses, Bowel sounds normal and No Organomegaly; Denies Tender Musculoskeletal: Reports Normal strength, ROM intact and No edema Skin: Reports Warm and Dry Neurological: Reports Sensation intact and Motor intact Psychiatric: Reports Affect appropriate and Mood appropriate Interpretation EKG Interpretation EKG Interpretation By: ED Physician Time of EKG #1: 04:44 Rate: Tachy Rhythm: Sinus Ectopy: None [place]: NL ST Segment: Normal Interpretation: ant wall FL, age undetermined, Biatrial enlargement. Abnormal EKG Radiology Interpretation Radiology Interpretation By: ED Physician Radiology Results: Negative Exam Interpreted: Portable CXR Radiology Interpretation By: ED Physician Radiology Results: Negative Exam Interpreted: CT Scan (lumbar spine with no new compression fx) Critical Care Note Critical Care Note Total Critical Care Time (mins): 0 Course Course 01/16/23 04:03 01/16/23 04:03 Orders, Labs, Meds: Lab Review 01/16/23 01/16/23 01/16/23 04:03 04:23 Unknown WBC 8.69 RBC 4.09 L Hgb 11.3 L Hct 36.9 L MCV 90.2 MCH 27.6 MCHC 30.6 L RDW Coeff of [place] 13.9 Plt Count 298 Immature Gran % (Auto) 0.3 Neut % (Auto) 65.2 Lymph % (Auto) 20.4 [place] % (Auto) 9.0 Eos % (Auto) 4.8 Baso % (Auto) 0.3 Neut # (Auto) 5.7 Lymph # (Auto) 1.8 [place] # (Auto) 0.8 Eos # (Auto) 0.4 Baso # (Auto) 0.0 Immature Gran # (Auto) 0.0 Sodium 132.9 L Potassium 3.89 Chloride 91.3 L Carbon Dioxide 38.5 H Anion Gap 6.99 BUN 10.1 Creatinine 0.44 L Estimated GFR (MDRD) 142.00 BUN/Creatinine Ratio 22.95 Glucose 120.0 H Calcium 8.99 Total Bilirubin 0.27 AST 35.2 ALT 13.3 Alkaline Phosphatase 78.3 Troponin I < 0.012 NT-Pro-B Natriuret Pep 672 H Total Protein 7.36 Albumin 3.98 Globulin 3.38 Albumin/Globulin Ratio 1.17 Orders Category Date Time Status EKG-(ED ONLY) Stat CARDIO 01/16/23 04:37 Completed NEBULIZER TREATMENT Routine CARDIO 01/16/23 04:23 Completed CBC W/ AUTO DIFF Stat LAB 01/16/23 04:03 Completed CMP [COMPREHENSIVE METABOLIC PANEL] Stat LAB 01/16/23 04:03 Completed PROBNP ED [NT-PROBNP(ED)] Stat LAB 01/16/23 Completed TROPONIN I Stat LAB 01/16/23 04:23 Completed Albuterol Sulfate 0.083% Neb [Albuterol 0.083% Neb] Meds 01/16/23 05:13 Discontinued 2.5 mg NEB .STK-MED ONE Albuterol Sulfate 0.083% Neb [Albuterol 0.083% Neb] Meds 01/16/23 06:00 Active 2.5 mg NEB RTTID Fentanyl Citrate/Pf [Sublimaze] Meds 01/16/23 04:23 Discontinued 50 mcg IVP ONCE ONE Ipratropium/Albuterol Neb [Duoneb] Meds 01/16/23 04:23 Discontinued 3 ml NEB ONCE ONE Methylprednisolone Sod Succ/Pf [Solu-Medrol 125 mg] Meds 01/16/23 04:23 Discontinued 60 mg IVP ONCE ONE CHEST, 1V AP ONLY Stat RADS 01/16/23 04:[address] LUMBAR SPINE W/O CONTRAST Stat RADS 01/16/23 04:23 Completed Medications Generic Name Dose Route Start Last Admin Trade Name Freq PRN Reason Stop Dose Admin Albuterol Sulfate 2.5 mg 01/16/23 06:00 01/16/23 06:11 Albuterol Sulfate 0.083% Vial.Neb NEB 2.5 mg RTTID CHRIS Administration Discontinued Medications Generic Name Dose Route Start Last Admin Trade Name Freq PRN Reason Stop Dose Admin Albuterol/Ipratropium 3 ml 01/16/23 04:23 01/16/23 05:16 Ipratropium/Albuterol Vial.Neb NEB 01/16/23 04:24 3 ml ONCE ONE Administration Fentanyl Citrate 50 mcg 01/16/23 04:23 01/16/23 04:35 Fentanyl 50 Mcg/Ml Sdv IVP 01/16/23 04:24 Not Given ONCE ONE Methylprednisolone Sodium Succinate 60 mg 01/16/23 04:23 01/16/23 04:42 Methylprednisolone Sod Succ/Pf 125 Mg/2 Ml Vial IVP 01/16/23 04:24 60 mg ONCE ONE Administration Vital Signs: Temp Pulse Resp BP Pulse Ox 01/16/23 03:31 97.6 F 115 H 22 H 157/94 H 100 Discharge Plan Discharge Patient Disposition: PLACED OBSERVATION Discharge Problem: COPD exacerbation Prescriptions: No Action fluticasone propionate 50 mcg/actuation spray,suspension See Rx Instructions .ROUTE .COMPLEX Qty: 16 2RF Dose Instruction: USE ONE SPRAY IN EACH NOSTRIL DAILY Rx Instructions: USE ONE SPRAY IN EACH NOSTRIL DAILY atorvastatin 10 mg tablet See Rx Instructions .ROUTE .COMPLEX Qty: 90 3RF Dose Instruction: TAKE ONE TABLET DAILY Rx Instructions: TAKE ONE TABLET DAILY albuterol sulfate 90 mcg/actuation HFA aerosol inhaler See Rx Instructions .ROUTE .COMPLEX Qty: 6.7 2RF Dose Instruction: USE 2 PUFFS EVERY FOUR (4) HOURS NEEDED FOR SHORTNESS OF BREATH Rx Instructions: USE 2 PUFFS EVERY FOUR (4) HOURS NEEDED FOR SHORTNESS OF BREATH pantoprazole 40 mg tablet,delayed release (DR/EC) See Rx Instructions .ROUTE .COMPLEX Qty: 30 1RF Dose Instruction: TAKE ONE TABLET DAILY GENERIC FOR PROTONIX Rx Instructions: TAKE ONE TABLET DAILY GENERIC FOR PROTONIX clopidogrel 75 mg tablet See Rx Instructions .ROUTE .COMPLEX Qty: 30 2RF Dose Instruction: TAKE ONE TABLET DAILY GENERIC FOR PLAVIX Rx Instructions: TAKE ONE TABLET DAILY GENERIC FOR PLAVIX lisinopril 10 mg tablet See Rx Instructions .ROUTE .COMPLEX Qty: 30 1RF Dose Instruction: TAKE ONE TABLET DAILY Rx Instructions: TAKE ONE TABLET DAILY mirtazapine 30 mg tablet See Rx Instructions .ROUTE .COMPLEX Qty: 30 2RF Dose Instruction: TAKE ONE TABLET AT BEDTIME GENERIC FOR REMERON Rx Instructions: TAKE ONE TABLET AT BEDTIME GENERIC FOR REMERON buspirone 10 mg tablet See Rx Instructions .ROUTE .COMPLEX Qty: 90 1RF Dose Instruction: TAKE ONE TABLET THREE TIMES DAILY NEEDED ANXIETY Rx Instructions: TAKE ONE TABLET THREE TIMES DAILY NEEDED ANXIETY levetiracetam 750 mg tablet See Rx Instructions .ROUTE .COMPLEX Qty: 180 3RF Dose Instruction: TAKE 1 TABLET (750 MG TOTAL) BY MOUTH 2 (TWO) TIMES A DAY Rx Instructions: TAKE 1 TABLET (750 MG TOTAL) BY MOUTH 2 (TWO) TIMES A DAY divalproex [Depakote] 500 mg tablet,delayed release (DR/EC) 500 mg PO BID 90 Days Qty: 180 1RF divalproex 500 mg tablet,delayed release (DR/EC) See Rx Instructions .ROUTE .COMPLEX Qty: 180 3RF Dose Instruction: TAKE 1 TABLET (500 MG TOTAL) BY MOUTH 2 (TWO) TIMES A DAY Rx Instructions: TAKE 1 TABLET (500 MG TOTAL) BY MOUTH 2 (TWO) TIMES A DAY latanoprost 1 DROP drops 1 drp RIGHTEYE BEDTIME Patient Comments: RIGHT EYE Artificial Tears([id number]) 30 ML drops 1 drp BOTHEYES DIRECTED PRN (Reason: DRY EYES) Stool Softener 50 mg capsule 50 mg PO QDAY Yupelri 175 mcg/3 mL solution for nebulization 175 mcg inhalation QDAY Yupelri 175 mcg/3 mL solution for nebulization 175 mcg inhalation QDAY 90 Days Qty: 90 0RF naloxone [Narcan] 4 mg/actuation spray,non-aerosol 1 spray intranasal Q2-3M PRN (Reason: opioid overdose) Qty: 2 0RF Rx Instructions: spray 1 dose into ONE nostril; alternate nostrils w each dose until help arrives One-A-Day Women's 50 Plus 400-20 mcg tablet 1 tab PO QDAY loratadine [Allergy Relief (loratadine)] 10 mg tablet 10 mg PO QDAY PRN (Reason: allergic symptoms) Qty: 30 0RF tizanidine 2 mg tablet 2 mg PO BID PRN (Reason: muscle spasticity) Qty: 10 0RF guaifenesin [Mucinex] 600 mg tablet extended release 12hr 600 mg PO BID Qty: 60 3RF (DME) Chux pads (underpads) See Rx Instructions .ROUTE .MEDSUPPLY Qty: 100 3RF Rx Instructions: As directed hydrocodone-acetaminophen 10-325 mg tablet 1 tab PO Q8H PRN (Reason: pain) Qty: 9 0RF Rx Instructions: take 1/2-1 tab every 8 hours as needed for severe pain albuterol sulfate 2.5 mg /3 mL (0.083 %) solution for nebulization 2.5 mg inhalation Q4-6H PRN (Reason: shortness of breath or wheezing) Qty: 90 2RF formoterol fumarate [Perforomist] 20 mcg/2 mL solution for nebulization 2 ml inhalation BID 30 Days Qty: 120 3RF sertraline 100 mg tablet 100 mg PO QDAY 90 Days Qty: 90 1RF Did you review [place] [employer] for ALL controlled substances?: Not Applicable ED Provider: ABRAHAM SINGH Condition: Fair Physician Progress Note: []Feeling better, resting comfortable. Lungs still with significant wheezing. Oxygen sat of 97% on her 2 L/BNC. Neg CT scan of the lumbar spine.
[2023-01-16 04:39] LABS: BASOPHILS % (AUTO) 0.3 % (0.0-3.0); EOSINOPHILS # (AUTO) 0.4 K/ul (0.0-0.7); EOSINOPHILS % (AUTO) 4.8 % (0.0-7.0); HEMATOCRIT 36.9 % (37.0-47.0); HEMOGLOBIN 11.3 g/dl (12.0-16.0); IMMATURE GRANULOCYTE % (AUTO) 0.3 % (0.0-5.0); LYMPHOCYTES # (AUTO) 1.8 K/uL (0.60-3.4); LYMPHOCYTES % (AUTO) 20.4 (10.0-50.0); MEAN CORPUSCULAR HEMOGLOBIN 27.6 pg (27.0-31.0); MEAN CORPUSCULAR HGB CONC 30.6 (31.8-35.4); MEAN CORPUSCULAR VOLUME 90.2 fl (81.0-99.0); MONOCYTES # (AUTO) 0.8 K/uL (0.4-2.0); NEUTROPHILS # (AUTO) 5.7 K/ul (2.0-6.9); NEUTROPHILS % (AUTO) 65.2 % (42.2-75.2); PLATELET COUNT 298 10^3/uL (140-440); RDW COEFFICIENT OF VARIATION 13.9 % (11.6-14.8); RED BLOOD COUNT 4.09 10^6/ul (4.20-5.40); WHITE BLOOD COUNT 8.69 K/ul (4.6-10.2)
[2023-01-16 04:51] LABS: ALANINE AMINOTRANSFERASE 13.3 U/L (0-35); ALBUMIN 3.98 g/dL (3.5-5.0); ALKALINE PHOSPHATASE 78.3 U/L (53-141); ASPARTATE AMINO TRANSFERASE 35.2 U/L (14-36); BILIRUBIN,TOTAL 0.27 mg/dL (0.2-1.3); BLOOD UREA NITROGEN 10.1 mg/dL (7-17); CALCIUM 8.99 mg/dL (8.4-10.2); CARBON DIOXIDE 38.5 mmol/L (22-30.0); CHLORIDE 91.3 mmol/L (98-107); CREATININE 0.44 mg/dL (0.60-1.30); POTASSIUM 3.89 mmol/L (3.5-5.1); SODIUM 132.9 mmol/L (134.5-145); TOTAL PROTEIN 7.36 g/dL (6.3-8.2)
[2023-01-16] MEDS ORDERED: ALBUTEROL 0.083% NEB NEB ONE (05:13)
--- NOTE | 2023-01-16 05:31 | CT ---
EXAM: CT OF THE LUMBAR SPINE WITHOUT CONTRAST. HISTORY: Increasing back pain. Compression fracture and back popped. PROCEDURE: Contiguous axial CT images of the lumbar spine without contrast with multiplanar reformat s. All CT scans are performed using dose optimization techniques as appropriate to a performed exam including the following: Automated exposure control, Adjustment of the mA and/or kV according to jose f ent size, Use of iterative reconstruction technique. FINDINGS: Comparison made with CT of 05/20/2020. There is stable alignment of the lumbar vertebral bodies and facets. There are stable chronic anterior wedge compression deformities of the T11, L1, L 3 and L4 vertebral bodies. No evidence of acute fracture. The intervertebral disc spaces are mainta ined. There is multilevel facet arthropathy. Impression: No evidence of acute fracture. Stable chronic anterior wedge compression deformities of the T11, L1, L3 and L4 vertebral bodies. Degenerative changes as described. All CT scans are performed using dose optimization techniques as appropriate to the performed exam an d include at least one of the following: Automated exposure control, adjustment of the mA and/or kV according t o size, and the use of iterative reconstruction technique.
[2023-01-16] MEDS ORDERED: ALBUTEROL 0.083% NEB NEB PRN (06:53)
[2023-01-16 07:35] LABS: SARS COV-2 RNA RAPID NAAT NEGATIVE (NEGATIVE)
[2023-01-16] MEDS ORDERED: TYLENOL PO PRN (08:37)
[2023-01-16] MEDS ORDERED: CLARITIN PO PRN (09:00)
[2023-01-16 09:30] VITALS: BMI 18.8
[2023-01-16] MEDS ORDERED: ALBUTEROL 0.083% NEB NEB SCH (10:00)
[2023-01-16] MEDS: DUONEB NEB SCH ×4 (10:07→21:42)
[2023-01-16] MEDS: LEVAQUIN 500 MG/100 ML D5W 500 MG/100 ML BAG IV SCH (10:48)
[2023-01-16] MEDS: ZOLOFT PO SCH (10:50)
[2023-01-16] MEDS: KEPPRA PO SCH ×2 (10:51→20:38)
[2023-01-16] MEDS: DEPAKOTE PO SCH ×2 (10:51→20:39)
[2023-01-16] MEDS: LOVENOX SUBCUT SCH (10:52)
[2023-01-16] MEDS: PLAVIX PO SCH (10:52)
[2023-01-16] MEDS: LIPITOR PO SCH (10:52)
[2023-01-16] MEDS: ZESTRIL PO SCH (10:52)
[2023-01-16] MEDS: COLACE PO SCH (10:52)
[2023-01-16] MEDS: PROTONIX PO SCH (11:02)
[2023-01-16] MEDS: FLONASE NAS SCH (11:03)
[2023-01-16] MEDS: PERFOROMIST IH SCH ×2 (11:21→18:17)
--- NOTE | 2023-01-16 12:42 | PCM ---
Date of Service Date Seen by Provider: 01/16/23 Time Seen by Provider: 09:15 Admit Day/Time Admission Date: 01/16/23 Reason for Admission Chief Complaint: COPD EXACERBATION Hospital Provider Hospital Provider: RHONA AVENDANO, [facility] Hospitalist [facility] Primary Care Physician Primary Care Physician: GUTIERREZ ROSA APRN History of Present Illness History of Present Illness: 67 yo female presented to the ER with shortness of breath. Patient has pmh of COPD and at baseline wears 2L via NC continuously. Reports that over the last couple days she has had to turn her concentrator up to 2.5-3L and still is having trouble breathing. There has been an issue with one of her inhalers and unable to get insurance to cover it. At this time, she is requiring 4L via NC and becomes winded when speaking. Denies any fever, chest pain, N/V/D. Case Discussed With Case Discussed With: Patient's case was discussed with the ER Physicians, Dr. James [facility] Medical History Back pain M54.9 - Dorsalgia, unspecified (ICD-10) Glaucoma H40.9 - Unspecified glaucoma (ICD-10) Cataract H26.9 - Unspecified cataract (ICD-10) Chronic obstructive pulmonary disease J44.9 - Chronic obstructive pulmonary disease, unspecified (ICD-10) Cerebrovascular accident I63.9 - Cerebral infarction, unspecified (ICD-10) Convulsions R56.9 - Unspecified convulsions (ICD-10) Epilepsy G40.909 - Epilepsy, unspecified, not intractable, without status epilepticus (ICD-10) Allergic sinusitis J30.9 - Allergic rhinitis, unspecified (ICD-10) Surgical History History of musculoskeletal system surgery Z98.890 - Other specified postprocedural states (ICD-10) Status post tonsillectomy Z90.89 - Acquired absence of other organs (ICD-10) History of section Z98.891 - History of uterine scar from previous surgery (ICD-10) Status post angioplasty of vein Z98.890 - Other specified postprocedural states (ICD-10) Status post tonsillectomy and adenoidectomy Z90.89 - Acquired absence of other organs (ICD-10) Family History Mother Diabetes Cerebrovascular accident Cancer Social History Smoking and tobacco status: Former smoker Passive smoking exposure: No How long ago did patient quit smokin.5 YEARS AGO Quit status: has quit before Second hand smoke exposure: Yes Alcohol intake: never Allergies Allergies Allergy/AdvReac Type Severity Reaction Status Date / Time Iodinated Contrast Media AdvReac Swelling Verified 01/16/23 03:42 [Iodinated Contrast Media - IV Dye] oxycodone [From Tylox] AdvReac HALLUCINATE Verified 01/16/23 03:42 S Penicillins AdvReac Swelling Verified 01/16/23 03:42 Sulfa (Sulfonamide AdvReac Swelling Verified 01/16/23 03:42 Antibiotics) anesthesia Allergy Severe confusion, Uncoded 01/16/23 03:42 Diffficult to wake up Current Medications Home Medications latanoprost 0.005 % eye drops 1 drp RIGHTEYE BEDTIME 02/16/14 [History Confirmed 01/16/23 Last Taken 02/18/22 21:00] dextran 70-hypromellose 0.1 %-0.3 % eye drops (Artificial Tears (dextran 70- hypromellose)) 1 drp BOTHEYES DIRECTED PRN DRY EYES 05/07/17 [History Confirmed 01/16/23 Last Taken Unknown] docusate sodium 50 mg capsule (Stool Softener) 50 mg PO QDAY 09/21/20 [History Confirmed 01/16/23 Last Taken 02/19/22 09:00] hdhbqzkagkkb-usjwhnou-wrxaymf-folic acid 400 mcg-vit K1 20 mcg tablet (One-A-Day Women's 50 Plus) 1 tab PO QDAY 08/18/21 [History Confirmed 01/16/23 Last Taken 02/19/22 09:00] fluticasone propionate 50 mcg/actuation nasal spray,suspension See Rx Instructions .Route .COMPLEX #16 ea 02/14/22 [Rx Confirmed 01/16/23 Last Taken 02/19/22 09:00] loratadine 10 mg tablet (Allergy Relief (loratadine)) 10 mg PO QDAY PRN allergic symptoms #30 tabs 08/16/22 [Rx Confirmed 12/25/22 Last Taken Unknown] atorvastatin 10 mg tablet See Rx Instructions .Route .COMPLEX #90 tabs 09/20/22 [Rx Confirmed 01/16/23 Last Taken Unknown] tizanidine 2 mg tablet 2 mg PO BID PRN muscle spasticity #10 tabs 10/11/22 [Rx Confirmed 12/25/22 Last Taken Unknown] albuterol sulfate 90 mcg/actuation aerosol inhaler See Rx Instructions .Route .COMPLEX #6.7 ea 11/07/22 [Rx Confirmed 01/16/23 Last Taken Unknown] clopidogrel 75 mg tablet See Rx Instructions .Route .COMPLEX #30 tabs 11/21/22 [Rx Confirmed 01/16/23 Last Taken Unknown] pantoprazole 40 mg tablet,delayed release See Rx Instructions .Route .COMPLEX #30 tabs 11/21/22 [Rx Confirmed 01/16/23 Last Taken Unknown] Chux pads (underpads) #100 ea 11/23/22 [Rx Confirmed 12/25/22 Last Taken Unknown] guaifenesin 600 mg tablet, extended release 12 hr (Mucinex) 600 mg PO BID #60 tabs 11/23/22 [Rx Confirmed 12/25/22 Last Taken Unknown] lisinopril 10 mg tablet See Rx Instructions .Route .COMPLEX #30 tabs 12/20/22 [Rx Confirmed 01/16/23 Last Taken Unknown] mirtazapine 30 mg tablet See Rx Instructions .Route .COMPLEX #30 tabs 12/20/22 [Rx Confirmed 01/16/23 Last Taken Unknown] buspirone 10 mg tablet See Rx Instructions .Route .COMPLEX #90 tabs 12/21/22 [Rx Confirmed 01/16/23 Last Taken Unknown] divalproex 500 mg tablet,delayed release See Rx Instructions .Route .COMPLEX #180 tabs 12/21/22 [Rx Confirmed 01/16/23 Last Taken Unknown] divalproex 500 mg tablet,delayed release (Depakote) 500 mg PO BID 90 days #180 tabs 12/21/22 [Rx Confirmed 01/16/23 Last Taken Unknown] levetiracetam 750 mg tablet See Rx Instructions .Route .COMPLEX #180 tabs 12/21/22 [Rx Confirmed 01/16/23 Last Taken Unknown] revefenacin 175 mcg/3 mL solution for nebulization (Yupelri) 175 mcg inhalation QDAY 12/22/22 [History Confirmed 01/16/23 Last Taken Unknown] Yupelri 175 mcg/3 mL solution for nebulization (revefenacin) 175 mcg (3 mL) inhalation QDAY 90 days #90 mL 12/30/22 [Rx Confirmed 12/30/22 Last Taken Unknown] naloxone 4 mg/actuation nasal spray (Narcan) 1 spray intranasal Q2-3M PRN opioid overdose #2 ea 12/30/22 [Rx Confirmed 12/30/22 Last Taken Unknown] albuterol sulfate 2.5 mg/3 mL (0.083 %) solution for nebulization 2.5 mg (3 mL) inhalation Q4-6H PRN shortness of breath or wheezing #90 mL 01/11/23 [Rx Confirmed 01/16/23 Last Taken Unknown] formoterol fumarate 20 mcg/2 mL solution for nebulization (Perforomist) 2 ml inhalation BID 30 days #120 mL 01/11/23 [Rx Confirmed 01/16/23 Last Taken Unknown] hydrocodone 10 mg-acetaminophen 325 mg tablet 1 tab PO Q8H PRN pain #9 tabs 01/11/23 [Rx Confirmed 01/11/23 Last Taken Unknown] sertraline 100 mg tablet 100 mg PO QDAY 90 days #90 tabs 01/11/23 [Rx Confirmed 01/16/23 Last Taken Unknown] Home Acetaminophen (Acetaminophen 325 Mg Tablet) 650 mg PO Q4H PRN PRN Reason: Mild Pain Hydrocodone Bitart/Acetaminophen (Hydrocodone Bit/Acetaminophen 10/325 Mg Tablet) 1 tab PO Q8H PRN PRN Reason: MODERATE PAIN Albuterol Sulfate (Albuterol Sulfate 0.083% Vial.Neb) 2.5 mg NEB Q4-6H PRN PRN Reason: Wheezing Albuterol/Ipratropium (Ipratropium/Albuterol Vial.Neb) 3 ml NEB RTQ4H [facility] Last Admin: 01/16/23 10:07 Dose: 3 ml Atorvastatin Calcium (Atorvastatin Calcium 10 Mg Tablet) 10 mg PO DAILY [facility] Last Admin: 01/16/23 10:52 Dose: 10 mg Buspirone HCl (Buspirone Hcl 10 Mg Tablet) 10 mg PO TID PRN PRN Reason: ANXIETY Clopidogrel Bisulfate (Clopidogrel Bisulfate 75 Mg Tablet) 75 mg PO DAILY [facility] Last Admin: 01/16/23 10:52 Dose: 75 mg Divalproex Sodium (Divalproex Sodium 250 Mg Tablet.) 500 mg PO BID [facility] Last Admin: 01/16/23 10:51 Dose: 500 mg Docusate Sodium (Docusate Sodium 100 Mg Capsule) 100 mg PO DAILY [facility] Last Admin: 01/16/23 10:52 Dose: 100 mg Enoxaparin Sodium (Enoxaparin Sodium 30 Mg/0.3 Ml Syr) 30 mg SUBCUT DAILY [facility] Last Admin: 01/16/23 10:52 Dose: 30 mg Fluticasone Propionate (Fluticasone Propionate 16 Gm Nasal [place]) 1 spray ERNESTO DAILY [facility] Last Admin: 01/16/23 11:03 Dose: 1 spray Formoterol Fumarate (Formoterol Fumarate 20 Mcg/2 Ml Vial.Anna) 20 mcg IH RTBID [facility] Last Admin: 01/16/23 11:21 Dose: Not Given Levofloxacin/Dextrose (Levaquin 500 Mg/100 Ml D5w) 500 mg in 100 mls @ 100 mls/hr IV DAILY [facility] Stop: 01/19/23 09:59 Last Admin: 01/16/23 10:48 Dose: 100 mls/hr Latanoprost (Latanoprost 2.5 Ml Opth [place]) 1 drop RIGHTEYE BEDTIME [facility] Levetiracetam (Levetiracetam 500 Mg Tablet) 750 mg PO BID [facility] Last Admin: 01/16/23 10:51 Dose: 750 mg Lisinopril (Lisinopril 10 Mg Tablet) 10 mg PO DAILY [facility] Last Admin: 01/16/23 10:52 Dose: 10 mg Loratadine (Loratadine 10 Mg Tablet) 10 mg PO DAILY PRN PRN Reason: ALLERGY SYMPTOMS Methylprednisolone Sodium Succinate (Methylprednisolone Sod Succ/Pf 40 Mg/Ml Vial) 40 mg IVP Q8HR [facility] Mirtazapine (Mirtazapine 15 Mg Tablet) 30 mg PO BEDTIME [facility] Non-Formulary Medication (Revefenacin [Yupelri]) 175 mcg IH DAILY [facility] Last Admin: 01/16/23 11:21 Dose: Not Given Pantoprazole Sodium (Pantoprazole Sodium 40 Mg Tablet.) 40 mg PO QDAC2 [facility] Last Admin: 01/16/23 11:02 Dose: 40 mg Sertraline HCl (Sertraline Hcl 50 Mg Tablet) 100 mg PO DAILY [facility] Last Admin: 01/16/23 10:50 Dose: 100 mg Discontinued Medications Albuterol Sulfate (Albuterol Sulfate 0.083% Vial.Neb) 2.5 mg NEB RTTID [facility] Last Admin: 01/16/23 06:11 Dose: 2.5 mg Albuterol/Ipratropium (Ipratropium/Albuterol Vial.Neb) 3 ml NEB ONCE ONE Stop: 01/16/23 04:24 Last Admin: 01/16/23 05:16 Dose: 3 ml Fentanyl Citrate (Fentanyl 50 Mcg/Ml Sdv) 50 mcg IVP ONCE ONE Stop: 01/16/23 04:24 Last Admin: 01/16/23 04:35 Dose: Not Given Methylprednisolone Sodium Succinate (Methylprednisolone Sod Succ/Pf 125 Mg/2 Ml Vial) 60 mg IVP ONCE ONE Stop: 01/16/23 04:24 Last Admin: 01/16/23 04:42 Dose: 60 mg Review of Systems Constitutional: Reports No symptoms Head: Reports Normocephalic and Atraumatic Eyes: Reports No symptoms Ears: Reports No symptoms Nose: Reports No symptoms Mouth: Reports No symptoms Throat: Reports No symptoms Cardiovascular: Reports No symptoms Respiratory: Reports Shortness of air Gastrointestinal: Reports No symptoms Genitourinary: Reports No Symptoms Musculoskeletal: Reports Back Pain (chronic d/t compression fractures) Endocrine: Reports No symptoms Hematology: Reports No symptoms Immunology: Reports No symptoms Neurological: Reports No symptoms Psychiatric: Reports No symptoms Physical examination Most Recent Vital Signs: Most Recent Vital Signs Temperature 97.7 F 01/16/23 10:04 Temperature Source Temporal Artery Scan 01/16/23 10:04 Temperature Source Oral 01/16/23 03:31 Pulse Rate 84 01/16/23 10:04 Respiratory Rate 24 H 01/16/23 10:04 Blood Pressure 133/68 01/16/23 10:04 Blood Pressure Mean 89 01/16/23 10:04 Blood Pressure Left Arm 184/81 01/16/23 08:40 Blood Pressure Location Right Arm 01/16/23 10:04 Blood Pressure Position Supine 01/16/23 08:40 O2 Sat by Pulse Oximetry 99 01/16/23 10:04 Oxygen Delivery Method Nasal Cannula 01/16/23 11:45 Oxygen Flow Rate 3.5 01/16/23 10:04 Height 5 ft 4 in 01/16/23 08:40 Weight 109 lb 14.4 oz 01/16/23 08:40 Telemetry Type Remote Telemetry 01/16/23 09:10 Telemetry Monitoring Started 01/16/23 09:10 Telemetry Heart Rate 105 H 01/16/23 09:10 Telemetry SPO2 97 01/16/23 09:10 EKG AK Interval 0.18 01/16/23 09:10 EKG QRS Interval 0.04 L 01/16/23 09:10 Telemetry Strip Reading Sinus tach 01/16/23 09:10 Appearance: Positive No Apparent Distress, Alert and Oriented x3, Ill-Appearing, Thin and Cachectic Skin: Positive Warm HEENT: Positive Normocephalic, Atraumatic and PERRLA Neck: Positive Supple and Midline Trachea Chest/Lungs: Positive Symmetrical With Equal Breath Sounds, Rhonci, Wheezes and Good Air Movement all 4 Lung [place] Heart: Positive RRR, Pulses Normal, No S3 Auscultated and No S4 Auscultated GI/: Positive Soft, Nontender, Bowel Sounds Normal and No Distention Musculoskeletal: Positive Not Examined Extremities: Positive Intact Peripheral Pulses, Stable Joints Without Laxity and Good ROM in All Joints Neurological: Positive Sensation Intact, Motor intact, Reflexes Intact, Alert, Oriented and Other (generalized weakness) Psychiatric: Positive Oriented x4, Appropriate Mood and Appropriate Affect Labs This Visit Labs This Visit: Labs This Visit 01/16/23 01/16/23 01/16/23 04:03 04:23 07:00 WBC 8.69 RBC 4.09 L Hgb 11.3 L Hct 36.9 L MCV 90.2 MCH 27.6 MCHC 30.6 L RDW Coeff of [place] 13.9 Plt Count 298 Immature Gran % (Auto) 0.3 Neut % (Auto) 65.2 Lymph % (Auto) 20.4 [place] % (Auto) 9.0 Eos % (Auto) 4.8 Baso % (Auto) 0.3 Neut # (Auto) 5.7 Lymph # (Auto) 1.8 [place] # (Auto) 0.8 Eos # (Auto) 0.4 Baso # (Auto) 0.0 Immature Gran # (Auto) 0.0 Sodium 132.9 L Potassium 3.89 Chloride 91.3 L Carbon Dioxide 38.5 H Anion Gap 6.99 BUN 10.1 Creatinine 0.44 L Estimated GFR (MDRD) 142.00 BUN/Creatinine Ratio 22.95 Glucose 120.0 H Calcium 8.99 Total Bilirubin 0.27 AST 35.2 ALT 13.3 Alkaline Phosphatase 78.3 Troponin I < 0.012 NT-Pro-B Natriuret Pep Total Protein 7.36 Albumin 3.98 Globulin 3.38 Albumin/Globulin Ratio 1.17 SARS CoV-2 RNA Rapid BRIAN Negative 01/16/23 Unknown WBC RBC Hgb Hct MCV MCH MCHC RDW Coeff of [place] Plt Count Immature Gran % (Auto) Neut % (Auto) Lymph % (Auto) [place] % (Auto) Eos % (Auto) Baso % (Auto) Neut # (Auto) Lymph # (Auto) [place] # (Auto) Eos # (Auto) Baso # (Auto) Immature Gran # (Auto) Sodium Potassium Chloride Carbon Dioxide Anion Gap BUN Creatinine Estimated GFR (MDRD) BUN/Creatinine Ratio Glucose Calcium Total Bilirubin AST ALT Alkaline Phosphatase Troponin I NT-Pro-B Natriuret Pep 672 H Total Protein Albumin Globulin Albumin/Globulin Ratio SARS CoV-2 RNA Rapid BRIAN Imaging Imaging: EXAM: AP CHEST. HISTORY: Chronic obstructive pulmonary disease. FINDINGS: Comparison made with Chest x-ray of 12/25/2022. The bones are unremarkable. The cardiac silhouette and pulmonary vasculature are within normal limits. The costophrenic angles are clear. There are bilateral emphysematous changes. Is minimal left upper lobe infiltrate versus scarring. Impression: Minimal left upper lobe infiltrate versus scarring. Chronic obstructive pulmonary disease. Review Statement Review Statement: I have independently reviewed and interpreted the labs/EKGs/imaging that were ordered by the ER provider. I have reviewed all outside records that are available currently in our EMR including imaging/notes/labs from previous visits. Plan Plan: 1. Acute Hypoxic Respiratory Failure in setting of COPD exacerbation - steroids, nebs, levaquin Q24H, wean to home oxygen requirements as tolerated 2. CHF, unknown type - daily weight, I&O, monitor 3. Hypertension - Chronic, stable, continue home medications 4. Seizures, unknown type - Chronic, stable continue home medications 5. Hyperlipidemia - Chronic, stable, continue home mediations DVT Prophylaxis: Plavix Time Spent: Greater than 80 minutes spent with patient, 50% of the time spent with this patient was devoted to counseling and coordination of care. [facility] Plannin minutes spent discussing advance care planning. Disposition: Admit to: Med/surg Observation Full Code Discussed Plan of Care with Dr. Adalberto Lopez. Medications Medication Orders: Medications Ordered Category Date Time Status Acetaminophen [Tylenol] Meds 01/16/23 08:37 Active 650 mg PO Q4H PRN Albuterol Sulfate 0.083% Neb [Albuterol 0.083% Neb] Meds 01/16/23 06:53 Active 2.5 mg NEB Q4-6H PRN Atorvastatin Calcium [Lipitor] Meds 01/16/23 09:00 Active 10 mg PO DAILY Buspirone HCl [Buspar] Meds 01/16/23 09:00 Active 10 mg PO TID PRN Clopidogrel Bisulfate [Plavix] Meds 01/16/23 09:00 Active 75 mg PO DAILY Divalproex Sodium [Depakote] Meds 01/16/23 09:00 Active 500 mg PO BID Docusate Sodium [Colace] Meds 01/16/23 09:00 Active 100 mg PO DAILY Enoxaparin Sodium [Lovenox] Meds 01/16/23 09:00 Active 30 mg SUBCUT DAILY Fluticasone Propionate [Flonase] Meds 01/16/23 09:00 Active 1 spray ERNESTO DAILY Formoterol Fumarate [Perforomist] Meds 01/16/23 09:00 Active 20 mcg IH RTBID Hydrocodone Bit/Acetaminophen [[place] 10-325] Meds 01/16/23 06:53 Active 1 tab PO Q8H PRN Ipratropium/Albuterol Neb [Duoneb] Meds 01/16/23 10:00 Active 3 ml NEB RTQ4H Latanoprost [Xalatan] Meds 01/16/23 21:00 Active 1 drop RIGHTEYE BEDTIME Levetiracetam [Keppra] Meds 01/16/23 09:00 Active 750 mg PO BID Levofloxacin/D5w [Levaquin 500 mg/100 ml D5w] Meds 01/16/23 10:00 Active 500 mg in 100 ml IV DAILY Lisinopril [Zestril] Meds 01/16/23 09:00 Active 10 mg PO DAILY Loratadine [Claritin] Meds 01/16/23 09:00 Active 10 mg PO DAILY PRN Methylprednisolone Sod Succ/Pf [Solu-Medrol 40 mg] Meds 01/16/23 13:00 Active 40 mg IVP Q8HR Mirtazapine [Remeron] Meds 01/16/23 21:00 Active 30 mg PO BEDTIME Pantoprazole Sodium [Protonix] Meds 01/16/23 07:00 Active 40 mg PO QDAC2 Sertraline HCl [Zoloft] Meds 01/16/23 09:00 Active 100 mg PO DAILY revefenacin [Yupelri] Meds 01/16/23 09:00 Active 175 mcg IH DAILY
[2023-01-16] MEDS: SOLU-MEDROL 40 MG IVP SCH ×2 (12:52→20:37)
[2023-01-16] MEDS: XALATAN RIGHTEYE SCH (20:36)
[2023-01-16] MEDS: REMERON PO SCH (20:37)
[2023-01-16] MEDS ORDERED: DEPAKOTE PO SCH (21:00)
[2023-01-17] MEDS: DUONEB NEB SCH ×6 (01:25→21:08)
[2023-01-17] MEDS: SOLU-MEDROL 40 MG IVP SCH ×3 (04:56→21:27)
[2023-01-17] MEDS: PROTONIX PO SCH (05:00)
[2023-01-17] MEDS: PERFOROMIST IH SCH ×2 (05:04→17:48)
[2023-01-17 05:34] LABS: BASOPHILS % (AUTO) 0.1 % (0.0-3.0); HEMATOCRIT 32.9 % (37.0-47.0); HEMOGLOBIN 10.2 g/dl (12.0-16.0); IMMATURE GRANULOCYTE # (AUTO) 0.1 (0.0-1.0); IMMATURE GRANULOCYTE % (AUTO) 0.6 % (0.0-5.0); LYMPHOCYTES # (AUTO) 2.1 K/uL (0.60-3.4); MEAN CORPUSCULAR HEMOGLOBIN 27.9 pg (27.0-31.0); MEAN CORPUSCULAR VOLUME 89.9 fl (81.0-99.0); MONOCYTES # (AUTO) 0.5 K/uL (0.4-2.0); NEUTROPHILS # (AUTO) 6.4 K/ul (2.0-6.9); NEUTROPHILS % (AUTO) 70.3 % (42.2-75.2); PLATELET COUNT 273 10^3/uL (140-440); RDW COEFFICIENT OF VARIATION 14.1 % (11.6-14.8); RED BLOOD COUNT 3.66 10^6/ul (4.20-5.40); WHITE BLOOD COUNT 9.05 K/ul (4.6-10.2)
[2023-01-17 05:47] LABS: ALANINE AMINOTRANSFERASE 14.7 U/L (0-35); ALBUMIN 3.69 g/dL (3.5-5.0); ALKALINE PHOSPHATASE 64.8 U/L (53-141); ASPARTATE AMINO TRANSFERASE 35.1 U/L (14-36); BILIRUBIN,TOTAL 0.17 mg/dL (0.2-1.3); BLOOD UREA NITROGEN 10.4 mg/dL (7-17); CALCIUM 8.63 mg/dL (8.4-10.2); CARBON DIOXIDE 34.5 mmol/L (22-30.0); CHLORIDE 91.4 mmol/L (98-107); CREATININE 0.41 mg/dL (0.60-1.30); GLUCOSE 116.9 mg/dL (74-106); POTASSIUM 4.29 mmol/L (3.5-5.1); TOTAL PROTEIN 6.66 g/dL (6.3-8.2)
[2023-01-17] MEDS: LEVAQUIN 500 MG/100 ML D5W 500 MG/100 ML BAG IV SCH (08:59)
[2023-01-17] MEDS: COLACE PO SCH (09:24)
[2023-01-17] MEDS: ZOLOFT PO SCH (09:26)
[2023-01-17] MEDS: KEPPRA PO SCH ×2 (09:27→20:43)
[2023-01-17] MEDS: PLAVIX PO SCH (09:29)
[2023-01-17] MEDS: ZESTRIL PO SCH (09:30)
[2023-01-17] MEDS: LIPITOR PO SCH (09:31)
[2023-01-17] MEDS: DEPAKOTE PO SCH ×2 (09:32→20:42)
[2023-01-17] MEDS: FLONASE NAS SCH (09:33)
[2023-01-17] MEDS: LOVENOX SUBCUT SCH (09:34)
--- NOTE | 2023-01-17 09:37 | PCM.PROG ---
Date/Time Seen Date Seen by Provider: 01/17/23 Time Seen by Provider: 08:40 Provider [facility] RHONA AVENDANO[facility] Chief Complaint Chief Complaint: COPD EXACERBATION Subjective Subjective: Still has complaints of SOB. On 4L, baseline is 2. Denies cough. No fever or events overnight. Objective Appearance: Positive No Apparent Distress, Alert and Oriented x3, Ill-Appearing and Thin Chest/Lungs: Positive Symmetrical With Equal Breath Sounds, Clear to Auscultation Bilaterally (diminished) and Good Air Movement all 4 Lung [place] Heart: Positive RRR and Pulses Normal GI/: Positive Soft, Nontender, Bowel Sounds Normal and No Distention Musculoskeletal: Positive Not Examined Neurological: Positive Sensation Intact, Motor intact, Reflexes Intact, Alert, Oriented and Muscle Strength 5/5 in Upper and Lower Extremities Bilaterally Vital Signs Vital Signs: Vital Signs: Last 24 Hours 01/16/23 10:00 01/16/23 10:00 01/16/23 10:04 Temperature 97.7 F Temperature Source Temporal Artery Scan Pulse Rate 84 Respiratory Rate 24 H Blood Pressure 133/68 Blood Pressure Mean 89 Blood Pressure Location Right Arm Blood Pressure Position O2 Sat by Pulse Oximetry 98 99 Oxygen Delivery Method Nasal Cannula Nasal Cannula Nasal Cannula Oxygen Flow Rate 2.5 3.5 Weight Telemetry Type Telemetry Monitoring Telemetry Heart Rate Telemetry SPO2 EKG [place] Interval EKG QRS Interval Telemetry Strip Reading 01/16/23 10:55 01/16/23 11:45 01/16/23 13:00 Temperature Temperature Source Pulse Rate Respiratory Rate Blood Pressure Blood Pressure Mean Blood Pressure Location Blood Pressure Position O2 Sat by Pulse Oximetry Oxygen Delivery Method Nasal Cannula Nasal Cannula Oxygen Flow Rate Weight Telemetry Type Remote Telemetry Telemetry Monitoring Continues Telemetry Heart Rate 97 Telemetry SPO2 98 EKG [place] Interval 0.12 EKG QRS Interval 0.03 L Telemetry Strip Reading SR 01/16/23 13:00 01/16/23 14:00 01/16/23 14:00 Temperature 97.6 F Temperature Source Temporal Artery Scan Pulse Rate 110 H Respiratory Rate 24 H Blood Pressure 155/76 H Blood Pressure Mean 102 Blood Pressure Location Right Arm Blood Pressure Position Sitting O2 Sat by Pulse Oximetry 97 Oxygen Delivery Method Nasal Cannula Nasal Cannula Nasal Cannula Oxygen Flow Rate 2.5 Weight Telemetry Type Telemetry Monitoring Telemetry Heart Rate Telemetry SPO2 EKG [place] Interval EKG QRS Interval Telemetry Strip Reading 01/16/23 14:00 01/16/23 15:00 01/16/23 15:51 Temperature Temperature Source Pulse Rate Respiratory Rate Blood Pressure Blood Pressure Mean Blood Pressure Location Blood Pressure Position O2 Sat by Pulse Oximetry 95 Oxygen Delivery Method Nasal Cannula Nasal Cannula Nasal Cannula Oxygen Flow Rate 2.5 Weight Telemetry Type Telemetry Monitoring Telemetry Heart Rate Telemetry SPO2 EKG [place] Interval EKG QRS Interval Telemetry Strip Reading 01/16/23 17:00 01/16/23 18:00 01/16/23 19:00 Temperature Temperature Source Pulse Rate Respiratory Rate Blood Pressure Blood Pressure Mean Blood Pressure Location Blood Pressure Position O2 Sat by Pulse Oximetry Oxygen Delivery Method Nasal Cannula Nasal Cannula Oxygen Flow Rate Weight Telemetry Type Remote Telemetry Telemetry Monitoring Continues Telemetry Heart Rate 110 H Telemetry SPO2 EKG [place] Interval 0.17 EKG QRS Interval 0.[address] 01/16/23 19:00 01/16/23 20:00 01/16/23 20:00 Temperature Temperature Source Pulse Rate Respiratory Rate Blood Pressure Blood Pressure Mean Blood Pressure Location Blood Pressure Position O2 Sat by Pulse Oximetry 98 Oxygen Delivery Method Nasal Cannula Nasal Cannula Nasal Cannula Oxygen Flow Rate 2.5 Weight Telemetry Type Telemetry Monitoring Telemetry Heart Rate Telemetry SPO2 EKG [place] Interval EKG QRS Interval Telemetry Strip Reading 01/16/23 20:00 01/16/23 21:00 01/16/23 22:00 Temperature 98.1 F Temperature Source Oral Pulse Rate 95 Respiratory Rate 19 Blood Pressure 134/67 Blood Pressure Mean 89 Blood Pressure Location Left Arm Blood Pressure Position Supine O2 Sat by Pulse Oximetry 99 Oxygen Delivery Method Nasal Cannula Nasal Cannula Room Air Oxygen Flow Rate Weight Telemetry Type Telemetry Monitoring Telemetry Heart Rate Telemetry SPO2 EKG [place] Interval EKG QRS Interval Telemetry Strip Reading 01/16/23 22:00 01/16/23 23:00 01/17/23 00:00 Temperature Temperature Source Pulse Rate Respiratory Rate Blood Pressure Blood Pressure Mean Blood Pressure Location Blood Pressure Position O2 Sat by Pulse Oximetry Oxygen Delivery Method Room Air Room Air Room Air Oxygen Flow Rate Weight Telemetry Type Telemetry Monitoring Telemetry Heart Rate Telemetry SPO2 EKG [place] Interval EKG QRS Interval Telemetry Strip Reading 01/17/23 01:00 01/17/23 01:00 01/17/23 02:00 Temperature Temperature Source Pulse Rate Respiratory Rate Blood Pressure Blood Pressure Mean Blood Pressure Location Blood Pressure Position O2 Sat by Pulse Oximetry Oxygen Delivery Method Room Air Room Air Oxygen Flow Rate Weight Telemetry Type Remote Telemetry Telemetry Monitoring Continues Telemetry Heart Rate 94 Telemetry SPO2 EKG [place] Interval 0.13 EKG QRS Interval 0.05 L Telemetry Strip Reading SR 01/17/23 03:00 01/17/23 04:00 01/17/23 04:59 Temperature Temperature Source Pulse Rate Respiratory Rate Blood Pressure Blood Pressure Mean Blood Pressure Location Blood Pressure Position O2 Sat by Pulse Oximetry 98 Oxygen Delivery Method Room Air Room Air Nasal Cannula Oxygen Flow Rate 2.5 Weight Telemetry Type Telemetry Monitoring Telemetry Heart Rate Telemetry SPO2 EKG [place] Interval EKG QRS Interval Telemetry Strip Reading 01/17/23 05:00 01/17/23 05:51 01/17/23 05:54 Temperature 98.0 F Temperature Source Oral Pulse Rate 116 H Respiratory Rate 24 H Blood Pressure 192/82 H Blood Pressure Mean 118 Blood Pressure Location Right Arm Blood Pressure Position Supine O2 Sat by Pulse Oximetry 97 Oxygen Delivery Method Nasal Cannula Nasal Cannula Nasal Cannula Oxygen Flow Rate 2 Weight Telemetry Type Telemetry Monitoring Telemetry Heart Rate Telemetry SPO2 EKG [place] Interval EKG QRS Interval Telemetry Strip Reading 01/17/23 06:00 01/17/23 07:00 01/17/23 07:00 Temperature Temperature Source Pulse Rate Respiratory Rate Blood Pressure Blood Pressure Mean Blood Pressure Location Blood Pressure Position O2 Sat by Pulse Oximetry Oxygen Delivery Method Nasal Cannula Oxygen Flow Rate Weight 116 lb 3 oz Telemetry Type Remote Telemetry Telemetry Monitoring Continues Telemetry Heart Rate 133 H Telemetry SPO2 95 EKG [place] Interval 0.12 EKG QRS Interval 0.[address] 01/17/23 08:00 01/17/23 08:00 Temperature Temperature Source Pulse Rate Respiratory Rate Blood Pressure Blood Pressure Mean Blood Pressure Location Blood Pressure Position O2 Sat by Pulse Oximetry Oxygen Delivery Method Nasal Cannula Nasal Cannula Oxygen Flow Rate Weight Telemetry Type Telemetry Monitoring Telemetry Heart Rate Telemetry SPO2 EKG [place] Interval EKG QRS Interval Telemetry Strip Reading Lab Results Lab Results: Lab Results: Last 24 Hours 01/17/23 05:20 WBC 9.05 RBC 3.66 L Hgb 10.2 L Hct 32.9 L MCV 89.9 MCH 27.9 MCHC 31.0 L RDW Coeff of [place] 14.1 Plt Count 273 Immature Gran % (Auto) 0.6 Neut % (Auto) 70.3 Lymph % (Auto) 23.0 [place] % (Auto) 6.0 Eos % (Auto) 0.0 Baso % (Auto) 0.1 Neut # (Auto) 6.4 Lymph # (Auto) 2.1 [place] # (Auto) 0.5 Eos # (Auto) 0.0 Baso # (Auto) 0.0 Immature Gran # (Auto) 0.1 Sodium 130.0 L Potassium 4.29 Chloride 91.4 L Carbon Dioxide 34.5 H Anion Gap 8.39 BUN 10.4 Creatinine 0.41 L Estimated GFR (MDRD) 154.00 BUN/Creatinine Ratio 25.36 Glucose 116.9 H Calcium 8.63 Total Bilirubin 0.17 L AST 35.1 ALT 14.7 Alkaline Phosphatase 64.8 Total Protein 6.66 Albumin 3.69 Globulin 2.97 Albumin/Globulin Ratio 1.24 Additional Comments Additional Comments: I have independently reviewed and interpreted the labs/EKGs/imaging ordered during this hospital stay. I have reviewed outside records that are available in our EMR that pertain to medical stay including imaging/notes/labs from previous visits. Active Medications Active Medications: Medications Generic Name Dose Route Start Last Admin Trade Name Freq PRN Reason Stop Dose Admin Acetaminophen 650 mg 01/16/23 08:37 Acetaminophen 325 Mg Tablet PO Q4H PRN Mild Pain Hydrocodone Bitart/Acetaminophen 1 tab 01/16/23 06:53 Hydrocodone Bit/Acetaminophen 10/325 Mg Tablet PO Q8H PRN MODERATE PAIN Albuterol Sulfate 2.5 mg 01/16/23 06:53 Albuterol Sulfate 0.083% Vial.Neb NEB Q4-6H PRN Wheezing Albuterol/Ipratropium 3 ml 01/16/23 10:00 01/17/23 04:52 Ipratropium/Albuterol Vial.Neb NEB 3 ml RTQ4H CHRIS Administration Atorvastatin Calcium 10 mg 01/16/23 09:00 01/16/23 10:52 Atorvastatin Calcium 10 Mg Tablet PO 10 mg DAILY CHRIS Administration Buspirone HCl 10 mg 01/16/23 09:00 Buspirone Hcl 10 Mg Tablet PO TID PRN ANXIETY Clopidogrel Bisulfate 75 mg 01/16/23 09:00 01/16/23 10:52 Clopidogrel Bisulfate 75 Mg Tablet PO 75 mg DAILY CHRIS Administration Divalproex Sodium 500 mg 01/16/23 09:00 01/16/23 20:39 Divalproex Sodium 250 Mg Tablet.Dr PO 500 mg BID CHRIS Administration Docusate Sodium 100 mg 01/16/23 09:00 01/16/23 10:52 Docusate Sodium 100 Mg Capsule PO 100 mg DAILY CHRIS Administration Enoxaparin Sodium 30 mg 01/16/23 09:00 01/16/23 10:52 Enoxaparin Sodium 30 Mg/0.3 Ml Syr SUBCUT 30 mg DAILY CHRIS Administration Fluticasone Propionate 1 spray 01/16/23 09:00 01/16/23 11:03 Fluticasone Propionate 16 Gm Nasal [place] ERNESTO 1 spray DAILY CHRIS Administration Formoterol Fumarate 20 mcg 01/16/23 09:00 01/17/23 05:04 Formoterol Fumarate 20 Mcg/2 Ml Vial.Neb IH 20 mcg RTBID CHRIS Administration Levofloxacin/Dextrose 500 mg in 100 mls @ 100 mls/hr 01/16/23 10:00 01/17/23 08:59 Levaquin 500 Mg/100 Ml D5w IV 01/19/23 09:59 100 mls/hr DAILY CHRIS Administration Latanoprost 1 drop 01/16/23 21:00 01/16/23 20:36 Latanoprost 2.5 Ml Opth Lucero RIGHTEYE 1 drop BEDTIME CHRSI Administration Levetiracetam 750 mg 01/16/23 09:00 01/16/23 20:38 Levetiracetam 500 Mg Tablet PO 750 mg BID CHRIS Administration Lisinopril 10 mg 01/16/23 09:00 01/16/23 10:52 Lisinopril 10 Mg Tablet PO 10 mg DAILY CHRIS Administration Loratadine 10 mg 01/16/23 09:00 Loratadine 10 Mg Tablet PO DAILY PRN ALLERGY SYMPTOMS Methylprednisolone Sodium Succinate 40 mg 01/16/23 13:00 01/17/23 04:56 Methylprednisolone Sod Succ/Pf 40 Mg/Ml Vial IVP 40 mg Q8HR HCRIS Administration Mirtazapine 30 mg 01/16/23 21:00 01/16/23 20:37 Mirtazapine 15 Mg Tablet PO 30 mg BEDTIME CHRIS Administration Non-Formulary Medication 175 mcg 01/16/23 09:00 01/16/23 11:21 Revefenacin [Yupelaloi] IH Not Given DAILY CHRIS Pantoprazole Sodium 40 mg 01/16/23 07:00 01/17/23 05:00 Pantoprazole Sodium 40 Mg Tablet. PO 40 mg QDAC2 CHRIS Administration Sertraline HCl 100 mg 01/16/23 09:00 01/16/23 10:50 Sertraline Hcl 50 Mg Tablet PO 100 mg DAILY CHRIS Administration Sodium Chloride 1 syr 01/17/23 13:00 0.9% Sodium Chloride 10 Ml Disp.Syrin IVF Q8HR CHRIS Plan Plan: 1. Acute Hypoxic Respiratory Failure in setting of COPD exacerbation - steroids, nebs, levaquin Q24H, wean to home oxygen requirements as tolerated 2. CHF, unknown type - daily weight, I&O, monitor 3. Hypertension - Chronic, stable, continue home medications 4. Seizures, unknown type - Chronic, stable continue home medications 5. Hyperlipidemia - Chronic, stable, continue home mediations DVT Prophylaxis: Plavix Review Statement Review Statement: I have personally discussed and reviewed the patient's visit/currently labs/imaging/decision making with Dr. Lopez, my supervising attending. Greater that 50 minutes spent with patient, 50% of the time spent with this patient was devoted to counseling and coordination of care.
[2023-01-17] MEDS: VISTARIL PO SCH ×2 (11:55→20:42)
[2023-01-17] MEDS ORDERED: ATIVAN IVP STA (12:45)
[2023-01-17] MEDS: REMERON PO SCH (20:42)
[2023-01-17] MEDS: XALATAN RIGHTEYE SCH (20:43)
[2023-01-18] MEDS: DUONEB NEB SCH ×6 (01:39→21:22)
[2023-01-18] MEDS: SOLU-MEDROL 40 MG IVP SCH ×3 (04:14→20:32)
[2023-01-18] MEDS: PERFOROMIST IH SCH ×2 (05:02→17:01)
[2023-01-18 05:26] LABS: BASOPHILS % (AUTO) 0.1 % (0.0-3.0); HEMATOCRIT 32.9 % (37.0-47.0); HEMOGLOBIN 10.3 g/dl (12.0-16.0); IMMATURE GRANULOCYTE # (AUTO) 0.1 (0.0-1.0); IMMATURE GRANULOCYTE % (AUTO) 0.7 % (0.0-5.0); LYMPHOCYTES # (AUTO) 1.5 K/uL (0.60-3.4); MEAN CORPUSCULAR HEMOGLOBIN 27.8 pg (27.0-31.0); MEAN CORPUSCULAR HGB CONC 31.3 (31.8-35.4); MEAN CORPUSCULAR VOLUME 88.9 fl (81.0-99.0); MONOCYTES # (AUTO) 0.6 K/uL (0.4-2.0); MONOCYTES % (AUTO) 7.1 (0-10); NEUTROPHILS # (AUTO) 6.1 K/ul (2.0-6.9); NEUTROPHILS % (AUTO) 74.1 % (42.2-75.2); PLATELET COUNT 298 10^3/uL (140-440); RDW COEFFICIENT OF VARIATION 14.3 % (11.6-14.8); WHITE BLOOD COUNT 8.22 K/ul (4.6-10.2)
[2023-01-18] MEDS: PROTONIX PO SCH (05:28)
[2023-01-18 05:43] LABS: ALBUMIN 3.66 g/dL (3.5-5.0); ASPARTATE AMINO TRANSFERASE 27.1 U/L (14-36); BILIRUBIN,TOTAL 0.18 mg/dL (0.2-1.3); BLOOD UREA NITROGEN 14.4 mg/dL (7-17); CALCIUM 8.99 mg/dL (8.4-10.2); CARBON DIOXIDE 33.8 mmol/L (22-30.0); CREATININE 0.5 mg/dL (0.60-1.30); GLUCOSE 114.7 mg/dL (74-106); POTASSIUM 4.74 mmol/L (3.5-5.1); SODIUM 130.1 mmol/L (134.5-145); TOTAL PROTEIN 6.69 g/dL (6.3-8.2)
[2023-01-18] MEDS: BUSPAR PO PRN ×2 (06:01→20:25)
[2023-01-18] MEDS: FLONASE NAS SCH (08:25)
[2023-01-18] MEDS: ZOLOFT PO SCH (08:26)
[2023-01-18] MEDS: COLACE PO SCH (08:26)
[2023-01-18] MEDS: KEPPRA PO SCH ×2 (08:27→20:24)
[2023-01-18] MEDS: VISTARIL PO SCH ×2 (08:27→20:25)
[2023-01-18] MEDS: ZESTRIL PO SCH (08:27)
[2023-01-18] MEDS: LIPITOR PO SCH (08:27)
[2023-01-18] MEDS: PLAVIX PO SCH (08:27)
[2023-01-18] MEDS: DEPAKOTE PO SCH ×2 (08:29→20:24)
[2023-01-18] MEDS: LEVAQUIN 500 MG/100 ML D5W 500 MG/100 ML BAG IV SCH (08:29)
[2023-01-18] MEDS: LOVENOX SUBCUT SCH (08:32)
[2023-01-18] MEDS ORDERED: ZOFRAN 4 MG/2 ML IVP PRN (09:44)
--- NOTE | 2023-01-18 10:28 | PCM.PROG ---
Date/Time Seen Date Seen by Provider: 01/18/23 Time Seen by Provider: 09:00 Provider Provider: RHONA AVENDANO, [facility] Chief Complaint Chief Complaint: COPD EXACERBATION Subjective Subjective: Had bad day yesterday. Became tachycardic and tachypneic multiple times throughout the afternoon. Has not been getting prn breathing treatments. Started receiving yesterday. Required 1 mg of ativan to help pt relax which provided relief. Reports she is still not coughing anything up. Objective Appearance: Positive Alert and Oriented x3, Ill-Appearing, Thin and Cachectic Chest/Lungs: Positive Symmetrical With Equal Breath Sounds, Wheezes, Good Air Movement all 4 Lung [place] and Other (coarse) Heart: Positive RRR and Pulses Normal GI/: Positive Soft, Nontender, Bowel Sounds Normal and No Distention Musculoskeletal: Positive Not Examined Neurological: Positive Sensation Intact, Motor intact, Reflexes Intact, Alert, Oriented and Other (generalized weakness) Vital Signs Vital Signs: Vital Signs: Last 24 Hours 01/17/23 10:35 01/17/23 11:00 01/17/23 12:00 Temperature 97.8 F Temperature Source Temporal Artery Scan Pulse Rate 104 H Respiratory Rate 24 H Blood Pressure 120/63 Blood Pressure Mean 82 Blood Pressure Location Right Arm Blood Pressure Position Supine O2 Sat by Pulse Oximetry 94 L Oxygen Delivery Method Nasal Cannula Nasal Cannula Nasal Cannula Oxygen Flow Rate 2 Weight Telemetry Type Telemetry Monitoring Telemetry Heart Rate Telemetry SPO2 EKG [place] Interval EKG QRS Interval Telemetry Strip Reading 01/17/23 13:00 01/17/23 13:00 01/17/23 13:00 Temperature Temperature Source Pulse Rate Respiratory Rate Blood Pressure Blood Pressure Mean Blood Pressure Location Blood Pressure Position O2 Sat by Pulse Oximetry Oxygen Delivery Method Nasal Cannula Nasal Cannula Oxygen Flow Rate Weight Telemetry Type Remote Telemetry Telemetry Monitoring Continues Telemetry Heart Rate 119 H Telemetry SPO2 87 L EKG [place] Interval 0.12 EKG QRS Interval 0.08 Telemetry Strip Reading SR 01/17/23 13:30 01/17/23 14:00 01/17/23 14:00 Temperature 97.0 F L Temperature Source Temporal Artery Scan Pulse Rate 105 H Respiratory Rate 18 Blood Pressure 108/66 Blood Pressure Mean 80 Blood Pressure Location Right Arm Blood Pressure Position Supine O2 Sat by Pulse Oximetry 98 97 Oxygen Delivery Method Nasal Cannula Nasal Cannula Nasal Cannula Oxygen Flow Rate 2.5 3 Weight Telemetry Type Telemetry Monitoring Telemetry Heart Rate Telemetry SPO2 EKG [place] Interval EKG QRS Interval Telemetry Strip Reading 01/17/23 15:00 01/17/23 15:49 01/17/23 17:00 Temperature Temperature Source Pulse Rate Respiratory Rate Blood Pressure Blood Pressure Mean Blood Pressure Location Blood Pressure Position O2 Sat by Pulse Oximetry Oxygen Delivery Method Nasal Cannula Nasal Cannula Nasal Cannula Oxygen Flow Rate Weight Telemetry Type Telemetry Monitoring Telemetry Heart Rate Telemetry SPO2 EKG [place] Interval EKG QRS Interval Telemetry Strip Reading 01/17/23 18:00 01/17/23 19:00 01/17/23 19:00 Temperature Temperature Source Pulse Rate Respiratory Rate Blood Pressure Blood Pressure Mean Blood Pressure Location Blood Pressure Position O2 Sat by Pulse Oximetry Oxygen Delivery Method Nasal Cannula Nasal Cannula Oxygen Flow Rate Weight Telemetry Type Remote Telemetry Telemetry Monitoring Continues Telemetry Heart Rate 111 H Telemetry SPO2 96 EKG [place] Interval 0.13 EKG QRS Interval 0.[address] 01/17/23 20:00 01/17/23 20:00 01/17/23 20:00 Temperature Temperature Source Pulse Rate Respiratory Rate Blood Pressure Blood Pressure Mean Blood Pressure Location Blood Pressure Position O2 Sat by Pulse Oximetry 97 Oxygen Delivery Method Nasal Cannula Nasal Cannula Nasal Cannula Oxygen Flow Rate 2.5 3 Weight Telemetry Type Telemetry Monitoring Telemetry Heart Rate Telemetry SPO2 EKG [place] Interval EKG QRS Interval Telemetry Strip Reading 01/17/23 21:00 01/17/23 22:00 01/17/23 22:00 Temperature 97.6 F Temperature Source Temporal Artery Scan Pulse Rate 94 Respiratory Rate 23 H Blood Pressure 102/63 Blood Pressure Mean 76 Blood Pressure Location Right Radial Artery Blood Pressure Position Standing O2 Sat by Pulse Oximetry 97 Oxygen Delivery Method Nasal Cannula Nasal Cannula Nasal Cannula Oxygen Flow Rate 2 Weight Telemetry Type Telemetry Monitoring Telemetry Heart Rate Telemetry SPO2 EKG [place] Interval EKG QRS Interval Telemetry Strip Reading 01/17/23 23:00 01/18/23 00:00 01/18/23 01:00 Temperature Temperature Source Pulse Rate Respiratory Rate Blood Pressure Blood Pressure Mean Blood Pressure Location Blood Pressure Position O2 Sat by Pulse Oximetry Oxygen Delivery Method Nasal Cannula Nasal Cannula Nasal Cannula Oxygen Flow Rate Weight Telemetry Type Telemetry Monitoring Telemetry Heart Rate Telemetry SPO2 EKG [place] Interval EKG QRS Interval Telemetry Strip [place] 01/18/23 01:00 01/18/23 02:00 01/18/23 03:00 Temperature Temperature Source Pulse Rate Respiratory Rate Blood Pressure Blood Pressure Mean Blood Pressure Location Blood Pressure Position O2 Sat by Pulse Oximetry Oxygen Delivery Method Nasal Cannula Nasal Cannula Oxygen Flow Rate Weight Telemetry Type Remote Telemetry Telemetry Monitoring Continues Telemetry Heart Rate 92 Telemetry SPO2 96 EKG [place] Interval 0.13 EKG QRS Interval 0.06 Telemetry Strip Reading SR 01/18/23 04:00 01/18/23 05:00 01/18/23 05:02 Temperature Temperature Source Pulse Rate Respiratory Rate Blood Pressure Blood Pressure Mean Blood Pressure Location Blood Pressure Position O2 Sat by Pulse Oximetry 98 Oxygen Delivery Method Nasal Cannula Nasal Cannula Nasal Cannula Oxygen Flow Rate 2.5 Weight Telemetry Type Telemetry Monitoring Telemetry Heart Rate Telemetry SPO2 EKG [place] Interval EKG QRS Interval Telemetry Strip Reading 01/18/23 06:00 01/18/23 06:00 01/18/23 06:00 Temperature 97.0 F L Temperature Source Temporal Artery Scan Pulse Rate 110 H Respiratory Rate 20 Blood Pressure 154/91 H Blood Pressure Mean 112 Blood Pressure Location Right Arm Blood Pressure Position Standing O2 Sat by Pulse Oximetry 92 L Oxygen Delivery Method Nasal Cannula Nasal Cannula Oxygen Flow Rate 2 Weight 108 lb 2 oz Telemetry Type Telemetry Monitoring Telemetry Heart Rate Telemetry SPO2 EKG [place] Interval EKG QRS Interval Telemetry Strip Reading 01/18/23 07:00 01/18/23 07:00 01/18/23 08:00 Temperature Temperature Source Pulse Rate Respiratory Rate Blood Pressure Blood Pressure Mean Blood Pressure Location Blood Pressure Position O2 Sat by Pulse Oximetry Oxygen Delivery Method Nasal Cannula Nasal Cannula Oxygen Flow Rate Weight Telemetry Type Remote Telemetry Telemetry Monitoring Continues Telemetry Heart Rate 102 H Telemetry SPO2 94 EKG [place] Interval 0.12 EKG QRS Interval 0.06 Telemetry Strip Reading Sinus Tachycardia 01/18/23 09:00 01/18/23 09:12 Temperature Temperature Source Pulse Rate Respiratory Rate Blood Pressure Blood Pressure Mean Blood Pressure Location Blood Pressure Position O2 Sat by Pulse Oximetry 98 Oxygen Delivery Method Nasal Cannula Nasal Cannula Oxygen Flow Rate 2.5 Weight Telemetry Type Telemetry Monitoring Telemetry Heart Rate Telemetry SPO2 EKG [place] Interval EKG QRS Interval Telemetry Strip Reading Lab Results Lab Results: Lab Results: Last 24 Hours 01/18/23 05:10 WBC 8.22 RBC 3.70 L Hgb 10.3 L Hct 32.9 L MCV 88.9 MCH 27.8 MCHC 31.3 L RDW Coeff of [place] 14.3 Plt Count 298 Immature Gran % (Auto) 0.7 Neut % (Auto) 74.1 Lymph % (Auto) 18.0 [place] % (Auto) 7.1 Eos % (Auto) 0.0 Baso % (Auto) 0.1 Neut # (Auto) 6.1 Lymph # (Auto) 1.5 [place] # (Auto) 0.6 Eos # (Auto) 0.0 Baso # (Auto) 0.0 Immature Gran # (Auto) 0.1 Sodium 130.1 L Potassium 4.74 Chloride 91.0 L Carbon Dioxide 33.8 H Anion Gap 10.04 BUN 14.4 Creatinine 0.50 L Estimated GFR (MDRD) 122.00 BUN/Creatinine Ratio 28.80 Glucose 114.7 H Calcium 8.99 Total Bilirubin 0.18 L AST 27.1 ALT 14.0 Alkaline Phosphatase 63.0 Total Protein 6.69 Albumin 3.66 Globulin 3.03 Albumin/Globulin Ratio 1.20 Additional Comments Additional Comments: I have independently reviewed and interpreted the labs/EKGs/imaging ordered during this hospital stay. I have reviewed outside records that are available in our EMR that pertain to medical stay including imaging/notes/labs from previous visits. Active Medications Active Medications: Medications Generic Name Dose Route Start Last Admin Trade Name Freq PRN Reason Stop Dose Admin Acetaminophen 650 mg 01/16/23 08:37 Acetaminophen 325 Mg Tablet PO Q4H PRN Mild Pain Hydrocodone Bitart/Acetaminophen 1 tab 01/16/23 06:53 Hydrocodone Bit/Acetaminophen 10/325 Mg Tablet PO Q8H PRN MODERATE PAIN Albuterol Sulfate 2.5 mg 01/16/23 06:53 Albuterol Sulfate 0.083% Vial.Neb NEB Q4-6H PRN Wheezing Albuterol/Ipratropium 3 ml 01/16/23 10:00 01/18/23 09:14 Ipratropium/Albuterol Vial.Neb NEB 3 ml RTQ4H CHRIS Administration Atorvastatin Calcium 10 mg 01/16/23 09:00 01/18/23 08:27 Atorvastatin Calcium 10 Mg Tablet PO 10 mg DAILY CHRIS Administration Buspirone HCl 10 mg 01/16/23 09:00 01/18/23 06:01 Buspirone Hcl 10 Mg Tablet PO 10 mg TID PRN Administration ANXIETY Clopidogrel Bisulfate 75 mg 01/16/23 09:00 01/18/23 08:27 Clopidogrel Bisulfate 75 Mg Tablet PO 75 mg DAILY CHRIS Administration Divalproex Sodium 500 mg 01/16/23 09:00 01/18/23 08:29 Divalproex Sodium 250 Mg Tablet.Dr PO 500 mg BID CHRIS Administration Docusate Sodium 100 mg 01/16/23 09:00 01/18/23 08:26 Docusate Sodium 100 Mg Capsule PO 100 mg DAILY CHRIS Administration Enoxaparin Sodium 30 mg 01/16/23 09:00 01/18/23 08:32 Enoxaparin Sodium 30 Mg/0.3 Ml Syr SUBCUT 30 mg DAILY CHRIS Administration Fluticasone Propionate 1 spray 01/16/23 09:00 01/18/23 08:25 Fluticasone Propionate 16 Gm Nasal [place] ERNESTO 1 spray DAILY CHRIS Administration Formoterol Fumarate 20 mcg 01/16/23 09:00 01/18/23 05:02 Formoterol Fumarate 20 Mcg/2 Ml Vial.Neb IH 20 mcg RTBID CHRIS Administration Hydroxyzine Pamoate 25 mg 01/17/23 11:00 01/18/23 08:27 Hydroxyzine Pamoate 25 Mg Capsule PO 25 mg BID CHRIS Administration Levofloxacin/Dextrose 500 mg in 100 mls @ 100 mls/hr 01/16/23 10:00 01/18/23 08:29 Levaquin 500 Mg/100 Ml D5w IV 01/19/23 09:59 100 mls/hr DAILY CHRIS Administration Latanoprost 1 drop 01/16/23 21:00 01/17/23 20:43 Latanoprost 2.5 Ml Opth Lucero RIGHTEYE 1 drop BEDTIME CHRIS Administration Levetiracetam 750 mg 01/16/23 09:00 01/18/23 08:27 Levetiracetam 500 Mg Tablet PO 750 mg BID CHRIS Administration Lisinopril 10 mg 01/16/23 09:00 01/18/23 08:27 Lisinopril 10 Mg Tablet PO 10 mg DAILY CHRIS Administration Loratadine 10 mg 01/16/23 09:00 Loratadine 10 Mg Tablet PO DAILY PRN ALLERGY SYMPTOMS Methylprednisolone Sodium Succinate 40 mg 01/16/23 13:00 01/18/23 04:14 Methylprednisolone Sod Succ/Pf 40 Mg/Ml Vial IVP 40 mg Q8HR CHRIS Administration Mirtazapine 30 mg 01/16/23 21:00 01/17/23 20:42 Mirtazapine 15 Mg Tablet PO 30 mg BEDTIME CHRIS Administration Non-Formulary Medication 175 mcg 01/16/23 09:00 01/18/23 08:39 Revefenacin [Yupelri] IH Not Given DAILY CHRIS Ondansetron HCl 4 mg 01/18/23 09:44 01/18/23 10:08 Ondansetron Hcl/Pf 4 Mg/2 Ml Sdv IVP 4 mg Q6H PRN Administration Nausea / Vomiting Pantoprazole Sodium 40 mg 01/16/23 07:00 01/18/23 05:28 Pantoprazole Sodium 40 Mg Tablet. PO 40 mg QDAC2 CHRIS Administration Sertraline HCl 100 mg 01/16/23 09:00 01/18/23 08:26 Sertraline Hcl 50 Mg Tablet PO 100 mg DAILY CHRIS Administration Sodium Chloride 1 syr 01/17/23 13:00 01/18/23 04:14 0.9% Sodium Chloride 10 Ml Disp.Syrin IVF 1 syr Q8HR CHRIS Administration Plan Plan: 1. Acute Hypoxic Respiratory Failure in setting of COPD exacerbation - Unchanged, steroids, home routine inhalers, nebs scheduled and prn, levaquin Q24H, wean to home oxygen requirements as tolerated, checking chest CT due to minimal improvement and tachycardia episodes 2. CHF, unknown type - daily weight, I&O, monitor 3. Hypertension - Chronic, stable, continue home medications 4. Seizures, unknown type - Chronic, stable continue home medications 5. Hyperlipidemia - Chronic, stable, continue home mediations DVT Prophylaxis: Plavix Review Statement Review Statement: I have personally discussed and reviewed the patient's visit/currently labs/imaging/decision making with Dr. Lopez, my supervising attending. Greater that 50 minutes spent with patient, 50% of the time spent with this patient was devoted to counseling and coordination of care.
--- NOTE | 2023-01-18 12:14 | CT ---
EXAM: CT CHEST WITHOUT CONTRAST. HISTORY: Shortness of breath. Tachycardia. COMPARISON: Radiograph 01/16/2023. Chest CT 05/21/2018. TECHNIQUE: Multiple axial images of the chest were obtained without intravenous contrast. Images we re reformatted in the sagittal and coronal planes. FINDINGS: Calcified lymph nodes present. Limited assessment for lymphadenopathy without contrast. Heart size normal. Coronary artery and aortic calcifications present. There is no pericardial effus ion. Calcified pleural plaquing present. There is moderate emphysema. Biapical scarring noted. No conso lidation, pleural effusion or pneumothorax identified. Small hiatal hernia noted. Probable cysts in the left renal cysts, one hemorrhagic. Stable low dens ity posterior right hepatic lesion. Multilevel thoracolumbar vertebral compression deformities. L1, T11, T8, T7 and T6 were present on c hest radiograph dated 12/22/2022. T3 and T4 were not well evaluated on prior chest radiograph. IMPRESSION: 1. No acute cardiopulmonary process. 2. Moderate emphysema and stable areas of scarring. 3. Age indeterminate T3 and T4 compression deformities. All CT scans are performed using dose optimization techniques as appropriate to the performed exam an d include at least one of the following: Automated exposure control, adjustment of the mA and/or kV according t o size, and the use of iterative reconstruction technique.
[2023-01-18] MEDS: REMERON PO SCH (20:25)
[2023-01-18] MEDS: XALATAN RIGHTEYE SCH (20:26)
[2023-01-18] MEDS: NORCO 10-325 PO PRN (22:10)
[2023-01-19] MEDS: DUONEB NEB SCH ×6 (01:47→21:12)
[2023-01-19] MEDS: PERFOROMIST IH SCH ×2 (05:09→17:25)
[2023-01-19] MEDS: PROTONIX PO SCH (05:45)
[2023-01-19] MEDS: SOLU-MEDROL 40 MG IVP SCH ×3 (05:49→21:06)
[2023-01-19] MEDS: NORCO 10-325 PO PRN ×2 (06:08→21:05)
[2023-01-19] MEDS: LEVAQUIN 500 MG/100 ML D5W 500 MG/100 ML BAG IV SCH (08:19)
[2023-01-19 08:28] LABS: BASOPHILS % (AUTO) 0.1 % (0.0-3.0); EOSINOPHILS % (AUTO) 0.1 % (0.0-7.0); HEMATOCRIT 36.2 % (37.0-47.0); HEMOGLOBIN 11.5 g/dl (12.0-16.0); IMMATURE GRANULOCYTE # (AUTO) 0.1 (0.0-1.0); LYMPHOCYTES # (AUTO) 1.1 K/uL (0.60-3.4); LYMPHOCYTES % (AUTO) 15.6 (10.0-50.0); MEAN CORPUSCULAR HEMOGLOBIN 28.2 pg (27.0-31.0); MEAN CORPUSCULAR HGB CONC 31.8 (31.8-35.4); MEAN CORPUSCULAR VOLUME 88.7 fl (81.0-99.0); MONOCYTES # (AUTO) 0.4 K/uL (0.4-2.0); MONOCYTES % (AUTO) 6.1 (0-10); NEUTROPHILS # (AUTO) 5.5 K/ul (2.0-6.9); NEUTROPHILS % (AUTO) 77.1 % (42.2-75.2); PLATELET COUNT 362 10^3/uL (140-440); RDW COEFFICIENT OF VARIATION 14.3 % (11.6-14.8); RED BLOOD COUNT 4.08 10^6/ul (4.20-5.40); WHITE BLOOD COUNT 7.07 K/ul (4.6-10.2)
[2023-01-19] MEDS: KEPPRA PO SCH ×2 (08:42→21:06)
[2023-01-19] MEDS: VISTARIL PO SCH (08:45)
[2023-01-19] MEDS: DEPAKOTE PO SCH ×2 (08:46→21:05)
[2023-01-19] MEDS: ZESTRIL PO SCH (08:46)
[2023-01-19] MEDS: BUSPAR PO PRN (08:47)
[2023-01-19] MEDS: COLACE PO SCH (08:47)
[2023-01-19] MEDS: ZOLOFT PO SCH (08:48)
[2023-01-19] MEDS: PLAVIX PO SCH (08:48)
[2023-01-19] MEDS: LOVENOX SUBCUT SCH (08:49)
[2023-01-19] MEDS: LIPITOR PO SCH (08:49)
[2023-01-19 09:03] LABS: ALANINE AMINOTRANSFERASE 15.9 U/L (0-35); ALBUMIN 4.01 g/dL (3.5-5.0); ALKALINE PHOSPHATASE 68.4 U/L (53-141); ASPARTATE AMINO TRANSFERASE 24.8 U/L (14-36); BILIRUBIN,TOTAL 0.23 mg/dL (0.2-1.3); BLOOD UREA NITROGEN 16.9 mg/dL (7-17); CALCIUM 9.17 mg/dL (8.4-10.2); CARBON DIOXIDE 34.4 mmol/L (22-30.0); CHLORIDE 89.6 mmol/L (98-107); CREATININE 0.6 mg/dL (0.60-1.30); GLUCOSE 93.9 mg/dL (74-106); POTASSIUM 4.65 mmol/L (3.5-5.1); TOTAL PROTEIN 7.14 g/dL (6.3-8.2)
[2023-01-19] MEDS: FLONASE NAS SCH (09:15)
[2023-01-19] MEDS ORDERED: XANAX PO SCH (09:50)
--- NOTE | 2023-01-19 10:44 | PCM.PROG ---
Date/Time Seen Date Seen by Provider: 01/19/23 Time Seen by Provider: 09:05 Provider Provider: RHONA AVENDANO, [facility] Chief Complaint Chief Complaint: COPD EXACERBATION Subjective Subjective: States she is about the same as yesterday. Down to 2.5 L via NC today. Has been getting her prn treatments. Spoke extensively with niece/POA Karely. Discussed that she feels she needs to go to residential for rehab. Reported she would talk with her about it. Requested [facility] or [facility] if able. Objective Appearance: Positive No Apparent Distress and Alert and Oriented x3 Chest/Lungs: Positive Symmetrical With Equal Breath Sounds, Wheezes (inspiratory) and Good Air Movement all 4 Lung Marte Heart: Positive RRR and Pulses Normal GI/: Positive Soft, Nontender, Bowel Sounds Normal and No Distention Musculoskeletal: Positive Not Examined Neurological: Positive Sensation Intact, Motor intact, Reflexes Intact, Alert, Oriented and Muscle Strength 5/5 in Upper and Lower Extremities Bilaterally Vital Signs Vital Signs: Vital Signs: Last 24 Hours 01/18/23 11:00 01/18/23 12:00 01/18/23 13:00 Temperature Temperature Source Pulse Rate Respiratory Rate Blood Pressure Blood Pressure Mean Blood Pressure Location Blood Pressure Position O2 Sat by Pulse Oximetry Oxygen Delivery Method Nasal Cannula Nasal Cannula Nasal Cannula Oxygen Flow Rate Weight Telemetry Type Telemetry Monitoring Telemetry Heart Rate Telemetry SPO2 EKG AZ Interval EKG QRS Interval Telemetry Strip Reading 01/18/23 13:00 01/18/23 13:34 01/18/23 14:00 Temperature 98.2 F Temperature Source Oral Pulse Rate 105 H Respiratory Rate 19 Blood Pressure 111/64 Blood Pressure Mean 79 Blood Pressure Location Right Arm Blood Pressure Position Sitting O2 Sat by Pulse Oximetry 94 L 96 Oxygen Delivery Method Nasal Cannula Nasal Cannula Oxygen Flow Rate 2.5 2 Weight Telemetry Type Remote Telemetry Telemetry Monitoring Continues Telemetry Heart Rate 98 Telemetry SPO2 99 EKG AZ Interval 0.13 EKG QRS Interval 0.06 Telemetry Strip Reading NSR 01/18/23 19:00 01/18/23 20:00 01/18/23 20:00 Temperature Temperature Source Pulse Rate Respiratory Rate 20 Blood Pressure Blood Pressure Mean Blood Pressure Location Blood Pressure Position O2 Sat by Pulse Oximetry 95 Oxygen Delivery Method Nasal Cannula Nasal Cannula Oxygen Flow Rate 2.5 2.5 Weight Telemetry Type Remote Telemetry Telemetry Monitoring Continues Telemetry Heart Rate 103 H Telemetry SPO2 96 EKG AZ Interval 0.12 EKG QRS Interval 0.[address] 01/18/23 21:15 01/19/23 01:00 01/19/23 05:05 Temperature 97.8 F Temperature Source Oral Pulse Rate 90 Respiratory Rate 20 Blood Pressure 131/72 Blood Pressure Mean 91 Blood Pressure Location Right Arm Blood Pressure Position Supine O2 Sat by Pulse Oximetry 98 94 L Oxygen Delivery Method Nasal Cannula Nasal Cannula Oxygen Flow Rate 2.5 2.5 Weight Telemetry Type Remote Telemetry Telemetry Monitoring Continues Telemetry Heart Rate 91 Telemetry SPO2 95 EKG AZ Interval 0.12 EKG QRS Interval 0.06 Telemetry Strip Reading SR 01/19/23 05:26 01/19/23 05:30 01/19/23 07:00 Temperature 97.7 F Temperature Source Tympanic Pulse Rate 77 Respiratory Rate 20 Blood Pressure 135/68 Blood Pressure Mean 90 Blood Pressure Location Right Arm Blood Pressure Position Supine O2 Sat by Pulse Oximetry 94 L Oxygen Delivery Method Nasal Cannula Oxygen Flow Rate 2.5 Weight 116 lb 1 oz Telemetry Type Remote Telemetry Telemetry Monitoring Continues Telemetry Heart Rate 88 Telemetry SPO2 93 EKG AZ Interval 0.10 L EKG QRS Interval 0.07 Telemetry Strip Reading NSR Lab Results Lab Results: Lab Results: Last 24 Hours 01/19/23 08:23 WBC 7.07 RBC 4.08 L Hgb 11.5 L Hct 36.2 L MCV 88.7 MCH 28.2 MCHC 31.8 RDW Coeff of [place] 14.3 Plt Count 362 Immature Gran % (Auto) 1.0 Neut % (Auto) 77.1 H Lymph % (Auto) 15.6 [place] % (Auto) 6.1 Eos % (Auto) 0.1 Baso % (Auto) 0.1 Neut # (Auto) 5.5 Lymph # (Auto) 1.1 [place] # (Auto) 0.4 Eos # (Auto) 0.0 Baso # (Auto) 0.0 Immature Gran # (Auto) 0.1 Sodium 130.0 L Potassium 4.65 Chloride 89.6 L Carbon Dioxide 34.4 H Anion Gap 10.65 BUN 16.9 Creatinine 0.60 Estimated GFR (MDRD) 99.00 BUN/Creatinine Ratio 28.16 Glucose 93.9 Calcium 9.17 Total Bilirubin 0.23 AST 24.8 ALT 15.9 Alkaline Phosphatase 68.4 Total Protein 7.14 Albumin 4.01 Globulin 3.13 Albumin/Globulin Ratio 1.28 Additional Comments Additional Comments: I have independently reviewed and interpreted the labs/EKGs/imaging ordered during this hospital stay. I have reviewed outside records that are available in our EMR that pertain to medical stay including imaging/notes/labs from previous visits. Active Medications Active Medications: Medications Generic Name Dose Route Start Last Admin Trade Name Freq PRN Reason Stop Dose Admin Acetaminophen 650 mg 01/16/23 08:37 Acetaminophen 325 Mg Tablet PO Q4H PRN Mild Pain Hydrocodone Bitart/Acetaminophen 1 tab 01/16/23 06:53 01/19/23 06:08 Hydrocodone Bit/Acetaminophen 10/325 Mg Tablet PO 1 tab Q8H PRN Administration MODERATE PAIN Albuterol Sulfate 2.5 mg 01/16/23 06:53 Albuterol Sulfate 0.083% Vial.Neb NEB Q4-6H PRN Wheezing Albuterol/Ipratropium 3 ml 01/16/23 10:00 01/19/23 05:00 Ipratropium/Albuterol Vial.Neb NEB 3 ml RTQ4H CHRIS Administration Alprazolam 0.5 mg 01/19/23 10:00 Alprazolam 0.5 Mg Tablet PO TID CHRIS Atorvastatin Calcium 10 mg 01/16/23 09:00 01/19/23 08:49 Atorvastatin Calcium 10 Mg Tablet PO 10 mg DAILY CHRIS Administration Buspirone HCl 10 mg 01/16/23 09:00 01/19/23 08:47 Buspirone Hcl 10 Mg Tablet PO 10 mg TID PRN Administration ANXIETY Clopidogrel Bisulfate 75 mg 01/16/23 09:00 01/19/23 08:48 Clopidogrel Bisulfate 75 Mg Tablet PO 75 mg DAILY CHRIS Administration Divalproex Sodium 500 mg 01/16/23 09:00 01/19/23 08:46 Divalproex Sodium 250 Mg Tablet. PO 500 mg BID CHRIS Administration Docusate Sodium 100 mg 01/16/23 09:00 01/19/23 08:47 Docusate Sodium 100 Mg Capsule PO 100 mg DAILY CHRIS Administration Enoxaparin Sodium 30 mg 01/16/23 09:00 01/19/23 08:49 Enoxaparin Sodium 30 Mg/0.3 Ml Syr SUBCUT 30 mg DAILY CHRIS Administration Fluticasone Propionate 1 spray 01/16/23 09:00 01/19/23 09:15 Fluticasone Propionate 16 Gm Nasal [place] ERNESTO 1 spray DAILY CHRIS Administration Formoterol Fumarate 20 mcg 01/16/23 09:00 01/19/23 05:09 Formoterol Fumarate 20 Mcg/2 Ml Vial.Neb IH 20 mcg RTBID CHRIS Administration Latanoprost 1 drop 01/16/23 21:00 01/18/23 20:26 Latanoprost 2.5 Ml Opth [place] RIGHTEYE 1 drop BEDTIME CHRIS Administration Levetiracetam 750 mg 01/16/23 09:00 01/19/23 08:42 Levetiracetam 500 Mg Tablet PO 750 mg BID CHRIS Administration Levofloxacin 500 mg 01/20/23 06:00 Levofloxacin 500 Mg Tablet PO 01/23/23 05:59 QDAC2 CHRIS Lisinopril 10 mg 01/16/23 09:00 01/19/23 08:46 Lisinopril 10 Mg Tablet PO 10 mg DAILY CHRIS Administration Loratadine 10 mg 01/16/23 09:00 Loratadine 10 Mg Tablet PO DAILY PRN ALLERGY SYMPTOMS Methylprednisolone Sodium Succinate 40 mg 01/16/23 13:00 01/19/23 05:49 Methylprednisolone Sod Succ/Pf 40 Mg/Ml Vial IVP 40 mg Q8HR CHRIS Administration Mirtazapine 30 mg 01/16/23 21:00 01/18/23 20:25 Mirtazapine 15 Mg Tablet PO 30 mg BEDTIME CHRIS Administration Non-Formulary Medication 175 mcg 01/16/23 09:00 01/19/23 09:10 Revefenacin [Yupelri] IH Not Given DAILY [facility] Ondansetron HCl 4 mg 01/18/23 09:44 01/18/23 10:08 Ondansetron Hcl/Pf 4 Mg/2 Ml Sdv IVP 4 mg Q6H PRN Administration Nausea / Vomiting Pantoprazole Sodium 40 mg 01/16/23 07:00 01/19/23 05:45 Pantoprazole Sodium 40 Mg Tablet.Dr PO 40 mg QDAC2 CHRIS Administration Sertraline HCl 100 mg 01/16/23 09:00 01/19/23 08:48 Sertraline Hcl 50 Mg Tablet PO 100 mg DAILY CHRIS Administration Sodium Chloride 1 syr 01/17/23 13:00 01/19/23 05:50 0.9% Sodium Chloride 10 Ml Disp.Syrin IVF 1 syr Q8HR CHRIS Administration Plan Plan: 1. Acute Hypoxic Respiratory Failure in setting of COPD exacerbation - Improving, near baseline oxygen, steroids, home routine inhalers, nebs scheduled and prn, transition levaquin to PO, wean to home oxygen requirements as tolerated, chest CT negative yesterday, started on Xanax TID to assist with anxiety r/t breathing, f/u with pulmonology upon discharge as scheduled on - [place] 2. CHF, unknown type - daily weight, I&O, monitor 3. Hypertension - Chronic, stable, continue home medications 4. Seizures, unknown type - Chronic, stable continue home medications 5. Hyperlipidemia - Chronic, stable, continue home mediations DVT Prophylaxis: Plavix Review Statement Review Statement: I have personally discussed and reviewed the patient's visit/currently labs/imaging/decision making with Dr. Lopez, my supervising attending. Greater that 50 minutes spent with patient, 50% of the time spent with this patient was devoted to counseling and coordination of care.
[2023-01-19] MEDS: XANAX PO SCH ×3 (11:07→21:05)
[2023-01-19] MEDS: REMERON PO SCH (21:06)
[2023-01-19] MEDS: XALATAN RIGHTEYE SCH (21:12)
[2023-01-19 21:33] VITALS: RESP 18
[2023-01-20] MEDS: DUONEB NEB SCH ×3 (01:15→09:10)
[2023-01-20] MEDS: PERFOROMIST IH SCH (04:59)
[2023-01-20] MEDS: NORCO 10-325 PO PRN (05:21)
[2023-01-20] MEDS: SOLU-MEDROL 40 MG IVP SCH (05:22)
[2023-01-20] MEDS: PROTONIX PO SCH (05:24)
[2023-01-20 05:29] VITALS: BP 106/62; PULSE 77; TEMP 97.6
[2023-01-20] MEDS ORDERED: LEVAQUIN PO SCH (06:00)
[2023-01-20 06:35] LABS: BASOPHILS % (AUTO) 0.1 % (0.0-3.0); EOSINOPHILS % (AUTO) 0.1 % (0.0-7.0); HEMATOCRIT 33.2 % (37.0-47.0); HEMOGLOBIN 10.3 g/dl (12.0-16.0); IMMATURE GRANULOCYTE # (AUTO) 0.1 (0.0-1.0); IMMATURE GRANULOCYTE % (AUTO) 1.2 % (0.0-5.0); LYMPHOCYTES # (AUTO) 2.1 K/uL (0.60-3.4); LYMPHOCYTES % (AUTO) 29.3 (10.0-50.0); MEAN CORPUSCULAR HEMOGLOBIN 27.7 pg (27.0-31.0); MEAN CORPUSCULAR VOLUME 89.2 fl (81.0-99.0); MONOCYTES # (AUTO) 0.7 K/uL (0.4-2.0); MONOCYTES % (AUTO) 8.9 (0-10); NEUTROPHILS # (AUTO) 4.4 K/ul (2.0-6.9); NEUTROPHILS % (AUTO) 60.4 % (42.2-75.2); PLATELET COUNT 350 10^3/uL (140-440); RDW COEFFICIENT OF VARIATION 14.2 % (11.6-14.8); RED BLOOD COUNT 3.72 10^6/ul (4.20-5.40); WHITE BLOOD COUNT 7.31 K/ul (4.6-10.2)
[2023-01-20 06:49] LABS: ALANINE AMINOTRANSFERASE 12.3 U/L (0-35); ALBUMIN 3.35 g/dL (3.5-5.0); ASPARTATE AMINO TRANSFERASE 23.8 U/L (14-36); BILIRUBIN,TOTAL 0.15 mg/dL (0.2-1.3); BLOOD UREA NITROGEN 17.8 mg/dL (7-17); CALCIUM 8.67 mg/dL (8.4-10.2); CARBON DIOXIDE 35.6 mmol/L (22-30.0); CHLORIDE 90.7 mmol/L (98-107); CREATININE 0.55 mg/dL (0.60-1.30); GLUCOSE 94.7 mg/dL (74-106); POTASSIUM 4.34 mmol/L (3.5-5.1); SODIUM 129.1 mmol/L (134.5-145); TOTAL PROTEIN 6.12 g/dL (6.3-8.2)
[2023-01-20 06:50] LABS: ALKALINE PHOSPHATASE 57.6 U/L (53-141)
[2023-01-20] MEDS: KEPPRA PO SCH (08:52)
[2023-01-20] MEDS: DEPAKOTE PO SCH (08:53)
[2023-01-20] MEDS: XANAX PO SCH (08:53)
[2023-01-20] MEDS: LIPITOR PO SCH (08:53)
[2023-01-20] MEDS: ZOLOFT PO SCH (08:53)
[2023-01-20] MEDS: PLAVIX PO SCH (08:54)
[2023-01-20] MEDS: LOVENOX SUBCUT SCH (08:54)
[2023-01-20] MEDS: ZESTRIL PO SCH (08:54)
[2023-01-20] MEDS: COLACE PO SCH (09:03)
[2023-01-20] MEDS: FLONASE NAS SCH (09:07)
--- NOTE | 2023-01-20 12:03 | DCSUM ---
Admission Date Admission Date: 01/16/23 Discharge Date Discharge Date: 01/20/23 Admission Diagnosis Admission Diagnosis: 1. Acute Hypoxic Respiratory Failure in setting of COPD exacerbation 2. CHF, unknown type 3. Hypertension 4. Seizures, unknown type 5. Hyperlipidemia Discharge Diagnosis Discharge Diagnosis: 1. Acute Hypoxic Respiratory Failure in setting of COPD exacerbation - Resolved, on baseline oxygen requirements 3. Hypertension - Chronic, stable 4. Seizures, unknown type - Chronic, stable 5. Hyperlipidemia - Chronic, stable 6. Hyponatremia - Chronic, stable Hospital Provider Hospital Provider: RHONA AVENDANO, [facility] Primary Care Physician Primary Care Physician: GUTIERREZ ROSA APRN Summary of History and Physical Summary of History and Physical: 67 yo female presented to the ER with shortness of breath. Patient has pmh of COPD and at baseline wears 2L via NC continuously. Reports that over the last couple days she has had to turn her concentrator up to 2.5-3L and still is having trouble breathing. There has been an issue with one of her inhalers and unable to get insurance to cover it. At this time, she is requiring 4L via NC and becomes winded when speaking. Denies any fever, chest pain, N/V/D. Hospital Course Subjective: Initially patient was requiring 4L via NC on admission and became extremely SOB even to speak. With steroids, serial nebulizer treatments, prn treatments, and her regular home inhalers over the course, patient is at her baseline of 2-2.5L. Patient has long standing history of COPD and has continued to worsen over the last couple years. Following with Pulmonology at [place] and has an appointment in January. Likely has higher oxygen requirements now due to worsening condition. D/c instructions to nursing facility include oxygen requirement of 2-4L via nc continuous. She has been receiving a course of levaquin during her stay as well and sent with prescription to complete. Started on xanax 0.5 mg TID for anxiety and relaxation to help with breathing. ARAVIND Cali discussed with this provider that she feels patient needs short stay at SNF. Requested [facility] and patient will be discharged to this facility. All other chronic conditions stable. No medication changes were made. Appearance: Pleasant, No Apparent Distress and Alert HEENT: MMM, Supple and No JVD CVS: No Murmur and No Rubs Abdomen: Soft, Non-Tender and No Distention Respiratory: No Dyspnea Extremities: No Edema Vital Signs: Most Recent Vital Signs Temperature 97.6 F 01/20/23 05:28 Temperature Source Oral 01/20/23 05:28 Temperature Source Oral 01/16/23 03:31 Pulse Rate 77 01/20/23 05:28 Respiratory Rate 18 01/20/23 05:28 Blood Pressure 106/62 01/20/23 05:28 Blood Pressure Mean 76 01/20/23 05:28 Blood Pressure Left Arm 184/81 01/16/23 08:40 Blood Pressure Location Right Arm 01/20/23 05:28 Blood Pressure Position Supine 01/20/23 05:28 O2 Sat by Pulse Oximetry 95 01/20/23 09:18 Oxygen Delivery Method Nasal Cannula 01/20/23 09:18 Oxygen Flow Rate 2.5 01/20/23 09:18 Height 5 ft 4 in 01/16/23 08:40 Weight 115 lb 9 oz 01/20/23 05:29 Telemetry Type Remote Telemetry 01/20/23 07:00 Telemetry Monitoring Continues 01/20/23 07:00 Telemetry Heart Rate 83 01/20/23 07:00 Telemetry SPO2 91 L 01/20/23 07:00 EKG CA Interval 0.12 01/20/23 07:00 EKG QRS Interval 0.06 01/20/23 07:00 Telemetry Strip Reading SR 01/20/23 07:00 Lab Results Last 24 Hours: 01/20/23 06:02 WBC 7.31 RBC 3.72 L Hgb 10.3 L Hct 33.2 L MCV 89.2 MCH 27.7 MCHC 31.0 L RDW Coeff of [place] 14.2 Plt Count 350 Immature Gran % (Auto) 1.2 Neut % (Auto) 60.4 Lymph % (Auto) 29.3 [place] % (Auto) 8.9 Eos % (Auto) 0.1 Baso % (Auto) 0.1 Neut # (Auto) 4.4 Lymph # (Auto) 2.1 [place] # (Auto) 0.7 Eos # (Auto) 0.0 Baso # (Auto) 0.0 Immature Gran # (Auto) 0.1 Sodium 129.1 L Potassium 4.34 Chloride 90.7 L Carbon Dioxide 35.6 H Anion Gap 7.14 BUN 17.8 H Creatinine 0.55 L Estimated GFR (MDRD) 110.00 BUN/Creatinine Ratio 32.36 Glucose 94.7 Calcium 8.67 Total Bilirubin 0.15 L AST 23.8 ALT 12.3 Alkaline Phosphatase 57.6 Total Protein 6.12 L Albumin 3.35 L Globulin 2.77 Albumin/Globulin Ratio 1.20 Discharge Instructions Discharge Planning: Discharge Planning > 40 minutes If patient is discharged with left ventricular systolic dysfunction: NA Discharged with a beta teto? [] If no, why not? [] Discharged with an dg/arb? [] If no, why not? [] Discharge today to [facility] by Ambulance Regular diet 1800 mL fluid restriction Oxygen 2-4L continuously Continue home medications as prescribed Complete course of levaquin and steroids Levaquin 500mg. by mouth daily for 5 days, start tomorrow Prednisone 10mg. Dose Pack; take as directed New Medication: Xanax 0.5mg by mouth 3 times a day; next dose due at 3pm today PT/OT to follow at [facility] YOU HAVE AN APPOINTMENT WITH THE [facility] FOR A HOSPITAL FOLLOW UP ON January AT 10:30. SHOULD YOU HAVE ANY QUESTIONS OR NEED TO RESCHEDULE YOU CAN CONTACT THEIR OFFICE AT [phone]. Discharge Medications: Medications at Discharge (Home Meds & RX) latanoprost 0.005 % eye drops 1 drp RIGHTEYE BEDTIME 02/16/14 dextran 70-hypromellose 0.1 %-0.3 % eye drops (Artificial Tears (dextran 70- hypromellose)) 1 drp BOTHEYES DIRECTED PRN DRY EYES 05/07/17 docusate sodium 50 mg capsule (Stool Softener) 50 mg PO QDAY 09/21/20 apsbaktwonel-jvkfntwd-ypaltav-folic acid 400 mcg-vit K1 20 mcg tablet (One-A-Day Women's 50 Plus) 1 tab PO QDAY 08/18/21 fluticasone propionate 50 mcg/actuation nasal spray,suspension See Rx Instructions .Route .COMPLEX #16 ea 02/14/22 loratadine 10 mg tablet (Allergy Relief (loratadine)) 10 mg PO QDAY PRN allergic symptoms #30 tabs 08/16/22 atorvastatin 10 mg tablet See Rx Instructions .Route .COMPLEX #90 tabs 09/20/22 tizanidine 2 mg tablet 2 mg PO BID PRN muscle spasticity #10 tabs 10/11/22 albuterol sulfate 90 mcg/actuation aerosol inhaler See Rx Instructions .Route .COMPLEX #6.7 ea 11/07/22 clopidogrel 75 mg tablet See Rx Instructions .Route .COMPLEX #30 tabs 11/21/22 Chux pads (underpads) #100 ea 11/23/22 guaifenesin 600 mg tablet, extended release 12 hr (Mucinex) 600 mg PO BID #60 tabs 11/23/22 lisinopril 10 mg tablet See Rx Instructions .Route .COMPLEX #30 tabs 12/20/22 mirtazapine 30 mg tablet See Rx Instructions .Route .COMPLEX #30 tabs 12/20/22 buspirone 10 mg tablet See Rx Instructions .Route .COMPLEX #90 tabs 12/21/22 divalproex 500 mg tablet,delayed release See Rx Instructions .Route .COMPLEX #180 tabs 12/21/22 divalproex 500 mg tablet,delayed release (Depakote) 500 mg PO BID 90 days #180 tabs 12/21/22 levetiracetam 750 mg tablet See Rx Instructions .Route .COMPLEX #180 tabs 12/21/22 Yupelri 175 mcg/3 mL solution for nebulization (revefenacin) 175 mcg (3 mL) inhalation QDAY 90 days #90 mL 12/30/22 naloxone 4 mg/actuation nasal spray (Narcan) 1 spray intranasal Q2-3M PRN opioid overdose #2 ea 12/30/22 albuterol sulfate 2.5 mg/3 mL (0.083 %) solution for nebulization 2.5 mg (3 mL) inhalation Q4-6H PRN shortness of breath or wheezing #90 mL 01/11/23 formoterol fumarate 20 mcg/2 mL solution for nebulization (Perforomist) 2 ml inhalation BID 30 days #120 mL 01/11/23 hydrocodone 10 mg-acetaminophen 325 mg tablet 1 tab PO Q8H PRN pain #9 tabs 01/11/23 sertraline 100 mg tablet 100 mg PO QDAY 90 days #90 tabs 01/11/23 pantoprazole 40 mg tablet,delayed release See Rx Instructions .Route .COMPLEX #30 tabs 01/16/23 alprazolam 0.5 mg tablet 0.5 mg PO TID #90 tabs 01/20/23 levofloxacin 500 mg tablet 500 mg PO QDAC2 #5 tabs 01/20/23 prednisone 10 mg tablets in a dose pack See Rx Instructions PO .COMPLEX #21 ea 01/20/23 Discharge Plan Discharge Discharge Orders: Discharge Patient (ONCE); Ordered 01/20/23 Ordered By: ASIF ARZATE Activity Restrictions/Additional Instructions: Discharge today to [facility] by Ambulance Regular diet 1800 mL fluid restriction Oxygen 2-4L continuously Continue home medications as prescribed Complete course of levaquin and steroids Levaquin 500mg. by mouth daily for 5 days, start tomorrow Prednisone 10mg. Dose Pack; take as directed New Medication: Xanax 0.5mg by mouth 3 times a day; next dose due at 3pm today PT/OT to follow at [facility] YOU HAVE AN APPOINTMENT WITH THE [facility] FOR A HOSPITAL FOLLOW UP ON January AT 10:30. SHOULD YOU HAVE ANY QUESTIONS OR NEED TO RESCHEDULE YOU CAN CONTACT THEIR OFFICE AT [phone]. Instructions: COPD (Chronic Obstructive Pulmonary Disease) (GEN) Care Plan Goals: Problem: Activity Intolerance Goal: Demonstrate increased activity intolerance Instructions: Determine cause of activity intolerance Change positions slowly Gradually increase activity Report intolerances to provider Problem: Impaired Respiratory Status Goal: Exhibit optimal respiratory function Instructions: Activities as tolerated Apply oxygen as ordered Elevate head of bed Notify MD of increased congestion Patient Disposition: TRANSFER SNF Prescriptions: New alprazolam 0.5 mg Tablet 0.5 mg PO TID Qty: 90 0RF levofloxacin 500 mg Tablet 500 mg PO QDAC2 Qty: 5 0RF prednisone 10 mg tablets,dose pack See Rx Instructions .ROUTE .COMPLEX Qty: 21 0RF Rx Instructions: orally per package directions Continued fluticasone propionate 50 mcg/actuation spray,suspension See Rx Instructions .ROUTE .COMPLEX Qty: 16 2RF Dose Instruction: USE ONE SPRAY IN EACH NOSTRIL DAILY Rx Instructions: USE ONE SPRAY IN EACH NOSTRIL DAILY atorvastatin 10 mg tablet See Rx Instructions .ROUTE .COMPLEX Qty: 90 3RF Dose Instruction: TAKE ONE TABLET DAILY Rx Instructions: TAKE ONE TABLET DAILY albuterol sulfate 90 mcg/actuation HFA aerosol inhaler See Rx Instructions .ROUTE .COMPLEX Qty: 6.7 2RF Dose Instruction: USE 2 PUFFS EVERY FOUR (4) HOURS NEEDED FOR SHORTNESS OF BREATH Rx Instructions: USE 2 PUFFS EVERY FOUR (4) HOURS NEEDED FOR SHORTNESS OF BREATH clopidogrel 75 mg tablet See Rx Instructions .ROUTE .COMPLEX Qty: 30 2RF Dose Instruction: TAKE ONE TABLET DAILY GENERIC FOR PLAVIX Rx Instructions: TAKE ONE TABLET DAILY GENERIC FOR PLAVIX lisinopril 10 mg tablet See Rx Instructions .ROUTE .COMPLEX Qty: 30 1RF Dose Instruction: TAKE ONE TABLET DAILY Rx Instructions: TAKE ONE TABLET DAILY mirtazapine 30 mg tablet See Rx Instructions .ROUTE .COMPLEX Qty: 30 2RF Dose Instruction: TAKE ONE TABLET AT BEDTIME GENERIC FOR REMERON Rx Instructions: TAKE ONE TABLET AT BEDTIME GENERIC FOR REMERON buspirone 10 mg tablet See Rx Instructions .ROUTE .COMPLEX Qty: 90 1RF Dose Instruction: TAKE ONE TABLET THREE TIMES DAILY NEEDED ANXIETY Rx Instructions: TAKE ONE TABLET THREE TIMES DAILY NEEDED ANXIETY levetiracetam 750 mg tablet See Rx Instructions .ROUTE .COMPLEX Qty: 180 3RF Dose Instruction: TAKE 1 TABLET (750 MG TOTAL) BY MOUTH 2 (TWO) TIMES A DAY Rx Instructions: TAKE 1 TABLET (750 MG TOTAL) BY MOUTH 2 (TWO) TIMES A DAY divalproex [Depakote] 500 mg tablet,delayed release (DR/EC) 500 mg PO BID 90 Days Qty: 180 1RF divalproex 500 mg tablet,delayed release (DR/EC) See Rx Instructions .ROUTE .COMPLEX Qty: 180 3RF Dose Instruction: TAKE 1 TABLET (500 MG TOTAL) BY MOUTH 2 (TWO) TIMES A DAY Rx Instructions: TAKE 1 TABLET (500 MG TOTAL) BY MOUTH 2 (TWO) TIMES A DAY pantoprazole 40 mg tablet,delayed release (DR/EC) See Rx Instructions .ROUTE .COMPLEX Qty: 30 1RF Dose Instruction: TAKE ONE TABLET DAILY GENERIC FOR PROTONIX Rx Instructions: TAKE ONE TABLET DAILY GENERIC FOR PROTONIX latanoprost 1 DROP drops 1 drp RIGHTEYE BEDTIME Patient Comments: RIGHT EYE Artificial Tears([id number]) 30 ML drops 1 drp BOTHEYES DIRECTED PRN (Reason: DRY EYES) Stool Softener 50 mg capsule 50 mg PO QDAY Yupelri 175 mcg/3 mL solution for nebulization 175 mcg inhalation QDAY 90 Days Qty: 90 0RF naloxone [Narcan] 4 mg/actuation spray,non-aerosol 1 spray intranasal Q2-3M PRN (Reason: opioid overdose) Qty: 2 0RF Rx Instructions: spray 1 dose into ONE nostril; alternate nostrils w each dose until help arrives One-A-Day Women's 50 Plus 400-20 mcg tablet 1 tab PO QDAY loratadine [Allergy Relief (loratadine)] 10 mg tablet 10 mg PO QDAY PRN (Reason: allergic symptoms) Qty: 30 0RF tizanidine 2 mg tablet 2 mg PO BID PRN (Reason: muscle spasticity) Qty: 10 0RF guaifenesin [Mucinex] 600 mg tablet extended release 12hr 600 mg PO BID Qty: 60 3RF (DME) Chux pads (underpads) See Rx Instructions .ROUTE .MEDSUPPLY Qty: 100 3RF Rx Instructions: As directed hydrocodone-acetaminophen 10-325 mg tablet 1 tab PO Q8H PRN (Reason: pain) Qty: 9 0RF Rx Instructions: take 1/2-1 tab every 8 hours as needed for severe pain albuterol sulfate 2.5 mg /3 mL (0.083 %) solution for nebulization 2.5 mg inhalation Q4-6H PRN (Reason: shortness of breath or wheezing) Qty: 90 2RF formoterol fumarate [Perforomist] 20 mcg/2 mL solution for nebulization 2 ml inhalation BID 30 Days Qty: 120 3RF sertraline 100 mg tablet 100 mg PO QDAY 90 Days Qty: 90 1RF Did you review [place] [employer] for ALL controlled substances?: No Discussed opioids are addictive and Narcan is available by prescription or from pharmacy.: No Condition: Fair
== END 2023-01-20 12:40 | DRG 190 ==
LOC: ED 03:29 → MEDSURG B 03:29
PROVIDERS: ADMIT Hospitalist; ATTEND Nurse Practitioner Family
DX: E87.1 Hypo-osmolality and hyponatremia; E78.5 Hyperlipidemia, unspecified; I11.0 Hypertensive heart disease with heart failure; J44.1 Chronic obstructive pulmonary disease with (acute) exacerbation; Z99.81 Dependence on supplemental oxygen; J96.01 Acute respiratory failure with hypoxia; Z20.822 Contact with and (suspected) exposure to COVID-19; G40.89 Other seizures